=== PATIENT | female | born 1960 | race Two or more races ===

== ENCOUNTER 2024-07-16 16:37 | Emergency (ER) | payer MEDICARE, MEDICAID, SELFPAY ==
[2024-07-16 16:38] VITALS: BMI 26.8
[2024-07-16 16:49] VITALS: BP 154/89; PULSE 92; RESP 18; TEMP 37; O2SAT 95
--- NOTE | 2024-07-16 17:53 | XR_ITS ---
Examination: Duplex scan of the lower extremity, unilateral left complete Date and time of exam: July 16, 2024 at 1854 hrs. Indications: Onset left calf pain beginning 2 weeks ago Technique: Duplex scan of the extremity veins using B-mode/grayscale imaging and Doppler spectral analysis and color flow Attention is directed to internal echogenicity, compression and augmentation involving these veins, color flow assessment, spectral analysis Findings: Major deep venous structures in the extremity demonstrate normal course and caliber. There is no evidence of deep vein thrombosis. Normal color flow and spectral analysis Impression: Negative for DVT..
--- NOTE | 2024-07-16 17:55 | XR_ITS ---
Examination: Tibia-Fibula, left , 2 views Technique: Tibia-fibula AP lateral 2 views Date and time of exam: July 16, 2024 1803 hrs. Indications: Lower leg pain beginning today Findings: Moderate osteopenia No fracture No dislocation No cortical bone destruction No foreign body Impression: No fracture or cortical bone destruction
--- NOTE | 2024-07-16 17:55 | PD.EDRME ---
Rapid Medical Screening Exam RME Arrival date/time: 07/16/24 16:37 This is a 64-year-old female presents to the emergency department with complaints of left lower extremity pain. Patient reports she has been having calf pain leg pain for approximate 3 days. I have greeted and performed a focused initial assessment of this patient. Initial appropriate labs ordered at this time. A comprehensive ED assessment and evaluation of the patient and analysis of all test and completion of medical decision making process will be conducted by additional ED provider. Chief Complaint: Back Pain/Injury Time Seen by Provider: 07/16/24 17:32 Vital signs: Vital Signs Temperature 98.6 F 07/16/24 16:49 Pulse Rate 92 07/16/24 16:49 Respiratory Rate 18 07/16/24 16:49 Blood Pressure 154/89 H 07/16/24 16:49 Pulse Oximetry (%) 95 07/16/24 16:49 Oxygen Delivery Method Room Air 07/16/24 16:49
[2024-07-16] MEDS: KETOROLAC INJ 60 MG/2 ML VIAL 30 MG IM (19:45)
[2024-07-16 19:47] LABS: Basophils % (Auto) 0 % (0-2.5); Eosinophils # (Auto) 0.2 Thou/mm3 (0.0-0.5); Eosinophils % (Auto) 2 % (0-10); Hematocrit 37.5 % (36.0-46.0); Immature Granulocytes % (Auto) 1 % (0-0); Immature Granulocytes Auto 0.09 Thou/mm3 (0.00-0.00); Lymphocytes # (Auto) 3.6 Thou/mm3 (1.0-4.8); Lymphocytes % (Auto) 35 % (10-50); Mean Corpuscular HGB Conc 34.7 g/dl (31.0-37.0); Mean Corpuscular Hemoglobin 29.3 pg (25.0-35.0); Mean Corpuscular Volume 85 fL (80-100); Monocytes # (Auto) 0.8 Thou/mm3 (0.0-0.8); Monocytes % (Auto) 8 % (0-12); Neutrophils # (Auto) 5.5 Thou/mm3 (1.8-7.7); Neutrophils % (Auto) 54 % (37-80); Nucleated Red Blood Cell % 0 /100 WBC (0); Platelet Count 339 Thou/mm3 (140-440); RDW Standard Deviation 41.5 fL (36.4-46.3); Red Blood Count 4.43 Miln/mm3 (4.00-5.20); White Blood Count 10.2 Thou/mm3 (3.6-11.0)
[2024-07-16 19:48] LABS: Prothrombin Time 10.9 Seconds (9.0-12.2)
--- NOTE | 2024-07-16 19:51 | PD.EDBACK ---
ED Back Injury Pain RME/HPI General Chief Complaint: Back Pain/Injury Stated Complaint: LOWER BACK PAIN AND LLE PAIN X1 WEEK Time Seen by Provider: 07/16/24 17:32 Arrival date/time: 07/16/24 16:37 RME / HPI RME / HPI Narrative: 07/16/24 16:37 This is a 64-year-old female presents to the emergency department with complaints of left lower extremity pain. Patient reports she has been having calf pain leg pain for approximate 3 days. I have greeted and performed a focused initial assessment of this patient. Initial appropriate labs ordered at this time. A comprehensive ED assessment and evaluation of the patient and analysis of all test and completion of medical decision making process will be conducted by additional ED provider. ----- Dr. Padilla?s Main ED Evaluation: Related Data Home Medications ?Medication ?Instructions ?Recorded ?Confirmed atenolol 50 mg tablet 50 mg PO QDAY 05/09/19 05/09/19 levothyroxine 175 mcg tablet 175 mcg PO QDAY 05/09/19 05/09/19 metformin 500 mg tablet 500 mg PO DAILY 05/09/19 05/09/19 naproxen 500 mg tablet 500 mg PO DAILY 05/09/19 05/09/19 omeprazole 20 mg tablet,delayed 20 mg PO QDAY 05/09/19 05/09/19 release sertraline 50 mg tablet 50 mg PO QDAY 05/09/19 05/09/19 Previous Rx's ?Medication ?Instructions ?Recorded levothyroxine 150 mcg capsule 150 mcg PO QDAY #30 caps 03/05/21 Allergies Allergy/AdvReac Type Severity Reaction Status Date / Time codeine Allergy Severe DELUSIONS Verified 07/16/24 16:40 Review of Systems Review of Systems Systems Reviewed: All systems reviewed, normal except as documented Narrative Review of Systems: Gen: No fever, no chills, no weight loss EYES: No discharge, no visual changes, no pain HEENT: No ear pain, no congestion, no sore throat PULM: No shortness of breath, no cough, no congestion CV: No chest pain, no dyspnea on exertion, no palpitations GI: No nausea, no vomiting, no diarrhea, no pain, no constipation : No frequency, no urgency, no dysuria Musc/skel: No joint pain, no back pain Skin: No rash. Warm and dry. Psyc: No hallucinations, no depression Heme/Lymph: No easy bleeding or bruising tendencies Neuro: No weakness, no headache Past Medical History Past Medical History CARDIAC: Positive Cardiac Disorders, Hypercholesterolemia and Hypertension; Negative Congestive Heart Failure RESPIRATORY: Negative Chronic Obstructive Pulmonary Disease (COPD) GENITOURINARY: Negative Renal Disease ENDOCRINE: Positive Diabetes Mellitus Type 2 and Hypothyroidism; Negative Diabetes Mellitus Type 1 PSYCHO/SOCIAL: Positive Depression OTHER HISTORY: Positive Cancer (THYROID) Social History SMOKING STATUS: Never smoker SUBSTANCE USE: does not use ED Exam Narrative Physical exam: GENERAL APPEARANCE: alert and oriented x 4, well-developed, well-nourished, no acute distress VITALS: All vitals were reviewed and the pulse ox is 95% on room air, which is normal according to my interpretation. HEENT: Normocephalic, atraumatic; pupils equal, round, reactive to light; EOMI; mucous membranes pink, moist; oropharynx clear NECK: Supple LUNGS: CTABL; no wheezes, no rales, no rhonchi HEART: Regular rate, regular rhythm; normal S1, S2; no murmurs ABDOMEN: non distended; normal BS; soft, no tenderness, no guarding, no rebound; no masses, no organomegaly, no hernia BACK: no CVA tenderness EXTREMITIES: atraumatic; no edema NEUROLOGIC: awake; alert and oriented x4; cranial nerves II-XII grossly intact; no focal sensory or motor deficits PSYCHIATRIC: appropriate mood and affect SKIN: warm, dry, normal color; no rashes Course Quality Measures none Orders Category Date Time Status US venous duplex LE LT Stat Exams 07/16/24 17:53 Completed XR tibia fibula LT 2V Stat Exams 07/16/24 17:55 Completed CBC Stat Lab 07/16/24 19:24 Received PT [Prothrombin Time with INR] Stat Lab 07/16/24 19:24 Completed Ketorolac Inj [Toradol Inj] Med 07/16/24 17:54 Discontinued 30 mg IM X1 ONE traMADol HCL [Ultram] Med 07/16/24 17:53 Active 50 mg PO Q4HR PRN Vital Signs Vital signs: Vital Signs Temperature 98.6 F 07/16/24 16:49 Pulse Rate 92 07/16/24 16:49 Respiratory Rate 18 07/16/24 16:49 Blood Pressure 154/89 H 07/16/24 16:49 Pulse Oximetry (%) 95 07/16/24 16:49 Oxygen Delivery Method Room Air 07/16/24 16:49 Back Pain / Injury MDM Narrative MDM Narrative:: Scribe Attestation: 07/16/24 - Chioma Barba am scribing for and in the presence of Dr. Padilla. Patient data External records reviewed:: [facility] previous records (Per chart review, patient was seen here on 03/05/21 for anxiety.) Clinical information provided by:: patient Social determinants that could affect healthcare access:: none Patient has the following chronic illnesses:: HTN, HLD, depression, DM How is presenting disease/condition affected by chronic disease/condition?: uneffected by Evaluation data The following diagnostics were reviewed and interpreted by me:: lab results and radiology exam(s) Lab and/or radiology exams considered but not ordered:: none Interpretation Summary: Potassium is slightly low at 3.2, Glucose is elevated at 266, troponin is normal, TSH is low at 0.07, T4 is elevated at 2.05, according to my interpretation. -------- [facility] Report Signed Patient: JOSE RAMON WATT [employer]. Record#: [id number] Birthdate: 1960 Age/Sex: 64 / F Location: [facility] Attending Dr: Ordering Physician: Sabrina Carlson Date of Service: 07/16/24 Procedure(s): XR tibia fibula LT 2V Accession Number(s): [id number] cc: Rocky Polk PA-C; Hemant Rico MD; Sabrina Carlson~ Examination: Tibia-Fibula, left , 2 views Technique: Tibia-fibula AP lateral 2 views Date and time of exam: July 16, 2024 1803 hrs. Indications: Lower leg pain beginning today Findings: Moderate osteopenia No fracture No dislocation No cortical bone destruction No foreign body Impression: No fracture or cortical bone destruction Dictated By: Hemant Rico MD Signed By: <Electronically signed by Hemant Rico MD in OV> 07/16/241920 [facility] Report Signed Patient: JOSE RAMON WATT [employer]. Record#: [id number] Birthdate: 1960 Age/Sex: 64 / F Location: [facility] Attending Dr: Ordering Physician: Sabrina Carlson Date of Service: 07/16/24 Procedure(s): US venous duplex LE LT Accession Number(s): [id number] cc: Rocky Polk PA-C; Hemant Rico MD; Sabrina Carlson~ Examination: Duplex scan of the lower extremity, unilateral left complete Date and time of exam: July 16, 2024 at 1854 hrs. Indications: Onset left calf pain beginning 2 weeks ago Technique: Duplex scan of the extremity veins using B-mode/grayscale imaging and Doppler spectral analysis and color flow Attention is directed to internal echogenicity, compression and augmentation involving these veins, color flow assessment, spectral analysis Findings: Major deep venous structures in the extremity demonstrate normal course and caliber. There is no evidence of deep vein thrombosis. Normal color flow and spectral analysis Impression: Negative for DVT.. Dictated By: Hemant Rico MD Signed By: <Electronically signed by Hemant Rico MD in OV> 07/16/24 1920 Medications / Prescriptions Medications or Prescriptions considered but not ordered:: none Medication administrations:: Medication Administration History Tramadol HCl (Tramadol Hcl 50 Mg Tablet) 50 mg PO Q4HR PRN PRN Reason: PAIN Stop: 07/21/24 17:52 Discontinued Medications Ketorolac Tromethamine (Ketorolac Inj 60 Mg/2 Ml Vial) 30 mg IM X1 ONE Stop: 07/16/24 17:55 Last Admin: 07/16/24 19:45 Dose: 30 mg Documented By: KF see above Discharge Plan Prescriptions/Referrals Prescriptions/Med Rec: No Action metformin 500 mg Tablet 500 mg PO DAILY levothyroxine 175 mcg Tablet 175 mcg PO QDAY sertraline 50 mg Tablet 50 mg PO QDAY atenolol 50 mg Tablet 50 mg PO QDAY naproxen 500 mg Tablet 500 mg PO DAILY omeprazole 20 mg Tablet,Delayed Release (Dr/Ec) 20 mg PO QDAY levothyroxine 150 mcg capsule 150 mcg PO QDAY Qty: 30 0RF Referrals: Rocky Polk PA-C [Primary Care Provider] - In 1 week Patient/Caregiver Discharge Instructions Print Language: Serbian
[2024-07-16 20:15] VITALS: BP 158/79; PULSE 80; RESP 18; TEMP 36.9; O2SAT 95
--- NOTE | 2024-07-16 20:34 | EDNOTE_ITS ---
ED Back Injury Pain RME/HPI General Chief Complaint: Back Pain/Injury Stated Complaint: LOWER BACK PAIN AND LLE PAIN X1 WEEK Time Seen by Provider: 07/16/24 17:32 Arrival date/time: 07/16/24 16:37 RME / HPI RME / HPI Narrative: 64-year-old female patient came in for evaluation regarding left posterior lateral leg tenderness, described as burning-like sensation, severity moderate this been ongoing for at least 1 week. Patient also complaining of low back pain. Denies any urinary or bladder incontinence. Patient is ambulatory. No medication was taken prior to arrival Related Data Home Medications ?Medication ?Instructions ?Recorded ?Confirmed atenolol 50 mg tablet 50 mg PO QDAY 05/09/19 05/09/19 levothyroxine 175 mcg tablet 175 mcg PO QDAY 05/09/19 05/09/19 metformin 500 mg tablet 500 mg PO DAILY 05/09/19 05/09/19 naproxen 500 mg tablet 500 mg PO DAILY 05/09/19 05/09/19 omeprazole 20 mg tablet,delayed 20 mg PO QDAY 05/09/19 05/09/19 release sertraline 50 mg tablet 50 mg PO QDAY 05/09/19 05/09/19 Previous Rx's ?Medication ?Instructions ?Recorded levothyroxine 150 mcg capsule 150 mcg PO QDAY #30 caps 03/05/21 ketorolac 10 mg tablet 10 mg PO TID PRN pain 7 days #20 07/16/24 tabs Allergies Allergy/AdvReac Type Severity Reaction Status Date / Time codeine Allergy Severe DELUSIONS Verified 07/16/24 16:40 Review of Systems Review of Systems Narrative Review of Systems: Review of system reviewed and within normal limits except mentioned in HPI ED Exam Narrative Physical exam: VITAL SIGNS: Reviewed. GENERAL APPEARANCE: Alert and interactive, follows commands, no acute distress, HEAD AND FACE: Non-traumatic. ENT: PERRL, pink conjunctivitis, eyelid no trauma, Mucous membrane moist. NECK: Supple, nontender, no nuchal rigidity. CHEST: No tenderness, no crepitus, no paradoxical movement, no retractions. LUNGS: Clear, well ventilated, symmetric, no rales, no wheezing, no ronchi, no stridor, good breath sounds bilaterally. HEART: Regular rate, regular rhythm, no murmur, no gallops. ABDOMEN: Soft, positive bowel sounds, nondistended, no guarding, nontender, no rebound, no masses, RECTAL: Deferred. GENITAL: Deferred. NEUROLOGICAL: Gross motor function intact sensory function intact, Appropriate for age. MUSCULOSKELETAL: low back tenderness, full range of motion. EXTREMITIES: Tenderness to the left posterior lateral aspect of the lower leg, positive straight leg raising test at 45 degrees on the left, full range of motion. SKIN: Color pink, dry, no rash, no lacerations, no abrasions, no contusions. LYMPHATICS: Deferred. Course Quality Measures none Orders Category Date Time Status US venous duplex LE LT Stat Exams 07/16/24 17:53 Completed XR tibia fibula LT 2V Stat Exams 07/16/24 17:55 Completed CBC Stat Lab 07/16/24 19:24 Completed PT [Prothrombin Time with INR] Stat Lab 07/16/24 19:24 Completed Ketorolac Inj [Toradol Inj] Med 07/16/24 17:54 Discontinued 30 mg IM X1 ONE traMADol HCL [Ultram] Med 07/16/24 17:53 Active 50 mg PO Q4HR PRN Vital Signs Vital signs: Vital Signs Temperature 98.6 F 07/16/24 16:49 Pulse Rate 92 07/16/24 16:49 Respiratory Rate 18 07/16/24 16:49 Blood Pressure 154/89 H 07/16/24 16:49 Pulse Oximetry (%) 95 07/16/24 16:49 Oxygen Delivery Method Room Air 07/16/24 16:49 Back Pain / Injury MDM Narrative MDM Narrative:: 64-year-old female patient came in for evaluation regarding left posterior lateral leg tenderness, described as burning-like sensation, severity moderate this been ongoing for at least 1 week. Patient also complaining of low back pain. Denies any urinary or bladder incontinence. Patient is ambulatory. No medication was taken prior to arrival Ultrasound of the leg is negative for acute pathology. No DVT, x-ray of the leg also came back unremarkable. The rest of the labs unremarkable. Patient data External records reviewed:: None Clinical information provided by:: patient Social determinants that could affect healthcare access:: none Patient has the following chronic illnesses:: None How is presenting disease/condition affected by chronic disease/condition?: no chronic disease Evaluation data The following diagnostics were reviewed and interpreted by me:: lab results and radiology exam(s) Lab and/or radiology exams considered but not ordered:: None Interpretation Summary: Patient's workup all came back normal. Ultrasound of the leg is negative for DVT, x-ray of the leg came back unremarkable. Results discussed with the patient. Medications / Prescriptions Medications or Prescriptions considered but not ordered:: None Medication administrations:: Medication Administration History Tramadol HCl (Tramadol Hcl 50 Mg Tablet) 50 mg PO Q4HR PRN PRN Reason: PAIN Stop: 07/21/24 17:52 Discontinued Medications Ketorolac Tromethamine (Ketorolac Inj 60 Mg/2 Ml Vial) 30 mg IM X1 ONE Stop: 07/16/24 17:55 Last Admin: 07/16/24 19:45 Dose: 30 mg Documented By: LUDIVINA Toradol IM Consultations Consultation(s) initiated? (list below): No Consultation #1 (Physician, Specialty, Details): None Diagnosis Differential diagnosis back pain/injury: lumbar radiculopathy, sciatica and other (Leg pain, DVT) Most likely diagnosis given after review of the tests above:: Sciatica Admission Indicated Admission indicated?: not indicated Explain why admission is indicated or not indicated:: Stable Admission Request Was there a request for admission?: No Disposition Plan Disposition Plan: Discharge Discharge Attestation Discharge Attestation: The patient was given an opportunity to ask questions and understood the discharge instructions. Discharge instructions specifically effects, indications for sooner follow up or return to the emergency department, and the expected course of current diagnosis. Patient condition: Stable Discharge Plan Plan Patient Disposition: HOME (Self Care) Disposition Comment: Stable Prescriptions/Referrals Prescriptions/Med Rec: New ketorolac 10 mg tablet 10 mg PO TID PRN (Reason: pain) 7 Days Qty: 20 0RF No Action metformin 500 mg Tablet 500 mg PO DAILY levothyroxine 175 mcg Tablet 175 mcg PO QDAY sertraline 50 mg Tablet 50 mg PO QDAY atenolol 50 mg Tablet 50 mg PO QDAY naproxen 500 mg Tablet 500 mg PO DAILY omeprazole 20 mg Tablet,Delayed Release (Dr/Ec) 20 mg PO QDAY levothyroxine 150 mcg capsule 150 mcg PO QDAY Qty: 30 0RF Referrals: Rocky Polk PA-C [Primary Care Provider] - In 1 week Problem List Clinical Impression: Sciatica Patient/Caregiver Discharge Instructions Discharge Activity: activity as tolerated Education Materials: ED Sciatica Additional Instructions: Thank you for the opportunity for serving you today. You are stable for discharged . You are advised to: Follow-up with your PCP in 1 to 2 days as your PCP to refer you to a spine surgeon Return to ED for worsening of symptoms Increase oral fluids Take medication as prescribed Print Language: [place] Stand Alone Forms: Any Award Info., Patient Portal Info Letter PA/PIPE LINE WALKER Supervising Physician PA/PIPE LINE WALKER Supervising Physician: MD Randy
== END 2024-07-16 20:42 | disposition home or self-care (01) ==
PROVIDERS: Nurse Practitioner Primary Care; Emergency Provider Emergency Medicine; PCP Physician Assistant
DX: M54.42 Lumbago with sciatica, left side (principal)
CPT/HCPCS: 36415; 73590; 85025; 85610; 93971; 96372; 99284; J1885

== ENCOUNTER 2024-08-31 13:47 | Emergency (ER) | payer MEDICARE, MEDICAID, SELFPAY ==
[2024-08-31] VITALS (8 sets, daily range): BP systolic 98–146; BP diastolic 63–87; PULSE 63–71; RESP 13–20; TEMP 36.6–36.8; O2SAT 94–99; BMI 25.6
--- NOTE | 2024-08-31 14:22 | EKG_ITS ---
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
--- NOTE | 2024-08-31 14:22 | XR_ITS ---
Examination: AP lateral chest 2 views TECHNIQUE: AP upright lateral chest 2 views Exam date and time: August 31, 2024 1430 hours INDICATIONS: Chest pain beginning 2 days ago. FINDINGS: Minor subsegmental atelectasis left midlung Normal heart size No pneumonia or pulmonary edema The osseous structures are intact IMPRESSION: No pneumonia or pulmonary edema
--- NOTE | 2024-08-31 14:23 | PD.EDRME ---
Rapid Medical Screening Exam RME Arrival date/time: 08/31/24 13:47 64-year-old female presents to the emergency department complaints of chest pain Chief Complaint: Chest Pain Vital signs: Vital Signs Temperature 98.3 F 08/31/24 14:06 Pulse Rate 70 08/31/24 14:06 Respiratory Rate 18 08/31/24 14:06 Blood Pressure 98/63 08/31/24 14:06 Pulse Oximetry (%) 96 08/31/24 14:06 Oxygen Delivery Method Room Air 08/31/24 14:06
[2024-08-31 15:50] LABS: Basophils % (Auto) 0 % (0-2.5); Eosinophils # (Auto) 0.1 Thou/mm3 (0.0-0.5); Eosinophils % (Auto) 1 % (0-10); Hematocrit 40.8 % (36.0-46.0); Hemoglobin 14.7 g/dL (12.0-16.0); Immature Granulocytes % (Auto) 1 % (0-0); Immature Granulocytes Auto 0.12 Thou/mm3 (0.00-0.00); Lymphocytes # (Auto) 3.1 Thou/mm3 (1.0-4.8); Lymphocytes % (Auto) 31 % (10-50); Mean Corpuscular Hemoglobin 29.8 pg (25.0-35.0); Mean Corpuscular Volume 83 fL (80-100); Monocytes # (Auto) 0.9 Thou/mm3 (0.0-0.8); Monocytes % (Auto) 9 % (0-12); Neutrophils # (Auto) 5.7 Thou/mm3 (1.8-7.7); Neutrophils % (Auto) 57 % (37-80); Nucleated Red Blood Cell % 0 /100 WBC (0); Platelet Count 475 Thou/mm3 (140-440); RDW Standard Deviation 39.7 fL (36.4-46.3); Red Blood Count 4.94 Miln/mm3 (4.00-5.20)
[2024-08-31 16:08] LABS: Alanine Aminotransferase 28 U/L (10-49); Albumin, Serum 4.6 gm/dL (3.4-4.8); Albumin/Globulin Ratio 1.4 (1.2-2.2); Alkaline Phosphatase 83 U/L (46-116); Anion Gap 6 (7-16); Aspartate Amino Transferase 19 U/L (0-34); BUN/Creatinine Ratio 20 Ratio (12-20); Bilirubin,Total 0.7 mg/dL (0.3-1.2); Blood Urea Nitrogen 14 mg/dL (9-23); Calcium 10.1 mg/dL (8.3-10.6); Calcium (Corrected) 10.1 mg/dL (8.5-10.1); Carbon Dioxide 26.6 mMol/L (20.0-31.0); Chloride 89 mMol/L (98-107); Creatinine (Component) 0.7 mg/dL (0.6-1.3); Globulin 3.3 gm/dL (2.3-3.5); Glucose 128 mg/dL (74-106); Osmolality,Calculated 248 (275-295); Potassium 3.3 mMol/L (3.4-5.1); Sodium 122 mMol/L (136-145); Total Protein 7.9 gm/dL (5.7-8.2); Troponin I < 0.002 ng/mL (0.0-0.045); eGFR > 60 See Note
[2024-08-31 16:13] LABS: B-Type Natriuretic Peptide < 20 pg/mL (0-100)
--- NOTE | 2024-08-31 20:39 | PD.EDCHEST ---
ED Chest Pain RME/HPI General Chief Complaint: Chest Pain Stated Complaint: WEAKNESS X 1 WK W/ CHEST PRESSURE X 2 WKS Time Seen by Provider: 08/31/24 19:24 Arrival date/time: 08/31/24 13:47 RME / HPI RME / HPI narrative: 08/31/24 13:47 64-year-old female presents to the emergency department complaints of chest pain This section includes all my notes and documentations, including HPI, PE, and ED course. Eder Fields MD HPI: 64yo female with a history of HTN, DM accompanied by her daughter presents to the ED for a chief complaint of left-sided chest pain x several days. Patient states her pain radiates to her back, describing it as pressure in nature. She reports an associated mild cough. She denies any fever, chills, shortness of breath or any other associated symptoms. Reports increased anxiety and nerves. No other complaints reported. ROS: All negative except as documented in HPI. Physical Exam: General: Alert and oriented. Appears anxious. Eyes: Conjunctivae and lids clear. ENT: No nasal congestion. Neck: Supple. Heart: RRR. Lungs: No respiratory distress. Good air movement. No rhonchi, wheezing, rales. Chest: Palpation of the anterior chest left of the sternum reproduces her pain. Abdomen: Soft and nontender. Legs: No clubbing, cyanosis, edema. Skin: Warm and dry. Neuro: Alert and oriented X 3. I reviewed all diagnostic test results. My interpretation of the EKG is sinus rhythm with no acute ST?T changes. My interpretation of the chest x-ray is no acute findings. Blood tests and urine tests remarkable for K3.3 and equivocal UTI. At this point, diagnoses include chest wall pain versus anxiety chest pain. Treatment here included Potassium, Zofran, Morphine, Toradol, and NS. Significant improvement noted. Recommended more outpatient workup. Based on my best medical judgment, made decision no further evaluation or treatment indicated at this time. Patient understands and agrees to the discharge instructions customized and printed, see below. Discharge instructions from Dr. Fields: 1. After extensive evaluation, there is no life-threatening condition.? Such as heart attack or pulmonary embolism (blood clots in your lungs) or pneumothorax (collapsed lung). 2. Your symptoms may be due to underlying stress or anxiety or nerves.? This is fairly common. Your pain can be originating from the chest wall and not from an internal organ.? The chest wall has many joints and muscles between the ribs, so sprains and strains are common.?? Apply ice or heat if helpful.? Tylenol/ibuprofen as needed. 3. Take Xanax as needed for anxiety or nerves.? Whether this helps or not will be valuable information to your private doctors. And cefdinir for possible UTI, until urine culture returns. 4. See a private doctor on 09/01/2024 for recheck and further care. Ask to review all test results and official radiology reports, to make sure you receive all necessary follow-ups and monitoring. To make sure there is no serious underlying heart condition, ask to help you get more tests for your heart that cannot be done here in the ER.? Such as Holter Monitor (cardiac monitoring at home from a day to even a month), heart stress test (on treadmill or with medication), echocardiogram (imaging of your heart structures), heart catherization (checking for blockages in your heart arteries), and a referral to see a Retirement Actuary. 5. Seek immediate medical care with worsening or with any concerns.?? Eder Fields MD Related Data Home Medications ?Medication ?Instructions ?Recorded ?Confirmed atenolol 50 mg tablet 50 mg PO QDAY 05/09/19 05/09/19 levothyroxine 175 mcg tablet 175 mcg PO QDAY 05/09/19 05/09/19 metformin 500 mg tablet 500 mg PO DAILY 05/09/19 05/09/19 naproxen 500 mg tablet 500 mg PO DAILY 05/09/19 05/09/19 omeprazole 20 mg tablet,delayed 20 mg PO QDAY 05/09/19 05/09/19 release sertraline 50 mg tablet 50 mg PO QDAY 05/09/19 05/09/19 Previous Rx's ?Medication ?Instructions ?Recorded levothyroxine 150 mcg capsule 150 mcg PO QDAY #30 caps 03/05/21 alprazolam 0.5 mg tablet (Xanax) 0.5 mg PO BID PRN anxiety #10 tabs 08/31/24 cefdinir 300 mg capsule 300 mg PO BID #14 caps 08/31/24 Allergies Allergy/AdvReac Type Severity Reaction Status Date / Time codeine Allergy Severe DELUSIONS Verified 07/16/24 16:40 Review of Systems Review of Systems Systems Reviewed: All systems reviewed, normal except as documented Past Medical History Past Medical History CARDIAC: Positive Cardiac Disorders, Hypercholesterolemia and Hypertension; Negative Congestive Heart Failure RESPIRATORY: Negative Chronic Obstructive Pulmonary Disease (COPD) GENITOURINARY: Negative Renal Disease ENDOCRINE: Positive Diabetes Mellitus Type 2 and Hypothyroidism; Negative Diabetes Mellitus Type 1 PSYCHO/SOCIAL: Positive Depression OTHER HISTORY: Positive Cancer (THYROID) Social History SMOKING STATUS: Never smoker SUBSTANCE USE: does not use ED Exam Narrative Physical exam: As noted in HPI. Course Course Course Narrative: CXR is ordered for determining the etiology of chest pain. Quality Measures none Orders Category Date Time Status Bedside COVID-19 Antigen Test NOW Care 08/31/24 21:54 Active Bedside Influenza A&B Antigen Test NOW Care 08/31/24 21:[address] Screening NOW Care 08/31/24 20:40 Active EKG (ED ONLY) *Do not use* NOW Care 08/31/24 14:22 Completed Saline [Insert IV] NOW Care 08/31/24 20:39 Active EKG (ED Only) Stat Exams 08/31/24 14:22 Draft XR chest 2V Stat Exams 08/31/24 14:22 Completed B-Type Natriuretic Peptide Stat Lab 08/31/24 15:11 Completed CBC Stat Lab 08/31/24 15:11 Completed Comprehensive Metabolic Panel Stat Lab 08/31/24 15:11 Completed D-Dimer Stat Lab 08/31/24 21:13 Completed Troponin I Stat Lab 08/31/24 15:11 Completed Urinalysis Stat Lab 08/31/24 23:18 Completed Urine Culture Stat Lab 08/31/24 23:42 Ordered KCL 10% Liq UDC 15 ML Med 08/31/24 20:41 Discontinued 20 meq PO X1 ONE Ketorolac Inj [Toradol Inj] Med 08/31/24 20:39 Discontinued 30 mg IVP X1 ONE Morphine Inj Med 08/31/24 20:39 Discontinued 4 mg IVP X1 ONE Ondansetron Inj [Zofran Inj] Med 08/31/24 20:39 Discontinued 4 mg IV X1 ONE Sodium Chloride 0.9% 1000 ml [Ns] 1,000 ml Med 08/31/24 21:54 Discontinued IV 999 mls/hr Vital Signs Vital signs: Vital Signs Temperature 98.3 F 08/31/24 14:06 Pulse Rate 70 08/31/24 14:06 Respiratory Rate 18 08/31/24 14:06 Blood Pressure 98/63 08/31/24 14:06 Pulse Oximetry (%) 96 08/31/24 14:06 Oxygen Delivery Method Room Air 08/31/24 14:06 Chest Pain MDM Narrative MDM Narrative:: Scribe Attestation: 08/31/24 - Freda, Chioma Villagomez am scribing for and in the presence of Dr. Fields. Patient data External records reviewed:: [facility] previous records (Per chart review, patient was seen here on 07/16/24 for sciatica.) Clinical information provided by:: patient Social determinants that could affect healthcare access:: none Patient has the following chronic illnesses:: HTN, DM How is presenting disease/condition affected by chronic disease/condition?: uneffected by Evaluation data The following diagnostics were reviewed and interpreted by me:: lab results and EKG tracing(s) Lab and/or radiology exams considered but not ordered:: none Interpretation Summary: Normal diagnostics Medications / Prescriptions Medications or Prescriptions considered but not ordered:: none Medication administrations:: Medication Administration History Discontinued Medications Sodium Chloride (Ns) 1,000 mls @ 999 mls/hr IV .Q1H1M ONE Stop: 08/31/24 22:54 Last Admin: 08/31/24 22:03 Dose: 999 mls/hr Documented By: AMELIE Ketorolac Tromethamine (Ketorolac Inj 30 Mg/Ml Vial) 30 mg IVP X1 ONE Stop: 08/31/24 20:40 Last Admin: 08/31/24 21:09 Dose: 30 mg Documented By: AMELIE Morphine Sulfate (Morphine Sulf Inj 10 Mg/Ml Vial) 4 mg IVP X1 ONE Stop: 08/31/24 20:40 Last Admin: 08/31/24 21:08 Dose: 4 mg Documented By: AMELIE Ondansetron HCl (Ondansetron Inj 2 Mg/Ml Inj 2 Ml) 4 mg IV X1 ONE; Protocol Stop: 08/31/24 20:40 Last Admin: 08/31/24 21:09 Dose: 4 mg Documented By: AMELIE Potassium Chloride (Potassium Chloride 10% 20 Meq/15 Ml c) 20 meq PO X1 ONE Stop: 08/31/24 20:42 Last Admin: 08/31/24 21:09 Dose: 20 meq Documented By: KD Potassium, Zofran, Morphine, Toradol, NS Consultations Consultation(s) initiated? (list below): No Diagnosis Chest Pain Differential Diagnosis: pneumothorax, stable angina, unstable angina pectoris, st elevation myocardial infarction, costochondritis and chest pain Most likely diagnosis given after review of the tests above:: Chest wall pain versus anxiety chest pain Admission Indicated Admission indicated?: not indicated Explain why admission is indicated or not indicated:: Admission criteria not met. Admission Request Was there a request for admission?: No Disposition Plan Disposition Plan: Discharge Discharge Attestation Discharge Attestation: The patient and all family members were given an opportunity to ask questions and understood the discharge instructions. Discharge instructions specifically effects, indications for sooner follow up or return to the emergency department, and the expected course of current diagnosis. Patient condition: Stable Discharge Plan Plan Patient Disposition: HOME (Self Care) Prescriptions/Referrals Prescriptions/Med Rec: New alprazolam [Xanax] 0.5 mg tablet 0.5 mg PO BID PRN (Reason: anxiety) Qty: 10 0RF cefdinir 300 mg capsule 300 mg PO BID Qty: 14 0RF No Action metformin 500 mg Tablet 500 mg PO DAILY levothyroxine 175 mcg Tablet 175 mcg PO QDAY sertraline 50 mg Tablet 50 mg PO QDAY atenolol 50 mg Tablet 50 mg PO QDAY naproxen 500 mg Tablet 500 mg PO DAILY omeprazole 20 mg Tablet,Delayed Release (Dr/Ec) 20 mg PO QDAY levothyroxine 150 mcg capsule 150 mcg PO QDAY Qty: 30 0RF Referrals: Rocky Polk PA-C [Primary Care Provider] - In 1 week Problem List Clinical Impression: Chest pain Patient/Caregiver Discharge Instructions Discharge Activity: activity as tolerated Education Materials: ED Anxiety Reaction, ED Chest Pain, Uncertain Cause Additional Instructions: Discharge instructions from Dr. Fields: 1. After extensive evaluation, there is no life-threatening condition.? Such as heart attack or pulmonary embolism (blood clots in your lungs) or pneumothorax (collapsed lung). 2. Your symptoms may be due to underlying stress or anxiety or nerves.? This is fairly common. Your pain can be originating from the chest wall and not from an internal organ.? The chest wall has many joints and muscles between the ribs, so sprains and strains are common.?? Apply ice or heat if helpful.? Tylenol/ibuprofen as needed. 3. Take Xanax as needed for anxiety or nerves.? Whether this helps or not will be valuable information to your private doctors. 4. See a private doctor on 09/01/2024 for recheck and further care. Ask to review all test results and official radiology reports, to make sure you receive all necessary follow-ups and monitoring. To make sure there is no serious underlying heart condition, ask to help you get more tests for your heart that cannot be done here in the ER.? Such as Holter Monitor (cardiac monitoring at home from a day to even a month), heart stress test (on treadmill or with medication), echocardiogram (imaging of your heart structures), heart catherization (checking for blockages in your heart arteries), and a referral to see a Retirement Actuary. 5. Seek immediate medical care with worsening or with any concerns.?? Instrucciones de alice del Dr. Fields: 1. Despu?s de opal evaluaci?n exhaustiva, no hay ninguna afecci?n que ponga en peligro la subha, donnie un ataque card?aco o opal embolia pulmonar (co?gulos de dea en los pulmones) o un neumot?rax (colapso pulmonar). 2. Azael s?ntomas pueden deberse a estr?s, ansiedad o nervios subyacentes. [place] es bastante com?n. Marino dolor puede tener marino origen en la pared tor?cica y no en un ?rgano interno. La pared tor?cica tiene muchas articulaciones y m?sculos entre las costillas, por lo que los esguinces y las distensiones son comunes. Aplique hielo o calor si es ?til. Tylenol/ibuprofeno seg?n sea necesario. 3. [place] Xanax seg?n sea necesario para la ansiedad o los nervios. Si esto ayuda o no, ser? opal informaci?n valiosa para azael m?dicos privados. 4. Visite a un m?dico privado el 06/21/2025 para volver a realizar un control y recibir m?s atenci?n. Pida que le revisen todos los resultados de las pruebas y los informes oficiales de radiolog?a para asegurarse de que recibe todos los seguimientos y la monitorizaci?n necesarios. Para asegurarse de que no haya opal afecci?n card?mauricio subyacente grave, solicite ayuda para obtener m?s pruebas para marino coraz?n que no se pueden realizar aqu? en la ashlee de emergencias. Donnie el monitor Holter (monitoreo card?aco en el hogar desde un d?a hasta incluso un mes), prueba de esfuerzo card?aco (en cinta o con medicaci?n), ecocardiograma (im?genes de las estructuras de marino coraz?n), cateterismo card?aco (verificaci?n de bloqueos en las arterias de marino coraz?n) y opal derivaci?n para desirae a un cardi?logo. 5. Busque atenci?n m?dica inmediata si empeora o tiene alguna inquietud. Print Language: Yoruba Stand Alone Forms: Any Award Info., Patient Portal Info Letter
[2024-08-31] MEDS: MORPHINE SULF INJ 10 MG/ML VIAL 4 MG IVP (21:08)
[2024-08-31] MEDS: KETOROLAC INJ 30 MG/ML VIAL IVP (21:09)
[2024-08-31] MEDS: POTASSIUM CHLORIDE 10% 20 MEQ/15 ML UDC PO (21:09)
[2024-08-31] MEDS: ONDANSETRON INJ 2 MG/ML INJ 2 ML 4 MG IV (21:09)
[2024-08-31 21:44] LABS: D-Dimer < 250 ng/mL (<600)
[2024-08-31] MEDS: SODIUM CHLORIDE 0.9% 1000 ML 1,000 ML 999 ML IV (22:03)
[2024-08-31 23:29] LABS: Collection Type, Urine Clean Catch
[2024-08-31 23:36] LABS: Bacteria,Urine Rare; Bilirubin,Urine Negative (Negative); Blood,Urine Negative (Negative); Budding Yeast,Urine Present; Clarity,Urine Turbid (Clear/Hazy); Color,Urine Yellow (Lt Yel-Yel); Glucose, Urine Negative (Negative); Hyaline Casts,Urine < 1 /hpf (0-1); Ketones,Urine Negative (Negative); Leukocyte Esterase,Urine Positive (Negative); Nitrite,Urine Negative (Negative); PH,Urine 6.5 (5.0-7.0); Protein,Urine 1+ (Neg - Trace); RBC,Urine 18 /hpf (0-3); Specific Gravity,Urine 1.026 (1.001-1.035); Squamous Epithelial Cell,Urine 10 /hpf (0-5); WBC,Urine 183 /hpf (0-5)
== END 2024-09-01 00:10 | disposition home or self-care (01) ==
PROVIDERS: Nurse Practitioner Primary Care; Emergency Provider Emergency Medicine; PCP Physician Assistant
DX: I10 Essential (primary) hypertension (principal); E78.00 Pure hypercholesterolemia, unspecified; R07.89 Other chest pain
CPT/HCPCS: 36415; 71046; 80053; 81001; 83880; 84484; 85025; 85379; 87086; 87400; 87811; 93005; 96361; 96374; 99284; J1885; J2270; J2405; J7030; A9270

== ENCOUNTER 2024-09-22 14:07 | Outpatient (RCR) | payer MEDICARE, MEDICAID, SELFPAY ==
--- NOTE | 2024-09-22 15:46 | PT.OIERPT ---
PT OP Initial Eval Patient Information Outpatient Physical Therapy Treatment Date: 09/22/24 Visit Reasons: back pain Medical Diagnosis: M54.42 Treatment Dx #1: Back Pain Treatment Dx #2: Left LE Weakness Start of Care: 09/22/24 Date of Onset: Jun 2024 Smoking Status Smoking Status: Never smoker Initial Assessment Subjective: Pt is a 64 y/o female reports of back pain (9/10) worsening since Jun 2024. Pt further reports of losing strength and feeling weakness in her left leg. Pt has been non-ambulatory since 3 weeks ago and has not been back to PCP. Pt currently has someone help her with bed mobility, transfer, cook, clean, and ADLs. Objective: L/S AROM (in sitting): all motions are 25 % towards end range in all plane Left Hip AROM: unable Right Hip AROM: all motions are WFL Left Hip MMTs: trace Right Hip MMTs: grossly 3/5 Assessment: Pt demonstrate back pain with weakness in the LE L>R leading to difficulty with ADLs. Pt has regress with strength and mobility in the past weeks leading to non-ambulatory. At this time Pt will not benefit from physical therapy. Recommend L/S MRI and neuro consult to help determine severity of back and left leg symptoms. Pt was evaluated and d/c from care; thank you for your referrals. Short Term and Curriculum Coordinator Goals 1) Eval and D/C 2) Follow up with PCP and recommend L/S MRI 3) Recommend neuro consult Treatment Plan Frequency and Duration: 1x Certification Dates: 09/22/24 to 12/23/24 Procedure Charges OP PT Eval Mod Complex 30 minutes: Yes
== END 2024-10-18 23:59 | disposition home or self-care (01) ==
LOC: CPTX 14:07
PROVIDERS: PCP Physician Assistant; Referring Provider Physician Assistant; Visit Provider Physician Assistant
DX: M54.42 Lumbago with sciatica, left side (principal); R53.1 Weakness
CPT/HCPCS: 97162

== ENCOUNTER 2024-10-03 18:37 | Inpatient (IN) | payer MEDICARE, MEDICAID, SELFPAY ==
[2024-10-03] VITALS (7 sets, daily range): BP systolic 103–134; BP diastolic 74–83; PULSE 64–75; RESP 11–22; TEMP 36.4; O2SAT 93–98; BMI 27.4
--- NOTE | 2024-10-03 19:46 | EDNOTE_ITS ---
Altered Mental Status RME/HPI General Chief Complaint: Altered Mental Status Stated Complaint: ALTERED MENTAL STATUS Source: EMS Arrival date/time: 10/03/24 18:37 Mode of arrival: EMS RME / HPI RME / HPI narrative: Dr. Padilla?s Main ED Evaluation: 64-year-old woman with a history of high blood pressure, type 2 diabetes, and hypothyroidism who is brought to the emergency room today for sudden confusion. On exam, patient does not answer my questionnaire but she responds to my voice and painful stimuli. Her daughter reported that she was last seen acting normal around 5:30 PM, but by 6:30 PM, she was confused and not responding as much as usual. Complete HPI and ROS unobtainable due to patient's mental status. Related Data Home Medications ?Medication ?Instructions ?Recorded ?Confirmed atenolol 50 mg tablet 50 mg PO QDAY 05/09/1905/09 levothyroxine 175 mcg tablet 175 mcg PO QDAY 05/09/19 05/09/19 metformin 500 mg tablet 500 mg PO DAILY 05/09/19 naproxen 500 mg tablet 500 mg PO DAILY 05/09/19 omeprazole 20 mg tablet,delayed 20 mg PO QDAY 05/09/19 05/09/19 release sertraline 50 mg tablet 50 mg PO QDAY 05/09/1905/09 Previous Rx's ?Medication ?Instructions ?Recorded levothyroxine 150 mcg capsule 150 mcg PO QDAY #30 caps 03/05/21 alprazolam 0.5 mg tablet (Xanax) 0.5 mg PO BID PRN anx iety #10 tabs 08/31/24 cefdinir 300 mg capsule 300 mg PO BID #14 caps 08/31 Allergies Allergy/AdvReac Type Severity Reaction Status Date / Time codeine Allergy Severe DELUSIONS Verified 07/16/24 16:40 Review of Systems Review of Systems ROS Unobtainable: unobtainable due to mental status Past Medical History Past Medical History CARDIAC: Positive Hypercholesterolemia and Hypertension; Negative Cardiac Disorders or Congestive Heart Failure RESPIRATORY: Negative Chronic Obstructive Pulmonary Disease (COPD) or Asthma GENITOURINARY: Negative Renal Disease ENDOCRINE: Positive Diabetes Mellitus Type 2 and Hypothyroidism; Negative Diabetes Mellitus Type 1 HEMATOLOGIC: Negative Sickle Cell Disease PSYCHO/SOCIAL: Positive Depression OTHER HISTORY: Positive Cancer Social History SMOKING STATUS: Never smoker SUBSTANCE USE: does not use ED Exam Narrative Physical exam: The patient is awake and alert, opening her eyes when spoken to. She is responsive to pain stimuli but remains nonverbal. She does not speak or respond to questions and does not engage in conversation or follow commands. Per teleneuro consult, Examination: Blood Glucose(89) 1A: Level of Consciousness - Alert; keenly responsive + 0 1B: Ask Month and Age - Both Questions Right + 0 1C: Blink Eyes & Squeeze Hands - Performs Both Tasks + 0 2: Test Horizontal Extraocular Movements - Normal + 0 3: Test Visual Brar - No Visual Loss + 0 4: Test Facial Palsy (Use Grimace if Obtunded) - Normal symmetry + 0 5A: Test Left Arm Motor Drift - Drift, hits bed + 2 5B: Test Right Arm Motor Drift - Drift, hits bed + 2 6A: Test Left Leg Motor Drift - No Movement + 4 6B: Test Right Leg Motor Drift - No Movement + 4 7: Test Limb Ataxia (FNF/Heel-Melendez) - No Ataxia + 0 8: Test Sensation - Mild-Moderate Loss: Less Sharp/More Dull + 1 9: Test Language/Aphasia - Normal; No aphasia + 0 10: Test Dysarthria - Normal + 0 11: Test Extinction/Inattention - No abnormality + 0 NIHSS Score: 13 NIHSS Free Text: delayed responses, but aox3 and following commands; effort dependent exam with giveaway weakness on BUE; applied strong nox stim to BLE and no movement noted; legs are externally rotated at rest General General appearance: Present alert and in no apparent distress Head Head exam: Present atraumatic Eye Eye exam: Present normal appearance, PERRL and EOMI ENT ENT exam: Present normal exam, normal oropharynx and mucous membranes moist Neck Neck exam: Present normal inspection, full ROM and trachea midline Chest Chest inspection: Present normal inspection and symmetric chest wall rise Respiratory Respiratory exam: Present normal lung sounds bilaterally Cardiovascular Cardiovascular exam: Present regular rate, normal rhythm and normal heart sounds Abdominal Exam Abdominal exam: Present soft and normal bowel sounds Extremities Exam Extremities exam: Present normal inspection and full ROM Back Exam Back exam: Present normal inspection and full ROM Neurological Exam Neurological exam: Present alert, CN II-XII intact and other (see above) Psychiatric Psychiatric exam: Present normal affect and normal mood Skin Skin exam: Present warm, dry, intact and normal color Course Quality Measures Suspected type of Stroke: Unknown at this time Tenecteplase given: Reason(s) TPA not given: Outside the time window not given stroke Orders Category Date Time Status Register Of Wills STAT Care 10/03/24 20:05 Active Continuous Pulse Oximetry NOW Care 10/03/24 23:23 Active EKG (ED ONLY) *Do not use* NOW Care 10/03/24 20:05 Completed In and Out Catheter X1 Care 10/03/24 20:05 Active Insert IV STAT Care 10/03/24 20:05 Active Miscellaneous Nursing Order NOW Care 10/04/24 03:01 Active NIH Stroke Scale now Care 10/03/24 23:23 Active NPO NOW Care 10/03/24 23:23 Active Urinary Catheter NOW Care 10/03/24 20:[address] head/brain wo con Stat Exams 10/03/24 23:[address] stroke protocol Stat Exams 10/03/24 23:23 Completed EKG (ED Only) Stat Exams 10/03/24 20:05 Ordered XR chest 1V portable Stat Exams 10/03/24 20:07 Completed Alcohol, Blood Medical Stat Lab 10/04/24 03:19 Completed CBC Stat Lab 10/03/24 20:25 Completed CRP [C-Reactive Protein] Stat Lab 10/04/24 03:19 Completed Comprehensive Metabolic Panel Stat Lab 10/03/24 20:25 Completed Drug Screen,Urine Stat Lab 10/04/24 02:59 Ordered ESR [Sed Rate (ESR)] Stat Lab 10/04/24 03:19 Completed Folate Stat Lab 10/04/24 03:19 Completed Free T4 (Free Thyroxine) Stat Lab 10/03/24 23:20 Completed Lactic Acid [Lactate (Lactic Acid)] Stat Lab 10/04/24 03:19 Completed Magnesium Stat Lab 10/03/24 20:25 Completed Partial Thromboplastin Time Stat Lab 10/03/24 20:25 Completed Prothrombin Time with INR Stat Lab 10/03/24 20:25 Completed Renal Function Panel Stat Lab 10/03/24 23:20 Completed TSH [Thyroid Stimulating Hormone] Stat Lab 10/04/24 03:19 Completed Troponin I Stat Lab 10/03/24 20:25 Completed Urinalysis Stat Lab 10/03/24 21:25 Completed Urine Culture Stat Lab 10/03/24 21:25 Received Vitamin B12 Stat Lab 10/04/24 03:19 Completed Magnesium Sulfate 2 GM Ivpb [Magnesium Sulfate Ivpb] Med 10/03/24 21:15 Discontinued 2 gm in 50 ml IV X1 POTASSIUM CHL 10 mEq IVPB [Kcl Ivpb] Med 10/03/24 21:14 Discontinued 10 meq in 100 ml IV Q1H Potassium Chloride [K-Dur] Med 10/03/24 21:14 Discontinued 40 meq PO X1 ONE Thiamine Inj [Vitamin B-1 Inj] 100 mg Med 10/04/24 02:58 Discontinued Sodium Chloride 0.9% [Ns] 100 ml IV X1 cefTRIAXone [Rocephin] 1,000 mg Med 10/03/24 23:26 Discontinued SODIUM CHLORIDE 0.9% (Popper) [Ns 0.9% (P)] 50 ml IV X1 Oxygen Delivery NOW RT 10/03/24 20:05 Active Vital Signs Vital signs: Vital Signs Pulse Rate 74 10/03/24 20:01 Blood Pressure 134/83 H 10/03/24 20:01 Pulse Oximetry (%) 94 L 10/03/24 20:01 Altered Mental Status MDM Narrative MDM Narrative:: 2320 Case d/w hospitalist team for admission. Stroke protocol to be initiated pending consideration for admission. 2[address] alert was [address] CT Head reviewed and it showed no acute hemorrhage or large evolving infarct Teleneuro recommends: ? MRI lumbar spine w/o contrast ? Toxic metabolic infectious work-up and empirical therapy per primary team ? Please consider thiamine repletion; and TSH/T4 measurement Teleneurology reports that the patient exhibited delayed responses, and her daughter is present at the bedside. Upon my re-evaluation, the daughter states that the patient has no known history of stroke but has been experiencing progressive weakness in the lower extremities. Teleneuro expressed the concern for cauda equina syndrome, an MRI has been recommended for further evaluation in the morning. Patient is accepted for admission. Scribe Attestation: I, Vincent Epps, am scribing for and in the presence of Dr. Padilla. Provider Notation: Although this document has been carefully reviewed, there may still be some phonetic and other typographical errors. These errors are purely grammatical due to imperfections in the software program and should not be construed in any way to compromise the substance of the patient's medical care during this visit. Patient data External records reviewed:: [facility] previous records Clinical information provided by:: EMS Social determinants that could affect healthcare access:: none Patient has the following chronic illnesses:: see PMH How is presenting disease/condition affected by chronic disease/condition?: uneffected by Evaluation data The following diagnostics were reviewed and interpreted by me:: lab results and radiology exam(s) Lab and/or radiology exams considered but not ordered:: na Interpretation Summary: Examination: AP chest single view Exam date and time: October 03, 2024 1934 hrs. Comparison August 31, 2024 Indications: Syncope today. Findings: Minor bilateral subsegmental atelectasis. Normal heart size. No aspiration pneumonia. Prominent osteopenia Impression: Minor bilateral subsegmental atelectasis No aspiration pneumonia Dictated By: Hemant Rico MD Examination: CT brain head without contrast. Date and time of exam:October 03, 2024 1129 hrs. Indications: Onset focal neurologic deficit today Findings: No significant ventricular enlargement. Left frontal calcifications Intra-axial or extra-axial hemorrhage density is not seen. No mass effect or midline shift Basal cisterns are not remarkable. Fourth ventricle is midline. Cranial vault intact. Impression: Negative for acute hemorrhage, mass effect or midline shift Dictated By: Hemant Rico MD Medications / Prescriptions Medications or Prescriptions considered but not ordered:: na Medication administrations:: Medication Administration History Acetaminophen (Acetaminophen 325 Mg Tablet) 650 mg PO Q6H PRN PRN Reason: Fever >100 or pain 1-3 Stop: 11/03/24 03:35 Dextrose (Dextrose 50%-Water Inj 50 Ml Syringe) 25 ml IV Q15MIN PRN PRN Reason: BG 50-70 responsive npo pt Stop: 11/03/24 04:06 Dextrose (Dextrose 50%-Water Inj 50 Ml Syringe) 50 ml IV Q15MIN PRN PRN Reason: BG <50 OR BG <70 & pt unresponsive Stop: 11/03/24 04:06 Enoxaparin Sodium (Enoxaparin Sod Inj 40 Mg/0.4 Ml Syringe) 40 mg SC QDAY SAMMI Stop: 10/18/24 08:59 Glucagon (Glucagon Inj 1 Mg Vial) 1 mg IM Q15MIN PRN PRN Reason: BG <70, and no IV access Magnesium Sulfate (Magnesium Sulfate Ivpb) 2 gm in 50 mls @ 25 mls/hr IV X1 ONE Stop: 10/04/24 05:40 Last Admin: 10/04/24 04:20 Dose: 25 mls/hr Documented By: LUDMILA Sodium Chloride (Ns) 1,000 mls @ 75 mls/hr IV .[id number] [facility] Stop: 10/04/24 17:05 Last Admin: 10/04/24 04:22 Dose: 75 mls/hr Documented By: LUDMILA Insulin Human Lispro (Insulin Lispro (Admelog) 1 Unit/0.01 Ml Unit) 0 unit SC AC [facility]; Protocol Stop: 11/03/24 07:29 Levothyroxine Sodium (Levothyroxine Inj 100 Mcg Vial) 90 mcg IV X1 ONE Stop: 10/04/24 09:01 Pantoprazole Sodium (Pantoprazole Inj 40 Mg Vial) 40 mg IVP QDAY [facility] Stop: 11/03/24 08:59 Discontinued Medications Potassium Chloride (Kcl Ivpb) 10 meq in 100 mls @ 100 mls/hr IV Q1H [facility] Stop: 10/04/24 01:13 Last Admin: 10/04/24 04:21 Dose: 100 mls/hr Documented By: Infusion: 10/04/24 03:02 Dose: Infused Documented By: Admin: 10/04/24 01:01 Dose: 100 mls/hr Documented By: Infusion: 10/04/24 00:09 Dose: Infused Documented By: Admin: 10/03/24 23:09 Dose: 100 mls/hr Documented By: Infusion: 10/03/24 22:52 Dose: Infused Documented By: Admin: 10/03/24 21:44 Dose: 100 mls/hr Documented By: LUDMILA Magnesium Sulfate (Magnesium Sulfate Ivpb) 2 gm in 50 mls @ 25 mls/hr IV X1 ONE Stop: 10/03/24 23:14 Last Infusion: 10/03/24 23:45 Dose: Infused Documented By: Admin: 10/03/24 21:45 Dose: 25 mls/hr Documented By: LUDMILA Ceftriaxone Sodium 1,000 mg/ (Sodium Chloride) 50 mls @ 100 mls/hr IV X1 ONE Stop: 10/03/24 23:55 Last Infusion: 10/04/24 03:05 Dose: Infused Documented By: Admin: 10/04/24 01:10 Dose: 100 mls/hr Documented By: LUDMILA Thiamine HCl 100 mg/ Sodium (Chloride) 101 mls @ 202 mls/hr IV X1 ONE Stop: 10/04/24 03:27 Last Admin: 10/04/24 04:18 Dose: 202 mls/hr Documented By: LUDMILA Levothyroxine Sodium (Levothyroxine Sodium 125 Mcg Tablet) 137 mcg PO X1 ONE Stop: 10/04/24 09:01 Potassium Chloride (Potassium Chloride 20 Meq Tabcr) 40 meq PO X1 ONE Stop: 10/03/24 21:15 Last Admin: 10/03/24 21:45 Dose: 40 meq Documented By: LUDMILA as above Consultations Consultation(s) initiated? (list below): Yes Consultation #1 (Physician, Specialty, Details): Hospitalist was made aware of the patient?s HPI, PMHx, lab and/or radiology results. Discussed treatment plan. Accepts patient for admission. Diagnosis Differential diagnosis altered mental status: other (Syncope, CVA, myocardial infarction) Most likely diagnosis given after review of the tests above:: Hypomagnesemia, hypokalemia, UTI, AMS Admission Indicated Admission indicated?: indicated Admission Request Was there a request for admission?: Yes Admission Attestation Admission request attestation: Discussed case with [] from Hospitalist service regarding admission. Discussed patients ED course, exam findings, labs, and radiology results. The Hospitalist [agrees,declines] to accept the patient for admission. Disposition Plan Disposition Plan: Admit Critical Care Time Critical Care Time Critical Care Time: Yes Total Critical Care Time (min.): 35 Attestation: The high probability of sudden, clinically significant deterioration in the patient?s condition required the highest level of my preparedness to intervene urgently. ? The services I provided to this patient were to treat and/or prevent clinically significant deterioration. Services included the following: chart data review, reviewing nursing notes and/or old charts, documentation time, animal nutrition consultant collaboration regarding findings and treatment options, medication orders and management, direct patient care, vital sign assessments and ordering, interpreting and reviewing diagnostic studies and lab tests. ? Aggregate critical care time includes only time during which I was engaged in wo rk directly related to the patient?s care, as described above, whether at bedside or elsewhere in the Emergency Department. It did not include time spent performing other reported procedures or the services of residents, students, nurses or physician assistants. Discharge Plan Plan Patient Disposition: Admit Acute Care w/in Hospital Problem List Clinical Impression: Hypomagnesemia, AMS (altered mental status), Hypokalemia, UTI (urinary tract infection)
--- NOTE | 2024-10-03 20:07 | XR_ITS ---
Examination: AP chest single view Technique: AP portable semiupright chest single view Exam date and time: October 03, 2024 1934 hrs. Comparison August 31, 2024 Indications: Syncope today. Findings: Minor bilateral subsegmental atelectasis. Normal heart size. No aspiration pneumonia. Prominent osteopenia Impression: Minor bilateral subsegmental atelectasis No aspiration pneumonia
[2024-10-03 20:45] LABS: Basophils % (Auto) 0 % (0-2.5); Eosinophils % (Auto) 0 % (0-10); Hematocrit 41.8 % (36.0-46.0); Hemoglobin 15.4 g/dL (12.0-16.0); Immature Granulocytes % (Auto) 1 % (0-0); Immature Granulocytes Auto 0.05 Thou/mm3 (0.00-0.00); Lymphocytes # (Auto) 2.4 Thou/mm3 (1.0-4.8); Lymphocytes % (Auto) 32 % (10-50); Mean Corpuscular HGB Conc 36.8 g/dl (31.0-37.0); Mean Corpuscular Hemoglobin 29.9 pg (25.0-35.0); Mean Corpuscular Volume 81 fL (80-100); Monocytes # (Auto) 0.9 Thou/mm3 (0.0-0.8); Monocytes % (Auto) 12 % (0-12); Neutrophils # (Auto) 4.1 Thou/mm3 (1.8-7.7); Neutrophils % (Auto) 55 % (37-80); Nucleated Red Blood Cell % 0 /100 WBC (0); Platelet Count 332 Thou/mm3 (140-440); RDW Standard Deviation 40.4 fL (36.4-46.3); Red Blood Count 5.15 Miln/mm3 (4.00-5.20); White Blood Count 7.5 Thou/mm3 (3.6-11.0)
[2024-10-03 21:01] LABS: INR 1.1 (0.9-1.3); Prothrombin Time 12.4 Seconds (9.0-12.2)
[2024-10-03 21:09] LABS: Alanine Aminotransferase 27 U/L (10-49); Albumin, Serum 3.9 gm/dL (3.4-4.8); Albumin/Globulin Ratio 1.2 (1.2-2.2); Alkaline Phosphatase 78 U/L (46-116); Anion Gap 12 (7-16); Aspartate Amino Transferase 33 U/L (0-34); BUN/Creatinine Ratio 8 Ratio (12-20); Bilirubin,Total 1.1 mg/dL (0.3-1.2); Blood Urea Nitrogen 5 mg/dL (9-23); Calcium 9.5 mg/dL (8.3-10.6); Calcium (Corrected) 9.6 mg/dL (8.5-10.1); Carbon Dioxide 23.7 mMol/L (20.0-31.0); Chloride 91 mMol/L (98-107); Creatinine (Component) 0.6 mg/dL (0.6-1.3); Estimated Creatinine Clearance 97.2 mL/min (>60); Globulin 3.2 gm/dL (2.3-3.5); Glucose 89 mg/dL (74-106); Magnesium 1.5 mg/dL (1.6-2.6); Osmolality,Calculated 251 (275-295); Sodium 127 mMol/L (136-145); Total Protein 7.1 gm/dL (5.7-8.2); Troponin I < 0.020 ng/mL (0.0-0.045); eGFR > 60 See Note
[2024-10-03 21:12] LABS: Potassium 2.3 mMol/L (3.4-5.1)
[2024-10-03 21:31] LABS: Collection Type, Urine Catheter
[2024-10-03 21:39] LABS: Bilirubin,Urine Negative (Negative); Blood,Urine Negative (Negative); Budding Yeast,Urine Present; Clarity,Urine Turbid (Clear/Hazy); Color,Urine Yellow (Lt Yel-Yel); Glucose, Urine Negative (Negative); Ketones,Urine 1+ (Negative); Leukocyte Esterase,Urine Positive (Negative); Nitrite,Urine Positive (Negative); Protein,Urine Trace (Neg - Trace); RBC,Urine 5 /hpf (0-3); Specific Gravity,Urine 1.011 (1.001-1.035); Squamous Epithelial Cell,Urine < 1 /hpf (0-5); WBC,Urine 29 /hpf (0-5)
[2024-10-03] MEDS: POTASSIUM CHL 10 mEq IVPB 10 MEQ/100 ML BAG 100 MEQ IV ×2 (21:44→23:09)
[2024-10-03] MEDS: Magnesium Sulfate 2 GM Ivpb 2 GM/50 ML BAG IV (21:45)
[2024-10-03] MEDS: POTASSIUM CHLORIDE 20 mEq TABCR 40 MEQ PO (21:45)
--- NOTE | 2024-10-03 23:23 | XR_ITS ---
Examination: CT brain head without contrast. 2-D sagittal coronal reconstructions Date and time of exam:October 03, 2024 1129 hrs. Indications: Onset focal neurologic deficit today Technique: Multiple CT axial sections of the brain have been obtained, 5 mm slice thickness. Contrast has not been administered. 2-D sagittal, coronal reconstructions have been obtained Low dose protocols were performed. One or more of the following dose reduction techniques were used; automated exposure control, adjustment of the mA and/or KV according to patient size, use of iterative reconstruction technique. Findings: No significant ventricular enlargement. Left frontal calcifications Intra-axial or extra-axial hemorrhage density is not seen. No mass effect or midline shift Basal cisterns are not remarkable. Fourth ventricle is midline. Cranial vault intact. Impression: Negative for acute hemorrhage, mass effect or midline shift
--- NOTE | 2024-10-03 23:26 | PC.NURSE ---
Case # [id number] for tele neuro
[2024-10-04] VITALS (20 sets, daily range): BP systolic 112–145; BP diastolic 61–96; PULSE 66–140; RESP 13–92; TEMP 36.4–36.9; O2SAT 91–96; BMI 27.4
--- NOTE | 2024-10-04 | XR_ITS ---
Examination: MRI lumbar spine without contrast Date and time of exam: October 04, 2024 1048 hours INDICATIONS: Bilateral leg weakness, unable to stand or walk beginning one month ago Technique: Multiple MRI axial and sagittal sections lumbar spine. Sagittal T2-weighted images, TR 3500, TE 118 T1 weighted transverse sections, TR 688 T8.5, T2-weighted sagittal sections T1 weighted sagittal sections TR 621, TE 30 T2 axial sections, TR 4, 190, TE 84. Findings: Grade 1 anterolisthesis L4 on L5 Disc desiccation L4-L5, L5-S1 No lumbar fracture Adequate marrow signal lumbar vertebral bodies L5-S1 2 mm central lumbar disc bulge L4-L5 4 mm central lumbar disc bulge extending to the foraminal regions with mild left L4 ganglionic compression L3-L4 no disc protrusion L2-L3 no disc protrusion L1-L2 no disc protrusion IMPRESSION: L5-S1 2 mm central lumbar disc bulge L4-L5 4 mm central lumbar disc bulge extending to the left foraminal region with mild left L4 ganglionic compression If leg weakness persist, consider follow-up MRI lumbar spine post intravenous contrast
--- NOTE | 2024-10-04 00:27 | PD.NEUROCONS ---
History of Present Illness Data of Consult Primary Care Provider: Physician No Primary/Family Consult Narrative History of present illness: 64yo woman with past medical history significant for HTN, DM2, and hypothyroidism, who presents today with acute onset confusion marked by decreased verbal responsiveness, with last known well around 5:30PM on 10/03 and was found confused around 6:30PM. Daughter notes that the patient has had significant decline in function over the past 4 months since June, and started with worsening numbness in the left leg, along with pain in the low back and left leg. Over the past month, her leg weakness and pain have worsened and has been essentially bedridden. cc:: cc: Meds Home Medications and Allergies Home Medications ?Medication ?Instructions ?Recorded ?Confirmed ?Type atenolol 50 mg tablet 50 mg PO QDAY 05/09/19 05/09/19 History levothyroxine 175 mcg tablet 175 mcg PO QDAY 05/09/19 05/09/19 History metformin 500 mg tablet 500 mg PO DAILY 05/09/19 05/09/19 History naproxen 500 mg tablet 500 mg PO DAILY 05/09/19 05/09/19 History omeprazole 20 mg tablet,delayed 20 mg PO QDAY 05/09/19 05/09/19 History release sertraline 50 mg tablet 50 mg PO QDAY 05/09/19 05/09/19 History Allergies Allergy/AdvReac Type Severity Reaction Status Date / Time codeine Allergy Severe DELUSIONS Verified 07/16/24 16:40 Exam - Neurology Vital Signs Temp Pulse Resp BP Pulse Ox O2 Del Method 97.5 F 65 13 130/79 93 L Room Air 10/03/24 20:12 10/03/24 21:00 10/03/24 21:00 10/03/24 21:00 10/03/24 21:00 10/03/24 20:12 Narrative Exam Examination: Blood Glucose(89) 1A: Level of Consciousness - Alert; keenly responsive + 0 1B: Ask Month and Age - Both Questions Right + 0 1C: Blink Eyes & Squeeze Hands - Performs Both Tasks + 0 2: Test Horizontal Extraocular Movements - Normal + 0 3: Test Visual Brar - No Visual Loss + 0 4: Test Facial Palsy (Use Grimace if Obtunded) - Normal symmetry + 0 5A: Test Left Arm Motor Drift - Drift, hits bed + 2 5B: Test Right Arm Motor Drift - Drift, hits bed + 2 6A: Test Left Leg Motor Drift - No Movement + 4 6B: Test Right Leg Motor Drift - No Movement + 4 7: Test Limb Ataxia (FNF/Heel-Melendez) - No Ataxia + 0 8: Test Sensation - Mild-Moderate Loss: Less Sharp/More Dull + 1 9: Test Language/Aphasia - Normal; No aphasia + 0 10: Test Dysarthria - Normal + 0 11: Test Extinction/Inattention - No abnormality + 0 NIHSS Score: 13 NIHSS Free Text : delayed responses, but aox3 and following commands; effort dependent exam with giveaway weakness on BUE; applied strong nox stim to BLE and no movement noted; legs are externally rotated at rest Pre-Morbid Modified Kent Scale: 5 Points = Severe disability; bedridden, incontinent and requiring constant nursing care and attention Advanced Imaging: Advanced Imaging Deferred because: Stroke not suspected with clinical presentation and exam Metrics: Last Known Well: 10/03/2024 17:00:00 Dispatch Time: 10/03/2024 23:26:34 Arrival Time: 10/03/2024 23:30:00 Initial Response Time: 10/03/2024 23:35:06 Symptoms: confusion. Initial patient interaction: 10/03/2024 23:55:13 NIHSS Assessment Completed: 10/04/2024 00:10:31 Patient is not a candidate for Thrombolytic. Thrombolytic Medical Decision: 10/04/2024 00:10:31 Patient was not deemed candidate for Thrombolytic because of following reasons: LKW outside 4.5 hr window. . I personally Reviewed the CT Head and it Showed no acute hemorrhage or large evolving infarct. Primary Provider Notified of Diagnostic Impression and Management Plan on: 10/04/2024 00:40:34 Results Labs 10/03/24 20:25 10/03/24 20:25 Labs: Short CBC 10/03/24 Range/Units 20:25 WBC 7.5 (3.6-11.0) Thou/mm3 Hgb 15.4 (12.0-16.0) g/dL Hct 41.8 (36.0-46.0) % Plt Count 332 D (140-440) Thou/mm3 BMP 10/03/24 20:25 Sodium 127 L Potassium 2.3 L* Chloride 91 L Carbon Dioxide 23.7 BUN 5 L Creatinine 0.6 Glucose 89 Calcium 9.5 Cardiac Enzymes 10/03/24 Range/Units 20:25 Troponin I < 0.020 (0.0-0.045) ng/mL Liver Function 10/03/24 Range/Units 20:25 Total Bilirubin 1.1 (0.3-1.2) mg/dL AST 33 (0-34) U/L ALT 27 (10-49) U/L Alkaline Phosphatase 78 (46-116) U/L Albumin 3.9 (3.4-4.8) gm/dL Urine 10/03/24 Range/Units 21:25 Urine Color Yellow (Lt Yel-Yel) Urine Clarity Turbid A (Clear/Hazy) Urine pH 7.0 (5.0-7.0) Ur Specific [place] 1.011 (1.001-1.035) Urine Protein Trace (Neg - Trace) Urine Glucose (UA) Negative (Negative) Assessment & Plan Additional Assessment & Plan Additional Plan: [facility] Patient Name: Faith Zaidi Date of : 1960 Identification Number: Date of Service: 10/03/2024 23:26:34 Diagnosis: ? G93.41 - Encephalopathy Metabolic Impression: ? 64F, pmh sig for HTN, DM2, hypothyroidism, presenting with acute metabolic encephalopathy, noted to have BLE weakness that has been progressive over the past 1-2 months, concerning for lumbar pathology. No TNK given LKW>4.5hr. No suspicion for LVO at this time. Recommendations: ? MRI lumbar spine w/o contrast ? Toxic metabolic infectious work-up and empirical therapy per primary team ? Please consider thiamine repletion; and TSH/T4 measurement Spoke with : Dr. Padilla This consult was conducted in real time using interactive audio and video technology. Patient was informed of the technology being used for this visit and agreed to proceed. Patient located in hospital and provider located at home/office setting. Patient is being evaluated for possible acute neurologic impairment and high probability of imminent or life-threatening deterioration. I spent total of 45 minutes providing care to this patient, including time for face to face visit via telemedicine, review of medical records, imaging studies and discussion of findings with providers, the patient and/or family. Dr Kevin Harrison [facility] For Inpatient follow-up with [facility] physician please call [facility] at . As we are not an outpatient service for any post hospital discharge needs please contact the hospital for assistance. If you have any questions for the [facility] physicians or need to reconsult for clinical or diagnostic changes please contact us via [facility] at .
[2024-10-04 00:43] LABS: Albumin, Serum 3.7 gm/dL (3.4-4.8); Anion Gap 11 (7-16); BUN/Creatinine Ratio 7 Ratio (12-20); Blood Urea Nitrogen < 5 mg/dL (9-23); Calcium 8.6 mg/dL (8.3-10.6); Calcium (Corrected) 8.8 mg/dL (8.5-10.1); Carbon Dioxide 23.6 mMol/L (20.0-31.0); Chloride 89 mMol/L (98-107); Creatinine (Component) 0.7 mg/dL (0.6-1.3); Estimated Creatinine Clearance 83.3 mL/min (>60); Free T4 (Free Thyroxine) 0.72 ng/dL (0.89-1.76); Glucose 94 mg/dL (74-106); Osmolality,Calculated 246 (275-295); Phosphorous 2.3 mg/dL (2.4-5.1); Potassium 3.5 mMol/L (3.4-5.1); Sodium 124 mMol/L (136-145); eGFR > 60 See Note
[2024-10-04] MEDS: POTASSIUM CHL 10 mEq IVPB 10 MEQ/100 ML BAG 100 MEQ IV ×2 (01:01→04:21)
[2024-10-04] MEDS: cefTRIAXone 1,000 MG in SODIUM CHLORIDE 0.9% (Popper) 50 ML 100 MG IV (01:10)
[2024-10-04 03:27] LABS: Lactate (Lactic Acid) 0.9 mMol/L (0.4-2.0)
[2024-10-04 03:37] LABS: Sed Rate (ESR) 15 mm/hr (0-30)
--- NOTE | 2024-10-04 03:43 | ESHP_ITS ---
<Statement entered by Justice Perkins MD - 10/05/24 23:08> 64-year-old female with multiple comorbidities including hypertension, hyperlipidemia type 2 diabetes mellitus, hypothyroidism who presented with generalized weakness, confusion and fatigue. Patient also noted to have hypokalemia and hypomagnesemia and subsequently plan to admit the patient for acute encephalopathy secondary to electrolyte derangements versus urinary tract infection. Of note, patient underwent CT head in the ER which was negative and plan to obtain thyroid studies to rule out any thyroid etiology that could be contributing to this such as myxedema coma.I reviewed above note and agree with findings and plans. I have also personally examined the patient with medicine team and went over assessment and plan with medical team including industrial design intern and resident physician. Documentation for date of: 10/04/24 HPI History of Present Illness History of present illness: HPI is limited as patient is poor historian. Most of history obtained through chart review and speaking with family Faith is a 64 y/o female with PMHx of HTN, hypothyroidism, depression, non- insulin dependent type two DM, who comes in for an evaluation of generalized weakness and altered mental status. Patient' family reports thats patient has been steadily declining and her physical condition steadily over the past 5 years in which her mom started to deal with depression. They noticed over the past couple of months she has been experiencing chronic lower extremity pain and possibly sciatica in which she came to the ED for recently. She was working with a physical therapist and she had to be wheelchair-bound. She lives at home with her daughter, however she is alone all the time because her daughter goes to work. Today she called one of her friends over. At some point later today her friend called over EMS as there was concern with her gait being abnormal and her being less responsive. It is unsure if she had a syncopal episode, however she did not fall. There has been no recent travel or recent sicknesses for the patient. Denies history of stroke. Is unable to comment on patient's oral intake. She recently went to the doctor on Friday and they said that she did not have a depression screening done, however she was urged to go to the emergency room as they had felt like something was off with the patient. Per family patient has not been taking medicines for the past ~3 months and they are unsure why but she is refusing to take them. ED course: She came to the ED with a temperature of 97.5, heart rate 73, respiratory 16, blood pressure 134/83, saturating 94% room air. She was worked up and found to have a potassium of 2.3, sodium 127, BUN/creatinine 5 and 0.6 respectively, glucose 88, white count 7.5, hemoglobin 15.4, magnesium 1.5, ALT 33 and 27 respectively, troponin negative x 1. Urinalysis showed nitrite, leukocyte esterase, 29 white cells, and yeast. She was given potassium 10 mill equivalents IV, 40 oral, and 2 g of magnesium in addition to Rocephin x 1. As concern for altered mental status screw, stroke alert was initiated, CT head negative, NIHSS score of 13. Medicine was consulted patient admitted to floors Past medical history: As above Surgical history: Unknown Meds: Synthroid, Zoloft, metformin Allergies: Codeine gives some delusions Family history: Family history significant for diabetes, however no stroke, heart attack. Social history: Lives with daughter. Has a couple of kids. Has never been a heavy drinker, no smoking history, no history of oral or IV drug use. Review of Systems Review of Systems Narrative Review of Systems: ROS is limited as patient is poor historian Exam Vital Signs Temp Pulse Resp BP Pulse Ox O2 Del Method 97.7 F 68 18 136/81 H 96 Room Air 10/04/24 01:49 10/04/24 01:49 10/04/24 01:49 10/04/24 01:49 10/04/24 01:49 10/04/24 01:49 Narrative Exam General: AAOx3, appears to be in mild distress, lethargic, unable to fully participate in physical exam, weak HEENT: Dry mucous membranes, conjunctiva clear, EOMI, PERRLA, poor dentition Cardiovascular: Possible murmur heard over left upper sternal border, radial pulses +2 bilat, RRR Pulmonary: CTAB bilat no cough, no wheezing GI: No tenderness to light or deep palpitation, no guarding, rigidity, rebound tenderness or distension Extremities: No presence of trace or pitting edema in lower extremities bilaterally, dorsalis pedis pulses +2 bilaterally Neuro: AAOx3, reduced upper and lower motor strength, patient is able to participate in some parts of neuro exam, no nystagmus, no accommodation, is able to lift right arm at times, left upper extremity reduced range of motion Psych: Unable to fully cooperate Results: Labs 10/03/24 20:25 10/03/24 20:25 Labs: Short CBC 10/03/24 Range/Units 20:25 WBC 7.5 (3.6-11.0) Thou/mm3 Hgb 15.4 (12.0-16.0) g/dL Hct 41.8 (36.0-46.0) % Plt Count 332 D (140-440) Thou/mm3 BMP 10/03/24 10/03/24 00:00 20:25 Sodium 124 L 127 L Potassium 3.5 2.3 L* D Chloride 89 L 91 L Carbon Dioxide 23.6 23.7 BUN < 5 L 5 L Creatinine 0.7 0.6 Glucose 94 89 Calcium 8.6 9.5 Cardiac Enzymes 10/03/24 Range/Units 20:25 Troponin I < 0.020 (0.0-0.045) ng/mL Liver Function 10/03/24 10/03/24 Range/Units 00:00 20:25 Total Bilirubin 1.1 (0.3-1.2) mg/dL AST 33 (0-34) U/L ALT 27 (10-49) U/L Alkaline Phosphatase 78 (46-116) U/L Albumin 3.7 3.9 (3.4-4.8) gm/dL Urine 10/03/24 Range/Units 21:25 Urine Color Yellow (Lt Yel-Yel) Urine Clarity Turbid A (Clear/Hazy) Urine pH 7.0 (5.0-7.0) Ur Specific [place] 1.011 (1.001-1.035) Urine Protein Trace (Neg - Trace) Urine Glucose (UA) Negative (Negative) Quality Measures Quality Measures VTE prophylaxis (lovenox ) Medications Home Medications and Allergies Home Medications ?Medication ?Instructions ?Recorded ?Confirmed ?Type atenolol 50 mg tablet 50 mg PO QDAY 05/09/1905/09 History levothyroxine 175 mcg tablet 175 mcg PO QDAY 05/09/19 05/09/19 History metformin 500 mg tablet 500 mg PO DAILY 05/09/19 History naproxen 500 mg tablet 500 mg PO DAILY 05/09/19 History omeprazole 20 mg tablet,delayed 20 mg PO QDAY 05/09/19 05/09/19 History release sertraline 50 mg tablet 50 mg PO QDAY 05/09/1905/09 History Allergies Allergy/AdvReac Type Severity Reaction Status Date / Time codeine Allergy Severe DELUSIONS Verified 07/16/24 16:40 Visit Medications Acetaminophen (Acetaminophen 325 Mg Tablet) 650 mg PO Q6H PRN PRN Reason: Fever >100 or pain 1-3 Stop: 11/03/24 03:35 Enoxaparin Sodium (Enoxaparin Sod Inj 40 Mg/0.4 Ml Syringe) 40 mg SC QDAY SAMMI Stop: 10/18/24 08:59 Magnesium Sulfate (Magnesium Sulfate Ivpb) 2 gm in 50 mls @ 25 mls/hr IV X1 ONE Stop: 10/04/24 05:40 Discontinued Medications Potassium Chloride (Kcl Ivpb) 10 meq in 100 mls @ 100 mls/hr IV Q1H SAMMI Stop: 10/04/24 01:13 Last Infusion: 10/04/24 03:02 Dose: Infused Magnesium Sulfate (Magnesium Sulfate Ivpb) 2 gm in 50 mls @ 25 mls/hr IV X1 ONE Stop: 10/03/24 23:14 Last Infusion: 10/03/24 23:45 Dose: Infused Ceftriaxone Sodium 1,000 mg/ (Sodium Chloride) 50 mls @ 100 mls/hr IV X1 ONE Stop: 10/03/24 23:55 Last Infusion: 10/04/24 03:05 Dose: Infused Thiamine HCl 100 mg/ Sodium (Chloride) 101 mls @ 202 mls/hr IV X1 ONE Stop: 10/04/24 03:27 Potassium Chloride (Potassium Chloride 20 Meq Tabcr) 40 meq PO X1 ONE Stop: 10/03/24 21:15 Last Admin: 10/03/24 21:45 Dose: 40 meq Assessment & Plan Plan Assessment Faith is a 64 y/o female with PMHx of HTN, hypothyroidism, depression, non- insulin dependent type two DM, who is currently admitted for acute encephalopathy and hypokalemia. #Acute encephalopathy #UTI #Electrolyte dearrangements #Hypokalemia #Hypomagnesemia Likely multifactorial in combination with metabolic and infectious encephalopathy Patient has been decreasing in function for the past several months patient has significant weakness in upper and lower extremities CT head was negative, low suspicion for stroke as symptoms seem to be generalized and not localized Potassium 2.3; magnesium 1.5 NIHSS score of 13; teleneuro recommends lumbar spine and to treat metabolic encephalopathy with electrolyte replacement and to check thyroid levels Per family patient has not been taking medicines for the past ~3 months High likelihood TSH will be markedly elevated and is contributing to pt's lethargy and encephalopathy Plan: ? Consider neurology consult ? Trend electrolytes and replete as needed ? Bedrest ? Neurochecks every 4 hours ? Seizure precautions ? Rocephin 1 g IV ? Follow-up urine culture ? Continue NS 1 L 75 cc/hour ? Follow-up TSH ? Consider checking thiamine levels, repleted x1 #Depression #Failure to thrive #? Sciatica Patient's functional capabilities have been decreased progressively and has been possibly doing sciatica Will need to further workup for lumbar pathology There is a concern if patient is able to take care adult living daily activities as patient is usually left alone at the house Plan: ? MRI lumbar spine without contrast ? Consider social media senior associate referral ? Consider gabapentin ? Resume psych med upon med rec #Hx of hypothyroidism Is on synthroid at home, however has not been taking it for some time now High likelihood TSH will be elevated Plan: ?Follow-up TSH and free T4 ?Resume home Synthroid #Non-insulin dependent type II Diabetes mellitus Plan: ? Sliding scale insulin ? Hypoglycemic protocol in place ? Blood sugar checks with meals ? Follow-up A1c #Health Maintenance Disposition: MedTele DVT prophylaxis: Lovenox GI prophylaxis:Protonix Diet: Pending Swallow eval CODE STATUS:DNR Patient seen and care discussed with my attending physician, Dr. Gregorio Pop, PGY-1
[2024-10-04 04:00] LABS: Alcohol, Blood Medical < 3.0 mg/dL (0-10.0); C-Reactive Protein < 0.5 mg/dL (0.0-0.9); Thyroid Stimulating Hormone 84.55 uIU/mL (0.55-4.78)
[2024-10-04] MEDS: THIAMINE INJ 100 MG in SODIUM CHLORIDE 0.9% 100 ML 202 MG IV (04:18)
[2024-10-04] MEDS: Magnesium Sulfate 2 GM Ivpb 2 GM/50 ML BAG IV (04:20)
[2024-10-04] MEDS: SODIUM CHLORIDE 0.9% 1000 ML 1,000 ML 75 ML IV (04:22)
[2024-10-04 04:29] LABS: Folate 11.36 ng/mL (>5.38); Vitamin B12 1425 pg/mL (211-911)
[2024-10-04] MEDS: HYDROCORTISONE SOD SUCC INJ 100 MG VIAL IV ×3 (05:25→21:15)
[2024-10-04 05:50] LABS: Basophils % (Auto) 0 % (0-2.5); Eosinophils % (Auto) 0 % (0-10); Hematocrit 38.7 % (36.0-46.0); Immature Granulocytes % (Auto) 1 % (0-0); Immature Granulocytes Auto 0.05 Thou/mm3 (0.00-0.00); Lymphocytes # (Auto) 1.9 Thou/mm3 (1.0-4.8); Lymphocytes % (Auto) 27 % (10-50); Mean Corpuscular HGB Conc 36.2 g/dl (31.0-37.0); Mean Corpuscular Hemoglobin 29.7 pg (25.0-35.0); Mean Corpuscular Volume 82 fL (80-100); Monocytes # (Auto) 0.8 Thou/mm3 (0.0-0.8); Monocytes % (Auto) 11 % (0-12); Neutrophils # (Auto) 4.4 Thou/mm3 (1.8-7.7); Neutrophils % (Auto) 61 % (37-80); Nucleated Red Blood Cell % 0 /100 WBC (0); Platelet Count 307 Thou/mm3 (140-440); Red Blood Count 4.71 Miln/mm3 (4.00-5.20); White Blood Count 7.1 Thou/mm3 (3.6-11.0)
[2024-10-04 06:09] LABS: Glucose Estimated Average 114 mg/dL (80-131); Hemoglobin A1C 5.6 % Hgb (4.8-6.0)
[2024-10-04 06:21] LABS: Alanine Aminotransferase 19 U/L (10-49); Albumin, Serum 3.5 gm/dL (3.4-4.8); Anion Gap 12 (7-16); Aspartate Amino Transferase 33 U/L (0-34); BUN/Creatinine Ratio 8 Ratio (12-20); Bilirubin,Total 0.8 mg/dL (0.3-1.2); Blood Urea Nitrogen < 5 mg/dL (9-23); Calcium 8.2 mg/dL (8.3-10.6); Calcium (Corrected) 8.6 mg/dL (8.5-10.1); Carbon Dioxide 23.1 mMol/L (20.0-31.0); Chloride 91 mMol/L (98-107); Creatinine (Component) 0.6 mg/dL (0.6-1.3); Estimated Creatinine Clearance 97.2 mL/min (>60); Globulin 2.8 gm/dL (2.3-3.5); Glucose 94 mg/dL (74-106); Magnesium 2.7 mg/dL (1.6-2.6); Osmolality,Calculated 250 (275-295); Potassium 3.4 mMol/L (3.4-5.1); Sodium 126 mMol/L (136-145); Total Protein 6.3 gm/dL (5.7-8.2); eGFR > 60 See Note
[2024-10-04 06:22] LABS: Albumin/Globulin Ratio 1.3 (1.2-2.2); Alkaline Phosphatase 72 U/L (46-116); Cardiac Risk Estimate 2.7 RATIO (3.7-5.6); Cholesterol 198 mg/dL (132-200); Free T4 (Free Thyroxine) 0.64 ng/dL (0.89-1.76); HDL Cholesterol 73 mg/dL (40-60); LDL Cholesterol,Calculated 106 mg/dL (0-130); Triglycerides 94 mg/dL (30-150)
--- NOTE | 2024-10-04 07:09 | PC.NURSE ---
pt sleeping or resting quietly throughout the night. No changes. VS stable.
[2024-10-04] MEDS: PANTOPRAZOLE INJ 40 MG VIAL IVP (09:02)
[2024-10-04] MEDS: ENOXAPARIN SOD INJ 40 MG/0.4 ML SYRINGE SC (09:06)
[2024-10-04 09:09] LABS: Amphetamine/Methamp Scrn,U Negative (Negative); Barbiturate Screen,Urine Negative (Negative); Benzodiazepines Screen,Urine Negative (Negative); Benzoylecgonine Screen, Ur Negative (Negative); Fentanyl Screen,Urine Negative (Negative); Opiate Screen,Urine Negative (Negative); THC Screen,Urine Negative (Negative)
[2024-10-04] MEDS: LEVOTHYROXINE 100 MCG IV (09:50)
[2024-10-04] MEDS: SODIUM CHLORIDE 0.9% IV (09:50)
--- NOTE | 2024-10-04 13:29 | ESPR_ITS ---
<Statement entered by Sabrina Duncan MD - 10/04/24 18:22> I discussed with and supervised the gallery intern physician who took care of this patient. I personally saw and examined the patient and discussed the assessment and plan with the entire medicine team, including my attending , I agree with most of the assessment and plan as documented below Sabrina Duncan M.D. PGY-2 Documentation for date of: 10/04/24 Subjective Subjective Interval history: Patient seen today at the bedside found awake, alert, oriented x 3. Daughter is at bedside stated patient is almost back to normal in terms of mentation, however continues to be really weak. Vital signs stable at this time. Labs stable at this time. TSH found to be really elevated patient has not been taking her medications for the past [address] Vicente, Mid Level Net Developer and recommended to start the patient on 100 mcg of levothyroxine. Will monitor TSH every 72 hours and T4 today. Patient also on hydrocortisone 100 mg Q8 will wean to 50 every 8 tomorrow and continue to taper. Exam Vital Signs Temp Pulse Resp BP Pulse Ox O2 Del Method 98.2 F 70 15 141/84 H 93 L Room Air 10/04/24 10:24 10/04/24 10:24 10/04/24 10:24 10/04/24 10:24 10/04/24 10:24 10/04/24 10:24 Narrative Exam Physical Exam GENERAL: NAD, AAOx3 HEENT: Moist mucosa. Eyes open, symmetrical, & clear CARDIO: Heart RRR, no obvious murmurs PULM: No noted coughing/dyspnea CTA B/L, no R/W/R GI: Abdomen soft, nondistended, no pain on palpation. BSx4 SKIN/MSK/EXT: No wounds/rashes/edema/amputations, no pain on palpation. Pedal pulses present B/L NEURO: AAOx3, weakness on all 4 extremities. Objective Labs 10/04/24 05:07 10/04/24 05:07 Labs: Laboratory Results - last 24 hr 10/03/24 10/03/24 10/03/24 00:00 20:25 21:25 WBC 7.5 RBC 5.15 Hgb 15.4 Hct 41.8 MCV 81 MCH 29.9 MCHC 36.8 RDW Std Deviation 40.4 Plt Count 332 D Neut % (Auto) 55 Lymph % (Auto) 32 [place] % (Auto) 12 Eos % (Auto) 0 Baso % (Auto) 0 Neut # (Auto) 4.1 Lymph # (Auto) 2.4 [place] # (Auto) 0.9 H Eos # (Auto) 0.0 Baso # (Auto) 0.0 Immature Gran # (Auto) 0.05 H Absolute Nucleated RBC 0.00 Immature Gran % 1 H Nucleated RBC % 0 ESR PT 12.4 H INR 1.1 APTT 29.0 Sodium 124 L 127 L Potassium 3.5 2.3 L* D Chloride 89 L 91 L Carbon Dioxide 23.6 23.7 Anion Gap 11 12 BUN < 5 L 5 L Creatinine 0.7 0.6 Estim Creat Clear Calc 83.3 97.2 eGFR > 60 > 60 BUN/Creatinine Ratio 7 L 8 L Glucose [address] Glu mg/dL Hemoglobin A1c Calculated Osmolality 246 L 251 L Lactic Acid Calcium 8.6 9.5 Corrected Calcium 8.8 9.6 Phosphorus 2.3 L Magnesium 1.5 L Total Bilirubin 1.1 AST 33 ALT 27 Alkaline Phosphatase 78 Troponin I < 0.020 C-Reactive Prot, Quant Total Protein 7.1 Albumin 3.7 3.9 Globulin 3.2 Albumin/Globulin Ratio 1.2 Triglycerides Cholesterol LDL Cholesterol, Calc HDL Cholesterol Cholesterol/HDL Ratio Vitamin B12 Folate TSH Free T4 0.72 L Ur Collection Type Catheter Urine Color Yellow Urine Clarity Turbid A Urine pH 7.0 Ur Specific [place] 1.011 Urine Protein Trace Urine Glucose (UA) Negative Urine Ketones 1+ A Urine Blood Negative Urine Nitrite Positive Urine Bilirubin Negative Urine Urobilinogen (Auto) 3.0 Ur Leukocyte Esterase Positive Urine RBC 5 H Urine WBC 29 H Ur Squamous Epith Cells < 1 Urine Bacteria None Urine Yeast (Budding) Present A Urine Opiates Screen Urine Fentanyl Screen Ur Barbiturates Screen U Amphetamin/Meth Scrn U Benzodiazepines Scrn U Cocaine Metab Screen U Marijuana (THC) Screen Ethyl Alcohol 10/04/24 10/04/24 10/04/24 03:19 05:07 07:38 WBC 7.1 RBC 4.71 Hgb 14.0 Hct 38.7 MCV 82 MCH 29.7 MCHC 36.2 RDW Std Deviation 41.0 Plt Count 307 Neut % (Auto) 61 Lymph % (Auto) 27 [place] % (Auto) 11 Eos % (Auto) 0 Baso % (Auto) 0 Neut # (Auto) 4.4 Lymph # (Auto) 1.9 [place] # (Auto) 0.8 Eos # (Auto) 0.0 Baso # (Auto) 0.0 Immature Gran # (Auto) 0.05 H Absolute Nucleated RBC 0.00 Immature Gran % 1 H Nucleated RBC % 0 ESR 15 PT INR APTT Sodium 126 L Potassium 3.4 D Chloride 91 L Carbon Dioxide 23.1 Anion Gap 12 BUN < 5 L Creatinine 0.6 Estim Creat Clear Calc 97.2 eGFR > 60 BUN/Creatinine Ratio 8 L Glucose [address] Glu mg/dL 114 Hemoglobin A1c 5.6 Calculated Osmolality 250 L Lactic Acid 0.9 Calcium 8.2 L Corrected Calcium 8.6 Phosphorus Magnesium 2.7 H Total Bilirubin 0.8 AST 33 ALT 19 Alkaline Phosphatase 72 Troponin I C-Reactive Prot, Quant < 0.5 Total Protein 6.3 Albumin 3.5 Globulin 2.8 Albumin/Globulin Ratio 1.3 Triglycerides 94 Cholesterol 198 LDL Cholesterol, Calc 106 HDL Cholesterol 73 H Cholesterol/HDL Ratio 2.7 L Vitamin B12 1425 H Folate 11.36 TSH 84.55 H* Free T4 0.64 L Ur Collection Type Urine Color Urine Clarity Urine pH Ur Specific [place] Urine Protein Urine Glucose (UA) Urine Ketones Urine Blood Urine Nitrite Urine Bilirubin Urine Urobilinogen (Auto) Ur Leukocyte Esterase Urine RBC Urine WBC Ur Squamous Epith Cells Urine Bacteria Urine Yeast (Budding) Urine Opiates Screen Negative Urine Fentanyl Screen Negative Ur Barbiturates Screen Negative U Amphetamin/Meth Scrn Negative U Benzodiazepines Scrn Negative U Cocaine Metab Screen Negative U Marijuana (THC) Screen Negative Ethyl Alcohol < 3.0 Quality Measures Quality Measures stroke Suspected type of Stroke: Unknown at this time Tenecteplase given: Reason(s) Tenecteplase not given: Outside the time window not given Rehab services: PT evaluation ordered and Speech Language Pathology eval ordered VTE Prophylaxis: not indicated Antithrombotic by day 2:: not indicated (describe) Statin ordered: n/a Anticoagulation ordered for A-fib or flutter (current or hx): not indicated Assessment & Plan Assessment Current Active Medications: Generic Name Dose Route Start Last Admin Trade Name Freq PRN Reason Stop Dose Admin Acetaminophen 650 mg 10/04/24 03:36 Acetaminophen 325 Mg Tablet PO 11/03/24 03:35 Q6H PRN Fever >100 or pain 1-3 Dextrose 25 ml 10/04/24 04:07 Dextrose 50%-Water Inj 50 Ml Syringe IV 11/03/24 04:06 Q15MIN PRN BG 50-70 responsive npo pt Dextrose 50 ml 10/04/24 04:07 Dextrose 50%-Water Inj 50 Ml Syringe IV 11/03/24 04:06 Q15MIN PRN BG <50 OR BG <70 & pt unresponsive Enoxaparin Sodium 40 mg 10/04/24 09:00 10/04/24 09:06 Enoxaparin Sod Inj 40 Mg/0.4 Ml Syringe SC 10/18/24 08:59 40 mg QDAY SAMMI Administration Glucagon 1 mg 10/04/24 04:07 Glucagon Inj 1 Mg Vial IM Q15MIN PRN BG <70, and no IV access Hydrocortisone Sodium Succinate 100 mg 10/04/24 14:00 Hydrocortisone Sod Succ Inj 100 Mg Vial IV 11/03/24 13:59 Q8HR SAMMI Sodium Chloride 1,000 mls @ 75 mls/hr 10/04/24 03:46 10/04/24 04:22 Ns IV 10/04/24 17:05 75 mls/hr .[id number] SAMMI Administration Insulin Human Lispro 0 unit 10/04/24 07:30 10/04/24 11:50 Insulin Lispro (Admelog) 1 Unit/0.01 Ml Unit SC 11/03/24 07:29 Not Given AC [facility] Protocol Pantoprazole Sodium 40 mg 10/04/24 09:00 10/04/24 09:02 Pantoprazole Inj 40 Mg Vial IVP 11/03/24 08:59 40 mg QDAY SAMMI Administration Plan 64 y/o female with PMHx of HTN, hypothyroidism, depression, non-insulin dependent type two DM, who is currently admitted for acute encephalopathy and hypokalemia. #Acute encephalopathy-improving #UTI #Hypokalemia #Hypomagnesemia Likely multifactorial in combination with metabolic and infectious encephalopathy Patient has been decreasing in function for the past several months patient has significant weakness in upper and lower extremities CT head was negative, low suspicion for stroke as symptoms seem to be generalized and not localized Potassium 2.3; magnesium 1.5 NIHSS score of 13; teleneuro recommends lumbar spine and to treat metabolic encephalopathy with electrolyte replacement and to check thyroid levels Per family patient has not been taking medicines for the past ~3 months TSH found to be >[address] Vicente, Endocrinology ? Consider neurology consult ? Neurochecks every 4 hours ? Seizure precautions ? Ceftriaxone 1 g IV ? Follow-up urine culture ? 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 Vicente, Endocrinology recommended levothyroxine 100mcg IV and to taper hydrocortisone and monitor TSH q72 hours and Free T4 qday - levothyroxine 100mcg qday - f/u TSH q 72 hours and T4 qday - hydrocortisone 100mg [id number], will taper to 50mg q8 hours in am ?Follow-up TSH and free T4 ?levothyroxine 100mcg IV qday #Depression #Failure to thrive #? Sciatica Patient's functional capabilities have been decreased progressively and has been possibly doing sciatica Will need to further workup for lumbar pathology There is a concern if patient is able to take care adult living daily activities as patient is usually left alone at the house MRI lumbar spine without contrast showed L5-S1 2 mm central lumbar disc bulge, L4-L5 4 mm central lumbar disc bulge extending to the left foraminal region with mild left L4 ganglionic compression, If leg weakness persist, consider follow-up MRI lumbar spine post intravenous contrast ? Consider outreach and education social worker referral ? Consider gabapentin ? Resumed sertraline 50mg qday #Non-insulin dependent type II Diabetes mellitus A1c 5.6 ? Sliding scale insulin ? Hypoglycemic protocol in place ? Blood sugar checks with meals Case discussed with my senior Dr. Duncan PGY-[address] Chelsea Villagomez MD PGY-1 Disposition: MedTele DVT prophylaxis: Lovenox GI prophylaxis:Protonix Diet: Pending Swallow eval CODE STATUS:DNR Attending Provider Attestation/Addendum I attest that I was physically present for the evaluation, physical examination, lab and imaging review of the patient with the residents. I discussed the case with the residents and agree with the findings and plans of care as documented above. Karyn Tran MD
--- NOTE | 2024-10-04 16:28 | PC.NURSE ---
Patient arrived to unit at this time. Patient denies pain or discomfort. Vital signs stable, see flow sheet.
[2024-10-04] MEDS: SERTRALINE HCL 25 MG TABLET 50 MG PO (20:09)
[2024-10-05] VITALS (9 sets, daily range): BP systolic 105–132; BP diastolic 67–83; PULSE 69–96; RESP 16–929; TEMP 36.2–36.7; O2SAT 91–96; BMI 12.0
[2024-10-05] MEDS: ONDANSETRON INJ 2 MG/ML INJ 2 ML 4 MG IV ×2 (04:24→11:45)
[2024-10-05] MEDS: HYDROCORTISONE SOD SUCC INJ 100 MG VIAL IV (05:20)
[2024-10-05 06:13] LABS: Basophils % (Auto) 0 % (0-2.5); Eosinophils % (Auto) 0 % (0-10); Hemoglobin 13.8 g/dL (12.0-16.0); Immature Granulocytes % (Auto) 1 % (0-0); Immature Granulocytes Auto 0.06 Thou/mm3 (0.00-0.00); Lymphocytes # (Auto) 1.4 Thou/mm3 (1.0-4.8); Lymphocytes % (Auto) 25 % (10-50); Mean Corpuscular HGB Conc 36.3 g/dl (31.0-37.0); Mean Corpuscular Hemoglobin 30.5 pg (25.0-35.0); Mean Corpuscular Volume 84 fL (80-100); Monocytes # (Auto) 0.4 Thou/mm3 (0.0-0.8); Monocytes % (Auto) 7 % (0-12); Neutrophils # (Auto) 3.7 Thou/mm3 (1.8-7.7); Neutrophils % (Auto) 68 % (37-80); Nucleated Red Blood Cell % 0 /100 WBC (0); Platelet Count 290 Thou/mm3 (140-440); Red Blood Count 4.53 Miln/mm3 (4.00-5.20); White Blood Count 5.5 Thou/mm3 (3.6-11.0)
[2024-10-05 06:20] LABS: INR 1.2 (0.9-1.3); Partial Thromboplastin Time 28.9 Seconds (22.0-36.0); Prothrombin Time 12.7 Seconds (9.0-12.2)
[2024-10-05 06:39] LABS: Alanine Aminotransferase 23 U/L (10-49); Albumin, Serum 3.5 gm/dL (3.4-4.8); Albumin/Globulin Ratio 1.3 (1.2-2.2); Alkaline Phosphatase 71 U/L (46-116); Anion Gap 14 (7-16); Aspartate Amino Transferase 28 U/L (0-34); BUN/Creatinine Ratio 8 Ratio (12-20); Bilirubin,Total 0.9 mg/dL (0.3-1.2); Blood Urea Nitrogen 5 mg/dL (9-23); Calcium 8.5 mg/dL (8.3-10.6); Calcium (Corrected) 8.9 mg/dL (8.5-10.1); Chloride 92 mMol/L (98-107); Creatinine (Component) 0.6 mg/dL (0.6-1.3); Estimated Creatinine Clearance 97.2 mL/min (>60); Free T4 (Free Thyroxine) 0.75 ng/dL (0.89-1.76); Globulin 2.7 gm/dL (2.3-3.5); Glucose 134 mg/dL (74-106); Magnesium 1.8 mg/dL (1.6-2.6); Osmolality,Calculated 256 (275-295); Potassium 2.8 mMol/L (3.4-5.1); Sodium 128 mMol/L (136-145); Thyroid Stimulating Hormone 49.27 uIU/mL (0.55-4.78); Total Protein 6.2 gm/dL (5.7-8.2); eGFR > 60 See Note
[2024-10-05] MEDS: INSULIN LISPRO (AdmeLOG) 1 UNIT/0.01 ML UNIT SC ×2 (07:41→11:51)
[2024-10-05] MEDS: METOCLOPRAMIDE INJ 5 MG/ML VIAL 2 ML 10 MG IVP (08:24)
[2024-10-05] MEDS: PANTOPRAZOLE INJ 40 MG VIAL IVP (08:24)
[2024-10-05] MEDS: ENOXAPARIN SOD INJ 40 MG/0.4 ML SYRINGE SC (08:24)
[2024-10-05] MEDS: LEVOTHYROXINE 100 MCG IV (11:40)
[2024-10-05] MEDS: SODIUM CHLORIDE 0.9% IV (11:40)
[2024-10-05] MEDS: Magnesium Sulfate 4 GM Ivpb 4 GM/50 ML BAG IV (11:42)
[2024-10-05] MEDS: SODIUM CHLORIDE 0.9% 1000 ML 1,000 ML 75 ML IV (11:42)
[2024-10-05] MEDS: POTASSIUM CHL 10 mEq IVPB 10 MEQ/100 ML BAG 100 MEQ IV ×4 (12:55→17:33)
--- NOTE | 2024-10-05 12:58 | PC.NURSE ---
Received call from the production control technologist that patient had a run of v tach. Went in to check on patient. Patient laying in bed, smiling and talking with family. No other symptoms. Watched patient's heart rhythm and showing Sinus rhythm with occational PVCs.
[2024-10-05] MEDS: POTASSIUM CHLORIDE 10% 20 MEQ/15 ML UDC 40 MEQ PO (13:01)
--- NOTE | 2024-10-05 13:44 | PC.SS ---
Patient is alert/oriented. Patient was able to verify demographics. Patient's gun tester was at bedside. Patient states she was not walking very much at home prior to hospitalization. Patient states she was using a rollator walker. She does not have a wheelchair. She was sitting on the chair and rolling herself around the house. Patient resides with her daughter. The daughter works during the day. Patient follows with [facility]. Patient was admitted for acute encephalopathy. Patient family provides transportation. Patient worked with PT and they recommended acute rehab. PT discussed with patient and family. They agreed to d/c plan. SS updated patient that they will need someone to be with her during day if daughter will be working. SS explained that acute rehab is short term. Patient states her alt designated medical decision maker is her son, Ja Zaidi @ [phone].
[2024-10-05] MEDS: HYDROCORTISONE SOD SUCC INJ 100 MG VIAL 50 MG IV ×2 (13:54→21:05)
--- NOTE | 2024-10-05 14:18 | PC.NURSE ---
Received another call from [employer] that patient had another run of Vtach. Went in to check on patient. Patient said she is feeling fine but feeling a little flushed and warm. Checked rhythm. shows Sinus with occational PVCs. Vitals stable. Contacted Dr. Tran. said he will come take a look at patient.
--- NOTE | 2024-10-05 15:30 | ESPR_ITS ---
<Statement entered by Sabrina Duncan MD - 10/06/24 06:03> I discussed with and supervised the applications intern physician who took care of this patient. I personally saw and examined the patient and discussed the assessment and plan with the entire medicine team, including my attending Dr. Tran, I agree with most of the assessment and plan as documented below Sabrina Duncan M.D. PGY-2 Documentation for date of: 10/05/24 Subjective Subjective Interval history: Patient seen today at the bedside fine awake, alert, oriented x 3. No overnight events reported. States remarkable improvement in mentation and generalized weakness however continues to have weakness. Vital signs stable at this time. Labs at this time significant for hypokalemia which was repleted as needed. TSH and free T4 adjusting appropriately to IV levothyroxine, will also continue to taper steroid medications. Will provide patient with 1 bag of NS. Physical therapy evaluated the patient and recommended acute rehab. In the afternoon, received call from nursing patient is flushed likely secondary to hydrocortisone, was called by telemonitor apperantly patient is also having Vtach, went to examine the patient has no cardiac complaints at this time. Will continue to monitor. Exam Vital Signs Temp Pulse Resp BP Pulse Ox O2 Del Method 97.2 F 80 18 110/67 92 L Room Air 10/05/24 12:00 10/05/24 12:00 10/05/24 12:00 10/05/24 12:00 10/05/24 12:00 10/05/24 12:00 Narrative Exam Physical Exam GENERAL: NAD, AAOx3 HEENT: Moist mucosa. Eyes open, symmetrical, & clear CARDIO: Heart RRR, no obvious murmurs PULM: No noted coughing/dyspnea CTA B/L, no R/W/R GI: Abdomen soft, nondistended, no pain on palpation. BSx4 SKIN/MSK/EXT: No wounds/rashes/edema/amputations, no pain on palpation. Pedal pulses present B/L NEURO: AAOx3, weakness on all 4 extremities. Objective Labs 10/05/24 04:57 10/05/24 04:57 Labs: Laboratory Results - last 24 hr 10/05/24 04:57 WBC 5.5 RBC 4.53 Hgb 13.8 Hct 38.0 MCV 84 MCH 30.5 MCHC 36.3 RDW Std Deviation 43.0 Plt Count 290 Neut % (Auto) 68 Lymph % (Auto) 25 [place] % (Auto) 7 Eos % (Auto) 0 Baso % (Auto) 0 Neut # (Auto) 3.7 Lymph # (Auto) 1.4 [place] # (Auto) 0.4 Eos # (Auto) 0.0 Baso # (Auto) 0.0 Immature Gran # (Auto) 0.06 H Absolute Nucleated RBC 0.00 Immature Gran % 1 H Nucleated RBC % 0 PT 12.7 H INR 1.2 APTT 28.9 Sodium 128 L Potassium 2.8 L D Chloride 92 L Carbon Dioxide 22.0 Anion Gap 14 BUN 5 L Creatinine 0.6 Estim Creat Clear Calc 97.2 eGFR > 60 BUN/Creatinine Ratio 8 L Glucose 134 H Calculated Osmolality 256 L Calcium 8.5 Corrected Calcium 8.9 Phosphorus 3.0 Magnesium 1.8 Total Bilirubin 0.9 AST 28 ALT 23 Alkaline Phosphatase 71 Total Protein 6.2 Albumin 3.5 Globulin 2.7 Albumin/Globulin Ratio 1.3 TSH 49.27 H D Free T4 0.75 L Quality Measures Quality Measures stroke Suspected type of Stroke: Unknown at this time Tenecteplase given: Reason(s) Tenecteplase not given: Outside the time window not given Rehab services: PT evaluation ordered VTE Prophylaxis: pharmaceutical Antithrombotic by day 2:: not indicated (describe) Statin ordered: not ordered Anticoagulation ordered for A-fib or flutter (current or hx): not indicated Assessment & Plan Assessment Current Active Medications: Generic Name Dose Route Start Last Admin Trade Name Freq PRN Reason Stop Dose Admin Acetaminophen 650 mg 10/04/24 03:36 Acetaminophen 325 Mg Tablet PO 11/03/24 03:35 Q6H PRN Fever >100 or pain 1-3 Levothyroxine Sodium 100 mcg/ 0 mcg 10/05/24 11:00 10/05/24 11:40 Sodium Chloride 5 ml IV 11/04/24 10:59 5 syringe QDAY SAMMI Administration Dextrose 25 ml 10/04/24 04:07 Dextrose 50%-Water Inj 50 Ml Syringe IV 11/03/24 04:06 Q15MIN PRN BG 50-70 responsive npo pt Dextrose 50 ml 10/04/24 04:07 Dextrose 50%-Water Inj 50 Ml Syringe IV 11/03/24 04:06 Q15MIN PRN BG <50 OR BG <70 & pt unresponsive Enoxaparin Sodium 40 mg 10/04/24 09:00 10/05/24 08:24 Enoxaparin Sod Inj 40 Mg/0.4 Ml Syringe SC 10/18/24 08:59 40 mg QDAY SAMMI Administration Glucagon 1 mg 10/04/24 04:07 Glucagon Inj 1 Mg Vial IM Q15MIN PRN BG <70, and no IV access Hydrocortisone Sodium Succinate 50 mg 10/05/24 14:00 10/05/24 13:54 Hydrocortisone Sod Succ Inj 100 Mg Vial IV 11/04/24 13:59 50 mg Q8HR SAMMI Administration Sodium Chloride 1,000 mls @ 75 mls/hr 10/05/24 10:57 10/05/24 11:42 Ns IV 10/06/24 00:16 75 mls/hr .[id number] SAMMI Administration Potassium Chloride 10 meq in 100 mls @ 100 mls/hr 10/05/24 13:00 10/05/24 15:00 Kcl Ivpb IV 10/05/24 16:59 100 mls/hr Q1H SAMMI Administration Insulin Human Lispro 0 unit 10/04/24 07:30 10/05/24 11:51 Insulin Lispro (Admelog) 1 Unit/0.01 Ml Unit SC 11/03/24 07:29 1 unit AC SAMMI Administration Protocol Ondansetron HCl 4 mg 10/05/24 04:14 10/05/24 11:45 Ondansetron Inj 2 Mg/Ml Inj 2 Ml IV 11/04/24 04:13 4 mg Q6HR PRN Administration NAUSEA OR VOMITING Protocol Pantoprazole Sodium 40 mg 10/04/24 09:00 10/05/24 08:24 Pantoprazole Inj 40 Mg Vial IVP 11/03/24 08:59 40 mg QDAY SAMMI Administration Sertraline HCl 50 mg 10/04/24 21:00 10/04/24 20:09 Sertraline Hcl 25 Mg Tablet PO 11/03/24 20:59 50 mg HS SAMMI Administration Plan 64 y/o female with PMHx of HTN, hypothyroidism, depression, non-insulin dependent type two DM, who is currently admitted for acute encephalopathy and hypokalemia. #Acute encephalopathy-improving #UTI #Hypokalemia #Hypomagnesemia Likely multifactorial in combination with metabolic and infectious encephalopathy Patient has been decreasing in function for the past several months patient has significant weakness in upper and lower extremities CT head was negative, low suspicion for stroke as symptoms seem to be generalized and not localized Potassium 2.3; magnesium 1.5 NIHSS score of 13; teleneuro recommends lumbar spine and to treat metabolic encephalopathy with electrolyte replacement and to check thyroid levels Per family patient has not been taking medicines for the past ~3 months TSH found to be >[address] Vicente, Endocrinology ? Consider neurology consult ? Neurochecks every 4 hours ? Seizure precautions ? Ceftriaxone 1 g IV ? Follow-up urine culture ? 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 Vicente, Endocrinology recommended levothyroxine 100mcg IV and to taper hydrocortisone and monitor TSH q72 hours and Free T4 qday TSH and free T4 improving with IV levothyroxine - levothyroxine 100mcg qday - f/u TSH q 72 hours and T4 qday - hydrocortisone 50mg [id number], will taper to 50mg BID in am ?Follow-up TSH and free T4 ?levothyroxine 100mcg IV qday #Depression #Failure to thrive #? Sciatica Patient's functional capabilities have been decreased progressively and has been possibly doing sciatica Will need to further workup for lumbar pathology There is a concern if patient is able to take care adult living daily activities as patient is usually left alone at the house MRI lumbar spine without contrast showed L5-S1 2 mm central lumbar disc bulge, L4-L5 4 mm central lumbar disc bulge extending to the left foraminal region with mild left L4 ganglionic compression, If leg weakness persist, consider follow-up MRI lumbar spine post intravenous contrast ? Consider social worker delinquency prevention referral ? Consider gabapentin ? Resumed sertraline 50mg qday #Non-insulin dependent type II Diabetes mellitus A1c 5.6 ? Sliding scale insulin ? Hypoglycemic protocol in place ? Blood sugar checks with meals Case discussed with my senior Dr. Duncan PGY-[address] Chelsea Villagomez MD PGY-1 Disposition: MedTele DVT prophylaxis: Lovenox GI prophylaxis:Protonix Diet: Carb consistent CODE STATUS:DNR Attending Provider Attestation/Addendum I attest that I was physically present for the evaluation, physical examination, lab and imaging review of the patient with the residents. I discussed the case with the residents and agree with the findings and plans of care as documented above. At bedside today, patient is more alert and awake. She is oriented x 3, able to answer questions and follow commands appropriately. Continues to complain of lower limb weakness, unable to lift them. Continue to be on IV levothyroxine 100 mcg daily. T4 today slightly improved compared to yesterday but still not back to normal levels. We will also continue with hydrocortisone 50 mg every 8 hour, will taper to 50 mg twice daily tomorrow. We will continue with daily T4 level and switch her to p.o. levothyroxine once T4 levels are within normal limits. Continues to be on IV Rocephin for UTI. Resumed her home sertraline and gabapentin. Currently on insulin regimen for diabetes. If lower limb weakness does not improve with improvement in thyroid function we will obtain neurology consult. Karyn Tran MD
--- NOTE | 2024-10-05 15:49 | EKG_ITS ---
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
[2024-10-05] MEDS: SERTRALINE HCL 25 MG TABLET 50 MG PO (21:06)
[2024-10-06] VITALS (8 sets, daily range): BP systolic 123–152; BP diastolic 72–85; PULSE 62–80; RESP 16–92; TEMP 36.1–36.4; O2SAT 91–95; BMI 27.5; BMI 12.0
[2024-10-06 01:33] LABS: Anion Gap 10 (7-16); BUN/Creatinine Ratio 12 Ratio (12-20); Blood Urea Nitrogen 6 mg/dL (9-23); Calcium 8.2 mg/dL (8.3-10.6); Carbon Dioxide 22.1 mMol/L (20.0-31.0); Chloride 99 mMol/L (98-107); Creatinine (Component) 0.5 mg/dL (0.6-1.3); Estimated Creatinine Clearance 116.6 mL/min (>60); Glucose 132 mg/dL (74-106); Osmolality,Calculated 262 (275-295); Sodium 131 mMol/L (136-145); eGFR > 60 See Note
[2024-10-06] MEDS: POTASSIUM CHLORIDE 10% 20 MEQ/15 ML UDC 40 MEQ GT (02:09)
[2024-10-06] MEDS: POTASSIUM CHL 10 mEq IVPB 10 MEQ/100 ML BAG 100 MEQ IV ×4 (02:09→05:10)
[2024-10-06] MEDS: HYDROCORTISONE SOD SUCC INJ 100 MG VIAL 50 MG IV ×3 (05:10→20:14)
[2024-10-06 06:05] LABS: Basophils % (Auto) 0 % (0-2.5); Eosinophils % (Auto) 0 % (0-10); Hematocrit 38.2 % (36.0-46.0); Hemoglobin 13.6 g/dL (12.0-16.0); Immature Granulocytes % (Auto) 1 % (0-0); Immature Granulocytes Auto 0.07 Thou/mm3 (0.00-0.00); Lymphocytes # (Auto) 1.7 Thou/mm3 (1.0-4.8); Lymphocytes % (Auto) 26 % (10-50); Mean Corpuscular HGB Conc 35.6 g/dl (31.0-37.0); Mean Corpuscular Hemoglobin 30.1 pg (25.0-35.0); Mean Corpuscular Volume 85 fL (80-100); Monocytes # (Auto) 0.7 Thou/mm3 (0.0-0.8); Monocytes % (Auto) 10 % (0-12); Neutrophils # (Auto) 3.9 Thou/mm3 (1.8-7.7); Neutrophils % (Auto) 62 % (37-80); Nucleated Red Blood Cell % 0 /100 WBC (0); Platelet Count 294 Thou/mm3 (140-440); RDW Standard Deviation 43.5 fL (36.4-46.3); Red Blood Count 4.52 Miln/mm3 (4.00-5.20); White Blood Count 6.3 Thou/mm3 (3.6-11.0)
[2024-10-06 06:45] LABS: Alanine Aminotransferase 50 U/L (10-49); Albumin, Serum 3.4 gm/dL (3.4-4.8); Albumin/Globulin Ratio 1.3 (1.2-2.2); Alkaline Phosphatase 74 U/L (46-116); Anion Gap 8 (7-16); Aspartate Amino Transferase 88 U/L (0-34); BUN/Creatinine Ratio 7 Ratio (12-20); Bilirubin,Total 0.8 mg/dL (0.3-1.2); Blood Urea Nitrogen 5 mg/dL (9-23); Calcium 8.1 mg/dL (8.3-10.6); Calcium (Corrected) 8.6 mg/dL (8.5-10.1); Carbon Dioxide 22.6 mMol/L (20.0-31.0); Chloride 97 mMol/L (98-107); Creatinine (Component) 0.7 mg/dL (0.6-1.3); Estimated Creatinine Clearance 83.3 mL/min (>60); Free T4 (Free Thyroxine) 0.81 ng/dL (0.89-1.76); Globulin 2.7 gm/dL (2.3-3.5); Glucose 156 mg/dL (74-106); Magnesium 1.9 mg/dL (1.6-2.6); Osmolality,Calculated 257 (275-295); Phosphorous 1.7 mg/dL (2.4-5.1); Potassium 4.2 mMol/L (3.4-5.1); Sodium 128 mMol/L (136-145); Total Protein 6.1 gm/dL (5.7-8.2); eGFR > 60 See Note
[2024-10-06] MEDS: PANTOPRAZOLE INJ 40 MG VIAL IVP (08:12)
[2024-10-06] MEDS: LEVOTHYROXINE 100 MCG IV (08:12)
[2024-10-06] MEDS: ENOXAPARIN SOD INJ 40 MG/0.4 ML SYRINGE SC (08:12)
[2024-10-06] MEDS: SODIUM CHLORIDE 0.9% IV (08:12)
[2024-10-06] MEDS: SENNA TABLET 1 TAB PO (09:36)
[2024-10-06] MEDS: ONDANSETRON INJ 2 MG/ML INJ 2 ML 4 MG IV ×2 (09:36→16:07)
[2024-10-06] MEDS: NAPH,KPH MBDB 1 PACKET (1.5 GM) PO (09:37)
[2024-10-06] MEDS: INSULIN LISPRO (AdmeLOG) 1 UNIT/0.01 ML UNIT SC (12:03)
--- NOTE | 2024-10-06 12:31 | ESPR_ITS ---
<Statement entered by Sabrina Duncan MD - 10/07/24 06:03> Patient states that she was unable to sleep last night, and was seen very tired at bedside. Patient will receive her last dose of IV levothyroxine today, and will start her oral levothyroxine tomorrow as well as a tapered dose of hydrocortisone tomorrow. Patient continues to not be able to have static stability when sitting or walking. However, patient is able to stand. Will continue to have patient work with PT, however ultimately needs rehab to [facility] full strength. Patient would like to use a bedside commode for bowel movements however due to patient's fall risk patient will have to use her briefs/bedpan. I discussed with and supervised the internet researcher physician who took care of this patient. I personally saw and examined the patient and discussed the assessment and plan with the entire medicine team, including my attending , I agree with most of the assessment and plan as documented below Sabrina Duncan M.D. PGY-2 Disclaimer: Despite multiple revisions, due to the dictation software being used, the document bellow may not be free of grammatical errors including phonetic/typographic errors. However, this does not deter from our commitment to providing health care in the patient's best interest in mind. <Statement entered by Jamee Cooley MD - 10/06/24 18:26> I discussed with and supervised the internet researcher physician who took care of this patient. I personally saw and examined the patient and discussed the assessment and plan with the entire medicine team, including my attending Dr. Sands I agree with the assessment and plan as documented below Patient seen and examined at bedside today. Labs and imaging reviewed. No overnight acute events Patient this morning stated that she feels much better, tolerating p.o., denied any acute complaints at this moment only that she stated that she did not sleep too much last night and she feels tired. She still stated she is not able to walk and still presents bilateral lower extremity weakness. Will continue to taper down IV hydrocortisone 50 mg twice daily and tomorrow decreased to IV 50 daily, will continue IV levothyroxine 100 mcg and tomorrow we will presume patient p.o. levothyroxine home dose. Case management is informed about the case we will continue to monitor closely Jamee Cooley MD PGY-3 Disclaimer: Despite multiple revisions, due to the dictation software being used, the document bellow may not be free of grammatical errors including phonetic/typographic errors. However, this does not deter from our commitment to providing health care in the patient's best interest in mind. Documentation for date of: 10/06/24 Subjective Subjective Interval history: Patient seen today at the bedside found awake, alert, orientedx3. No overnight events reported. States continued improvement in weakness and mentation, however continues to be weak. Vital signs stable at this time. Labs stable at this time. Hydrocortisone tapered to 50mg BID today and plan is to continue to taper. Also on IV levothyroxine, will transition to PO route in am. Will continue to monitor TSH and Free T4. Exam Vital Signs Temp Pulse Resp BP Pulse Ox O2 Del Method 97.0 F 80 20 138/85 H 95 Room Air 10/06/24 08:00 10/06/24 10:27 10/06/24 10:27 10/06/24 08:00 10/06/24 10:27 10/06/24 04:00 Narrative Exam Physical Exam GENERAL: NAD, AAOx3 HEENT: Moist mucosa. Eyes open, symmetrical, & clear CARDIO: Heart RRR, no obvious murmurs PULM: No noted coughing/dyspnea CTA B/L, no R/W/R GI: Abdomen soft, nondistended, no pain on palpation. BSx4 SKIN/MSK/EXT: No wounds/rashes/edema/amputations, no pain on palpation. Pedal pulses present B/L NEURO: AAOx3, weakness on all 4 extremities-improving. Objective Labs 10/07/24 04:37 10/07/24 04:37 Labs: Laboratory Results - last 24 hr 10/06/24 10/06/24 00:19 05:01 WBC 6.3 RBC 4.52 Hgb 13.6 Hct 38.2 MCV 85 MCH 30.1 MCHC 35.6 RDW Std Deviation 43.5 Plt Count 294 Neut % (Auto) 62 Lymph % (Auto) 26 [place] % (Auto) 10 Eos % (Auto) 0 Baso % (Auto) 0 Neut # (Auto) 3.9 Lymph # (Auto) 1.7 [place] # (Auto) 0.7 Eos # (Auto) 0.0 Baso # (Auto) 0.0 Immature Gran # (Auto) 0.07 H Absolute Nucleated RBC 0.00 Immature Gran % 1 H Nucleated RBC % 0 Sodium 131 L 128 L Potassium 3.0 L 4.2 D Chloride 99 97 L Carbon Dioxide 22.1 22.6 Anion Gap 10 8 BUN 6 L 5 L Creatinine 0.5 L 0.7 Estim Creat Clear Calc 116.6 83.3 eGFR > 60 > 60 BUN/Creatinine Ratio 12 7 L Glucose 132 H 156 H Calculated Osmolality 262 L 257 L Calcium 8.2 L 8.1 L Corrected Calcium 8.6 Phosphorus 1.7 L Magnesium 2.0 1.9 Total Bilirubin 0.8 AST 88 H ALT 50 H Alkaline Phosphatase 74 Total Protein 6.1 Albumin 3.4 Globulin 2.7 Albumin/Globulin Ratio 1.3 Free T4 0.81 L Quality Measures Quality Measures stroke Suspected type of Stroke: Unknown at this time Tenecteplase given: Reason(s) Tenecteplase not given: Outside the time window not given Rehab services: PT evaluation ordered and Speech Language Pathology eval ordered VTE Prophylaxis: pharmaceutical Antithrombotic by day 2:: not indicated (describe) Statin ordered: not ordered Anticoagulation ordered for A-fib or flutter (current or hx): ordered Assessment & Plan Assessment Current Active Medications: Generic Name Dose Route Start Last Admin Trade Name Freq PRN Reason Stop Dose Admin Acetaminophen 650 mg 10/04/24 03:36 Acetaminophen 325 Mg Tablet PO 11/03/24 03:35 Q6H PRN Fever >100 or pain 1-3 Levothyroxine Sodium 100 mcg/ 0 mcg 10/05/24 11:00 10/06/24 08:12 Sodium Chloride 5 ml IV 11/04/24 10:59 5 syringe QDAY SAMMI Administration Dextrose 25 ml 10/04/24 04:07 Dextrose 50%-Water Inj 50 Ml Syringe IV 11/03/24 04:06 Q15MIN PRN BG 50-70 responsive npo pt Dextrose 50 ml 10/04/24 04:07 Dextrose 50%-Water Inj 50 Ml Syringe IV 11/03/24 04:06 Q15MIN PRN BG <50 OR BG <70 & pt unresponsive Enoxaparin Sodium 40 mg 10/04/24 09:00 10/06/24 08:12 Enoxaparin Sod Inj 40 Mg/0.4 Ml Syringe SC 10/18/24 08:59 40 mg QDAY SAMMI Administration Glucagon 1 mg 10/04/24 04:07 Glucagon Inj 1 Mg Vial IM Q15MIN PRN BG <70, and no IV access Hydrocortisone Sodium Succinate 50 mg 10/06/24 09:00 10/06/24 09:36 Hydrocortisone Sod Succ Inj 100 Mg Vial IV 11/05/24 08:59 50 mg BID SAMMI Administration Insulin Human Lispro 0 unit 10/04/24 07:30 10/06/24 12:03 Insulin Lispro (Admelog) 1 Unit/0.01 Ml Unit SC 11/03/24 07:29 1 unit AC SAMMI Administration Protocol Ondansetron HCl 4 mg 10/05/24 04:14 10/06/24 09:36 Ondansetron Inj 2 Mg/Ml Inj 2 Ml IV 11/04/24 04:13 4 mg Q6HR PRN Administration NAUSEA OR VOMITING Protocol Pantoprazole Sodium 40 mg 10/04/24 09:00 10/06/24 08:12 Pantoprazole Inj 40 Mg Vial IVP 11/03/24 08:59 40 mg QDAY SAMMI Administration Sennosides 1 tab 10/06/24 09:00 10/06/24 09:36 Senna Tablet PO 11/05/24 08:59 1 tab QDAY SAMMI Administration Protocol Sertraline HCl 50 mg 10/04/24 21:00 10/05/24 21:06 Sertraline Hcl 25 Mg Tablet PO 11/03/24 20:59 50 mg HS SAMMI Administration Plan 64 y/o female with PMHx of HTN, hypothyroidism, depression, non-insulin dependent type two DM, who is currently admitted for acute encephalopathy and hypokalemia. #Acute encephalopathy-improving #UTI #Hypokalemia #Hypomagnesemia Likely multifactorial in combination with metabolic and infectious encephalopathy Patient has been decreasing in function for the past several months patient has significant weakness in upper and lower extremities CT head was negative, low suspicion for stroke as symptoms seem to be generalized and not localized Potassium 2.3; magnesium 1.5 NIHSS score of 13; teleneuro recommends lumbar spine and to treat metabolic encephalopathy with electrolyte replacement and to check thyroid levels Per family patient has not been taking medicines for the past ~3 months TSH found to be >[address] Vicente, Endocrinology UCx negative ? Consider neurology consult ? Neurochecks every 4 hours ? Seizure precautions ? Ceftriaxone 1 g IV ? Follow-up urine culture ? 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 Vicente, Endocrinology recommended levothyroxine 100mcg IV and to taper hydrocortisone and monitor TSH q72 hours and Free T4 qday TSH and free T4 improving with IV levothyroxine - levothyroxine 100mcg qday - f/u TSH q 72 hours and T4 qday - hydrocortisone 50mg [id number], will taper to 50mg BID in am ?Follow-up TSH and free T4 ?levothyroxine 100mcg IV qday #Depression #Failure to thrive #? Sciatica Patient's functional capabilities have been decreased progressively and has been possibly doing sciatica Will need to further workup for lumbar pathology There is a concern if patient is able to take care adult living daily activities as patient is usually left alone at the house MRI lumbar spine without contrast showed L5-S1 2 mm central lumbar disc bulge, L4-L5 4 mm central lumbar disc bulge extending to the left foraminal region with mild left L4 ganglionic compression, If leg weakness persist, consider follow-up MRI lumbar spine post intravenous contrast ? Consider medical social consultant referral ? Consider gabapentin ? Resumed sertraline 50mg qday #Non-insulin dependent type II Diabetes mellitus A1c 5.6 ? Sliding scale insulin ? Hypoglycemic protocol in place ? Blood sugar checks with meals Case discussed with my seniors Dr. Cooley PGY-3, Dr. Duncan PGY-[address] Wicho Villagomez MD PGY-1 Disposition: MedTele DVT prophylaxis: Lovenox GI prophylaxis:Protonix Diet: Carb consistent CODE STATUS:DNR Attending Provider Attestation/Addendum I have examined the patient, reviewed labs and imaging findings, discussed the case with the resident(s), and reviewed entered orders. I agree with the plan of care as outlined in this note, with these additional summaries/recommendations: Patient seen at bedside. No acute overnight events. Patient is alert and oriented x 3. She reports improvement in bilateral lower extremity weakness although not resolved or back to baseline. Continue to be on IV levothyroxine 100 mcg daily. T4 today slightly improved compared to yesterday but still not back to normal levels. Decrease hydrocortisone to 50 mg daily. We will continue with daily T4 level and switch her to p.o. levothyroxine once T4 levels are within normal limits. Continues to be on IV Rocephin for UTI. Resumed her home sertraline and gabapentin. Currently on insulin regimen for diabetes. Repeat hematology and chemistry panel in AM. Dr. Wicho MD
[2024-10-06] MEDS: SERTRALINE HCL 25 MG TABLET 50 MG PO (20:14)
[2024-10-07] VITALS (7 sets, daily range): BP systolic 96–150; BP diastolic 58–88; PULSE 68–84; RESP 16–96; TEMP 36.1–36.8; O2SAT 91–98; BMI 12.0
[2024-10-07 06:03] LABS: Basophils % (Auto) 0 % (0-2.5); Eosinophils % (Auto) 0 % (0-10); Hematocrit 38.5 % (36.0-46.0); Hemoglobin 13.8 g/dL (12.0-16.0); Immature Granulocytes % (Auto) 1 % (0-0); Immature Granulocytes Auto 0.06 Thou/mm3 (0.00-0.00); Lymphocytes # (Auto) 2.1 Thou/mm3 (1.0-4.8); Lymphocytes % (Auto) 40 % (10-50); Mean Corpuscular HGB Conc 35.8 g/dl (31.0-37.0); Mean Corpuscular Hemoglobin 30.2 pg (25.0-35.0); Mean Corpuscular Volume 84 fL (80-100); Monocytes # (Auto) 0.6 Thou/mm3 (0.0-0.8); Monocytes % (Auto) 10 % (0-12); Neutrophils # (Auto) 2.6 Thou/mm3 (1.8-7.7); Neutrophils % (Auto) 48 % (37-80); Nucleated Red Blood Cell % 0 /100 WBC (0); Platelet Count 285 Thou/mm3 (140-440); RDW Standard Deviation 43.3 fL (36.4-46.3); Red Blood Count 4.57 Miln/mm3 (4.00-5.20); White Blood Count 5.3 Thou/mm3 (3.6-11.0)
[2024-10-07 06:48] LABS: Alanine Aminotransferase 50 U/L (10-49); Albumin, Serum 3.6 gm/dL (3.4-4.8); Albumin/Globulin Ratio 1.4 (1.2-2.2); Alkaline Phosphatase 72 U/L (46-116); Anion Gap 11 (7-16); Aspartate Amino Transferase 44 U/L (0-34); BUN/Creatinine Ratio 10 Ratio (12-20); Blood Urea Nitrogen 6 mg/dL (9-23); Calcium 8.5 mg/dL (8.3-10.6); Calcium (Corrected) 8.8 mg/dL (8.5-10.1); Chloride 89 mMol/L (98-107); Creatinine (Component) 0.6 mg/dL (0.6-1.3); Estimated Creatinine Clearance 95.1 mL/min (>60); Free T4 (Free Thyroxine) 0.92 ng/dL (0.89-1.76); Globulin 2.6 gm/dL (2.3-3.5); Glucose 122 mg/dL (74-106); Magnesium 1.7 mg/dL (1.6-2.6); Osmolality,Calculated 253 (275-295); Phosphorous 2.4 mg/dL (2.4-5.1); Potassium 2.8 mMol/L (3.4-5.1); Sodium 127 mMol/L (136-145); Total Protein 6.2 gm/dL (5.7-8.2); eGFR > 60 See Note
[2024-10-07] MEDS: ONDANSETRON INJ 2 MG/ML INJ 2 ML 4 MG IV ×2 (07:46→20:59)
[2024-10-07] MEDS: ENOXAPARIN SOD INJ 40 MG/0.4 ML SYRINGE SC (09:26)
[2024-10-07] MEDS: Magnesium Sulfate 4 GM Ivpb 4 GM/50 ML BAG IV (09:26)
[2024-10-07] MEDS: SENNA TABLET 1 TAB PO (09:27)
[2024-10-07] MEDS: PANTOPRAZOLE INJ 40 MG VIAL IVP (09:27)
[2024-10-07] MEDS: LEVOTHYROXINE SODIUM 125 MCG, LEVOTHYROXINE SODIUM 25 MCG 150 MCG PO (09:27)
[2024-10-07] MEDS: HYDROCORTISONE SOD SUCC INJ 100 MG VIAL 50 MG IV (09:27)
[2024-10-07] MEDS: DOCUSATE SOD 100 MG CAPSULE PO (11:06)
[2024-10-07] MEDS: POTASSIUM CHL 10 mEq IVPB 10 MEQ/100 ML BAG 100 MEQ IV (11:06)
[2024-10-07] MEDS: POTASSIUM CHLORIDE 20 mEq TABCR 40 MEQ PO ×2 (11:22→11:43)
--- NOTE | 2024-10-07 11:39 | PC.SS ---
[facility] referral submitted for SNF and Acute Rehab pending responses
[2024-10-07] MEDS: POLYETHYLENE GLYCOL 17 GM PACKET PO (11:43)
[2024-10-07] MEDS: INSULIN LISPRO (AdmeLOG) 1 UNIT/0.01 ML UNIT SC ×2 (11:50→17:03)
--- NOTE | 2024-10-07 12:00 | PC.SS ---
PASSR initiated requires LVL 2- d/t Depression DX and on Setraline 50mg PO Q Day
--- NOTE | 2024-10-07 12:24 | ESPR_ITS ---
Documentation for date of: 10/07/24 Subjective Subjective Interval history: Patient seen today at the bedside fine awake, alert, oriented x 3. No overnight events reported. Patient is content with significant improvement in her weakness. Vital signs stable at this time. Labs significant for improving TSH and free T4. IV levothyroxine switched to p.o. route. Hydrocortisone medication tapered to 50 mg daily. Overall patient seems to be improving from symptoms on admission. Possible discharge in the next 24-48 hours. Exam Vital Signs Temp Pulse Resp BP Pulse Ox O2 Del Method 97.5 F 68 19 96/58 L 98 Room Air 10/07/24 12:00 10/07/24 12:00 10/07/24 12:00 10/07/24 12:00 10/07/24 12:00 10/06/24 12:00 Narrative Exam Physical Exam GENERAL: NAD, AAOx3 HEENT: Moist mucosa. Eyes open, symmetrical, & clear CARDIO: Heart RRR, no obvious murmurs PULM: No noted coughing/dyspnea CTA B/L, no R/W/R GI: Abdomen soft, nondistended, no pain on palpation. BSx4 SKIN/MSK/EXT: No wounds/rashes/edema/amputations, no pain on palpation. Pedal pulses present B/L NEURO: AAOx3, weakness on all 4 extremities-improving. Objective Labs 10/07/24 04:37 10/07/24 04:37 Labs: Laboratory Results - last 24 hr 10/07/24 04:37 WBC 5.3 RBC 4.57 Hgb 13.8 Hct 38.5 MCV 84 MCH 30.2 MCHC 35.8 RDW Std Deviation 43.3 Plt Count 285 Neut % (Auto) 48 Lymph % (Auto) 40 [place] % (Auto) 10 Eos % (Auto) 0 Baso % (Auto) 0 Neut # (Auto) 2.6 Lymph # (Auto) 2.1 [place] # (Auto) 0.6 Eos # (Auto) 0.0 Baso # (Auto) 0.0 Immature Gran # (Auto) 0.06 H Absolute Nucleated RBC 0.00 Immature Gran % 1 H Nucleated RBC % 0 Sodium 127 L Potassium 2.8 L D Chloride 89 L Carbon Dioxide 27.0 Anion Gap 11 BUN 6 L Creatinine 0.6 Estim Creat Clear Calc 95.1 eGFR > 60 BUN/Creatinine Ratio 10 L Glucose 122 H Calculated Osmolality 253 L Calcium 8.5 Corrected Calcium 8.8 Phosphorus 2.4 Magnesium 1.7 Total Bilirubin 1.0 AST 44 H ALT 50 H Alkaline Phosphatase 72 Total Protein 6.2 Albumin 3.6 Globulin 2.6 Albumin/Globulin Ratio 1.4 Free T4 0.92 Quality Measures Quality Measures stroke Suspected type of Stroke: Unknown at this time Tenecteplase given: Reason(s) Tenecteplase not given: Outside the time window not given Rehab services: PT evaluation ordered VTE Prophylaxis: pharmaceutical Antithrombotic by day 2:: not indicated (describe) Statin ordered: not ordered Anticoagulation ordered for A-fib or flutter (current or hx): not indicated Assessment & Plan Assessment Current Active Medications: Generic Name Dose Route Start Last Admin Trade Name Freq PRN Reason Stop Dose Admin Acetaminophen 650 mg 10/04/24 03:36 Acetaminophen 325 Mg Tablet PO 11/03/24 03:35 Q6H PRN Fever >100 or pain 1-3 Dextrose 25 ml 10/04/24 04:07 Dextrose 50%-Water Inj 50 Ml Syringe IV 11/03/24 04:06 Q15MIN PRN BG 50-70 responsive npo pt Dextrose 50 ml 10/04/24 04:07 Dextrose 50%-Water Inj 50 Ml Syringe IV 11/03/24 04:06 Q15MIN PRN BG <50 OR BG <70 & pt unresponsive Docusate Sodium 100 mg 10/07/24 10:00 10/07/24 11:06 Docusate Sod 100 Mg Capsule PO 11/06/24 09:59 100 mg QDAY SAMMI Administration Protocol Enoxaparin Sodium 40 mg 10/04/24 09:00 10/07/24 09:26 Enoxaparin Sod Inj 40 Mg/0.4 Ml Syringe SC 10/18/24 08:59 40 mg QDAY SAMMI Administration Glucagon 1 mg 10/04/24 04:07 Glucagon Inj 1 Mg Vial IM Q15MIN PRN BG <70, and no IV access Hydrocortisone Sodium Succinate 50 mg 10/07/24 09:00 10/07/24 09:27 Hydrocortisone Sod Succ Inj 100 Mg Vial IV 11/06/24 08:59 50 mg QDAY SAMMI Administration Magnesium Sulfate 4 gm in 50 mls @ 12.5 mls/hr 10/07/24 08:47 10/07/24 09:26 Magnesium Sulfate Ivpb IV 10/07/24 12:46 12.5 mls/hr X1 ONE Administration Insulin Human Lispro 0 unit 10/04/24 07:30 10/07/24 11:50 Insulin Lispro (Admelog) 1 Unit/0.01 Ml Unit SC 11/03/24 07:29 1 unit AC SAMMI Administration Protocol Levothyroxine Sodium 125 mcg/ 150 mcg 10/07/24 09:30 10/07/24 09:27 Levothyroxine Sodium 25 mcg PO 11/06/24 09:29 150 mcg ACBR SAMMI Administration Ondansetron HCl 4 mg 10/05/24 04:14 10/07/24 07:46 Ondansetron Inj 2 Mg/Ml Inj 2 Ml IV 11/04/24 04:13 4 mg Q6HR PRN Administration NAUSEA OR VOMITING Protocol Pantoprazole Sodium 40 mg 10/04/24 09:00 10/07/24 09:27 Pantoprazole Inj 40 Mg Vial IVP 11/03/24 08:59 40 mg QDAY SAMMI Administration Sertraline HCl 50 mg 10/04/24 21:00 10/06/24 20:14 Sertraline Hcl 25 Mg Tablet PO 11/03/24 20:59 50 mg HS SAMMI Administration Plan 64 y/o female with PMHx of HTN, hypothyroidism, depression, non-insulin dependent type two DM, who is currently admitted for acute encephalopathy and hypokalemia. #Acute encephalopathy-improving #UTI #Hypokalemia-resolved #Hypomagnesemia-resolved Likely multifactorial in combination with metabolic and infectious encephalopathy Patient has been decreasing in function for the past several months patient has significant weakness in upper and lower extremities CT head was negative, low suspicion for stroke as symptoms seem to be generalized and not localized Potassium 2.3; magnesium 1.5 NIHSS score of 13; teleneuro recommends lumbar spine and to treat metabolic encephalopathy with electrolyte replacement and to check thyroid levels Per family patient has not been taking medicines for the past ~3 months TSH found to be >[address] Vicente, Endocrinology UCx negative ? Consider neurology consult ? Neurochecks every 4 hours ? Seizure precautions ? Ceftriaxone 1 g IV ? 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 Vicente, Endocrinology recommended levothyroxine 100mcg IV and to taper hydrocortisone and monitor TSH q72 hours and Free T4 qday TSH and free T4 improving with IV levothyroxine - levothyroxine 150mcg PO qday - f/u TSH q 72 hours and T4 qday - hydrocortisone 50mg qday, will discontinue tomorrow ?Follow-up TSH and free T4 ?levothyroxine 100mcg IV qday #Depression #Failure to thrive #? Sciatica Patient's functional capabilities have been decreased progressively and has been possibly doing sciatica Will need to further workup for lumbar pathology There is a concern if patient is able to take care adult living daily activities as patient is usually left alone at the house MRI lumbar spine without contrast showed L5-S1 2 mm central lumbar disc bulge, L4-L5 4 mm central lumbar disc bulge extending to the left foraminal region with mild left L4 ganglionic compression, If leg weakness persist, consider follow-up MRI lumbar spine post intravenous contrast ? Consider oncology social worker referral ? Consider gabapentin ? Resumed sertraline 50mg qday #Non-insulin dependent type II Diabetes mellitus A1c 5.6 ? Sliding scale insulin ? Hypoglycemic protocol in place ? Blood sugar checks with meals Case discussed with my senior Dr. Duncan PGY-[address] Wicho Villagomez MD PGY-1 Disposition: MedTele DVT prophylaxis: Lovenox GI prophylaxis:Protonix Diet: Carb consistent CODE STATUS:DNR Attending Provider Attestation/Addendum I have examined the patient, reviewed labs and imaging findings, discussed the case with the resident(s), and reviewed entered orders. I agree with the plan of care as outlined in this note, with these additional summaries/recommendations: Patient seen at bedside. No acute overnight events. Patient reports significant improvement in her generalized weakness and now able to lift upper extremities and minimally move lower extremities which is improvement from admission. 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 Patient will require SNF placement once medically cleared for discharge given her severe weakness. We will discontinue IV levothyroxine and transition to oral as T4now within normal limits. We will continue to taper hydrocortisone. Patient did completed Lumbar MRI which revealed mild left L4 ganglionic compression although likely noncontributitory given generalized acute weakness. Continues to be on IV Rocephin for UTI. Continue home sertraline and gabapentin. Currently on insulin regimen for diabetes. Repeat hematology and chemistry panel in AM. Dr. Wicho MD
[2024-10-07] MEDS: SERTRALINE HCL 25 MG TABLET 50 MG PO (21:03)
[2024-10-08] VITALS (8 sets, daily range): BP systolic 96–141; BP diastolic 62–84; PULSE 71–707; RESP 16–96; TEMP 35.9–36.7; O2SAT 91–96
[2024-10-08] MEDS: LEVOTHYROXINE SODIUM 125 MCG, LEVOTHYROXINE SODIUM 25 MCG 150 MCG PO (05:18)
[2024-10-08 05:59] LABS: Basophils % (Auto) 0 % (0-2.5); Eosinophils % (Auto) 0 % (0-10); Hematocrit 39.3 % (36.0-46.0); Hemoglobin 14.3 g/dL (12.0-16.0); Immature Granulocytes % (Auto) 1 % (0-0); Immature Granulocytes Auto 0.04 Thou/mm3 (0.00-0.00); Lymphocytes # (Auto) 1.7 Thou/mm3 (1.0-4.8); Lymphocytes % (Auto) 40 % (10-50); Mean Corpuscular HGB Conc 36.4 g/dl (31.0-37.0); Mean Corpuscular Hemoglobin 30.1 pg (25.0-35.0); Mean Corpuscular Volume 83 fL (80-100); Monocytes # (Auto) 0.6 Thou/mm3 (0.0-0.8); Monocytes % (Auto) 13 % (0-12); Neutrophils # (Auto) 1.9 Thou/mm3 (1.8-7.7); Neutrophils % (Auto) 46 % (37-80); Nucleated Red Blood Cell % 0 /100 WBC (0); Platelet Count 272 Thou/mm3 (140-440); RDW Standard Deviation 41.1 fL (36.4-46.3); Red Blood Count 4.75 Miln/mm3 (4.00-5.20); White Blood Count 4.3 Thou/mm3 (3.6-11.0)
[2024-10-08 06:46] LABS: Alanine Aminotransferase 51 U/L (10-49); Albumin, Serum 3.7 gm/dL (3.4-4.8); Albumin/Globulin Ratio 1.4 (1.2-2.2); Alkaline Phosphatase 74 U/L (46-116); Anion Gap 8 (7-16); Aspartate Amino Transferase 34 U/L (0-34); BUN/Creatinine Ratio 10 Ratio (12-20); Bilirubin,Total 1.1 mg/dL (0.3-1.2); Blood Urea Nitrogen 5 mg/dL (9-23); Calcium 8.4 mg/dL (8.3-10.6); Calcium (Corrected) 8.6 mg/dL (8.5-10.1); Carbon Dioxide 25.7 mMol/L (20.0-31.0); Chloride 89 mMol/L (98-107); Creatinine (Component) 0.5 mg/dL (0.6-1.3); Estimated Creatinine Clearance 114.1 mL/min (>60); Free T4 (Free Thyroxine) 1.01 ng/dL (0.89-1.76); Globulin 2.7 gm/dL (2.3-3.5); Glucose 127 mg/dL (74-106); Magnesium 1.5 mg/dL (1.6-2.6); Osmolality,Calculated 246 (275-295); Phosphorous 2.3 mg/dL (2.4-5.1); Potassium 3.6 mMol/L (3.4-5.1); Sodium 123 mMol/L (136-145); Thyroid Stimulating Hormone 62.97 uIU/mL (0.55-4.78); Total Protein 6.4 gm/dL (5.7-8.2); eGFR > 60 See Note
[2024-10-08] MEDS: Magnesium Sulfate 4 GM Ivpb 4 GM/50 ML BAG IV (09:07)
[2024-10-08] MEDS: NAPH,KPH MBDB 1 PACKET (1.5 GM) PO (09:07)
[2024-10-08] MEDS: ENOXAPARIN SOD INJ 40 MG/0.4 ML SYRINGE SC (09:07)
[2024-10-08] MEDS: PANTOPRAZOLE INJ 40 MG VIAL IVP (09:07)
[2024-10-08] MEDS: DOCUSATE SOD 100 MG CAPSULE PO (09:07)
--- NOTE | 2024-10-08 09:57 | PC.SS ---
SS met with pt and her spouse at bedside to discuss DC planning and placement. SS informed pt of accepting facilities for Acute Rehab and SNF. Per pt dtr, Flor has been visiting places in [place] and requested SS to give her a call. [facility] [place] [facility] [place] [facility]- Formally known as [facility]
--- NOTE | 2024-10-08 10:02 | PC.SS ---
SS spoke to pt dtr Flor over phone in regards to placement. Flor does not want pt too far as it would be difficult for family to visit her. SS explained the difference of Acute Rehab and SNF. Per Flor she does not believe the pt is suitable for Acute Rehab and intense PT. SS explained ultimately it is the pts choice where she wants to go, SS encouraged Flor to continue to research accepting facilities and call and ask questions. Per Flor she will call SS back later when she has had a chance to speak to family and pt.
--- NOTE | 2024-10-08 10:07 | CHAP ---
Patient expressed gratitude for visit and prayer.
--- NOTE | 2024-10-08 10:22 | PC.SS ---
SS received a call from Remi from [facility] in regards to pt referral. Per Remi she had a conversation with dtr Flor. Remi requested to be updated on pt choice as she feels pt would truly benefit from their facility and program.
--- NOTE | 2024-10-08 10:40 | PC.SS ---
SS received a call from dorian Ray dtr that they have chosen [facility] for their facility. SS contacted Laurita from [facility] and informed her of pt choice. Per Laurita they can accept pt today or over weekend. Pt still pending [facility] clearance.
--- NOTE | 2024-10-08 12:07 | CHAP ---
Patient was visited by the Spiritual Care Volunteer who prayed for her. (Volunteer was in the hospital from 11:00-12:07).
[2024-10-08] MEDS: SODIUM CHLORIDE 1 GM TABLET PO (12:20)
[2024-10-08] MEDS: Magnesium Sulfate 2 GM Ivpb 2 GM/50 ML BAG IV (12:20)
--- NOTE | 2024-10-08 14:54 | ESPR_ITS ---
Documentation for date of: 10/08/24 Subjective Subjective Interval history: Patient seen today at the bedside fine awake, alert, oriented x 3. No overnight events reported. Vital signs stable at this time. Labs significant for continued improvement in thyroid function. Patient's weakness has improved significantly compared to admission. Patient to continue to work with physicaltherapy and disposition is to rehab facility. Patient has pending bowel movement at this time and will likely be discharged in the next 24-48 hours. Exam Vital Signs Temp Pulse Resp BP Pulse Ox O2 Del Method 97.1 F 74 18 107/62 96 Room Air 10/08/24 12:00 10/08/24 12:00 10/08/24 12:00 10/08/24 12:00 10/08/24 12:00 10/08/24 07:56 Narrative Exam Physical Exam GENERAL: NAD, AAOx3 HEENT: Moist mucosa. Eyes open, symmetrical, & clear CARDIO: Heart RRR, no obvious murmurs PULM: No noted coughing/dyspnea CTA B/L, no R/W/R GI: Abdomen soft, nondistended, no pain on palpation. BSx4 SKIN/MSK/EXT: No wounds/rashes/edema/amputations, no pain on palpation. Pedal pulses present B/L NEURO: AAOx3, weakness on all 4 extremeties, however able to move B/L Upper extremities significantly more than previosu examinations Objective Labs 10/09/24 04:31 10/09/24 04:31 Labs: Laboratory Results - last 24 hr 10/08/24 04:59 WBC 4.3 RBC 4.75 Hgb 14.3 Hct 39.3 MCV 83 MCH 30.1 MCHC 36.4 RDW Std Deviation 41.1 Plt Count 272 Neut % (Auto) 46 Lymph % (Auto) 40 [place] % (Auto) 13 H Eos % (Auto) 0 Baso % (Auto) 0 Neut # (Auto) 1.9 Lymph # (Auto) 1.7 [place] # (Auto) 0.6 Eos # (Auto) 0.0 Baso # (Auto) 0.0 Immature Gran # (Auto) 0.04 H Absolute Nucleated RBC 0.00 Immature Gran % 1 H Nucleated RBC % 0 Sodium 123 L Potassium 3.6 D Chloride 89 L Carbon Dioxide 25.7 Anion Gap 8 BUN 5 L Creatinine 0.5 L Estim Creat Clear Calc 114.1 eGFR > 60 BUN/Creatinine Ratio 10 L Glucose 127 H Calculated Osmolality 246 L Calcium 8.4 Corrected Calcium 8.6 Phosphorus 2.3 L Magnesium 1.5 L Total Bilirubin 1.1 AST 34 ALT 51 H Alkaline Phosphatase 74 Total Protein 6.4 Albumin 3.7 Globulin 2.7 Albumin/Globulin Ratio 1.4 TSH 62.97 H* D Free T4 1.01 Quality Measures Quality Measures stroke Suspected type of Stroke: Unknown at this time Tenecteplase given: Reason(s) Tenecteplase not given: Outside the time window not given Rehab services: PT evaluation ordered VTE Prophylaxis: not indicated Antithrombotic by day 2:: not indicated (describe) Statin ordered: not ordered Anticoagulation ordered for A-fib or flutter (current or hx): ordered Assessment & Plan Assessment Current Active Medications: Generic Name Dose Route Start Last Admin Trade Name Freq PRN Reason Stop Dose Admin Acetaminophen 650 mg 10/04/24 03:36 Acetaminophen 325 Mg Tablet PO 11/03/24 03:35 Q6H PRN Fever >100 or pain 1-3 Dextrose 25 ml 10/04/24 04:07 Dextrose 50%-Water Inj 50 Ml Syringe IV 11/03/24 04:06 Q15MIN PRN BG 50-70 responsive npo pt Dextrose 50 ml 10/04/24 04:07 Dextrose 50%-Water Inj 50 Ml Syringe IV 11/03/24 04:06 Q15MIN PRN BG <50 OR BG <70 & pt unresponsive Docusate Sodium 100 mg 10/07/24 10:00 10/08/24 09:07 Docusate Sod 100 Mg Capsule PO 11/06/24 09:59 100 mg QDAY [facility] Administration Protocol Enoxaparin Sodium 40 mg 10/04/24 09:00 10/08/24 09:07 Enoxaparin Sod Inj 40 Mg/0.4 Ml Syringe SC 10/18/24 08:59 40 mg QDAY SAMMI Administration Glucagon 1 mg 10/04/24 04:07 Glucagon Inj 1 Mg Vial IM Q15MIN PRN BG <70, and no IV access Insulin Human Lispro 0 unit 10/04/24 07:30 10/08/24 12:20 Insulin Lispro (Admelog) 1 Unit/0.01 Ml Unit SC 11/03/24 07:29 Not Given AC [facility] Protocol Levothyroxine Sodium 125 mcg/ 150 mcg 10/07/24 09:30 10/08/24 05:18 Levothyroxine Sodium 25 mcg PO 11/06/24 09:29 150 mcg ACBR SAMMI Administration Ondansetron HCl 4 mg 10/05/24 04:14 10/07/24 20:59 Ondansetron Inj 2 Mg/Ml Inj 2 Ml IV 11/04/24 04:13 4 mg Q6HR PRN Administration NAUSEA OR VOMITING Protocol Pantoprazole Sodium 40 mg 10/04/24 09:00 10/08/24 09:07 Pantoprazole Inj 40 Mg Vial IVP 11/03/24 08:59 40 mg QDAY SAMMI Administration Sertraline HCl 50 mg 10/04/24 21:00 10/07/24 21:03 Sertraline Hcl 25 Mg Tablet PO 11/03/24 20:59 50 mg HS SAMMI Administration Plan 64 y/o female with PMHx of HTN, hypothyroidism, depression, non-insulin dependent type two DM, who is currently admitted for acute encephalopathy and hypokalemia. #Acute encephalopathy-resolved #UTI #Hypokalemia-resolved #Hypomagnesemia-resolved Likely multifactorial in combination with metabolic and infectious encephalopathy Patient has been decreasing in function for the past several months patient has significant weakness in upper and lower extremities CT head was negative, low suspicion for stroke as symptoms seem to be generalized and not localized Potassium 2.3; magnesium 1.5 NIHSS score of 13; teleneuro recommends lumbar spine and to treat metabolic encephalopathy with electrolyte replacement and to check thyroid levels Per family patient has not been taking medicines for the past ~3 months TSH found to be >[address] Vicente, Endocrinology UCx negative ? Consider neurology consult ? Neurochecks every 4 hours ? Seizure precautions ? Ceftriaxone 1 g IV ? 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 Vicente, Endocrinology recommended levothyroxine 100mcg IV and to taper hydrocortisone and monitor TSH q72 hours and Free T4 qday TSH and free T4 improving with IV levothyroxine - levothyroxine 150mcg PO qday - f/u TSH q 72 hours and T4 qday - hydrocortisone 50mg qday, discontinued ?Follow-up TSH and free T4 #Depression #Failure to thrive #? Sciatica Patient's functional capabilities have been decreased progressively and has been possibly doing sciatica Will need to further workup for lumbar pathology There is a concern if patient is able to take care adult living daily activities as patient is usually left alone at the house MRI lumbar spine without contrast showed L5-S1 2 mm central lumbar disc bulge, L4-L5 4 mm central lumbar disc bulge extending to the left foraminal region with mild left L4 ganglionic compression, If leg weakness persist, consider follow-up MRI lumbar spine post intravenous contrast ? Consider social service assistant referral ? Resumed sertraline 50mg qday #Non-insulin dependent type II Diabetes mellitus A1c 5.6 ? Sliding scale insulin ? Hypoglycemic protocol in place ? Blood sugar checks with meals Case discussed with my attending Dr. Wicho Villagomez MD PGY-1 Disposition: MedTele DVT prophylaxis: Lovenox GI prophylaxis:Protonix Diet: Carb consistent CODE STATUS:DNR Attending Provider Attestation/Addendum I have examined the patient, reviewed labs and imaging findings, discussed the case with the resident(s), and reviewed entered orders. I agree with the plan of care as outlined in this note, with these additional summaries/recommendations: Patient seen at bedside. No acute overnight events. Patient continues to have improvement in generalized weakness. 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 Patient will require SNF placement once medically cleared for discharge given her severe weakness. We will discontinue IV levothyroxine and transition to oral as T4now within normal limits. We will continue to taper hydrocortisone. Lumbar MRI which revealed mild left L4 ganglionic compression although likely noncontributitory given generalized acute weakness. Continues to be on IV Rocephin for UTI. Continue home gabapentin. Patient had worsening hyponatremia today and given salt tablets. Patient also will receive enema today as she has not had a bowel movement. If sodium improves and patient has BM then anticipate discharge in the next 24 to 48 hours. Currently on insulin regimen for diabetes. Repeat hematology and chemistry panel in AM. Dr. Wicho MD
--- NOTE | 2024-10-08 15:14 | PC.SS ---
Rounding: Correcting electrolytes, poss DC over weekend
[2024-10-08] MEDS: SERTRALINE HCL 25 MG TABLET 50 MG PO (20:44)
[2024-10-09] VITALS (7 sets, daily range): BP systolic 111–128; BP diastolic 64–84; PULSE 67–82; RESP 16–18; TEMP 35.9–36.5; O2SAT 92–96
[2024-10-09] MEDS: ONDANSETRON INJ 2 MG/ML INJ 2 ML 4 MG IV (03:38)
[2024-10-09] MEDS: ACETAMINOPHEN 325 MG TABLET 650 MG PO (03:47)
[2024-10-09] MEDS: LEVOTHYROXINE SODIUM 125 MCG, LEVOTHYROXINE SODIUM 25 MCG 150 MCG PO (05:23)
[2024-10-09 05:44] LABS: Basophils % (Auto) 0 % (0-2.5); Eosinophils % (Auto) 0 % (0-10); Hematocrit 39.4 % (36.0-46.0); Hemoglobin 14.3 g/dL (12.0-16.0); Immature Granulocytes % (Auto) 1 % (0-0); Immature Granulocytes Auto 0.05 Thou/mm3 (0.00-0.00); Lymphocytes # (Auto) 1.5 Thou/mm3 (1.0-4.8); Lymphocytes % (Auto) 25 % (10-50); Mean Corpuscular HGB Conc 36.3 g/dl (31.0-37.0); Mean Corpuscular Hemoglobin 30.4 pg (25.0-35.0); Mean Corpuscular Volume 84 fL (80-100); Monocytes # (Auto) 0.8 Thou/mm3 (0.0-0.8); Monocytes % (Auto) 14 % (0-12); Neutrophils # (Auto) 3.6 Thou/mm3 (1.8-7.7); Neutrophils % (Auto) 61 % (37-80); Nucleated Red Blood Cell % 0 /100 WBC (0); Platelet Count 279 Thou/mm3 (140-440); RDW Standard Deviation 42.3 fL (36.4-46.3)
[2024-10-09 06:17] LABS: Alanine Aminotransferase 47 U/L (10-49); Albumin, Serum 3.6 gm/dL (3.4-4.8); Albumin/Globulin Ratio 1.3 (1.2-2.2); Alkaline Phosphatase 72 U/L (46-116); Anion Gap 11 (7-16); Aspartate Amino Transferase 21 U/L (0-34); BUN/Creatinine Ratio 12 Ratio (12-20); Bilirubin,Total 1.1 mg/dL (0.3-1.2); Blood Urea Nitrogen 7 mg/dL (9-23); Calcium 8.2 mg/dL (8.3-10.6); Calcium (Corrected) 8.5 mg/dL (8.5-10.1); Carbon Dioxide 26.8 mMol/L (20.0-31.0); Chloride 88 mMol/L (98-107); Creatinine (Component) 0.6 mg/dL (0.6-1.3); Estimated Creatinine Clearance 95.1 mL/min (>60); Free T4 (Free Thyroxine) 1.05 ng/dL (0.89-1.76); Globulin 2.7 gm/dL (2.3-3.5); Glucose 131 mg/dL (74-106); Magnesium 2.3 mg/dL (1.6-2.6); Osmolality,Calculated 253 (275-295); Phosphorous 4.6 mg/dL (2.4-5.1); Sodium 126 mMol/L (136-145); Total Protein 6.3 gm/dL (5.7-8.2); eGFR > 60 See Note
[2024-10-09 06:20] LABS: Potassium 2.6 mMol/L (3.4-5.1)
[2024-10-09] MEDS: POTASSIUM CHLORIDE 10% 20 MEQ/15 ML UDC 40 MEQ PO (08:00)
[2024-10-09] MEDS: ENOXAPARIN SOD INJ 40 MG/0.4 ML SYRINGE SC (08:00)
[2024-10-09] MEDS: POTASSIUM CHLORIDE 10% 20 MEQ/15 ML UDC PO (08:00)
[2024-10-09] MEDS: PANTOPRAZOLE INJ 40 MG VIAL IVP (08:00)
--- NOTE | 2024-10-09 09:21 | PC.NURSE ---
stout catheter removed at 0745, patient tolerated well.
[2024-10-09] MEDS: SODIUM CHLORIDE 1 GM TABLET PO (10:07)
--- NOTE | 2024-10-09 11:54 | PC.SS ---
COIN DEALER set up transportation for pt via [facility], ETA time is 14:45, COIN DEALER updated nurse and nurse stated that pt has yet voided, COIN DEALER informed nurse to follow up with COIN DEALER if pt does not void an hour before ETA time to cancel transportation. COIN DEALER followed up with Laurita from [facility] on ETA.
[2024-10-09 12:05] LABS: Albumin, Serum 3.6 gm/dL (3.4-4.8); Anion Gap 8 (7-16); BUN/Creatinine Ratio 13 Ratio (12-20); Blood Urea Nitrogen 9 mg/dL (9-23); Calcium 8.2 mg/dL (8.3-10.6); Calcium (Corrected) 8.5 mg/dL (8.5-10.1); Chloride 92 mMol/L (98-107); Creatinine (Component) 0.7 mg/dL (0.6-1.3); Estimated Creatinine Clearance 81.5 mL/min (>60); Glucose 132 mg/dL (74-106); Osmolality,Calculated 254 (275-295); Phosphorous 3.8 mg/dL (2.4-5.1); Potassium 3.7 mMol/L (3.4-5.1); Sodium 126 mMol/L (136-145); eGFR > 60 See Note
--- NOTE | 2024-10-09 12:08 | PC.SS ---
FINISHING MACHINE TENDER sumitted pcs form via [facility] for [facility]
--- NOTE | 2024-10-09 12:49 | PD.RESDS ---
Planned Discharge Date 10/09/24 DS: Providers Provider Date of admission: 10/04/24 03:36 Primary care physician: Physician No Primary/Family Admitting Provider: Justice Perkins MD Attending Provider on Admission: Rey Sands MD Consults: 10/04/24 11:51 Referral Physical Therapy Stat Comment: Physician Instructions: 10/04/24 16:50 Referral Speech Therapy Stat Comment: Attending Provider on DC: Jamee Cooley MD Discharging Provider: Jamee Cooley MD Hospital Course Hospital Course Hospital course: Patient seen today at the bedside fine awake, alert, oriented x 3. No overnight events reported. Vital signs stable at this time. Labs significant for continued improvement in thyroid function. Patient's weakness has improved significantly compared to admission. Patient to continue to work with physicaltherapy and disposition is to rehab facility. Patient has pending bowel movement at this time and will likely be discharged in the next 24-48 hours. Time Spent with Patient Time attestation: Total time spent providing and/or coordinating discharge services: Exam Vital Signs Temp Pulse Resp BP Pulse Ox O2 Del Method 96.7 F L 77 17 121/84 96 Room Air 10/09/24 08:00 10/09/24 12:00 10/09/24 08:00 10/09/24 08:00 10/09/24 08:00 10/09/24 08:00 Discharge Plan Plan Patient Disposition: Xfer Skilled Nsg Fac (SNF) Patient condition on transfer: Stable Care Plan Goals: all question were answer an recommendations were given. patient will need to follow up with PCP 5- 7 days after discharge continue home medications hold atenolol,xanax and tramadol until follow up with pcp - continue levothyroxine 150 mcg daily in the morning before meals - continue metformin 500 mg po daily - follow up with thyroid panel in 4-6 weeks - endocronology referal by pcp for close follow up Prescriptions/Referrals Prescriptions/Med Rec: Continued metformin 500 mg Tablet 500 mg PO DAILY sertraline 50 mg Tablet 50 mg PO QDAY naproxen 500 mg Tablet 500 mg PO DAILY omeprazole 20 mg Tablet,Delayed Release (Dr/Ec) 20 mg PO QDAY levothyroxine 150 mcg capsule 150 mcg PO QDAY Qty: 30 0RF pravastatin 20 mg tablet Patient Comments: TOME 1 TABLETA POR V A ORAL TODOS LOS D FOR CHOLESTEROL cetirizine 10 mg tablet Patient Comments: TOME LISA TABLETA POR VIA ORAL ONCE A DAY PARA LA ALERGIA Held atenolol 50 mg Tablet 50 mg PO QDAY Hold Instructions: until follow up with PCP tramadol 50 mg tablet 50 mg Hold Instructions: hold until follow up with PCP Patient Comments: TOME LISA TABLETA POR V A ORAL 2-3 VECES AL D A CUANDO SEA NECESARIO PARA EL DOLOR INTENSO alprazolam [Xanax] 0.5 mg tablet 0.5 mg PO BID PRN (Reason: anxiety) Qty: 10 0RF Hold Instructions: until follow up with PCP Referrals: Marie Vicente MD [Physician] - No Primary/Family,Physician [Primary Care Provider] - Patient/Caregiver Discharge Instructions Meds to Beds: No Discharge Activity: as per physical therapy Print Language: Maori Stand Alone Forms: Any Award Info., Patient Portal Info Letter Discharge Order Discharge Orders: Discharge (Routine); Ordered 10/09/24 Ordered By: Jamee Cooley
--- NOTE | 2024-10-09 13:24 | ESPR_ITS ---
Documentation for date of: 10/09/24 Subjective Subjective Interval history: No overnight acute events This morning bedside patient stated having multiple episodes of watery stools and that her constipation resolved, she denied chest pain, headache, dizziness or any other associated symptom at the moment different as mentioned above. She stated that she feeling well and ready to go to SNF otherwise due to patient after Stout was removed was unable to void, will order in and outs as needed. We will hold discharge at this moment and if patient remains stable we will discharge to SNF in the next 24 to 48 hours. Exam Vital Signs Temp Pulse Resp BP Pulse Ox O2 Del Method 97.0 F 78 18 127/78 93 L Room Air 10/09/24 12:00 10/09/24 12:00 10/09/24 12:00 10/09/24 12:00 10/09/24 12:10/09/24 12:00 Narrative Exam General: No acute distress, well appearing, alert, interactive. HEENT: NC/AT, PERRL, EOMI, Good conjugate gaze, moist mucous membranes, oropharynx clear. Neck: Supple, No masses, No adenopathy, carotid pulse 2+ bilaterally without bruits, No JVD, normal range of motion. Chest: Symmetrical, atraumatic, and with equal expansion , Nontender on palpation no deformity and no crepitus. CVS: S1 and S2 present, Regular rate and rhythm, No murmurs, rubs or gallops perceived during auscultation. Lungs: Normal respiratory effort, CTAB, no wheezing, rhonchi or rales perceived during auscultation, No intercostal or subcostal retraction. Abdomen : Soft, no tenderness to palpation, no guarding ,no rebound, +BS, no organomegaly. Extremities: No edema, warm well perfused, normal tone and ROM, cap refill less than 2, +2 dp equal bilaterally, generalized bilateral lower extremity weakness, to move all 4 extremities spontaneously. Skin: Intact, no rashes, no lesions, no erythema or jaundice noted Neuro: AOx4, reflex symmetric and sensation normal, no focal neurologic deficits noted, GCS 15 Psych: Appropriate mood and affect. Objective Labs 10/10/24 05:34 10/10/24 05:34 Labs: Laboratory Results - last 24 hr 10/09/24 10/09/24 04:31 11:11 WBC 6.0 RBC 4.70 Hgb 14.3 Hct 39.4 MCV 84 MCH 30.4 MCHC 36.3 RDW Std Deviation 42.3 Plt Count 279 Neut % (Auto) 61 Lymph % (Auto) 25 [place] % (Auto) 14 H Eos % (Auto) 0 Baso % (Auto) 0 Neut # (Auto) 3.6 Lymph # (Auto) 1.5 [place] # (Auto) 0.8 Eos # (Auto) 0.0 Baso # (Auto) 0.0 Immature Gran # (Auto) 0.05 H Absolute Nucleated RBC 0.00 Immature Gran % 1 H Nucleated RBC % 0 Sodium 126 L 126 L Potassium 2.6 L* D 3.7 D Chloride 88 L 92 L Carbon Dioxide 26.8 26.0 Anion Gap 11 8 BUN 7 L 9 Creatinine 0.6 0.7 Estim Creat Clear Calc 95.1 81.5 eGFR > 60 > 60 BUN/Creatinine Ratio 12 13 Glucose 131 H 132 H Calculated Osmolality 253 L 254 L Calcium 8.2 L 8.2 L Corrected Calcium 8.5 8.5 Phosphorus 4.6 3.8 Magnesium 2.3 Total Bilirubin 1.1 AST 21 ALT 47 Alkaline Phosphatase 72 Total Protein 6.3 Albumin 3.6 3.6 Globulin 2.7 Albumin/Globulin Ratio 1.3 Free T4 1.05 Quality Measures Quality Measures stroke Suspected type of Stroke: Unknown at this time Tenecteplase given: Reason(s) Tenecteplase not given: Outside the time window not given Rehab services: PT evaluation ordered VTE Prophylaxis: pharmaceutical Antithrombotic by day 2:: ordered Statin ordered: not ordered Anticoagulation ordered for A-fib or flutter (current or hx): not indicated Assessment & Plan Assessment Current Active Medications: Generic Name Dose Route Start Last Admin Trade Name Freq PRN Reason Stop Dose Admin Acetaminophen 650 mg 10/04/24 03:36 10/09/24 03:47 Acetaminophen 325 Mg Tablet PO 11/03/24 03:35 650 mg Q6H PRN Administration Fever >100 or pain 1-3 Dextrose 25 ml 10/04/24 04:07 Dextrose 50%-Water Inj 50 Ml Syringe IV 11/03/24 04:06 Q15MIN PRN BG 50-70 responsive npo pt Dextrose 50 ml 10/04/24 04:07 Dextrose 50%-Water Inj 50 Ml Syringe IV 11/03/24 04:06 Q15MIN PRN BG <50 OR BG <70 & pt unresponsive Enoxaparin Sodium 40 mg 10/04/24 09:00 10/09/24 08:00 Enoxaparin Sod Inj 40 Mg/0.4 Ml Syringe SC 10/18/24 08:59 40 mg QDAY SAMMI Administration Glucagon 1 mg 10/04/24 04:07 Glucagon Inj 1 Mg Vial IM Q15MIN PRN BG <70, and no IV access Insulin Human Lispro 0 unit 10/04/24 07:30 10/09/24 11:54 Insulin Lispro (Admelog) 1 Unit/0.01 Ml Unit SC 11/03/24 07:29 Not Given AC SAMMI Protocol Levothyroxine Sodium 125 mcg/ 150 mcg 10/07/24 09:30 10/09/24 05:23 Levothyroxine Sodium 25 mcg PO 11/06/24 09:29 150 mcg ACBR SAMMI Administration Ondansetron HCl 4 mg 10/05/24 04:14 10/09/24 03:38 Ondansetron Inj 2 Mg/Ml Inj 2 Ml IV 11/04/24 04:13 4 mg Q6HR PRN Administration NAUSEA OR VOMITING Protocol Pantoprazole Sodium 40 mg 10/04/24 09:00 10/09/24 08:00 Pantoprazole Inj 40 Mg Vial IVP 11/03/24 08:59 40 mg QDAY SAMMI Administration Sertraline HCl 50 mg 10/04/24 21:00 10/08/24 20:44 Sertraline Hcl 25 Mg Tablet PO 11/03/24 20:59 50 mg HS SAMMI Administration Plan 64 y/o female with PMHx of HTN, hypothyroidism, depression, non-insulin dependent type two DM, who is currently admitted for acute encephalopathy and hypokalemia. #Acute encephalopathy resolved #UTI ruleout #Hypokalemia #Hyponatremia #Hypomagnesemia resolved Likely multifactorial in combination with metabolic and infectious encephalopathy Patient has been decreasing in function for the past several months patient has significant weakness in upper and lower extremities CT head was negative, low suspicion for stroke as symptoms seem to be generalized and not localized Potassium 2.3; magnesium 1.5 NIHSS score of 13; teleneuro recommends lumbar spine and to treat metabolic encephalopathy with electrolyte replacement and to check thyroid levels Per family patient has not been taking medicines for the past ~3 months TSH found to be >80 UCx negative ? Sodium chloride tablet x 1 ? Follow-up electrolytes and replete as necessary #Severe unconytolled Hypothyroidism #Myxedema rule out Is on synthroid at home, however has not been taking it for some time now High likelihood TSH will be elevated TSH>[address] Vicente, Endocrinology recommended levothyroxine 100mcg IV and to taper hydrocortisone and monitor TSH q72 hours and Free T4 qday TSH and free T4 improving with IV levothyroxine - levothyroxine 150mcg PO qday ? Follow-up TSH and free T4 #Depression #Failure to thrive #History of sciatica Patient's functional capabilities have been decreased progressively and has been possibly doing sciatica Will need to further workup for lumbar pathology There is a concern if patient is able to take care adult living daily activities as patient is usually left alone at the house MRI lumbar spine without contrast showed L5-S1 2 mm central lumbar disc bulge, L4-L5 4 mm central lumbar disc bulge extending to the left foraminal region with mild left L4 ganglionic compression, If leg weakness persist, consider follow-up MRI lumbar spine post intravenous contrast ? Consider social and political studies professor referral ? Continue sertraline 50mg qday #Non-insulin dependent type II Diabetes mellitus A1c 5.6 ? Sliding scale insulin ? Hypoglycemic protocol in place ? Blood sugar checks with meals Disposition: [facility] DVT prophylaxis: Lovenox GI prophylaxis:Protonix Diet: Carb consistent CODE STATUS:DNR Patient discussed with my attending Dr Wicho Cooley MD PGY-3 Disclaimer: Despite multiple revisions, due to the dictation software being used, the document bellow may not be free of grammatical errors including phonetic/typographic errors. However, this does not deter from our commitment to providing health care in the patient's best interest in mind. Attending Provider Attestation/Addendum I have examined the patient, reviewed labs and imaging findings, discussed the case with the resident(s), and reviewed entered orders. I agree with the plan of care as outlined in this note, with these additional summaries/recommendations: Patient seen at bedside. No acute overnight events. Patient continues to have improvement in generalized weakness. 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 Patient was planned for discharge today although has not been able to void after stout catheter removal. We will continue to monitor and if unable to void patient will remain hospitalized. S/P IV levothyroxine and transitioned to oral as T4 now within normal limits. S/P hydrocortisone for severe hypothyroidism. Lumbar MRI revealed mild left L4 ganglionic compression although likely noncontributitory given generalized acute weakness. Continues to be on IV Rocephin for UTI. Continue home gabapentin. Patient had worsening hyponatremia and given salt tablets. Currently on insulin regimen for diabetes. Repeat hematology and chemistry panel in AM. Dr. Wicho MD
--- NOTE | 2024-10-09 13:40 | PC.SS ---
Nurse called PUBLIC POLICY COORDINATOR and stated that pt's d.c will have to be canceled due to pt no voiding, PUBLIC POLICY COORDINATOR followed up with Laurita from [facility].
--- NOTE | 2024-10-09 15:49 | PC.NURSE ---
patient hasn't void, bladder scan 386 ml, patient has urge to go but is unable, md made aware. Md will put in orders.
[2024-10-09] MEDS: SERTRALINE HCL 25 MG TABLET 50 MG PO (20:50)
--- NOTE | 2024-10-09 23:55 | PC.NURSE ---
Addendum entered by Isaias Bro RN 10/10/24 00:17: 600ml of urine removed via in and out. Addendum entered by Isaias Bro RN 10/09/24 23:58: Dr. Rosa made aware. Dr Rosa will put an order for in and out. Original Note: AM shift removed stout cath, but patient has not urinated yet. Bladder scan done at 2350 showed 539ml of urine in bladder. RN will notify hospitalists.
[2024-10-10] VITALS (10 sets, daily range): BP systolic 109–129; BP diastolic 66–79; PULSE 64–91; RESP 15–18; TEMP 36.1–37.1; O2SAT 94–98
--- NOTE | 2024-10-10 04:14 | PC.NURSE ---
Addendum entered by Isaias Bro RN 10/10/24 04:19: Dr. Rosa made aware and he said to do another in & out. Dr. Rosa will notify the day team and the day team will decide if they want to replace the stout cath. Original Note: Bladder scan showed 350ml of urine in bladder. LOLLY Esparza will notify hospitalists.
--- NOTE | 2024-10-10 04:34 | PC.NURSE ---
Addendum entered by Isaias Bro RN 10/10/24 04:38: Dr. Rosa made aware and he will order a UA. Original Note: When doing in and out cath to remove urine from bladder, RN noticed white discharge in the area. LOLLY Esparza will notify hospitalist.
[2024-10-10 05:11] LABS: Collection Type, Urine Catheter; RBC,Urine 0 /hpf (0-3); Squamous Epithelial Cell,Urine 0 /hpf (0-5); WBC,Urine 0 /hpf (0-5)
[2024-10-10] MEDS: LEVOTHYROXINE SODIUM 125 MCG, LEVOTHYROXINE SODIUM 25 MCG 150 MCG PO (05:32)
[2024-10-10 05:38] LABS: Bilirubin,Urine Negative (Negative); Blood,Urine Negative (Negative); Clarity,Urine Turbid (Clear/Hazy); Color,Urine Lt-Yellow (Lt Yel-Yel); Glucose, Urine Negative (Negative); Ketones,Urine Negative (Negative); Leukocyte Esterase,Urine Negative (Negative); Nitrite,Urine Negative (Negative); PH,Urine 7.5 (5.0-7.0); Protein,Urine Negative (Neg - Trace); Specific Gravity,Urine 1.008 (1.001-1.035)
[2024-10-10 06:11] LABS: Basophils % (Auto) 0 % (0-2.5); Eosinophils % (Auto) 0 % (0-10); Hematocrit 39.5 % (36.0-46.0); Hemoglobin 14.1 g/dL (12.0-16.0); Immature Granulocytes % (Auto) 1 % (0-0); Immature Granulocytes Auto 0.05 Thou/mm3 (0.00-0.00); Lymphocytes # (Auto) 1.6 Thou/mm3 (1.0-4.8); Lymphocytes % (Auto) 30 % (10-50); Mean Corpuscular HGB Conc 35.7 g/dl (31.0-37.0); Mean Corpuscular Hemoglobin 29.9 pg (25.0-35.0); Mean Corpuscular Volume 84 fL (80-100); Monocytes # (Auto) 0.7 Thou/mm3 (0.0-0.8); Monocytes % (Auto) 13 % (0-12); Neutrophils % (Auto) 56 % (37-80); Nucleated Red Blood Cell % 0 /100 WBC (0); Platelet Count 265 Thou/mm3 (140-440); RDW Standard Deviation 42.8 fL (36.4-46.3); Red Blood Count 4.71 Miln/mm3 (4.00-5.20); White Blood Count 5.3 Thou/mm3 (3.6-11.0)
[2024-10-10 06:53] LABS: Alanine Aminotransferase 44 U/L (10-49); Albumin, Serum 3.7 gm/dL (3.4-4.8); Albumin/Globulin Ratio 1.4 (1.2-2.2); Alkaline Phosphatase 73 U/L (46-116); Anion Gap 7 (7-16); Aspartate Amino Transferase 24 U/L (0-34); BUN/Creatinine Ratio 10 Ratio (12-20); Blood Urea Nitrogen 6 mg/dL (9-23); Calcium 8.6 mg/dL (8.3-10.6); Calcium (Corrected) 8.8 mg/dL (8.5-10.1); Carbon Dioxide 26.2 mMol/L (20.0-31.0); Chloride 91 mMol/L (98-107); Creatinine (Component) 0.6 mg/dL (0.6-1.3); Estimated Creatinine Clearance 95.1 mL/min (>60); Globulin 2.7 gm/dL (2.3-3.5); Glucose 129 mg/dL (74-106); Magnesium 1.7 mg/dL (1.6-2.6); Osmolality,Calculated 249 (275-295); Phosphorous 3.2 mg/dL (2.4-5.1); Potassium 3.4 mMol/L (3.4-5.1); Sodium 124 mMol/L (136-145); Total Protein 6.4 gm/dL (5.7-8.2); eGFR > 60 See Note
--- NOTE | 2024-10-10 07:08 | ESPR_ITS ---
Documentation for date of: 10/10/24 Subjective Subjective Interval history: Overnight patient was presenting urinary retention of 536 cc of urine in the bladder This morning at the bedside patient is AO x 4, respond to questions properly, she stated that she still have problem voiding and that she will like not to have the in and outs because it is uncomfortable and painful. We will place back the Stout and to do patient continues to be hyponatremic we will start sodium chloride tablets 1 g twice daily and if patient remains stable we will anticipate discharge to SNF in the next 24 hours. Exam Vital Signs Temp Pulse Resp BP Pulse Ox O2 Del Method 96.9 F 78 18 109/73 96 Room Air 10/10/24 04:00 10/10/24 04:00 10/10/24 04:00 10/10/24 04:00 10/10/24 04:00 10/10/24 00:00 Narrative Exam General: No acute distress, well appearing, alert, interactive. HEENT: NC/AT, PERRL, EOMI, Good conjugate gaze, moist mucous membranes, oropharynx clear. Neck: Supple, No masses, No adenopathy, carotid pulse 2+ bilaterally without bruits, No JVD, normal range of motion. Chest: Symmetrical, atraumatic, and with equal expansion , Nontender on palpation no deformity and no crepitus. CVS: S1 and S2 present, Regular rate and rhythm, No murmurs, rubs or gallops perceived during auscultation. Lungs: Normal respiratory effort, CTAB, no wheezing, rhonchi or rales perceived during auscultation, No intercostal or subcostal retraction. Abdomen : Soft, no tenderness to palpation, no guarding ,no rebound, +BS, no organomegaly. Extremities: No edema, warm well perfused, normal tone and ROM, cap refill less than 2, +2 dp equal bilaterally, generalized bilateral lower extremity weakness, to move all 4 extremities spontaneously. Skin: Intact, no rashes, no lesions, no erythema or jaundice noted Neuro: AOx4, reflex symmetric and sensation normal, no focal neurologic deficits noted, GCS 15 Psych: Appropriate mood and affect. Objective Labs 10/10/24 05:34 10/10/24 12:45 Labs: Laboratory Results - last 24 hr 10/09/24 10/10/24 10/10/24 11:11 04:42 05:34 WBC 5.3 RBC 4.71 Hgb 14.1 Hct 39.5 MCV 84 MCH 29.9 MCHC 35.7 RDW Std Deviation 42.8 Plt Count 265 Neut % (Auto) 56 Lymph % (Auto) 30 [place] % (Auto) 13 H Eos % (Auto) 0 Baso % (Auto) 0 Neut # (Auto) 3.0 Lymph # (Auto) 1.6 [place] # (Auto) 0.7 Eos # (Auto) 0.0 Baso # (Auto) 0.0 Immature Gran # (Auto) 0.05 H Absolute Nucleated RBC 0.00 Immature Gran % 1 H Nucleated RBC % 0 Sodium 126 L 124 L Potassium 3.7 D 3.4 Chloride 92 L 91 L Carbon Dioxide 26.0 26.2 Anion Gap 8 7 BUN 9 6 L Creatinine 0.7 0.6 Estim Creat Clear Calc 81.5 95.1 eGFR > 60 > 60 BUN/Creatinine Ratio 13 10 L Glucose 132 H 129 H Calculated Osmolality 254 L 249 L Calcium 8.2 L 8.6 Corrected Calcium 8.5 8.8 Phosphorus 3.8 3.2 Magnesium 1.7 Total Bilirubin 1.0 AST 24 ALT 44 Alkaline Phosphatase 73 Total Protein 6.4 Albumin 3.6 3.7 Globulin 2.7 Albumin/Globulin Ratio 1.4 Ur Collection Type Catheter Urine Color Lt-Yellow Urine Clarity Turbid A Urine pH 7.5 H Ur Specific [place] 1.008 Urine Protein Negative Urine Glucose (UA) Negative Urine Ketones Negative Urine Blood Negative Urine Nitrite Negative Urine Bilirubin Negative Urine Urobilinogen (Auto) 3.0 Ur Leukocyte Esterase Negative Urine RBC 0 Urine WBC 0 Ur Squamous Epith Cells 0 Urine Bacteria None Quality Measures Quality Measures stroke Suspected type of Stroke: Unknown at this time Tenecteplase given: Reason(s) Tenecteplase not given: Outside the time window not given Rehab services: PT evaluation ordered VTE Prophylaxis: pharmaceutical Antithrombotic by day 2:: ordered Statin ordered: not ordered Anticoagulation ordered for A-fib or flutter (current or hx): not indicated Assessment & Plan Assessment Current Active Medications: Generic Name Dose Route Start Last Admin Trade Name Freq PRN Reason Stop Dose Admin Acetaminophen 650 mg 10/04/24 03:36 10/09/24 03:47 Acetaminophen 325 Mg Tablet PO 11/03/24 03:35 650 mg Q6H PRN Administration Fever >100 or pain 1-3 Dextrose 25 ml 10/04/24 04:07 Dextrose 50%-Water Inj 50 Ml Syringe IV 11/03/24 04:06 Q15MIN PRN BG 50-70 responsive npo pt Dextrose 50 ml 10/04/24 04:07 Dextrose 50%-Water Inj 50 Ml Syringe IV 11/03/24 04:06 Q15MIN PRN BG <50 OR BG <70 & pt unresponsive Enoxaparin Sodium 40 mg 10/04/24 09:00 10/09/24 08:00 Enoxaparin Sod Inj 40 Mg/0.4 Ml Syringe SC 10/18/24 08:59 40 mg QDAY SAMMI Administration Glucagon 1 mg 10/04/24 04:07 Glucagon Inj 1 Mg Vial IM Q15MIN PRN BG <70, and no IV access Insulin Human Lispro 0 unit 10/04/24 07:30 10/09/24 17:24 Insulin Lispro (Admelog) 1 Unit/0.01 Ml Unit SC 11/03/24 07:29 Not Given AC SAMMI Protocol Levothyroxine Sodium 125 mcg/ 150 mcg 10/07/24 09:30 10/10/24 05:32 Levothyroxine Sodium 25 mcg PO 11/06/24 09:29 150 mcg ACBR SAMMI Administration Ondansetron HCl 4 mg 10/05/24 04:14 10/09/24 03:38 Ondansetron Inj 2 Mg/Ml Inj 2 Ml IV 11/04/24 04:13 4 mg Q6HR PRN Administration NAUSEA OR VOMITING Protocol Pantoprazole Sodium 40 mg 10/10/24 09:00 Pantoprazole 40 Mg Tablet PO 11/03/24 08:59 QDAY SAMMI Sertraline HCl 50 mg 10/04/24 21:00 10/09/24 20:50 Sertraline Hcl 25 Mg Tablet PO 11/03/24 20:59 50 mg HS SAMMI Administration Plan 64 y/o female with PMHx of HTN, hypothyroidism, depression, non-insulin dependent type two DM, who is currently admitted for acute encephalopathy and hypokalemia. #Acute encephalopathy resolved #UTI ruleout #Hyponatremia Likely multifactorial in combination with metabolic and infectious encephalopathy Patient has been decreasing in function for the past several months patient has significant weakness in upper and lower extremities CT head was negative, low suspicion for stroke as symptoms seem to be generalized and not localized Potassium 2.3; magnesium 1.5 NIHSS score of 13; teleneuro recommends lumbar spine and to treat metabolic encephalopathy with electrolyte replacement and to check thyroid levels Per family patient has not been taking medicines for the past ~3 months TSH found to be >80 UCx negative ? Sodium chloride tablet 1 g p.o. twice daily ? Follow-up electrolytes and replete as necessary #Severe uncontrolled hypothyroidism #Myxedema rule out Is on synthroid at home, however has not been taking it for some time now High likelihood TSH will be elevated TSH>[address] Vicente, Endocrinology recommended levothyroxine 100mcg IV and to taper hydrocortisone and monitor TSH q72 hours and Free T4 qday TSH and free T4 improving with IV levothyroxine - levothyroxine 150mcg PO qday ? Follow-up TSH and free T4 #Depression #Failure to thrive #History of sciatica Patient's functional capabilities have been decreased progressively and has been possibly doing sciatica Will need to further workup for lumbar pathology There is a concern if patient is able to take care adult living daily activities as patient is usually left alone at the house MRI lumbar spine without contrast showed L5-S1 2 mm central lumbar disc bulge, L4-L5 4 mm central lumbar disc bulge extending to the left foraminal region with mild left L4 ganglionic compression, If leg weakness persist, consider follow-up MRI lumbar spine post intravenous contrast ? Consider vp digital marketing social media and crm referral ? Continue sertraline 50mg qday #Non-insulin dependent type II Diabetes mellitus A1c 5.6 ? Sliding scale insulin ? Hypoglycemic protocol in place ? Blood sugar checks with meals #Urinary retention Possibly secondary to neurogenic bladder vs urinary sphincter dysfunction vs psychogenic ? ? Stout catheter and bladder training at [facility] #Hypokalemia resolved #Hypomagnesemia resolved Disposition: [facility] DVT prophylaxis: Lovenox GI prophylaxis:Protonix Diet: Carb consistent CODE STATUS:DNR Patient discussed with my attending Dr Wicho Cooley MD PGY-3 Disclaimer: Despite multiple revisions, due to the dictation software being used, the document bellow may not be free of grammatical errors including phonetic/typographic errors. However, this does not deter from our commitment to providing health care in the patient's best interest in mind. Attending Provider Attestation/Addendum I have examined the patient, reviewed labs and imaging findings, discussed the case with the resident(s), and reviewed entered orders. I agree with the plan of care as outlined in this note, with these additional summaries/recommendations: Patient seen at bedside. No acute overnight events. Patient continues to have improvement in generalized weakness. 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 Left LE weakness still significant and patient reports she had to ambulate with a cane 1-2 weeks prior to hospital presentation. Patient was planned for discharge today although has not been able to void after stout catheter removal. Ordered reinsertion of stout catheter. Patient does not want straight caths. Counseled at length that she will need to follow-up with urology outpatient and showed understanding. S/P IV levothyroxine and transitioned to oral as T4 now within normal limits. S/P hydrocortisone for severe hypothyroidism. Lumbar MRI revealed mild left L4 ganglionic compression although likely noncontributitory given generalized acute weakness. Continue home gabapentin. Patient had worsening hyponatremia and given salt tablets. Pending improvement in sodium before patient can be safely discharged. Currently on insulin regimen for diabetes. Repeat hematology and chemistry panel in AM. Dr. Wicho MD
[2024-10-10] MEDS: POTASSIUM CHLORIDE 10% 20 MEQ/15 ML UDC 40 MEQ PO (08:31)
[2024-10-10] MEDS: PANTOPRAZOLE 40 MG TABLET PO (08:32)
[2024-10-10] MEDS: ENOXAPARIN SOD INJ 40 MG/0.4 ML SYRINGE SC (08:32)
[2024-10-10] MEDS: Magnesium Sulfate 4 GM Ivpb 4 GM/50 ML BAG IV (08:32)
[2024-10-10] MEDS: SODIUM CHLORIDE 1 GM TABLET PO ×2 (08:32→21:39)
--- NOTE | 2024-10-10 10:00 | CHAP ---
Patient was visited by the Spiritual Care Volunteer who prayed for them. (Volunteer was in the hospital from 9:29-c10:00)
--- NOTE | 2024-10-10 12:09 | PC.SS ---
FUNERAL HOME GENERAL MANAGER set up transportation via [facility] for pt new eta time is 7pm, FUNERAL HOME GENERAL MANAGER to follow up with nurse
--- NOTE | 2024-10-10 12:10 | PC.SS ---
New auth # is [id number]
--- NOTE | 2024-10-10 13:11 | PC.SS ---
Addendum entered by Stephanie East 10/10/24 13:45: SS informed [facility] of discharge cancellation and left patient's daughter Flor a message. Addendum entered by Stephanie East 10/10/24 13:39: SS contacted by LOLLY Ann and informed patient will not be discharging today due to low sodium levels. [facility]. Original Note: SS contacted by LOLLY Ann, [facility] requesting updated [facility] form due to incorrect . Corrected [facility] form sent to [facility] via [employer].
[2024-10-10 13:23] LABS: Albumin, Serum 3.7 gm/dL (3.4-4.8); Anion Gap 9 (7-16); BUN/Creatinine Ratio 12 Ratio (12-20); Blood Urea Nitrogen 7 mg/dL (9-23); Calcium 8.1 mg/dL (8.3-10.6); Calcium (Corrected) 8.3 mg/dL (8.5-10.1); Carbon Dioxide 24.3 mMol/L (20.0-31.0); Chloride 92 mMol/L (98-107); Creatinine (Component) 0.6 mg/dL (0.6-1.3); Estimated Creatinine Clearance 95.1 mL/min (>60); Glucose 108 mg/dL (74-106); Osmolality,Calculated 250 (275-295); Phosphorous 2.8 mg/dL (2.4-5.1); Sodium 125 mMol/L (136-145); eGFR > 60 See Note
[2024-10-10] MEDS: SERTRALINE HCL 25 MG TABLET 50 MG PO (21:39)
[2024-10-11] VITALS: BP 123/68; PULSE 76; PULSE 80; RESP 18; TEMP 36.6; O2SAT 94
[2024-10-11 04:00] VITALS: BP 110/64; PULSE 76; PULSE 84; RESP 26; TEMP 36.1; O2SAT 95
[2024-10-11] MEDS: LEVOTHYROXINE SODIUM 125 MCG, LEVOTHYROXINE SODIUM 25 MCG 150 MCG PO (05:12)
[2024-10-11 06:14] LABS: Basophils % (Auto) 0 % (0-2.5); Eosinophils % (Auto) 1 % (0-10); Hematocrit 38.6 % (36.0-46.0); Hemoglobin 14.2 g/dL (12.0-16.0); Immature Granulocytes % (Auto) 1 % (0-0); Immature Granulocytes Auto 0.05 Thou/mm3 (0.00-0.00); Lymphocytes # (Auto) 1.6 Thou/mm3 (1.0-4.8); Lymphocytes % (Auto) 25 % (10-50); Mean Corpuscular HGB Conc 36.8 g/dl (31.0-37.0); Mean Corpuscular Hemoglobin 30.8 pg (25.0-35.0); Mean Corpuscular Volume 84 fL (80-100); Monocytes # (Auto) 0.8 Thou/mm3 (0.0-0.8); Monocytes % (Auto) 13 % (0-12); Neutrophils # (Auto) 3.7 Thou/mm3 (1.8-7.7); Neutrophils % (Auto) 61 % (37-80); Nucleated Red Blood Cell % 0 /100 WBC (0); Platelet Count 258 Thou/mm3 (140-440); RDW Standard Deviation 42.7 fL (36.4-46.3); Red Blood Count 4.61 Miln/mm3 (4.00-5.20); White Blood Count 6.2 Thou/mm3 (3.6-11.0)
[2024-10-11 06:35] LABS: Alanine Aminotransferase 40 U/L (10-49); Albumin, Serum 3.7 gm/dL (3.4-4.8); Albumin/Globulin Ratio 1.3 (1.2-2.2); Alkaline Phosphatase 71 U/L (46-116); Anion Gap 8 (7-16); Aspartate Amino Transferase 21 U/L (0-34); BUN/Creatinine Ratio 10 Ratio (12-20); Blood Urea Nitrogen 6 mg/dL (9-23); Calcium 8.6 mg/dL (8.3-10.6); Calcium (Corrected) 8.8 mg/dL (8.5-10.1); Carbon Dioxide 24.1 mMol/L (20.0-31.0); Chloride 92 mMol/L (98-107); Creatinine (Component) 0.6 mg/dL (0.6-1.3); Estimated Creatinine Clearance 95.1 mL/min (>60); Globulin 2.8 gm/dL (2.3-3.5); Glucose 129 mg/dL (74-106); Magnesium 1.9 mg/dL (1.6-2.6); Osmolality,Calculated 249 (275-295); Potassium 3.6 mMol/L (3.4-5.1); Sodium 124 mMol/L (136-145); Thyroid Stimulating Hormone 58.17 uIU/mL (0.55-4.78); Total Protein 6.5 gm/dL (5.7-8.2); eGFR > 60 See Note
[2024-10-11 08:00] VITALS: BP 103/71; PULSE 74; PULSE 81; RESP 16; TEMP 36.3; O2SAT 94
[2024-10-11] MEDS: PANTOPRAZOLE 40 MG TABLET PO (09:00)
[2024-10-11] MEDS: ENOXAPARIN SOD INJ 40 MG/0.4 ML SYRINGE SC (09:00)
[2024-10-11] MEDS: SODIUM CHLORIDE 1 GM TABLET PO ×2 (09:01→20:03)
[2024-10-11] MEDS: Magnesium Sulfate 4 GM Ivpb 4 GM/50 ML BAG IV (09:01)
--- NOTE | 2024-10-11 10:09 | ESDS_ITS ---
<Statement entered by Sabrina Duncan MD - 10/11/24 15:42> In addition to the above recommendations, patient will also need urology referral by pcp for stout catheter placement I discussed with and supervised the training intern physician who took care of this patient. I personally saw and examined the patient and discussed the assessment and plan with the entire medicine team, including my attending Dr. Sands, I agree with most of the assessment and plan as documented below Sabrina Duncan M.D. PGY-2 <Statement entered by Jamee Cooley MD - 10/11/24 15:09> I discussed with and supervised the training intern physician who took care of this patient. I personally saw and examined the patient and discussed the assessment and plan with the entire medicine team, including my attending Dr. Sands, I agree with the assessment and plan as documented below Patient seen and examined at bedside today. Labs and imaging reviewed. All question were answer an recommendations were given. Patient will need to follow up with PCP 5- 7 days after discharge continue home medications, hold atenolol,xanax and tramadol until follow up with pcp. Recommend tapering and discontinuing sertraline as this medication can cause hyponatremia, please follow up with your primary care physician with regards to this medication - continue levothyroxine 150 mcg daily in the morning before meals - continue metformin 500 mg po daily - follow up with thyroid panel in 4-6 weeks - endocronology referal by pcp for close follow up Jamee Cooley MD PGY-3 Disclaimer: Despite multiple revisions, due to the dictation software being used, the document bellow may not be free of grammatical errors including phonetic/typographic errors. However, this does not deter from our commitment to providing health care in the patient's best interest in mind. Planned Discharge Date 10/11/24 DS: Providers Provider Date of admission: 10/04/24 03:36 Primary care physician: Physician No Primary/Family Admitting Provider: Justice Perkins MD Attending Provider on Admission: Rey Sands MD Consults: 10/04/24 11:51 Referral Physical Therapy Stat Comment: Physician Instructions: 10/04/24 16:50 Referral Speech Therapy Stat Comment: Attending Provider on DC: Rey Sands MD Discharging Provider: Jhonny Villagomez MD Anticipated date of discharge: 10/11/24 DS: Diagnosis Problem List Completed Was Problem List Reviewed/Reconciled?: Yes Hospital Course Hospital Course Hospital course: 64 y/o female with PMHx of HTN, hypothyroidism, depression, non-insulin dependent type two DM, who is currently admitted for acute encephalopathy and hypokalemia. During hospital stay hormone levels were ordered found to have severe hypothyroidism. Talk to rocket motor tester recommended starting the patient on IV levothyroxine and steroid medications. Steroid medications were tapered off and IV levothyroxine was switched to p.o. route into her home dose. All her symptoms improved incredibly after IV levothyroxine and thyroid levels normalizing. Patient was also found to have a UTI on admission which was treated with antibiotic therapy. Patient also developed urinary retention possibly secondary to neurogenic bladder versus finger dysfunction or psychogenic patient will likely be discharged on Stout's catheter and was commended to follow-up with urology services for bladder training and discontinuing of Stout's catheter. At this time patient is medically stable for discharge. All question were answer an recommendations were given. Patient will need to follow up with PCP 5- 7 days after discharge continue home medications, hold atenolol,xanax and tramadol until follow up with pcp. Recommend tapering and discontinuing sertraline as this medication can cause hyponatremia, please follow up with your primary care physician with regards to this medication - continue levothyroxine 150 mcg daily in the morning before meals - continue metformin 500 mg po daily - follow up with thyroid panel in 4-6 weeks - endocronology referal by pcp for close follow up Problem List: #Acute encephalopathy resolved #UTI ruleout #Hyponatremia #Severe uncontrolled hypothyroidism #Myxedema rule out #Depression #Failure to thrive #History of sciatica #Non-insulin dependent type II Diabetes mellitus #Urinary retention #Hypokalemia resolved #Hypomagnesemia resolved Case discussed with my seniors Dr. Cooley PGY-3, Dr. Cardenas PGY-[address] Wicho Villagomez MD PGY-1 Status at Discharge Functional status at discharge: wheelchair bound Overall status at discharge: patient is back to baseline Time Spent with Patient Time attestation: Total time spent providing and/or coordinating discharge services: Time spent: Greater than 30 minutes Exam Vital Signs Temp Pulse Resp BP Pulse Ox O2 Del Method 97.3 F 74 16 103/71 94 L Room Air 10/11/24 08:00 10/11/24 08:00 10/11/24 08:00 10/11/24 08:00 10/11/24 08:00 10/11/24 08:00 Narrative Exam Physical Exam GENERAL: NAD, AAOx3 HEENT: Moist mucosa. Eyes open, symmetrical, & clear CARDIO: Heart RRR, no obvious murmurs PULM: No noted coughing/dyspnea CTA B/L, no R/W/R GI: Abdomen soft, nondistended, no pain on palpation. BSx4 SKIN/MSK/EXT: No wounds/rashes/edema/amputations, no pain on palpation. Pedal pulses present B/L NEURO: AAOx3, weakness on all 4 extremeties, however able to move B/L Upper extremities significantly more than previosu examinations Discharge Plan Plan Patient Disposition: [facility] ([facility]) Patient condition on transfer: Stable Care Plan Goals: all question were answer an recommendations were given. patient will need to follow up with PCP 5- 7 days after discharge continue home medications hold atenolol,xanax and tramadol until follow up with pcp Recommend tapering and discontinuing sertraline as this medication can cause hyponatremia, please follow up with your primary care physician with regards to this medication - continue levothyroxine 150 mcg daily in the morning before meals - continue metformin 500 mg po daily - follow up with thyroid panel in 4-6 weeks - endocronology referal by pcp for close follow up - urology referral by pcp for stout catheter placement Prescriptions/Referrals Prescriptions/Med Rec: New sodium chloride 1,000 mg tablet,soluble 1,000 mg PO BID 7 Days Qty: 14 0RF Continued metformin 500 mg Tablet 500 mg PO DAILY sertraline 50 mg Tablet 50 mg PO QDAY naproxen 500 mg Tablet 500 mg PO DAILY omeprazole 20 mg Tablet,Delayed Release (Dr/Ec) 20 mg PO QDAY levothyroxine 150 mcg capsule 150 mcg PO QDAY Qty: 30 0RF pravastatin 20 mg tablet Patient Comments: TOME 1 TABLETA POR V A ORAL TODOS LOS D FOR CHOLESTEROL cetirizine 10 mg tablet Patient Comments: TOME LISA TABLETA POR VIA ORAL ONCE A DAY PARA LA [place] Held atenolol 50 mg Tablet 50 mg PO QDAY Hold Instructions: until follow up with PCP tramadol 50 mg tablet 50 mg Hold Instructions: hold until follow up with PCP Patient Comments: TOME LISA TABLETA POR V A ORAL 2-3 VECES AL D A CUANDO SEA NECESARIO PARA EL DOLOR INTENSO alprazolam [Xanax] 0.5 mg tablet 0.5 mg PO BID PRN (Reason: anxiety) Qty: 10 0RF Hold Instructions: until follow up with PCP Referrals: Marie Vicente MD [Physician] - No Primary/Family,Physician [Primary Care Provider] - Patient/Caregiver Discharge Instructions Meds to Beds: No Discharge Activity: as per physical therapy Print Language: Mongolian Stand Alone Forms: Any Award Info., Patient Portal Info Letter Discharge Order Discharge Orders: Discharge (Routine); Ordered 10/11/24 Ordered By: Jhonny Villagomez Quality Discharge Quality Measures VTE prophylaxis Attestestation MD Attestation I have examined the patient, reviewed labs and imaging findings, discussed the case with the resident(s), and reviewed entered orders. I agree with the plan of care as outlined in this note. Time Spent: [address] Wicho MD
[2024-10-11 12:00] VITALS: BP 120/71; PULSE 83; PULSE 87; RESP 18; TEMP 36.3; O2SAT 94
[2024-10-11 16:00] VITALS: BP 123/72; PULSE 80; PULSE 89; RESP 17; TEMP 36.2; O2SAT 95
--- NOTE | 2024-10-11 16:21 | PC.SS ---
Follow up note: Patient has d/c orders today. Patient will d/c to [facility]. Patient's daughter aware. Patient to be picked up by [facility] at 21:00. SS spoke to Lita @ [facility] and upated of time.
[2024-10-11 20:00] VITALS: BP 132/74; PULSE 82; PULSE 83; RESP 16; TEMP 36.2; O2SAT 96
[2024-10-11] MEDS: SERTRALINE HCL 25 MG TABLET 50 MG PO (20:03)
== END 2024-10-11 22:00 | disposition skilled nursing facility (03) | DRG 70 ==
LOC: SERX 10-04 02:07 → SERHOLD 10-04 04:09 → S3SX 10-04 16:29
PROVIDERS: Student in an Organized Health Care Education/Training Program; Admitting Provider Internal Medicine; Emergency Provider Emergency Medicine; Visit Provider Student in an Organized Health Care Education/Training Program
DX: G93.41 Metabolic encephalopathy (principal); E03.5 Myxedema coma; E87.1 Hypo-osmolality and hyponatremia; N39.0 Urinary tract infection, site not specified; I47.20 Ventricular tachycardia, unspecified; E03.9 Hypothyroidism, unspecified; E11.9 Type 2 diabetes mellitus without complications; F32.A Depression, unspecified; R62.7 Adult failure to thrive; I10 Essential (primary) hypertension; M54.40 Lumbago with sciatica, unspecified side; E87.6 Hypokalemia; E83.42 Hypomagnesemia; Z66 Do not resuscitate; T38.1X6A Underdosing of thyroid hormones and substitutes, initial encounter; Z79.84 Long term (current) use of oral hypoglycemic drugs; Z79.4 Long term (current) use of insulin; Z79.899 Other long term (current) drug therapy; Z99.3 Dependence on wheelchair
CPT/HCPCS: 36415; 70450; 71045; 72148; 80048; 80053; 80061; 80069; 80307; 80320; 81001; 82533; 82607; 82746; 83036; 83605; 83735; 84100; 84439; 84443; 84484; 85025; 85610; 85652; 85730; 86140; 87086; 92610; 93005; 93225; 96365; 96366; 96367; 96368; 96372; 96375; 97162; 99291; A4216; J0696; J1650; J1720; J1815; J2405; J2470; J2765; J3411; J3475; J3480; J7030; J7050; A9270; G0480

== ENCOUNTER 2024-12-27 00:37 | Inpatient (IN) | payer MEDICARE, MEDICAID, SELFPAY ==
[2024-12-27] VITALS (106 sets, daily range): BP systolic 46–159; BP diastolic 33–78; PULSE 94–135; RESP 12–33; TEMP 35.8–38; O2SAT 49–100; BMI 23.4
--- NOTE | 2024-12-27 00:49 | PD.EDWEAK ---
ED Weakness RME/HPI General Chief complaint: Nausea/Vomiting/Diarrhea Stated complaint: HYPOTENSION Time Seen by Provider: 12/27/24 00:50 Arrival date/time: 12/27/24 00:37 RME / HPI RME / HPI Narrative: This section includes all my notes and documentations, including HPI, PE, and ED course. 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 EMS was called due to patient's O2 sats in the 80's and low BP of 52 dyastolic. Denies any fever, cough, shortness of breath, and abdominal pain. Patient has had her gall bladder removed and reports an allergy to codeine. Patient is alert and oriented and is DNR. No other complaints. ROS: All negative except as documented in HPI. Physical Exam: General: Alert and oriented. No acute distress when remaining still. Eyes: Conjunctivae and lids clear. ENT: No nasal congestion. Neck: Supple. Heart: RRR. Lungs: No respiratory distress. Good air movement. No rhonchi, wheezing, rales. Abdomen: Soft and nontender. Normal bowel sounds. No distension. No rebound or guarding. Back: No CVA tenderness. Skin: Warm and dry. Neuro: Alert and oriented X 3. I reviewed EMS and care home notes. I reviewed all diagnostic test results: My interpretation of the EKG is: Sinus rhythm (115 bpm) with nonspecific ST-T changes. No STEMI. Reviewed with Dr. Robles. Eder Fields MD My interpretation of the chest x-ray is: My review of the CT report is: Blood tests and urine tests Covid/Influenza: Negative. At this point, diagnoses include: UTI, Septic Shock. Treatment here included: Levophed, IV fluid, Albuterol/Ipratroprium Duoneb, SlouMedrol, Zofran, Vancomycin, Magnesium Sulfate. Critical care: Septic Protocol 0101: I discussed the case with our pipe recovery specialist, Dr. Robles. About the presentation and exam and diagnostics and treatments here. No acute CA. I discussed the case with our hospitalist. About the presentation and exam and diagnostics and treatments here. And need of further care in the hospital. Will accept the patient. Eder Fields MD Related Data Home Medications ?Medication ?Instructions ?Recorded ?Confirmed metformin 500 mg tablet 500 mg PO DAILY 05/09/19 12/27/24 naproxen 500 mg tablet 500 mg PO DAILY 05/09/19 12/27/24 omeprazole 20 mg tablet,delayed 20 mg PO QDAY 05/09/19 12/27/24 release cetirizine 10 mg tablet 10 mg PO QDAY 10/04/24 12/27/24 pravastatin 20 mg tablet 20 mg PO HS 10/04/24 12/27/24 tramadol 50 mg tablet 50 mg PO Q8H PRN pain 10/04/24 12/27/24 cranberry fruit 450 mg tablet 450 mg PO QDAY 12/27/24 12/27/24 (cranberry) magnesium oxide 400 mg PO BID 12/27/24 12/27/24 Previous Rx's ?Medication ?Instructions ?Recorded levothyroxine 150 mcg capsule 150 mcg PO QDAY #30 caps 03/05/21 mirtazapine 15 mg tablet 15 mg PO HS 30 days #30 tabs 12/30/24 Allergies Allergy/AdvReac Type Severity Reaction Status Date / Time codeine Allergy Severe DELUSIONS Verified 07/16/24 16:40 Review of Systems Review of Systems Systems Reviewed: All systems reviewed, normal except as documented Past Medical History Past Medical History CARDIAC: Positive Hypercholesterolemia and Hypertension REPRODUCTIVE: Positive Previous Pregnancies ENDOCRINE: Positive Diabetes Mellitus Type 2 and Hypothyroidism PSYCHO/SOCIAL: Positive Depression OTHER HISTORY: Positive Cancer (THYROID CA) ED Exam Narrative Physical exam: Refer to HPI Course Course Course Narrative: CXR is ordered for determining the etiology of shortness of breath. Quality Measures none Orders Category Date Time Status Bedside COVID-19 Antigen Test NOW Care 12/27/24 00:51 Active Bedside Influenza A&B Antigen Test NOW Care 12/27/24 00:[address] Screening NOW Care 12/27/24 00:52 Active EKG (ED ONLY) *Do not use* NOW Care 12/27/24 00:52 Completed Bennett [Urinary Catheter] QS Care 12/27/24 03:55 Active Saline [Insert IV] NOW Care 12/27/24 00:51 Active Straight [In and Out Catheter] X1 Care 12/27/24 00:[address] abdomen pelvis w con Stat Exams 12/27/24 00:[address] angio chest Stat Exams 12/27/24 00:[address] head/brain wo con Stat Exams 12/27/24 00:52 Completed EKG (ED Only) Stat Exams 12/27/24 00:52 Draft XR chest 1V portable Stat Exams 12/27/24 00:53 Completed ABG [Arterial Blood Gas] Stat Lab 12/27/24 02:14 Completed Amylase Stat Lab 12/27/24 01:05 Completed BNP [B-Type Natriuretic Peptide] Stat Lab 12/27/24 01:05 Completed Beta Hydroxybutyrate Stat Lab 12/27/24 01:05 Completed Bilirubin,Direct Stat Lab 12/27/24 01:05 Completed Blood Culture (Lab) Stat Lab 12/27/24 01:00 Completed CBC Stat Lab 12/27/24 01:05 Completed CMP [Comprehensive Metabolic Panel] Stat Lab 12/27/24 01:05 Completed CRP [C-Reactive Protein] Stat Lab 12/27/24 01:05 Completed D-Dimer Stat Lab 12/27/24 01:05 Completed ESR [Sed Rate (ESR)] Stat Lab 12/27/24 01:05 Completed Free T4 (Free Thyroxine) Stat Lab 12/27/24 01:05 Completed Lactate (Lactic Acid) Stat Lab 12/27/24 01:05 Completed Lactic Acid, 3 HR Stat Lab 12/27/24 04:37 Completed Lipase Stat Lab 12/27/24 01:05 Completed Magnesium Stat Lab 12/27/24 01:05 Completed PT [Prothrombin Time with INR] Stat Lab 12/27/24 01:05 Completed PTT [Partial Thromboplastin Time] Stat Lab 12/27/24 01:05 Completed Procalcitonin Stat Lab 12/27/24 01:05 Completed TSH [Thyroid Stimulating Hormone] Stat Lab 12/27/24 01:05 Completed Troponin I Stat Lab 12/27/24 01:05 Completed UA, C/S IF [Urinalysis, C/S if Indicated] Stat Lab 12/27/24 01:24 Completed Urine Culture Stat Lab 12/27/24 01:24 Completed Acetaminophen Ivpb [Ofirmev Inj] Med 12/27/24 01:33 Discontinued 1,000 mg in 100 ml IV X1 Albuterol/Ipratr Rt Randee [Duoneb Rt Randee] Med 12/27/24 00:54 Discontinued 3 ml INH X1 ONE Cefepime Inj [Maxipime Inj] 1 gm Med 12/27/24 01:23 Discontinued SODIUM CHLORIDE 0.9% (Popper) [Ns 0.9% (P)] 50 ml IV X1 Ketorolac Inj [Toradol Inj] Med 12/27/24 01:33 Discontinued 9 mg IVP X1 ONE Magnesium Sulfate 4 GM Ivpb [Magnesium Sulfate Ivpb] Med 12/27/24 02:46 Discontinued 4 gm in 50 ml IV X1 MethylPREDNISolone.* [SoluMEDROL Inj] Med 12/27/24 00:54 Discontinued 125 mg IVP X1 ONE Norepinephrine/NS 16mg/250ml [Levophed in NS 16mg/250ml Med 12/27/24 00:57 Discontinued ] 16 mg in 250 ml IV 0.05 mcg/kg/min Ondansetron Inj [Zofran Inj] Med 12/27/24 00:51 Discontinued 4 mg IVP X1 ONE Sodium Chloride 0.9% 1000 ml [Ns] 1,000 ml Med 12/27/24 00:51 Discontinued IV 999 mls/hr Sodium Chloride 0.9% 1000 ml [Ns] 1,000 ml Med 12/27/24 01:23 Discontinued IV 999 mls/hr Vancomycin Inj 1,000 mg Med 12/27/24 01:23 Discontinued Sodium Chloride 0.9% 500 ml [Ns] 500 ml IV X1 Vital Signs Vital signs: Vital Signs Blood Pressure 57/40 L 12/27/24 00:43 Pulse Oximetry (%) 90 L 12/27/24 00:43 Weakness MDM Narrative MDM Narrative:: Scribe Attestation: Bisi Barba am scribing for and in the presence of Dr. Fields. Provider Notation: Although this document has been carefully reviewed, there may still be some phonetic and other typographical errors.? These errors are purely grammatical due to imperfections in the software program and should not be construed in any way to? compromise the substance of the patient's medical care during this visit. 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 Denies any fever, cough, shortness of breath, and abdominal pain. Patient has had her gall bladder removed and reports an allergy to codeine. Patient is alert and oriented and is DNR. No other complaints. Patient data External records reviewed:: [facility] previous records (Reviewed prior ED records from 10/03/24. Patient was seen for AMS (altered mental status).), EMS form and Long-Term records Clinical information provided by:: patient and EMS Social determinants that could affect healthcare access:: housing (SNF) Patient has the following chronic illnesses:: Thyroid CA, Hypercholesterolemia, Hypertension, Diabetes Mellitus Type 2, Hypothyroidism, Depression How is presenting disease/condition affected by chronic disease/condition?: exacerbated by Evaluation data The following diagnostics were reviewed and interpreted by me:: lab results, radiology exam(s) and EKG tracing(s) (My interpretation of the EKG is: Sinus rhythm (115 bpm) with nonspecific ST-T changes. No STEMI. Reviewed with Dr. Robles. Eder Fields MD) Lab and/or radiology exams considered but not ordered:: None Interpretation Summary: I reviewed all diagnostic test results: My interpretation of the EKG is: Sinus rhythm (115 bpm) with nonspecific ST-T changes. No STEMI. Reviewed with Dr. Robles. Eder Fields MD My interpretation of the chest x-ray is: My review of the CT report is: Blood tests and urine tests Covid/Influenza: Negative. Medications / Prescriptions Medications or Prescriptions considered but not ordered:: None Medication administrations:: Medication Administration History Acetaminophen (Acetaminophen 325 Mg Tablet) 650 mg PO Q6H PRN PRN Reason: fever >99.9 Stop: 01/26/25 04:36 Acetaminophen (Acetaminophen 500 Mg Tablet) 500 mg PO QDAY@1100 [facility] Stop: 01/04/25 11:01 Last Admin: 01/01/25 11:32 Dose: 500 mg Documented By: Admin: 12/31/24 15:48 Dose: 500 mg Documented By: JRR Comments: given late,went to [employer] Dextrose (Dextrose 50%-Water Inj 50 Ml Syringe) 25 ml IV Q15MIN PRN PRN Reason: BG 50-70 responsive npo pt Stop: 01/26/25 04:43 Dextrose (Dextrose 50%-Water Inj 50 Ml Syringe) 50 ml IV Q15MIN PRN PRN Reason: BG <50 OR BG <70 & pt unresponsive Stop: 01/26/25 04:43 Diphenhydramine HCl (Diphenhydramine Inj 50 Mg/Ml Vial) 25 mg IVP QDAY@1100 [facility] Stop: 01/04/25 11:01 Last Admin: 01/01/25 11:32 Dose: 25 mg Documented By: Admin: 12/31/24 15:49 Dose: 25 mg Documented By: ANA Gabapentin (Gabapentin 100 Mg Capsule) 100 mg PO TID PRN; Protocol PRN Reason: leg pain Stop: 01/26/25 16:29 Last Admin: 12/27/24 16:29 Dose: 100 mg Documented By: AT Glucagon (Glucagon Inj 1 Mg Vial) 1 mg IM Q15MIN PRN PRN Reason: BG <70, and no IV access Heparin Sodium (Porcine) (Heparin Sod Inj 5000 Unit/Ml Vial) 5,000 unit SC Q8HR [facility] Stop: 01/10/25 05:59 Last Admin: 01/01/25 14:26 Dose: 5,000 unit Documented By: MELANY Co-signed By: DOYLE Admin: 01/01/25 05:18 Dose: 5,000 unit Documented By: Co-signed By: Admin: 12/31/24 21:27 Dose: 5,000 unit Documented By: Co-signed By: YONG Admin: 12/31/24 17:59 Dose: Not Given Documented By: ANA Non-Admin Reason: at picket [employer] Admin: 12/31/24 05:29 Dose: 5,000 unit Documented By: CHAPARRITA Co-signed By: TENISHA Admin: 12/30/24 21:13 Dose: 5,000 unit Documented By: CHAPARRITA Co-signed By: TENISHA Admin: 12/30/24 13:51 Dose: 5,000 unit Documented By: ANA Co-signed By: LEON Admin: 12/30/24 05:37 Dose: 5,000 unit Documented By: FRANCISCO Co-signed By: VASQUEZ Admin: 12/29/24 21:37 Dose: 5,000 unit Documented By: FRANCISCO Co-signed By: AD Admin: 12/29/24 14:29 Dose: 5,000 unit Documented By: ADRIANNA Co-signed By: MR Admin: 12/29/24 06:00 Dose: 5,000 unit Documented By: RH Co-signed By: TATIANNA Admin: 12/28/24 22:02 Dose: 5,000 unit Documented By: RH Co-signed By: TATIANNA Admin: 12/28/24 14:57 Dose: 5,000 unit Documented By: ER Co-signed By: Admin: 12/28/24 05:45 Dose: 5,000 unit Documented By: RH Co-signed By: VASQUEZ Admin: 12/27/24 21:08 Dose: 5,000 unit Documented By: RH Co-signed By: TATIANNA Admin: 12/27/24 14:12 Dose: 5,000 unit Documented By: AT Co-signed By: Admin: 12/27/24 06:22 Dose: 5,000 unit Documented By: RH Co-signed By: VASQUEZ Ampicillin Sodium 2,000 mg/ (Sodium Chloride) 100 mls @ 200 mls/hr IV Q6HR [facility] Stop: 01/05/25 11:59 Last Admin: 01/01/25 17:21 Dose: 200 mls/hr Documented By: Infusion: 01/01/25 12:03 Dose: Infused Documented By: Admin: 01/01/25 11:33 Dose: 200 mls/hr Documented By: Infusion: 01/01/25 05:44 Dose: Infused Documented By: Admin: 01/01/25 05:14 Dose: 200 mls/hr Documented By: Infusion: 12/31/24 23:52 Dose: Infused Documented By: Admin: 12/31/24 23:22 Dose: 200 mls/hr Documented By: Infusion: 12/31/24 18:43 Dose: Infused Documented By: Admin: 12/31/24 18:13 Dose: 200 mls/hr Documented By: Infusion: 12/31/24 11:50 Dose: Infused Documented By: Admin: 12/31/24 11:20 Dose: 200 mls/hr Documented By: Infusion: 12/31/24 05:58 Dose: Infused Documented By: Admin: 12/31/24 05:28 Dose: 200 mls/hr Documented By: Infusion: 12/30/24 23:38 Dose: Infused Documented By: Admin: 12/30/24 23:08 Dose: 200 mls/hr Documented By: Infusion: 12/30/24 18:16 Dose: Infused Documented By: Admin: 12/30/24 17:46 Dose: 200 mls/hr Documented By: Infusion: 12/30/24 12:29 Dose: Infused Documented By: Admin: 12/30/24 11:59 Dose: 200 mls/hr Documented By: Infusion: 12/30/24 06:08 Dose: Infused Documented By: Admin: 12/30/24 05:38 Dose: 200 mls/hr Documented By: Infusion: 12/30/24 00:26 Dose: Infused Documented By: Admin: 12/29/24 23:56 Dose: 200 mls/hr Documented By: Infusion: 12/29/24 18:27 Dose: Infused Documented By: Admin: 12/29/24 17:57 Dose: 200 mls/hr Documented By: Infusion: 12/29/24 12:18 Dose: Infused Documented By: Admin: 12/29/24 11:48 Dose: 200 mls/hr Documented By: ADRIANNA Immune Globulin G/Gly/IgA (Gamunex C Inj) 200 mls @ 65 mls/hr IV QDAY@1130 [facility] Stop: 01/04/25 14:35 Last Admin: 01/01/25 12:15 Dose: 65 mls/hr Documented By: Infusion: 12/31/24 19:36 Dose: Infused Documented By: Admin: 12/31/24 16:31 Dose: 65 mls/hr Documented By: ANA Comments: given late,went to picket [employer] Insulin Human Lispro (Insulin Lispro (Admelog) 1 Unit/0.01 Ml Unit) 0 unit SC [facility]; Protocol Stop: 01/26/25 07:29 Last Admin: 01/01/25 17:16 Dose: Not Given Documented By: MELANY Non-Admin Reason: Per Protocol Admin: 01/01/25 11:50 Dose: Not Given Documented By: MELANY Non-Admin Reason: Per Protocol Admin: 01/01/25 07:50 Dose: Not Given Documented By: MELANY Non-Admin Reason: Per Protocol Admin: 12/31/24 18:00 Dose: Not Given Documented By: ANA Non-Admin Reason: Per Protocol Admin: 12/31/24 17:58 Dose: Not Given Documented By: ANA Non-Admin Reason: Per Protocol Admin: 12/31/24 07:39 Dose: Not Given Documented By: JRR Non-Admin Reason: Per Protocol Admin: 12/30/24 16:58 Dose: Not Given Documented By: JRR Non-Admin Reason: Per Protocol Admin: 12/30/24 11:57 Dose: Not Given Documented By: JRR Non-Admin Reason: Per Protocol Admin: 12/30/24 08:31 Dose: Not Given Documented By: JRR Non-Admin Reason: Per Protocol Admin: 12/29/24 17:56 Dose: Not Given Documented By: ADRIANNA Non-Admin Reason: Per Protocol Admin: 12/29/24 13:02 Dose: Not Given Documented By: ADRIANNA Non-Admin Reason: Per Protocol Admin: 12/29/24 08:12 Dose: Not Given Documented By: ADRIANNA Non-Admin Reason: Per Protocol Admin: 12/28/24 17:39 Dose: Not Given Documented By: ER Non-Admin Reason: BS 118 Admin: 12/28/24 11:42 Dose: 1 unit Documented By: ER Co-signed By: Admin: 12/28/24 08:45 Dose: Not Given Documented By: ER Non-Admin Reason: bs 124 Admin: 12/27/24 16:31 Dose: 2 unit Documented By: AT Co-signed By: PAUL Admin: 12/27/24 11:17 Dose: 2 unit Documented By: AT Co-signed By: PAUL Admin: 12/27/24 07:19 Dose: 2 unit Documented By: AT Co-signed By: PAUL Levothyroxine Sodium 125 mcg/ (Levothyroxine Sodium 25 mcg) 150 mcg PO ACBR [facility] Stop: 01/26/25 07:14 Last Admin: 01/01/25 05:13 Dose: 150 mcg Documented By: Admin: 12/31/24 05:31 Dose: 150 mcg Documented By: Admin: 12/30/24 05:40 Dose: 150 mcg Documented By: Admin: 12/29/24 06:01 Dose: 150 mcg Documented By: Admin: 12/28/24 05:46 Dose: 150 mcg Documented By: Admin: 12/27/24 07:18 Dose: 150 mcg Documented By: AT Midodrine (Midodrine 5 Mg Tablet) 5 mg PO BID PRN PRN Reason: Hypotension Stop: 01/31/25 20:59 Mirtazapine (Mirtazapine 15 Mg Tablet) 15 mg PO HS [facility] Stop: 01/29/25 20:59 Last Admin: 12/31/24 20:40 Dose: 15 mg Documented By: Admin: 12/30/24 21:13 Dose: 15 mg Documented By: CHAPARRITA Ondansetron HCl (Ondansetron Inj 2 Mg/Ml Inj 2 Ml) 4 mg IVP Q6H PRN; Protocol PRN Reason: NAUSEA OR VOMITING Stop: 01/26/25 04:36 Last Admin: 12/29/24 21:08 Dose: 4 mg Documented By: Admin: 12/28/24 22:26 Dose: 4 mg Documented By: Admin: 12/28/24 10:00 Dose: 4 mg Documented By: ER Pantoprazole Sodium (Pantoprazole 40 Mg Tablet) 40 mg PO QDAY [facility]; Protocol Stop: 01/29/25 08:59 Last Admin: 01/01/25 09:14 Dose: 40 mg Documented By: Admin: 12/31/24 08:23 Dose: 40 mg Documented By: Admin: 12/30/24 08:36 Dose: 40 mg Documented By: ANA Potassium Phos/Sodium Phos (Naph,[facility] 1 Packet (1.5 Gm)) 1 packet PO BID [facility] Stop: 01/02/25 09:00 Last Admin: 01/01/25 09:14 Dose: 1 packet Documented By: Admin: 12/31/24 20:40 Dose: 1 packet Documented By: Admin: 12/31/24 09:32 Dose: Not Given Documented By: ANA Non-Admin Reason: NPO Discontinued Medications Acetaminophen (Acetaminophen 325 Mg Tablet) 650 mg PO Q6H PRN PRN Reason: Fever >101.5 Stop: 01/26/25 04:36 Acetaminophen (Acetaminophen 325 Mg Tablet) 650 mg PO Q6H PRN PRN Reason: PAIN SCALE 1-3 (mild Stop: 01/26/25 04:36 Last Admin: 12/27/24 13:43 Dose: 650 mg Documented By: PAUL Albuterol/Ipratropium (Albuterol/Ipratropium (Duoneb) Rt Randee 3 Ml Nebu) 3 ml INH X1 ONE Stop: 12/27/24 00:55 Last Admin: 12/27/24 02:15 Dose: 3 ml Documented By: JOSE LUIS Aspirin (Aspirin 81 Mg Chew) Confirm Administered Dose 324 mg .ROUTE .STK-MED ONE Stop: 12/31/24 12:40 Last Admin: 12/31/24 21:32 Dose: Not Given Documented By: Non-Admin Reason: Manual Charge by Anesthesia Atropine Sulfate (Atropine Sulf Inj 1 Mg/Ml Vial) Confirm Administered Dose 1 mg .ROUTE .STK-MED ONE Stop: 12/31/24 12:26 Last Admin: 12/31/24 21:29 Dose: Not Given Documented By: MD Non-Admin Reason: Duplicate Medication on eMAR Bivalirudin (Bivalirudin Inj 250 Mg Vial) Confirm Administered Dose 250 mg IV .STK-MED ONE Stop: 12/31/24 12:39 Last Admin: 12/31/24 21:31 Dose: Not Given Documented By: Non-Admin Reason: Manual Charge by Anesthesia Clopidogrel Bisulfate (Clopidogrel Bisulfate 75 Mg Tablet) Confirm Administered Dose 600 mg .ROUTE .STK-MED ONE Stop: 12/31/24 12:40 Last Admin: 12/31/24 21:32 Dose: Not Given Documented By: Non-Admin Reason: Manual Charge by Anesthesia Diazepam (Diazepam 5 Mg Tablet) 5 mg PO X1 ONE Stop: 12/31/24 12:33 Last Admin: 12/31/24 12:34 Dose: 5 mg Documented By: SHAUNA Diazepam (Diazepam 5 Mg Tablet) Confirm Administered Dose 5 mg .ROUTE .STK-MED ONE Stop: 12/31/24 12:25 Last Admin: 12/31/24 21:29 Dose: Not Given Documented By: Non-Admin Reason: Duplicate Medication on eMAR Epinephrine HCl (Epinephrine Inj 0.1 Mg/Ml Syringe 10ml) Confirm Administered Dose 1 mg .ROUTE .STK-MED ONE Stop: 12/28/24 07:10 Last Admin: 12/28/24 08:50 Dose: Not Given Documented By: ER Non-Admin Reason: Discontinued Epinephrine HCl (Epinephrine Inj 0.1 Mg/Ml Syringe 10ml) 2 mg IVP X1 ONE Stop: 12/28/24 07:11 Last Admin: 12/28/24 08:51 Dose: Not Given Documented By: ER Non-Admin Reason: Discontinued Epinephrine HCl (Epinephrine Inj 0.1 Mg/Ml Syringe 10ml) Confirm Administered Dose 1 mg .ROUTE .STK-MED ONE Stop: 12/31/24 12:27 Last Admin: 12/31/24 21:30 Dose: Not Given Documented By: Non-Admin Reason: Manual Charge by Anesthesia Fentanyl Citrate (Fentanyl Cit Inj 50 Mcg/Ml Amp 2ml) Confirm Administered Dose 100 mcg .ROUTE .STK-MED ONE Stop: 12/31/24 12:26 Last Admin: 12/31/24 21:29 Dose: Not Given Documented By: Non-Admin Reason: Duplicate Medication on eMAR Flumazenil (Flumazenil Inj 0.1 Mg/Ml Vial 10 Ml) Confirm Administered Dose 1 mg .ROUTE .STK-MED ONE Stop: 12/31/24 12:26 Last Admin: 12/31/24 21:30 Dose: Not Given Documented By: Non-Admin Reason: Duplicate Medication on eMAR Heparin Sodium (Porcine) (Heparin Sod Inj 1000 Unit/Ml Vial 10 Ml) Confirm Administered Dose 20,000 unit .ROUTE .STK-MED ONE Stop: 12/31/24 12:27 Last Admin: 12/31/24 21:31 Dose: Not Given Documented By: Non-Admin Reason: Manual Charge by Anesthesia Sodium Chloride (Ns) 1,000 mls @ 999 mls/hr IV .Q1H1M ONE Stop: 12/27/24 01:51 Last Infusion: 12/27/24 02:02 Dose: Infused Documented By: CHAPARRITA(2) Admin: 12/27/24 01:01 Dose: 999 mls/hr Documented By: CHAPARRITA(2) Norepinephrine Bitartrate (Levophed In Ns 16mg/250ml) 16 mg in 250 mls @ 2.636 mls/hr IV .Q24H PRN; Protocol PRN Reason: PER PROTOCOL Stop: 01/26/25 00:56 Last Titration: 12/29/24 13:16 Dose: 0 mcg/kg/min, 0 mls/hr Documented By: Titration: 12/29/24 13:14 Dose: 0.01 mcg/kg/min, 0.527 mls/hr Documented By: Titration: 12/29/24 13:00 Dose: 0.03 mcg/kg/min, 1.582 mls/hr Documented By: Titration: 12/29/24 12:10 Dose: 0.03 mcg/kg/min, 1.582 mls/hr Documented By: Titration: 12/29/24 12:00 Dose: 0.03 mcg/kg/min, 1.582 mls/hr Documented By: Titration: 12/29/24 11:36 Dose: 0.03 mcg/kg/min, 1.582 mls/hr Documented By: Titration: 12/29/24 11:00 Dose: 0.05 mcg/kg/min, 2.636 mls/hr Documented By: Titration: 12/29/24 10:31 Dose: 0.05 mcg/kg/min, 2.636 mls/hr Documented By: Titration: 12/29/24 10:02 Dose: 0.07 mcg/kg/min, 3.691 mls/hr Documented By: Titration: 12/29/24 10:00 Dose: 0.05 mcg/kg/min, 2.636 mls/hr Documented By: Titration: 12/29/24 09:42 Dose: 0.05 mcg/kg/min, 2.636 mls/hr Documented By: Titration: 12/29/24 08:15 Dose: 0 mcg/kg/min, 0 mls/hr Documented By: Titration: 12/29/24 08:00 Dose: 0.01 mcg/kg/min, 0.527 mls/hr Documented By: Titration: 12/29/24 07:30 Dose: 0.01 mcg/kg/min, 0.527 mls/hr Documented By: Titration: 12/29/24 07:00 Dose: 0.03 mcg/kg/min, 1.582 mls/hr Documented By: Titration: 12/29/24 06:00 Dose: 0.03 mcg/kg/min, 1.582 mls/hr Documented By: Titration: 12/29/24 05:00 Dose: 0.03 mcg/kg/min, 1.582 mls/hr Documented By: Titration: 12/29/24 04:15 Dose: 0.05 mcg/kg/min, 2.636 mls/hr Documented By: Titration: 12/29/24 04:00 Dose: 0.07 mcg/kg/min, 3.691 mls/hr Documented By: Titration: 12/29/24 03:00 Dose: 0.07 mcg/kg/min, 3.691 mls/hr Documented By: Titration: 12/29/24 02:15 Dose: 0.07 mcg/kg/min, 3.691 mls/hr Documented By: Titration: 12/29/24 02:00 Dose: 0.09 mcg/kg/min, 4.746 mls/hr Documented By: Titration: 12/29/24 01:45 Dose: 0.11 mcg/kg/min, 5.8 mls/hr Documented By: Titration: 12/29/24 01:30 Dose: 0.11 mcg/kg/min, 5.8 mls/hr Documented By: Titration: 12/29/24 01:15 Dose: 0.09 mcg/kg/min, 4.746 mls/hr Documented By: Titration: 12/29/24 01:00 Dose: 0.07 mcg/kg/min, 3.691 mls/hr Documented By: Titration: 12/29/24 00:45 Dose: 0.05 mcg/kg/min, 2.636 mls/hr Documented By: Titration: 12/29/24 00:30 Dose: 0.03 mcg/kg/min, 1.582 mls/hr Documented By: Titration: 12/29/24 00:00 Dose: 0.01 mcg/kg/min, 0.527 mls/hr Documented By: Titration: 12/28/24 23:00 Dose: 0.01 mcg/kg/min, 0.527 mls/hr Documented By: Titration: 12/28/24 22:30 Dose: 0.01 mcg/kg/min, 0.527 mls/hr Documented By: Titration: 12/28/24 22:00 Dose: 0.03 mcg/kg/min, 1.582 mls/hr Documented By: Titration: 12/28/24 21:15 Dose: 0.03 mcg/kg/min, 1.582 mls/hr Documented By: Titration: 12/28/24 21:00 Dose: 0.05 mcg/kg/min, 2.636 mls/hr Documented By: Titration: 12/28/24 20:00 Dose: 0.05 mcg/kg/min, 2.636 mls/hr Documented By: Titration: 12/28/24 19:00 Dose: 0.05 mcg/kg/min, 2.636 mls/hr Documented By: Titration: 12/28/24 18:00 Dose: 0.05 mcg/kg/min, 2.636 mls/hr Documented By: Titration: 12/28/24 17:00 Dose: 0.05 mcg/kg/min, 2.636 mls/hr Documented By: Titration: 12/28/24 16:42 Dose: 0.05 mcg/kg/min, 2.636 mls/hr Documented By: Titration: 12/28/24 15:41 Dose: 0.03 mcg/kg/min, 1.582 mls/hr Documented By: Titration: 12/28/24 15:00 Dose: 0.01 mcg/kg/min, 0.527 mls/hr Documented By: Titration: 12/28/24 14:15 Dose: 0.03 mcg/kg/min, 1.582 mls/hr Documented By: Titration: 12/28/24 14:00 Dose: 0.05 mcg/kg/min, 2.636 mls/hr Documented By: Titration: 12/28/24 13:30 Dose: 0.05 mcg/kg/min, 2.636 mls/hr Documented By: Titration: 12/28/24 13:00 Dose: 0.07 mcg/kg/min, 3.691 mls/hr Documented By: Titration: 12/28/24 12:00 Dose: 0.07 mcg/kg/min, 3.691 mls/hr Documented By: Titration: 12/28/24 11:00 Dose: 0.07 mcg/kg/min, 3.691 mls/hr Documented By: Titration: 12/28/24 10:16 Dose: 0.07 mcg/kg/min, 3.691 mls/hr Documented By: Titration: 12/28/24 10:00 Dose: 0.05 mcg/kg/min, 2.636 mls/hr Documented By: Titration: 12/28/24 09:00 Dose: 0.05 mcg/kg/min, 2.636 mls/hr Documented By: Titration: 12/28/24 08:00 Dose: 0.05 mcg/kg/min, 2.636 mls/hr Documented By: Titration: 12/28/24 07:00 Dose: 0.05 mcg/kg/min, 2.636 mls/hr Documented By: Titration: 12/28/24 06:00 Dose: 0.05 mcg/kg/min, 2.636 mls/hr Documented By: Titration: 12/28/24 05:00 Dose: 0.05 mcg/kg/min, 2.636 mls/hr Documented By: Titration: 12/28/24 04:00 Dose: 0.05 mcg/kg/min, 2.636 mls/hr Documented By: Titration: 12/28/24 03:00 Dose: 0.05 mcg/kg/min, 2.636 mls/hr Documented By: Titration: 12/28/24 02:00 Dose: 0.05 mcg/kg/min, 2.636 mls/hr Documented By: Titration: 12/28/24 01:00 Dose: 0.05 mcg/kg/min, 2.636 mls/hr Documented By: Titration: 12/28/24 00:00 Dose: 0.05 mcg/kg/min, 2.636 mls/hr Documented By: Titration: 12/27/24 23:00 Dose: 0.05 mcg/kg/min, 2.636 mls/hr Documented By: Titration: 12/27/24 22:00 Dose: 0.05 mcg/kg/min, 2.636 mls/hr Documented By: Titration: 12/27/24 21:00 Dose: 0.05 mcg/kg/min, 2.636 mls/hr Documented By: Titration: 12/27/24 20:00 Dose: 0.05 mcg/kg/min, 2.636 mls/hr Documented By: Titration: 12/27/24 19:00 Dose: 0.05 mcg/kg/min, 2.636 mls/hr Documented By: Titration: 12/27/24 18:00 Dose: 0.05 mcg/kg/min, 2.636 mls/hr Documented By: Titration: 12/27/24 17:19 Dose: 0.05 mcg/kg/min, 2.636 mls/hr Documented By: Titration: 12/27/24 17:00 Dose: 0.03 mcg/kg/min, 1.582 mls/hr Documented By: Titration: 12/27/24 16:35 Dose: 0.03 mcg/kg/min, 1.582 mls/hr Documented By: Titration: 12/27/24 16:00 Dose: 0.05 mcg/kg/min, 2.636 mls/hr Documented By: Titration: 12/27/24 15:42 Dose: 0.05 mcg/kg/min, 2.636 mls/hr Documented By: Titration: 12/27/24 15:00 Dose: 0.03 mcg/kg/min, 1.582 mls/hr Documented By: Titration: 12/27/24 14:00 Dose: 0.03 mcg/kg/min, 1.582 mls/hr Documented By: Titration: 12/27/24 13:00 Dose: 0.05 mcg/kg/min, 2.636 mls/hr Documented By: Titration: 12/27/24 12:00 Dose: 0.05 mcg/kg/min, 2.636 mls/hr Documented By: Titration: 12/27/24 11:00 Dose: 0.03 mcg/kg/min, 1.582 mls/hr Documented By: Titration: 12/27/24 10:03 Dose: 0.05 mcg/kg/min, 2.636 mls/hr Documented By: Titration: 12/27/24 09:27 Dose: 0.05 mcg/kg/min, 2.636 mls/hr Documented By: Titration: 12/27/24 09:00 Dose: 0.07 mcg/kg/min, 3.691 mls/hr Documented By: Titration: 12/27/24 08:20 Dose: 0.07 mcg/kg/min, 3.691 mls/hr Documented By: Titration: 12/27/24 08:00 Dose: 0.09 mcg/kg/min, 4.746 mls/hr Documented By: Titration: 12/27/24 07:30 Dose: 0.11 mcg/kg/min, 5.8 mls/hr Documented By: Titration: 12/27/24 07:00 Dose: 0.13 mcg/kg/min, 6.855 mls/hr Documented By: Titration: 12/27/24 06:00 Dose: 0.13 mcg/kg/min, 6.855 mls/hr Documented By: Titration: 12/27/24 05:00 Dose: 0.13 mcg/kg/min, 6.855 mls/hr Documented By: RC(2) Titration: 12/27/24 04:00 Dose: 0.13 mcg/kg/min, 6.855 mls/hr Documented By: RC(2) Titration: 12/27/24 03:00 Dose: 0.13 mcg/kg/min, 6.855 mls/hr Documented By: RC(2) Titration: 12/27/24 02:01 Dose: 0.13 mcg/kg/min, 6.855 mls/hr Documented By: RC(2) Titration: 12/27/24 01:56 Dose: 0.13 mcg/kg/min, 6.855 mls/hr Documented By: RC(2) Titration: 12/27/24 01:51 Dose: 0.11 mcg/kg/min, 5.8 mls/hr Documented By: RC(2) Titration: 12/27/24 01:46 Dose: 0.09 mcg/kg/min, 4.746 mls/hr Documented By: RC(2) Titration: 12/27/24 01:41 Dose: 0.07 mcg/kg/min, 3.691 mls/hr Documented By: RC(2) Admin: 12/27/24 01:32 Dose: 0.05 mcg/kg/min, 2.636 mls/hr Documented By: CHAPARRITA(2) Cefepime HCl 1 gm/ Sodium (Chloride) 50 mls @ 100 mls/hr IV X1 ONE Stop: 12/27/24 01:52 Last Infusion: 12/27/24 02:37 Dose: Infused Documented By: RC(2) Admin: 12/27/24 01:58 Dose: 100 mls/hr Documented By: RC(2) Vancomycin HCl 1,000 mg/ (Sodium Chloride) 500 mls @ 150 mls/hr IV X1 ONE Stop: 12/27/24 04:42 Last Infusion: 12/27/24 07:00 Dose: Infused Documented By: Admin: 12/27/24 02:33 Dose: 150 mls/hr Documented By: CHAPARRITA(2) Sodium Chloride (Ns) 1,000 mls @ 999 mls/hr IV .Q1H1M ONE Stop: 12/27/24 02:23 Last Infusion: 12/27/24 02:54 Dose: Infused Documented By: RC(2) Admin: 12/27/24 01:49 Dose: 999 mls/hr Documented By: CHAPARRITA(2) Acetaminophen (Ofirmev Inj) 1,000 mg in 100 mls @ 250 mls/hr IV X1 ONE Stop: 12/27/24 01:56 Last Infusion: 12/27/24 02:54 Dose: Infused Documented By: CHAPARRITA(2) Admin: 12/27/24 02:25 Dose: 250 mls/hr Documented By: CHAPARRITA(2) Magnesium Sulfate (Magnesium Sulfate Ivpb) 4 gm in 50 mls @ 12.5 mls/hr IV X1 ONE Stop: 12/27/24 06:45 Last Infusion: 12/27/24 07:08 Dose: Infused Documented By: Admin: 12/27/24 03:22 Dose: 12.5 mls/hr Documented By: CHAPARRITA(2) Cefepime HCl 2 gm/ Sodium (Chloride) 50 mls @ 100 mls/hr IV Q8HR SAMMI Stop: 01/03/25 09:59 Last Admin: 12/29/24 05:59 Dose: 100 mls/hr Documented By: Infusion: 12/28/24 22:30 Dose: Infused Documented By: Admin: 12/28/24 22:00 Dose: 100 mls/hr Documented By: Infusion: 12/28/24 15:26 Dose: Infused Documented By: Admin: 12/28/24 14:56 Dose: 100 mls/hr Documented By: Infusion: 12/28/24 06:16 Dose: Infused Documented By: Admin: 12/28/24 05:46 Dose: 100 mls/hr Documented By: Infusion: 12/27/24 22:40 Dose: Infused Documented By: Admin: 12/27/24 21:07 Dose: 100 mls/hr Documented By: Infusion: 12/27/24 10:33 Dose: Infused Documented By: Admin: 12/27/24 10:03 Dose: 100 mls/hr Documented By: AT Vancomycin/Sodium Chloride (Vancomycin/Ns 1 Gm Ivpb) 200 mls @ 120 mls/hr IV QDAY@2200 SAMMI Stop: 01/03/25 21:59 Last Infusion: 12/27/24 23:00 Dose: Infused Documented By: Admin: 12/27/24 21:10 Dose: 120 mls/hr Documented By: RH Lactated Ringer's (Lactated Ringers) 500 mls @ 999 mls/hr IV .Q31M ONE Stop: 12/27/24 08:58 Last Infusion: 12/28/24 00:42 Dose: Infused Documented By: Admin: 12/27/24 08:35 Dose: 999 mls/hr Documented By: AT Potassium Chloride (Kcl Ivpb) 10 meq in 100 mls @ 100 mls/hr IV Q1H ONE Stop: 12/27/24 15:05 Last Admin: 12/27/24 14:48 Dose: Not Given Documented By: AT Non-Admin Reason: Discontinued Magnesium Sulfate (Magnesium Sulfate Ivpb) 4 gm in 50 mls @ 12.5 mls/hr IV X1 ONE Stop: 12/27/24 18:06 Last Infusion: 12/28/24 00:41 Dose: Infused Documented By: Admin: 12/27/24 14:11 Dose: 12.5 mls/hr Documented By: AT Vancomycin HCl/Dextrose (Vancomycin/D5w 1,250 Mg Ivpb) 250 mls @ 120 mls/hr IV Q12H SAMMI; Protocol Stop: 01/04/25 09:59 Last Admin: 12/28/24 22:05 Dose: 120 mls/hr Documented By: Infusion: 12/28/24 11:55 Dose: Infused Documented By: Admin: 12/28/24 09:50 Dose: 120 mls/hr Documented By: ER Potassium Chloride (Kcl Ivpb) 10 meq in 100 mls @ 100 mls/hr IV Q1H [facility]MI Stop: 12/28/24 15:12 Last Admin: 12/28/24 18:37 Dose: 50 mls/hr Documented By: Infusion: 12/28/24 18:37 Dose: Infused Documented By: Admin: 12/28/24 16:39 Dose: 50 mls/hr Documented By: Infusion: 12/28/24 15:31 Dose: Infused Documented By: Admin: 12/28/24 13:31 Dose: 50 mls/hr Documented By: Infusion: 12/28/24 13:19 Dose: Infused Documented By: Admin: 12/28/24 11:19 Dose: 50 mls/hr Documented By: ER Lactated Ringer's (Lactated Ringers) 500 mls @ 999 mls/hr IV .Q31M ONE Stop: 12/28/24 11:48 Last Admin: 12/28/24 11:29 Dose: 999 mls/hr Documented By: ER Magnesium Sulfate/Dextrose (Magnesium Sulfate Ivpb) 1 gm in 100 mls @ 100 mls/hr IV X1 ONE Stop: 12/28/24 12:28 Last Admin: 12/28/24 11:38 Dose: 100 mls/hr Documented By: ER Sodium Chloride (Ns) 500 mls @ 999 mls/hr IV .Q31M ONE Stop: 12/28/24 14:29 Last Admin: 12/28/24 14:03 Dose: 999 mls/hr Documented By: RYLEY Magnesium Sulfate (Magnesium Sulfate Ivpb) 4 gm in 50 mls @ 12.5 mls/hr IV X1 ONE Stop: 12/29/24 11:24 Last Admin: 12/29/24 08:11 Dose: 12.5 mls/hr Documented By: ADRIANNA Potassium Chloride (Kcl Ivpb) 10 meq in 100 mls @ 100 mls/hr IV Q1H [facility]MI Stop: 12/29/24 09:26 Last Admin: 12/29/24 10:32 Dose: 50 mls/hr Documented By: Infusion: 12/29/24 10:02 Dose: Infused Documented By: Infusion: 12/29/24 09:13 Dose: Infused Documented By: Admin: 12/29/24 08:12 Dose: 100 mls/hr Documented By: ADRIANNA Magnesium Sulfate (Magnesium Sulfate Ivpb) 2 gm in 50 mls @ 25 mls/hr IV X1 ONE Stop: 12/30/24 09:09 Last Admin: 12/30/24 08:36 Dose: 25 mls/hr Documented By: ANA Sodium Chloride (Ns) 1,000 mls @ 75 mls/hr IV .Q19Q25S ONE Stop: 12/30/24 23:19 Last Admin: 12/30/24 11:59 Dose: 75 mls/hr Documented By: ANA Magnesium Sulfate (Magnesium Sulfate Ivpb) 2 gm in 50 mls @ 25 mls/hr IV X1 ONE Stop: 12/31/24 09:11 Last Admin: 12/31/24 07:46 Dose: 25 mls/hr Documented By: ANA Magnesium Sulfate/Dextrose (Magnesium Sulfate Ivpb) 1 gm in 100 mls @ 100 mls/hr IV X1 ONE Stop: 12/31/24 10:11 Last Admin: 12/31/24 09:31 Dose: 100 mls/hr Documented By: ANA Nitroglycerin/Dextrose (Nitroglycerin In D5w Ivpb) Confirm Administered Dose 50 mg in 250 mls @ ud .ROUTE .STK-MED ONE Stop: 12/31/24 12:27 Last Admin: 12/31/24 21:31 Dose: Not Given Documented By: Non-Admin Reason: Manual Charge by Anesthesia Sterile Water (Sterile Water) Confirm Administered Dose 10 mls @ ud .ROUTE .STK-MED ONE Stop: 12/31/24 12:39 Last Admin: 12/31/24 21:31 Dose: Not Given Documented By: Non-Admin Reason: Manual Charge by Anesthesia Sodium Chloride (Ns 0.45%) 500 mls @ 250 mls/hr IV .Q2H ONE Stop: 12/31/24 15:31 Last Admin: 12/31/24 16:20 Dose: 250 mls/hr Documented By: ANA Magnesium Sulfate (Magnesium Sulfate Ivpb) 4 gm in 50 mls @ 12.5 mls/hr IV X1 ONE Stop: 01/01/25 11:46 Last Admin: 01/01/25 09:14 Dose: 12.5 mls/hr Documented By: MELANY Ketorolac Tromethamine (Ketorolac Inj 30 Mg/Ml Vial) 9 mg IVP X1 ONE Stop: 12/27/24 01:34 Last Admin: 12/27/24 02:08 Dose: 9 mg Documented By: CHAPARRITA(2) Levothyroxine Sodium (Levothyroxine Sodium 125 Mcg Tablet) 150 mcg PO QDAY [facility] Stop: 01/26/25 07:59 Lidocaine HCl (Lidocaine Inj Pf 1% 30 Ml Vial) Confirm Administered Dose 30 ml .ROUTE .STK-MED ONE Stop: 12/31/24 12:26 Last Admin: 12/31/24 21:30 Dose: Not Given Documented By: Non-Admin Reason: Manual Charge by Anesthesia Methylprednisolone Sodium Succinate (Methylprednisolone Sod Succ 62.5 Mg/Ml 2ml Vial) 125 mg IVP X1 ONE Stop: 12/27/24 00:55 Last Admin: 12/27/24 01:36 Dose: 125 mg Documented By: CHAPARRITA(2) Midazolam HCl (Midazolam Inj 1 Mg/Ml Vial 2 Ml) Confirm Administered Dose 2 mg .ROUTE .STK-MED ONE Stop: 12/31/24 12:26 Last Admin: 12/31/24 21:30 Dose: Not Given Documented By: Non-Admin Reason: Manual Charge by Anesthesia Midodrine (Midodrine 5 Mg Tablet) 10 mg PO TID [facility] Stop: 01/27/25 14:59 Last Admin: 12/29/24 06:00 Dose: 10 mg Documented By: Admin: 12/28/24 22:02 Dose: 10 mg Documented By: Admin: 12/28/24 14:56 Dose: 10 mg Documented By: ER Midodrine (Midodrine 5 Mg Tablet) Confirm Administered Dose 10 mg .ROUTE .STK-MED ONE Stop: 12/28/24 14:54 Last Admin: 12/28/24 15:15 Dose: Not Given Documented By: ER Non-Admin Reason: Duplicate Medication on eMAR Midodrine (Midodrine 5 Mg Tablet) 10 mg PO Q6HR [facility] Stop: 01/28/25 11:59 Last Admin: 12/30/24 05:38 Dose: 10 mg Documented By: Admin: 12/30/24 00:03 Dose: 10 mg Documented By: Admin: 12/29/24 17:56 Dose: 10 mg Documented By: Admin: 12/29/24 11:47 Dose: 10 mg Documented By: ADRIANNA Midodrine (Midodrine 5 Mg Tablet) 10 mg PO TID [facility] Stop: 01/29/25 13:59 Last Admin: 12/31/24 05:30 Dose: 10 mg Documented By: Admin: 12/30/24 21:12 Dose: 10 mg Documented By: Admin: 12/30/24 13:51 Dose: 10 mg Documented By: ANA Midodrine (Midodrine 5 Mg Tablet) 10 mg PO BID [facility] Stop: 01/30/25 08:59 Last Admin: 01/01/25 09:14 Dose: 10 mg Documented By: Admin: 12/31/24 20:40 Dose: 10 mg Documented By: Admin: 12/31/24 08:23 Dose: 10 mg Documented By: ANA Mirtazapine (Mirtazapine 15 Mg Tablet) 15 mg PO QDAY [facility] Stop: 01/28/25 10:59 Last Admin: 12/29/24 11:47 Dose: 15 mg Documented By: ADRIANNA Naloxone HCl (Naloxone Inj 0.4 Mg/Ml Vial) Confirm Administered Dose 0.4 mg .ROUTE .STK-MED ONE Stop: 12/31/24 12:26 Last Admin: 12/31/24 21:30 Dose: Not Given Documented By: Non-Admin Reason: Manual Charge by Anesthesia Ondansetron HCl (Ondansetron Inj 2 Mg/Ml Inj 2 Ml) 4 mg IVP X1 ONE; Protocol Stop: 12/27/24 00:52 Last Admin: 12/27/24 01:40 Dose: 4 mg Documented By: CHAPARRITA(2) Pharmacy Consult (Vancomycin Pharmacy To Dose 1 Each Each) 1 each IV QDAY PRN PRN Reason: CONSULT Stop: 01/26/25 08:59 Phenylephrine HCl (Phenylephrine Inj In Ns 100 Mcg/Ml 10 Ml Syringe) Confirm Administered Dose 1,000 mcg .ROUTE .STK-MED ONE Stop: 12/31/24 12:27 Last Admin: 12/31/24 21:31 Dose: Not Given Documented By: Non-Admin Reason: Manual Charge by Anesthesia Potassium Chloride (Potassium Chloride 20 Meq Tabcr) 40 meq PO X1 ONE Stop: 12/27/24 14:05 Last Admin: 12/27/24 14:12 Dose: 40 meq Documented By: RUFUS Potassium Chloride (Potassium Chloride 10% 20 Meq/15 Ml Udc) 40 meq GT X1 ONE Stop: 12/29/24 07:25 Last Admin: 12/29/24 08:11 Dose: 40 meq Documented By: ADRIANNA Comments: okay to give oral per Emiliano pharm. confirmed dosage with Dr. Vasquez Potassium Chloride (Potassium Chloride 20 Meq Tabcr) 40 meq PO X1 ONE Stop: 12/29/24 07:25 Last Admin: 12/29/24 08:11 Dose: 40 meq Documented By: ADRIANNA Comments: confirmed dosage with Dr. Vasquez Potassium Chloride (Potassium Chloride 20 Meq Tabcr) 40 meq PO X1 ONE Stop: 12/31/24 07:12 Last Admin: 12/31/24 08:24 Dose: 40 meq Documented By: ANA Potassium Chloride (Potassium Chloride 10% 20 Meq/15 Ml Udc) 40 meq PO X1 ONE Stop: 01/01/25 07:47 Last Admin: 01/01/25 09:13 Dose: 40 meq Documented By: MELANY Potassium Chloride (Potassium Chloride 10% 20 Meq/15 Ml Udc) 40 meq PO X1 ONE Stop: 01/01/25 12:01 Last Admin: 01/01/25 11:33 Dose: 40 meq Documented By: MELANY Potassium Phos/Sodium Phos (Naph,Kph Mbdb 1 Packet (1.5 Gm)) 2 packet PO X1 ONE Stop: 12/29/24 14:26 Last Admin: 12/29/24 14:30 Dose: 2 packet Documented By: ADRIANNA Potassium Phos/Sodium Phos (Naph,Kph Mbdb 1 Packet (1.5 Gm)) 1 packet PO X1 ONE Stop: 12/30/24 09:27 Last Admin: 12/30/24 09:53 Dose: 1 packet Documented By: ANA Sennosides (Senna Tablet) 1 tab PO QDAY PRN; Protocol PRN Reason: constipation Stop: 01/26/25 04:36 Sertraline HCl (Sertraline Hcl 25 Mg Tablet) 100 mg PO QDAY [facility] Stop: 01/29/25 08:59 Tramadol HCl (Tramadol Hcl 50 Mg Tablet) 50 mg PO Q8HR PRN PRN Reason: PAIN SCALE 4-10(Mod-Sev Stop: 01/01/25 17:24 Last Admin: 01/01/25 05:13 Dose: 50 mg Documented By: Admin: 12/29/24 20:15 Dose: 50 mg Documented By: Admin: 12/28/24 20:52 Dose: 50 mg Documented By: Admin: 12/27/24 21:07 Dose: 50 mg Documented By: LAINA Verapamil HCl (Verapamil Inj 2.5 Mg/Ml Vial 2 Ml) Confirm Administered Dose 5 mg .ROUTE .STK-MED ONE Stop: 12/31/24 12:26 Last Admin: 12/31/24 21:30 Dose: Not Given Documented By: Non-Admin Reason: Manual Charge by Anesthesia Levophed, IV fluid, Albuterol/Ipratroprium Duoneb, SlouMedrol, Zofran, Vancomycin, Magnesium Sulfate. Consultations Consultation(s) initiated? (list below): Yes Consultation #1 (Physician, Specialty, Details): I discussed the case with our pipe recovery specialist, Dr. Robles. About the presentation and exam and diagnostics and treatments here. No acute CA. Time: 01:01 Diagnosis Weakness Differential Diagnosis: acute myocardial infarction, anemia, hypoglycemia, hypothyroidism, rhabdomyolysis, sepsis and dehydration Most likely diagnosis given after review of the tests above:: UTI, Septic Shock Admission Indicated Admission indicated?: indicated Explain why admission is indicated or not indicated:: UTI, Septic Shock Admission Request Was there a request for admission?: Yes Admission Attestation Admission request attestation: Discussed case with [] from Hospitalist service regarding admission. Discussed patients ED course, exam findings, labs, and radiology results. The Hospitalist [agrees,declines] to accept the patient for admission. Disposition Plan Disposition Plan: Admit Discharge Plan Plan Patient Disposition: Admit Acute Care w/in Hospital Problem List Clinical Impression: Septic shock, UTI (urinary tract infection)
--- NOTE | 2024-12-27 00:52 | XR_ITS ---
Examination: CT abdomen with intravenous contrast CT pelvis with intravenous contrast 2-D coronal reconstructions 2-D sagittal reconstructions Date and time of exam:December 27, 2024 0335 hours INDICATIONS: Hypoxia hypotension abdominal pelvic pain today. CTDI: vol (mGy) 9.81 DLP: (mGycm) 522 Technique: Multiple axial sections of the abdomen and pelvis have been obtained. 64 slice high-resolution scanner used. 3 mm axial sections have been obtained, post intravenous injection 100 cc Isovue-370 2-D sagittal, coronal reconstructions obtained. Low dose protocols were performed. One or more of the following dose reduction techniques were used; automated exposure control, adjustment of the mA and/or KV according to patient size, use of iterative reconstruction technique. Findings: No focal liver or splenic lesion Retrocardiac gastric hernia 21 mm indeterminate right adrenal lesion Absent gallbladder No extrahepatic biliary tract dilatation Mild wall thickening involving the left renal pelvic calyceal system and left ureter Abundant stool in the rectum Urinary bladder contracted around a Bennett catheter Moderate osteopenia IMPRESSION: Recommend MRI abdomen follow up pre and post contrast to assess the indeterminate right adrenal lesion Suspicious for left urinary tract infection
--- NOTE | 2024-12-27 00:52 | EKG_ITS ---
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: : 1960 Requested By: ED Temporary Provider Order Number: [id number] Reading MD: ED Temporary Provider Measurements Intervals [place] Rate: 115 P: 81 OH: 124 QRS: 101 QRSD: 86 T: 65 QT: 315 QTc: 436 Interpretive Statements SINUS TACHYCARDIA RIGHT AXIS DEVIATION [QRS AXIS > 100] ST ELEVATION, CONSIDER INFERIOR INJURY [MARKED ST ELEVATION W/O NORMALLY INFLECTED T-WAVE IN II/aVF] ACUTE GA Compared to ECG 10/05/2024 15:58:38 Right-axis deviation now present ST (T wave) deviation now present Myocardial infarct finding now present Sinus rhythm no longer present /store/S0/[id number].pdf
--- NOTE | 2024-12-27 00:52 | XR_ITS ---
Examination: CTA chest with intravenous contrast 2-D reconstructions 3-D reconstructions, vascular Date and time of exam: December 27, 2024 0335 hours INDICATIONS: Shortness of breath hypoxia chest pain today CTDI: vol (mGy) 10.2 DLP: (mGycm) 352 Technique: Multiple axial sections of the thorax have been obtained. 3 mm slice thickness, from below the hemidiaphragms to above the apices of the lungs. Mediastinal and lung density settings have been obtained. 2-D sagittal and coronal reconstructions. 3-D angiographic renderings, 3-D volume renderings, 3D post processing, vascular maximum intensity projections obtained. Contrast administered is 100 cc Isovue-370 intravenous. Low dose protocols were performed. One or more of the following dose reduction techniques were used; automated exposure control, adjustment of the mA and/or KV according to patient size, use of iterative reconstruction technique. Findings: No thoracic aortic aneurysm dilatation No pulmonary artery filling defects No paratracheal tracheobronchial or bronchopulmonary adenopathy No pneumonia Probable atelectasis in the lingular segment No focal liver or splenic lesions Fat-containing right adrenal mass 20 mm IMPRESSION: Negative for pulmonary artery emboli No mediastinal lymphadenopathy No pneumonia or pulmonary edema
--- NOTE | 2024-12-27 00:52 | XR_ITS ---
Examination: CT brain head without contrast. 2-D sagittal coronal reconstructions Date and time of exam:December 27, 2024, 0333 hours Comparison October 03, 2024 INDICATIONS: Altered mental status hypoxia today CTDI: vol (mGy):45.8 DLP: (mGycm):Into Technique: Multiple CT axial sections of the brain have been obtained, 5 mm slice thickness. Contrast has not been administered. 2-D sagittal, coronal reconstructions have been obtained Low dose protocols were performed. One or more of the following dose reduction techniques were used; automated exposure control, adjustment of the mA and/or KV according to patient size, use of iterative reconstruction technique. Findings: No significant ventricular enlargement. Intra-axial or extra-axial hemorrhage density is not seen. No mass effect or midline shift Basal cisterns are not remarkable. Fourth ventricle is midline. Cranial vault intact. Impression: Negative for acute hemorrhage, mass effect or midline shift Advise clinical correlation and follow up accordingly
--- NOTE | 2024-12-27 00:53 | XR_ITS ---
Examination: AP chest single view Technique one AP portable upright chest single view Date and time: December 27, 2024 0115 hours INDICATIONS: Shortness of breath today. FINDINGS: Normal heart size. No pneumonia or pulmonary edema. Moderate osteopenia IMPRESSION: No pneumonia or pulmonary edema
[2024-12-27] MEDS: SODIUM CHLORIDE 0.9% 1000 ML 1,000 ML 999 ML IV ×2 (01:01→01:49)
[2024-12-27 01:14] LABS: Lactate (Lactic Acid) 5.4 mMol/L (0.4-2.0)
[2024-12-27 01:18] LABS: Basophils # (Auto) 0.1 Thou/mm3 (0.0-0.2); Basophils % (Auto) 0 % (0-2.5); Eosinophils # (Auto) 0.2 Thou/mm3 (0.0-0.5); Eosinophils % (Auto) 1 % (0-10); Hemoglobin 13.1 g/dL (12.0-16.0); Immature Granulocytes % (Auto) 1 % (0-0); Immature Granulocytes Auto 0.26 Thou/mm3 (0.00-0.00); Lymphocytes # (Auto) 0.5 Thou/mm3 (1.0-4.8); Lymphocytes % (Auto) 2 % (10-50); Mean Corpuscular HGB Conc 36.4 g/dl (31.0-37.0); Mean Corpuscular Hemoglobin 30.8 pg (25.0-35.0); Mean Corpuscular Volume 85 fL (80-100); Monocytes # (Auto) 0.2 Thou/mm3 (0.0-0.8); Monocytes % (Auto) 1 % (0-12); Neutrophils % (Auto) 95 % (37-80); Nucleated Red Blood Cell % 0 /100 WBC (0); Platelet Count 321 Thou/mm3 (140-440); RDW Standard Deviation 39.4 fL (36.4-46.3); Red Blood Count 4.25 Miln/mm3 (4.00-5.20); White Blood Count 25.2 Thou/mm3 (3.6-11.0)
[2024-12-27 01:27] LABS: Beta Hydroxybutyrate 0.8 mmol/L (<0.6)
[2024-12-27 01:28] LABS: Sed Rate (ESR) 20 mm/hr (0-30)
[2024-12-27 01:32] LABS: D-Dimer 1200 ng/mL (<600); INR 1.2 (0.9-1.3)
[2024-12-27] MEDS: Norepinephrine/NS 16mg/250ml 16 MG/250 ML BAG 2.636 MG IV (01:32)
[2024-12-27 01:34] LABS: B-Type Natriuretic Peptide 108 pg/mL (0-100)
[2024-12-27] MEDS: MethylPREDNISolone SOD SUCC 62.5 MG/ML 2ML VIAL 125 MG IVP (01:36)
[2024-12-27] MEDS: ONDANSETRON INJ 2 MG/ML INJ 2 ML 4 MG IVP (01:40)
[2024-12-27 01:48] LABS: Collection Type, Urine Clean Catch
[2024-12-27 01:49] LABS: Alanine Aminotransferase 23 U/L (10-49); Albumin, Serum 3.3 gm/dL (3.4-4.8); Albumin/Globulin Ratio 1.5 (1.2-2.2); Alkaline Phosphatase 95 U/L (46-116); Amylase 35 U/L (30-118); Anion Gap 14 (7-16); BUN/Creatinine Ratio 15 Ratio (12-20); Bilirubin,Direct 0.3 mg/dL (0.0-0.3); Bilirubin,Total 0.6 mg/dL (0.3-1.2); Blood Urea Nitrogen 20 mg/dL (9-23); C-Reactive Protein 9.9 mg/dL (0.0-0.9); Calcium 8.8 mg/dL (8.3-10.6); Calcium (Corrected) 9.4 mg/dL (8.5-10.1); Carbon Dioxide 20.7 mMol/L (20.0-31.0); Chloride 94 mMol/L (98-107); Creatinine (Component) 1.3 mg/dL (0.6-1.3); Free T4 (Free Thyroxine) 1.81 ng/dL (0.89-1.76); Globulin 2.2 gm/dL (2.3-3.5); Glucose 166 mg/dL (74-106); Lipase 23 U/L (12-53); Magnesium 1.3 mg/dL (1.6-2.6); Osmolality,Calculated 265 (275-295); Potassium 3.5 mMol/L (3.4-5.1); Procalcitonin 42.53 ng/ml (0.0-0.49); Sodium 129 mMol/L (136-145); Thyroid Stimulating Hormone 22.72 uIU/mL (0.55-4.78); Total Protein 5.5 gm/dL (5.7-8.2); eGFR 46 See Note
[2024-12-27] MEDS: CEFEPIME INJ 1 GM in SODIUM CHLORIDE 0.9% (Popper) 50 ML IV (01:58)
[2024-12-27 02:05] LABS: Bacteria,Urine 1+; Bilirubin,Urine Negative (Negative); Blood,Urine 2+ (Negative); Clarity,Urine Turbid (Clear/Hazy); Color,Urine Yellow (Lt Yel-Yel); Culture Indicated,Urine Yes; Glucose, Urine Negative (Negative); Ketones,Urine Negative (Negative); Leukocyte Esterase,Urine Positive (Negative); Nitrite,Urine Negative (Negative); PH,Urine 6.5 (5.0-7.0); Protein,Urine 1+ (Neg - Trace); RBC,Urine 52 /hpf (0-3); Specific Gravity,Urine 1.016 (1.001-1.035); Squamous Epithelial Cell,Urine 1 /hpf (0-5); Urobilinogen,Urine Negative mg/dL (0.0-1.0); WBC,Urine 476 /hpf (0-5)
[2024-12-27] MEDS: KETOROLAC INJ 30 MG/ML VIAL 9 MG IVP (02:08)
[2024-12-27 02:10] LABS: Troponin I 0.142 ng/mL (0.0-0.045)
[2024-12-27] MEDS: ALBUTEROL/IPRATROPIUM (Duoneb) RT SOL 3 ML NEBU INH (02:15)
[2024-12-27 02:17] LABS: Base Excess -7 (-3-3); HCO3 17 mEq/L (20-26); Inspired Oxygen, FIO2 21 %; O2 Saturation 91 % (91-98); PCO2 31 mmHg (32.0-48.0); PO2 65 mmHg (83-108); pH, Arterial 7.35 (7.35-7.45)
[2024-12-27 02:25] LABS: Allen Test Performed/OK; Puncture Site Right Radial
[2024-12-27] MEDS: ACETAMINOPHEN IVPB 1,000 MG/100 ML VIAL 250 MG IV (02:25)
[2024-12-27] MEDS: Vancomycin Inj 1,000 MG in SODIUM CHLORIDE 0.9% 500 ML 500 ML 150 MG IV (02:33)
[2024-12-27] MEDS: Magnesium Sulfate 4 GM Ivpb 4 GM/50 ML BAG IV ×2 (03:22→14:11)
[2024-12-27 04:11] LABS: Reflex Lactate? Y
[2024-12-27 04:43] LABS: Lactic Acid, 3 HR 5.8 mMol/L (0.4-2.0)
--- NOTE | 2024-12-27 04:56 | PD.RESHP ---
Documentation for date of: 12/27/24 [facility] History of Present Illness History of present illness: Patient is a Luxem[place]ish-speaking 64-year-old female with history of thyroid cancer, hypertension, hypothyroidism, depression, diabetes mellitus, and sciatica who presented to the ED on 12/27/2024 with her daughter Flor from retirement with concerns of altered mentation, shortness of breath, and low blood pressure. Certified assistant curator was used (ID: [id number]), patient's daughter also assisted in providing history. Patient was noted to have had episodes of increased sweating and non-bloody vomiting in the last day, however patient reported feeling well and was not interested in coming to the hospital. In the facility, patient was noted to have oxygen desaturation to the 80s as well as systolic blood pressure 82, was brought into the emergency department for further evaluation. Patient endorses reduced ambulation in recent months, has been mostly bedbound in a nursing facility. There were no inciting factors for patient's sweating and vomiting symptoms. Of note, patient does have a stout catheter in place at her nursing facility, patients daughter reports it has recently been removed. At time of examination, patient denies any abdominal pain, endorses only fatigue and weakness otherwise denies any other symptoms. Vitals: BP 57/40, pulse 121, O2 90 on 2L nasal cannula Significant labs: WBC 25.2, PT 13.0, D-dimer 1200, sodium 129, chloride 94, EGFR 46, glucose 166, calculated osmolality 265, lactic acid 5.4, magnesium 1.3, troponin 0.142, CRP 9.9, beta hydroxybutyrate/acetoacetate 0.8, procalcitonin 42.53, TSH 22.72, free T41.81 ABG: pH 7.35, PCO2 31, PO2 65, HCO3 17 UA: 1+ protein, 2+ blood, RBC 52, WBC 476, urine bacteria 1+ EKG: Sinus tachycardia Chest x-ray: Final read pending CT abdomen pelvis: Pending CT angio chest: Pending CT head/brain: Pending ED course: Patient was treated with 2L NS fluids, Zofran 4 Mg, methylprednisone 125 Mg, Levophed started. Sepsis alert initiated, cefepime and vancomycin initiated. ICU team consulted for admission, patient will be admitted to ICU for further management of shock secondary to sepsis and/or hypovolemia. Review of Systems Review of Systems Narrative Review of Systems: GENERAL: Endorses sweats and fever HEENT: Denies headache or visual/hearing changes. NEURO: Denies unusual weakness or difficulty speaking. CARDIO: Denies chest pain or palpitations. PULM: Denies SOB, coughing, or wheezing. GI: Endorses vomiting, denies diarrhea, constipation, abdominal pain URO: Denies burning/itching/pain/urinary changes. MSK/EXT/SKIN: Denies joint/skeletal/muscle pain Past Medical History Past Medical History Comments PMH COMMENT: PMH: Thyroid cancer, hypertension, hypothyroidism, depression, diabetes mellitus, sciatica Family history: Type 2 diabetes mellitus, hyperlipidemia Surgical history: 3 hernia repairs, cholecystectomy, thyroid surgery Social history: Denies tobacco, alcohol, illicit drug use Travel history: shelter resident Exam Vital Signs Temp Pulse Resp BP Pulse Ox O2 Del Method O2 Flow Rate 98.0 F 112 H 18 159/78 H 94 L Nasal Cannula 2 12/27/24 03:58 12/27/24 03:58 12/27/24 03:58 12/27/24 03:58 12/27/24 03:58 12/27/24 03:58 12/27/24 03:58 Narrative Exam General: AOx3, cooperative HEENT: Dry oral mucosa, head atraumatic/normocephalic, CHIKIS, neck supple Heart: RRR, S1 and S2 without clicks or murmurs Lungs: Clear on auscultation bilaterally, on 2L NC Abdomen: Tenderness on palpation on umbilical region. Bowel sounds present on all quadrants Skin: No cyanosis or edema noted. Peripheral pulses palpable Neuro: Patient unable to move lower extremities, lower extremity strength 1/5. Upper extremity strength 5/5. No focal neurological deficits noted otherwise Results: Labs 12/27/24 01:05 12/27/24 01:05 Labs: Short CBC 12/27/24 Range/Units 01:05 WBC 25.2 H (3.6-11.0) Thou/mm3 Hgb 13.1 (12.0-16.0) g/dL Hct 36.0 (36.0-46.0) % Plt Count 321 (140-440) Thou/mm3 BMP 12/27/24 01:05 Sodium 129 L Potassium 3.5 Chloride 94 L Carbon Dioxide 20.7 BUN 20 Creatinine 1.3 Glucose 166 H Calcium 8.8 Cardiac Enzymes 12/27/24 Range/Units 01:05 Troponin I 0.142 H* (0.0-0.045) ng/mL Liver Function 12/27/24 Range/Units 01:05 Total Bilirubin 0.6 (0.3-1.2) mg/dL Direct Bilirubin 0.3 (0.0-0.3) mg/dL ALT 23 (10-49) U/L Alkaline Phosphatase 95 (46-116) U/L Albumin 3.3 L (3.4-4.8) gm/dL Urine 12/27/24 Range/Units 01:24 Urine Color Yellow (Lt Yel-Yel) Urine Clarity Turbid A (Clear/Hazy) Urine pH 6.5 (5.0-7.0) Ur Specific [place] 1.016 (1.001-1.035) Urine Protein 1+ A (Neg - Trace) Urine Glucose (UA) Negative (Negative) ABG Interpretation ABG results: 12/27/24 02:14 ABG pH 7.35 ABG pCO2 31 L ABG pO2 65 L ABG HCO3 17 L ABG O2 Saturation 91 ABG Base Excess -7 L Quality Measures Quality Measures VTE prophylaxis (Heparin subcutaneously) Medications Home Medications and Allergies Home Medications ?Medication ?Instructions ?Recorded ?Confirmed ?Type atenolol 50 mg tablet 50 mg PO QDAY 05/09/19 10/04/24 History Held on 10/09/24. Instructions: until follow up with PCP metformin 500 mg tablet 500 mg PO DAILY 05/09/19 10/04/24 History naproxen 500 mg tablet 500 mg PO DAILY 05/09/19 10/04/24 History omeprazole 20 mg tablet,delayed 20 mg PO QDAY 05/09/19 10/04/24 History release sertraline 50 mg tablet 50 mg PO QDAY 05/09/19 05/09/19 History cetirizine 10 mg tablet mg 10/04/24 History pravastatin 20 mg tablet mg 10/04/24 History tramadol 50 mg tablet 50 mg 10/04/24 History Held on 10/09/24. Instructions: hold until follow up with PCP Allergies Allergy/AdvReac Type Severity Reaction Status Date / Time codeine Allergy Severe DELUSIONS Verified 07/16/24 16:40 Visit Medications Acetaminophen (Acetaminophen 325 Mg Tablet) 650 mg PO Q6H PRN PRN Reason: Fever >101.5 Stop: 01/26/25 04:36 Acetaminophen (Acetaminophen 325 Mg Tablet) 650 mg PO Q6H PRN PRN Reason: PAIN SCALE 1-3 (mild Stop: 01/26/25 04:36 Dextrose (Dextrose 50%-Water Inj 50 Ml Syringe) 25 ml IV Q15MIN PRN PRN Reason: BG 50-70 responsive npo pt Stop: 01/26/25 04:43 Dextrose (Dextrose 50%-Water Inj 50 Ml Syringe) 50 ml IV Q15MIN PRN PRN Reason: BG <50 OR BG <70 & pt unresponsive Stop: 01/26/25 04:43 Glucagon (Glucagon Inj 1 Mg Vial) 1 mg IM Q15MIN PRN PRN Reason: BG <70, and no IV access Heparin Sodium (Porcine) (Heparin Sod Inj 5000 Unit/Ml Vial) 5,000 unit SC Q8HR [facility] Stop: 01/10/25 05:59 Norepinephrine Bitartrate (Levophed In Ns 16mg/250ml) 16 mg in 250 mls @ 2.636 mls/hr IV .Q24H PRN; Protocol PRN Reason: PER PROTOCOL Stop: 01/26/25 00:56 Last Titration: 12/27/24 04:00 Dose: 0.13 mcg/kg/min, 6.855 mls/hr Magnesium Sulfate (Magnesium Sulfate Ivpb) 4 gm in 50 mls @ 12.5 mls/hr IV X1 ONE Stop: 12/27/24 06:45 Last Admin: 12/27/24 03:22 Dose: 12.5 mls/hr Cefepime HCl 2 gm/ Sodium (Chloride) 50 mls @ 100 mls/hr IV Q8HR [facility] Stop: 01/03/25 09:59 Insulin Human Lispro (Insulin Lispro (Admelog) 1 Unit/0.01 Ml Unit) 0 unit SC AC SAMMI; Protocol Stop: 01/26/25 07:29 Levothyroxine Sodium (Levothyroxine Sodium 125 Mcg Tablet) 150 mcg PO QDAY SAMMI Stop: 01/26/25 07:59 Ondansetron HCl (Ondansetron Inj 2 Mg/Ml Inj 2 Ml) 4 mg IVP Q6H PRN; Protocol PRN Reason: NAUSEA OR VOMITING Stop: 01/26/25 04:36 Pharmacy Consult (Vancomycin Pharmacy To Dose 1 Each Each) 1 each IV QDAY SAMMI Stop: 01/26/25 08:59 Sennosides (Senna Tablet) 1 tab PO QDAY PRN; Protocol PRN Reason: constipation Stop: 01/26/25 04:36 Discontinued Medications Albuterol/Ipratropium (Albuterol/Ipratropium (Duoneb) Rt Randee 3 Ml Nebu) 3 ml INH X1 ONE Stop: 12/27/24 00:55 Last Admin: 12/27/24 02:15 Dose: 3 ml Sodium Chloride (Ns) 1,000 mls @ 999 mls/hr IV .Q1H1M ONE Stop: 12/27/24 01:51 Last Infusion: 12/27/24 02:02 Dose: Infused Cefepime HCl 1 gm/ Sodium (Chloride) 50 mls @ 100 mls/hr IV X1 ONE Stop: 12/27/24 01:52 Last Infusion: 12/27/24 02:37 Dose: Infused Vancomycin HCl 1,000 mg/ (Sodium Chloride) 500 mls @ 150 mls/hr IV X1 ONE Stop: 12/27/24 04:42 Last Admin: 12/27/24 02:33 Dose: 150 mls/hr Sodium Chloride (Ns) 1,000 mls @ 999 mls/hr IV .Q1H1M ONE Stop: 12/27/24 02:23 Last Infusion: 12/27/24 02:54 Dose: Infused Acetaminophen (Ofirmev Inj) 1,000 mg in 100 mls @ 250 mls/hr IV X1 ONE Stop: 12/27/24 01:56 Last Infusion: 12/27/24 02:54 Dose: Infused Ketorolac Tromethamine (Ketorolac Inj 30 Mg/Ml Vial) 9 mg IVP X1 ONE Stop: 12/27/24 01:34 Last Admin: 12/27/24 02:08 Dose: 9 mg Methylprednisolone Sodium Succinate (Methylprednisolone Sod Succ 62.5 Mg/Ml 2ml Vial) 125 mg IVP X1 ONE Stop: 12/27/24 00:55 Last Admin: 12/27/24 01:36 Dose: 125 mg Ondansetron HCl (Ondansetron Inj 2 Mg/Ml Inj 2 Ml) 4 mg IVP X1 ONE; Protocol Stop: 12/27/24 00:52 Last Admin: 12/27/24 01:40 Dose: 4 mg Assessment & Plan Plan Patient is a [place]ish-speaking 64-year-old female with history of Thyroid cancer, hypertension, hypothyroidism, depression, diabetes mellitus, and sciatica who presented to the ED with concerns of vomiting and fever, found to be hypotensive likely secondary to hypovolemia and/or infection, started on levophed and admitted to ICU for further management. Neurological ? No active issue Cardiovascular #Shock, likely hypovolemic and/or septic from UTI BP 57/40 with pulse 121 upon arrival, initial labs reveal WBC 25.2, Lactic acid 5.4, CRP 9.9, procal 42.53 POCUS cardiac exam revealed pericardial effusion with IVC 0.8cm, hyperdynamic movements without evidence of right heart strain EKG evaluated by cardiology, acute CO unlikely Plan: ? Given 2L NS fluids in ED. Will add additional NS fluids given IVC findings ? IV levophed started with MAP goal >65, wean as tolerated ? Blood, urine cultures pending ? IV vancomycin and IV Zosyn for septic shock coverage ? Consider NICOM or repeat IVC ultrasound to further assess fluid responsiveness #Elevated troponin, likely in setting of shock and demand ischemia Patient denies chest pain, no evidence of acute CO on initial EKG Troponin 0.142 on admission Troponin findings likely related to demand ischemia in setting of hypotension Plan: ? Repeat troponin ? Continue treating septic and hypovolemic shock #Possible pericardial effusion Pericardial effusion noted on bedside ultrasound, no evidence of right heart strain noted, cardiac chambers appear hyperdynamic Patients condition improving with fluids, antibiotics, and vasopressors Plan: ? Chest CTA and abdomen/pelvis CT reads pending ? Monitor for development of cardiac tamponade, consider urgent pericardial fluid removal if indicated Respiratory #Acute hypoxic respiratory failure Patient required 2L NC upon ED arrival, noted to have saturations in 80s prior to arrival Differentials include SNF associated pneumonia, sepsis, pulmonary embolism D-dimer 1200 on admission, absence of RV strain on bedside ultrasound Plan: ? Chest Xray and chest CTA pending ? IV vancomycin and IV cefepime ? Blood cultures pending ? Oxygen supplementation as needed Gastrointestinal #History of hernia surgery Patient attributes abdominal tenderness on palpation to surgical history, tenderness established as chronic Denies nausea at time of examination Plan: ? CT abdomen/pelvis pending ? Zofran as needed Renal #HECTOR, likely pre-renal Creatinine 1.3 on admission, baseline ~0.6 Likely secondary to recent vomiting episode and poor PO intake Plan ? Fluid resuscitation ? Trend renal function labs ? Avoid nephrotoxic agents Endocrine #Hx of T2DM Plan: ? Insulin sliding scale, hold home meds #Hx of Hypothyroidism TSH 22.73 and free T4 1.81 on admission, improved from previous labs in September 2024 Plan: ? Resume home levothyroxine 150 mcg daily ? Complete med rec pending Infectious Disease #Shock, likely septic from UTI and hypovolemic component Initial UA revealed leukocyte esterase +, 476 WBC, bacteria 1+ although patient denied urinary symptoms Following stout catheter insertion, nursing reported cloudy urine IV cefepime and vancomycin given in ED Plan: ? Urine culture pending ? Started IV vancomycin and IV zosyn ? IV levophed, wean as tolerated ? Stout catheter in place Hematology/Oncology ? No active issue Diet: Carb consistent low pending swallow screen DVT prophylaxis: Heparin subcutaneously GI prophylaxis: None Code status: DNR/DNI per patient and POLST form Disposition: Admitted to ICU for shock (hypovolemic and/or septic from UTI) requiring vasopressor support. Patient case discussed with attending physician Dr. Wicho Crum, DO PGY-3 Attending Provider Attestation/Addendum I have examined the patient, reviewed labs and imaging findings, discussed the case with the resident(s), and reviewed entered orders. I agree with the plan of care as outlined in this note, with these additional summaries/recommendations: After examination of the patient and review of the clinical data, I feel that this patient needs admission to the hospital for further treatment and evaluation. Patient is a 64-year-old female with a medical history of primary hypertension, hypothyroidism, depression, chronic hyponatremia, diabetes mellitus type 2, GERD, hyperlipidemia, and chronic lower back pain presents to [facility] emergency department on 12/27/2024 with chief complaint of dizziness and nausea plus vomiting. Patient and daughter seen at bedside. Patient is a relatively poor historian but is alert and oriented. She was reportedly having some nausea and vomiting earlier in the day which has now improved. On arrival to the ED blood pressure 46/33, pulse 106, Tmax 100.4 Fahrenheit, and O2 sat 90% on 2 L nasal cannula. Patient diagnosed with shock most likely distributive/septic shock. Sepsis alert called in the ED. Most likely source is urinary tract infection versus bacterial pneumonia. Cultures taken in the ED, follow-up results when available. WBC 25.2, LA 5.4, and Pro-Jam 42.53. Patient received 30 cc/kg fluid resuscitation. Start broad-spectrum antibiotics and de-escalate when able. Tylenol as needed for fever. Patient started on Levophed gtt and target mean arterial pressure of greater than or equal to 65. Modified sequential organ failure assessment score 6 points indicating 4% percent 30-day mortality risk. Lactic acid 5.4 and most likely type A from shock. Continue IV fluids and trend lactic acid. ABG reviewed and pH 7.35. Mild hypomagnesia present and replacement given. Troponin 0.142 and most likely secondary to demand ischemia in the setting of shock. Continue to trend troponins every 6 hours or until downtrend. EKG did not reveal any acute ST elevations or depressions. Continue home levothyroxine for history of severe hypothyroidism which is now more improved. TSH 22.72 and free T4 1.81. Patient's chronic hyponatremia is currently stable with sodium 129. Start insulin sliding scale for diabetes mellitus type 2 with Accu-Checks. Target blood sugar of 140-180 while hospitalized. Hold home antihypertensives. Continue home sertraline. As needed tramadol for lower back pain. Patient is pending CTA of the chest to rule out PE as D-dimer elevated and we will follow-up results when available. Patient has POLST form confirming she is DNR/DNI with selective treatments. Patient and daughter both appear in agreement with central line placement if needed. Continue home statin therapy. Patient and daughter updated on the plan at bedside. All questions answered to satisfaction. Please see residents note for additional details of management. Dr. Wicho MD
[2024-12-27] MEDS: HEPARIN SOD INJ 5000 UNIT/ML VIAL SC ×3 (06:22→21:08)
[2024-12-27 06:57] LABS: Glucose Estimated Average 100 mg/dL (80-131); Hemoglobin A1C 5.1 % Hgb (4.8-6.0)
[2024-12-27] MEDS: LEVOTHYROXINE SODIUM 125 MCG, LEVOTHYROXINE SODIUM 25 MCG 150 MCG PO (07:18)
[2024-12-27] MEDS: INSULIN LISPRO (AdmeLOG) 1 UNIT/0.01 ML UNIT SC ×3 (07:19→16:31)
[2024-12-27] MEDS: RINGERS LACTATED 1000 ML 500 ML 999 ML IV (08:35)
[2024-12-27 08:50] LABS: Basophils # (Auto) 0.2 Thou/mm3 (0.0-0.2); Basophils % (Auto) 0 % (0-2.5); Eosinophils % (Auto) 0 % (0-10); Hematocrit 40.6 % (36.0-46.0); Hemoglobin 14.7 g/dL (12.0-16.0); Immature Granulocytes % (Auto) 2 % (0-0); Immature Granulocytes Auto 0.85 Thou/mm3 (0.00-0.00); Lymphocytes # (Auto) 0.5 Thou/mm3 (1.0-4.8); Lymphocytes % (Auto) 1 % (10-50); Mean Corpuscular HGB Conc 36.2 g/dl (31.0-37.0); Mean Corpuscular Hemoglobin 31.7 pg (25.0-35.0); Mean Corpuscular Volume 88 fL (80-100); Monocytes # (Auto) 0.4 Thou/mm3 (0.0-0.8); Monocytes % (Auto) 1 % (0-12); Neutrophils # (Auto) 38.7 Thou/mm3 (1.8-7.7); Neutrophils % (Auto) 95 % (37-80); Nucleated Red Blood Cell % 0 /100 WBC (0); Platelet Count 295 Thou/mm3 (140-440); RDW Standard Deviation 41.6 fL (36.4-46.3); Red Blood Count 4.63 Miln/mm3 (4.00-5.20)
[2024-12-27 09:26] LABS: White Blood Count 40.7 Thou/mm3 (3.6-11.0)
[2024-12-27 09:29] LABS: Albumin, Serum 3.6 gm/dL (3.4-4.8); Anion Gap 15 (7-16); BUN/Creatinine Ratio 24 Ratio (12-20); Blood Urea Nitrogen 19 mg/dL (9-23); Calcium 8.5 mg/dL (8.3-10.6); Calcium (Corrected) 8.8 mg/dL (8.5-10.1); Carbon Dioxide 16.9 mMol/L (20.0-31.0); Chloride 96 mMol/L (98-107); Creatinine (Component) 0.8 mg/dL (0.6-1.3); Estimated Creatinine Clearance 54.3 mL/min (>60); Glucose 220 mg/dL (74-106); Osmolality,Calculated 266 (275-295); Phosphorous 3.9 mg/dL (2.4-5.1); Potassium 3.3 mMol/L (3.4-5.1); Sodium 128 mMol/L (136-145); eGFR > 60 See Note
[2024-12-27 09:30] LABS: Troponin I 0.094 ng/mL (0.0-0.045)
[2024-12-27] MEDS: CEFEPIME INJ 2 GM in SODIUM CHLORIDE 0.9% (Popper) 50 ML IV ×2 (10:03→21:07)
--- NOTE | 2024-12-27 11:07 | ESPR_ITS ---
Documentation for date of: 12/27/24 Subjective Subjective Interval history: Ms Zaidi is a Citizen Of [place]-speaking 64-year-old female with history of thyroid cancer, hypertension, hypothyroidism, depression, diabetes mellitus, and sciatica who presented to the ED on 12/27/2024 with her daughter Flor from snf with concerns of altered mentation, shortness of breath, and low blood pressure. In the facility, patient was noted to have oxygen desaturation to the 80s as well as systolic blood pressure 82, was brought into the emergency department for further evaluation. Patient has been mostly bed-bound at SNF over the last 3 months, she endorses b/l lower extremity weakness and loss of appetite. Patient does have a stout catheter in place at her nursing facility, patients daughter reports it has recently been removed. Vitals in the ED: BP 57/40, pulse 121, O2 90 on 2L nasal cannula. Labs: WBC 25.2, PT 13.0, D-dimer 1200, sodium 129, calculated osmolality 265, TSH 22.72, free T41.81, lactic acid 5.4, magnesium 1.3, troponin 0.142, CRP 9.9 and procalcitonin 42.53. Other labs were ABG: pH7.35, PCO2 31, PO2 65, HCO3 17 ; UA: 1+ protein, 2+ blood, RBC 52, WBC 476, urine bacteria 1+. EKG: Sinus tachycardia. Patient was treated with 2L NS fluids, Zofran 4 Mg, methylprednisone 125 Mg, Levophed started. Sepsis alert initiated, cefepime and vancomycin initiated. ICU team consulted for admission, patient will be admitted to ICU for further management of shock secondary to sepsis and/or hypovolemia. 12/27/2024: Certified equal opportunity representative was used (ID: [id number]). Patient was seen and examined at bedside this AM. No acute events overnight. Patient tolerating diet, adequate urine output and mentation is at baseline. Stout has orangish tinged urine. Patient denies any discomfort at this time. Currently on Levophed gtt @ 0.05 mcg/h for low MAP 40-50s intermittently. NiCom testing showed fluid responsiveness, with >10% increase in SV and SVI. She ednorses having a low appetite and LE weakness x 2-3 months. Oxygen saturations 94-96% on 2L via NC, no shortness of breath. Exam Vital Signs Temp Pulse Resp BP Pulse Ox O2 Del Method O2 Flow Rate 96.5 F L 113 H 24 H 114/61 96 Nasal Cannula 2 12/27/24 08:00 12/27/24 09:30 12/27/24 09:30 12/27/24 09:30 12/27/24 09:30 12/27/24 09:00 12/27/24 09:00 Narrative Exam Constitutional Alert, oriented x3 and comfortable. GCS 15 HEENT Vision grossly intact. Patent nares. Trachea midline. On 2L via NC Respiratory On inspection: seborrhaeic keratosis single lesion on anterior upper chest, clear to auscultation bilaterally. Cardiovascular S1 and S2 audible, RRR. No murmurs or carotid bruit. No gross JVD. Abdominal Soft and BS + ; non tender to palpation in all quadrants. Genitourinary No bladder tenderness, no flank pain. Normal to palpation. Stout: orange-tinged hematuria Musculoskeletal Extremities tone within normal limits. No LE edema. Neurological CN II - XII grossly intact. Extremity motor and sensation grossly intact. Lower extremity strength 1/5. Upper extremity strength 5/5. Skin Warm, dry and intact. No apparent lesions. B/L pIVs Psychiatric Patient has a good affect, is cooperative. Objective Labs 12/27/24 08:36 12/27/24 08:36 Labs: Laboratory Results - last 24 hr 12/27/24 12/27/24 12/27/24 01:05 01:24 02:14 WBC 25.2 H RBC 4.25 Hgb 13.1 Hct 36.0 MCV 85 MCH 30.8 MCHC 36.4 RDW Std Deviation 39.4 Plt Count 321 Neut % (Auto) 95 H Lymph % (Auto) 2 L [place] % (Auto) 1 Eos % (Auto) 1 Baso % (Auto) 0 Neut # (Auto) 24.0 H Lymph # (Auto) 0.5 L [place] # (Auto) 0.2 Eos # (Auto) 0.2 Baso # (Auto) 0.1 Immature Gran # (Auto) 0.26 H Absolute Nucleated RBC 0.00 Immature Gran % 1 H Nucleated RBC % 0 ESR 20 PT 13.0 H INR 1.2 APTT 31.0 D-Dimer 1200 H Puncture Site Right Radial ABG pH 7.35 ABG pCO2 31 L ABG pO2 65 L ABG HCO3 17 L ABG O2 Saturation 91 ABG Base Excess -7 L FiO2 21 Sodium 129 L Potassium 3.5 Chloride 94 L Carbon Dioxide 20.7 Anion Gap 14 BUN 20 Creatinine 1.3 Estim Creat Clear Calc Not Performed. eGFR 46 L BUN/Creatinine Ratio [address]ucose [address] Glu mg/dL Hemoglobin A1c Calculated Osmolality 265 L Lactic Acid 5.4 H* Calcium 8.8 Corrected Calcium 9.4 Phosphorus Magnesium 1.3 L Total Bilirubin 0.6 Direct Bilirubin 0.3 ALT 23 Alkaline Phosphatase 95 Troponin I 0.142 H* C-Reactive Prot, Quant 9.9 H B-Natriuretic Peptide 108 H Total Protein 5.5 L Albumin 3.3 L Globulin 2.2 L Albumin/Globulin Ratio 1.5 Amylase 35 Lipase 23 Beta-Hydroxybutyrate/Acetoacetate 0.8 H Procalcitonin 42.53 H TSH 22.72 H Free T4 1.81 H Ur Collection Type Clean Catch Urine Color Yellow Urine Clarity Turbid A Urine pH 6.5 Ur Specific [place] 1.016 Urine Protein 1+ A Urine Glucose (UA) Negative Urine Ketones Negative Urine Blood 2+ A Urine Nitrite Negative Urine Bilirubin Negative Urine Urobilinogen (Auto) Negative Ur Leukocyte Esterase Positive Urine RBC 52 H Urine WBC 476 H Ur Squamous Epith Cells 1 Urine Bacteria 1+ A Ur Culture Indicated? Yes 12/27/24 12/27/24 12/27/24 04:37 06:03 08:36 WBC 40.7 H* D RBC 4.63 Hgb 14.7 Hct 40.6 MCV 88 MCH 31.7 MCHC 36.2 RDW Std Deviation 41.6 Plt Count 295 Neut % (Auto) 95 H Lymph % (Auto) 1 L [place] % (Auto) 1 Eos % (Auto) 0 Baso % (Auto) 0 Neut # (Auto) 38.7 H Lymph # (Auto) 0.5 L [place] # (Auto) 0.4 Eos # (Auto) 0.0 Baso # (Auto) 0.2 Immature Gran # (Auto) 0.85 H Absolute Nucleated RBC 0.00 Immature Gran % 2 H Nucleated RBC % 0 ESR PT INR APTT D-Dimer Puncture Site ABG pH ABG pCO2 ABG pO2 ABG HCO3 ABG O2 Saturation ABG Base Excess FiO2 Sodium 128 L Potassium 3.3 L Chloride 96 L Carbon Dioxide 16.9 L Anion Gap 15 BUN 19 Creatinine 0.8 D Estim Creat Clear Calc 54.3 L eGFR > 60 BUN/Creatinine Ratio 24 H Glucose [address] Glu mg/dL 100 Hemoglobin A1c 5.1 Calculated Osmolality 266 L Lactic Acid 5.8 H* 4.0 H Calcium 8.5 Corrected Calcium 8.8 Phosphorus 3.9 Magnesium Total Bilirubin Direct Bilirubin ALT Alkaline Phosphatase Troponin I 0.094 H* C-Reactive Prot, Quant B-Natriuretic Peptide Total Protein Albumin 3.6 Globulin Albumin/Globulin Ratio Amylase Lipase Beta-Hydroxybutyrate/Acetoacetate Procalcitonin TSH Free T4 Ur Collection Type Urine Color Urine Clarity Urine pH Ur Specific [place] Urine Protein Urine Glucose (UA) Urine Ketones Urine Blood Urine Nitrite Urine Bilirubin Urine Urobilinogen (Auto) Ur Leukocyte Esterase Urine RBC Urine WBC Ur Squamous Epith Cells Urine Bacteria Ur Culture Indicated? ABG Interpretation ABG results: 12/27/24 02:14 ABG pH 7.35 ABG pCO2 31 L ABG pO2 65 L ABG HCO3 17 L ABG O2 Saturation 91 ABG Base Excess -7 L Quality Measures Quality Measures VTE prophylaxis (Heparin subcutaneously) Assessment & Plan Assessment Current Active Medications: Generic Name Dose Route Start Last Admin Trade Name Freq PRN Reason Stop Dose Admin Acetaminophen 650 mg 12/27/24 04:37 Acetaminophen 325 Mg Tablet PO 01/26/25 04:36 Q6H PRN Fever >101.5 Acetaminophen 650 mg 12/27/24 04:37 Acetaminophen 325 Mg Tablet PO 01/26/25 04:36 Q6H PRN PAIN SCALE 1-3 (mild Dextrose 25 ml 12/27/24 04:44 Dextrose 50%-Water Inj 50 Ml Syringe IV 01/26/25 04:43 Q15MIN PRN BG 50-70 responsive npo pt Dextrose 50 ml 12/27/24 04:44 Dextrose 50%-Water Inj 50 Ml Syringe IV 01/26/25 04:43 Q15MIN PRN BG <50 OR BG <70 & pt unresponsive Glucagon 1 mg 12/27/24 04:44 Glucagon Inj 1 Mg Vial IM Q15MIN PRN BG <70, and no IV access Heparin Sodium (Porcine) 5,000 unit 12/27/24 06:00 12/27/24 06:22 Heparin Sod Inj 5000 Unit/Ml Vial SC 01/10/25 05:59 5,000 unit Q8HR SAMMI Administration Norepinephrine Bitartrate 16 mg in 250 mls @ 2.636 mls/hr 12/27/24 00:57 12/27/24 09:27 Levophed In Ns 16mg/250ml IV 01/26/25 00:56 0.05 mcg/kg/min .Q24H PRN 2.636 mls/hr PER PROTOCOL Titration Protocol 0.05 MCG/KG/MIN Cefepime HCl 2 gm/ Sodium 50 mls @ 100 mls/hr 12/27/24 10:00 12/27/24 10:03 Chloride IV 01/03/25 09:59 100 mls/hr Q8HR SAMMI Administration Vancomycin/Sodium Chloride 200 mls @ 120 mls/hr 12/27/24 22:00 Vancomycin/Ns 1 Gm Ivpb IV 01/03/25 21:59 QDAY@2200 SAMMI Insulin Human Lispro 0 unit 12/27/24 07:30 12/27/24 07:19 Insulin Lispro (Admelog) 1 Unit/0.01 Ml Unit SC 01/26/25 07:29 2 unit AC SAMMI Administration Protocol Levothyroxine Sodium 125 mcg/ 150 mcg 12/27/24 07:15 12/27/24 07:18 Levothyroxine Sodium 25 mcg PO 01/26/25 07:14 150 mcg ACBR SAMMI Administration Ondansetron HCl 4 mg 12/27/24 04:37 Ondansetron Inj 2 Mg/Ml Inj 2 Ml IVP 01/26/25 04:36 Q6H PRN NAUSEA OR VOMITING Protocol Pharmacy Consult 1 each 12/27/24 09:00 Vancomycin Pharmacy To Dose 1 Each Each IV 01/26/25 08:59 QDAY PRN CONSULT Sennosides 1 tab 12/27/24 04:37 Senna Tablet PO 01/26/25 04:36 QDAY PRN constipation Protocol Plan Ms Zaidi is a Citizen [place]-speaking 64-year-old female with history of Thyroid cancer, hypertension, hypothyroidism, depression, diabetes mellitus, and sciatica who presented to the ED with concerns of vomiting and fever, found to be hypotensive likely secondary to hypovolemia and/or infection, started on levophed and admitted to ICU for further management. Neurological Sciatica Depression LE weakness, chronic Dx: Chronic lumbo-sacral issues. Worsening B/L LE weakness over the last 2-3 months. Unable to bear weight and walk with a walker since 2 motnhs Rx: - Continue home sertraline. - As needed tramadol for lower back pain - Will get Lidocaine patch if worsening pain - MRI lumbar ordered for further evaluation of worsening Cardiovascular Shock, hypovolemic and/or septic from UTI BP 57/40 with pulse 121bpm. Labs : WBC 25.2, Lactic acid 5.4, CRP 9.9, procal 42.53 POCUS cardiac exam revealed pericardial effusion with IVC 0.8cm, hyperdynamic movements without evidence of right heart strain. EKG evaluated by cardiology, acute VT unlikely. Rx: ? Given 2L NS fluids in ED. Will add additional NS fluids given IVC findings ? IV levophed started with MAP goal >65, wean as tolerated ? Blood, urine cultures pending ? IV vancomycin and IV Zosyn for septic shock coverage ? NICOM shows fluid responsiveness, >10% change in SV and SVI. Type II demand ischemia - resolved Dx: Elevated Troponin: 0.142 --> 0.094 ; Patient denies chest pain, no evidence of acute VT on initial EKG Rx: - Troponin findings likely related to demand ischemia in setting of hypotension - Stop trending troponin Respiratory Acute respiratory failure, improved --> Mild-moderate dyspnea Dx: Patient noted to have saturations in 80s prior to arrival. Labs showed D-dimer 1200 on admission, PE ruled out on CTA Rx: ? Oxygen supplementation as needed ? IV vancomycin and IV cefepime ? Blood cultures pending Gastrointestinal No active problems Renal HECTOR, likely pre-renal Gross hematuria Dx: Creatinine 1.3 on admission and GFR 46 (baseline Cr 0.6-0.7 and GFR >60). Likely secondary to recent vomiting episode and poor PO intake causing dehydration One exam: Stout with gross orange tinged urine Rx: - Fluid resuscitation - Trend renal function labs - Renally dose medications like anticoagulants and antibiotics - Avoid nephrotoxic agents Mild hypomagnesemia Acute Hypokalemia Hypoosmolar hyponatremia, chronic Dx: Mg 1.3, Na 129 and Osm 266, K 3.3 Rx: - 4g IV mag ordered x1. Daily Mag, will replete as needed - Urine lytes ordered for further evaluation of persistent Hyponatremia - Repeat RFT for 5pm Lactic acidosis - resolved Dx: LA 5.4 --> 5.8 --> 4 Rx: - Received 2750 cc of IVF since admission Hematology/Oncology Leukocytosis Dx: WBC 25 --> 40.7 , due to acute UTI Rx: - On IV Vanco + Cefepime - Will follow up cultures - Daily CBC Endocrine T2DM Dx: Glucose 220 , A1c 5.1% Rx: - Start insulin sliding scale for diabetes mellitus type 2 with Accu-Checks - Target blood sugar of 140-180 while hospitalized. - hold home meds Hypothyroidism Hx of Thyroid CA s/p LT thyroid lobectomy 20 years ago Dx: TSH 22.73 and free T4 1.81 on admission, improved from previous labs in September 2024 Rx: ? Resume home levothyroxine 150 mcg daily ? Patient will benefit from dose increase to optimize treatment RT adrenal lesion, incidental Dx: CT A/P: RT adrenal lesion noted Rx: - Will order further screening and biopsy given history of Thyroid CA Infectious Disease Shock, likely septic from UTI and hypovolemic component - WBC 25.2, LA 5.4, and Pro-Jam 42.53. Following stout catheter insertion, nursing reported cloudy urine - UA : leukocyte esterase +, 476 WBC, bacteria 1+ although patient denied urinary symptoms - On admission, blood pressure 46/33, pulse 106, Tmax 100.4 Fahrenheit. Sepsis alert called in the ED. Rx: - Urine culture pending - IV cefepime and vancomycin x1 given in ED - Continue IV vancomycin (12/27 - - Continue cefepime (12/27 - - IV levophed for pressure support, will wean as tolerated ICU Health maintenance: Disposition: Admitted to ICU for shock (hypovolemic and/or septic from UTI) requiring vasopressor support. Diet: Carb consistent low DVT ppx: Heparin 5000 q8H SC GI ppx: Nil Mechanical ventilation: No Sedation: No IV lines: 2 pIV Central line: No Arterial line: No Stout: Yes Code status: DNR/DNI per patient and POLST form Plan of care discussed with attending Dr Wick and PGY3 Dr Brambila, - Dexter Vasquez M.D. PGY2 Disclaimer: Minor errors in lead miner may be present as this note was dictated using voice recognition software.
[2024-12-27 11:43] LABS: Reflex Lactate? Y
[2024-12-27 12:12] LABS: Path Review Blood Smear Sent to Pathologist
[2024-12-27 13:01] LABS: Lactic Acid, 3 HR 3.6 mMol/L (0.4-2.0)
[2024-12-27] MEDS: ACETAMINOPHEN 325 MG TABLET 650 MG PO (13:43)
[2024-12-27] MEDS: POTASSIUM CHLORIDE 20 mEq TABCR 40 MEQ PO (14:12)
--- NOTE | 2024-12-27 14:27 | PD.INTPROG ---
Documentation for date of: 12/27/24 Subjective Subjective Interval history: This is a 64-year-old female who presented to the ER overnight for altered mentation and shortness of breath. The patient was found to be hypotensive with a positive UA. She received 2 L of IV fluids and was still hypotensive therefore she was started on vasopressors. She was admitted to the ICU. The patient is currently awake alert and mentating. She has a good urinary output. Hemodynamics have been evaluated with a Cheetah device and she is found to be fluid responsive and given additional volume. Currently she has no complaints and denies any shortness of breath or any pain. She is mildly tachycardic but afebrile. Critical Care Note Critical care time (min.): 46 Exam Vital Signs Temp Pulse Resp BP Pulse Ox O2 Del Method O2 Flow Rate 97.5 F 99 25 H 103/58 L 96 Nasal Cannula 2 12/27/24 12:00 12/27/24 14:00 12/27/24 14:12/27/24 14:12/27/24 14:12/27/24 14:12/27/24 14:00 Narrative Exam General-no acute distress, awake alert and oriented, GCS 15, normal body habitus HEENT-normocephalic, atraumatic, sclera icteric, oropharynx is clear, mucosa hydrated, EOMI, no adenopathy Chest-lungs clear to auscultation bilaterally, heart regular rhythmic, no bruits or murmurs auscultated times exam, no pain on palpation of the chest wall Abdomen-soft, nontender, bowel sounds present, no rebound or guarding Extremities-pulses palpable, no clubbing, no mottling, there appears to be significant muscle atrophy in her lower extremities, she is unable to mobilize at either knee joint or ankle joint she is only able to mobilize her lower extremities at the hip joint. Sensation does appear to be intact of her lower extremities. 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 12/28/24 04:41 12/28/24 04:41 Labs: Laboratory Results - last 24 hr 12/27/24 12/27/24 12/27/24 01:05 01:24 02:14 WBC 25.2 H RBC 4.25 Hgb 13.1 Hct 36.0 MCV 85 MCH 30.8 MCHC 36.4 RDW Std Deviation 39.4 Plt Count 321 Neut % (Auto) 95 H Lymph % (Auto) 2 L [place] % (Auto) 1 Eos % (Auto) 1 Baso % (Auto) 0 Neut # (Auto) 24.0 H Lymph # (Auto) 0.5 L [place] # (Auto) 0.2 Eos # (Auto) 0.2 Baso # (Auto) 0.1 Immature Gran # (Auto) 0.26 H Absolute Nucleated RBC 0.00 Immature Gran % 1 H Nucleated RBC % 0 Smear Path Review ESR 20 PT 13.0 H INR 1.2 APTT 31.0 D-Dimer 1200 H Puncture Site Right Radial ABG pH 7.35 ABG pCO2 31 L ABG pO2 65 L ABG HCO3 17 L ABG O2 Saturation 91 ABG Base Excess -7 L FiO2 21 Sodium 129 L Potassium 3.5 Chloride 94 L Carbon Dioxide 20.7 Anion Gap 14 BUN 20 Creatinine 1.3 Estim Creat Clear Calc Not Performed. eGFR 46 L BUN/Creatinine Ratio [address]ucose [address] Glu mg/dL Hemoglobin A1c Calculated Osmolality 265 L Lactic Acid 5.4 H* Calcium 8.8 Corrected Calcium 9.4 Phosphorus Magnesium 1.3 L Total Bilirubin 0.6 Direct Bilirubin 0.3 ALT 23 Alkaline Phosphatase 95 Troponin I 0.142 H* C-Reactive Prot, Quant 9.9 H B-Natriuretic Peptide 108 H Total Protein 5.5 L Albumin 3.3 L Globulin 2.2 L Albumin/Globulin Ratio 1.5 Amylase 35 Lipase 23 Beta-Hydroxybutyrate/Acetoacetate 0.8 H Procalcitonin 42.53 H TSH 22.72 H Free T4 1.81 H Ur Collection Type Clean Catch Urine Color Yellow Urine Clarity Turbid A Urine pH 6.5 Ur Specific [place] 1.016 Urine Protein 1+ A Urine Glucose (UA) Negative Urine Ketones Negative Urine Blood 2+ A Urine Nitrite Negative Urine Bilirubin Negative Urine Urobilinogen (Auto) Negative Ur Leukocyte Esterase Positive Urine RBC 52 H Urine WBC 476 H Ur Squamous Epith Cells 1 Urine Bacteria 1+ A Ur Culture Indicated? Yes 12/27/24 12/27/24 12/27/24 04:37 06:03 08:36 WBC 40.7 H* D RBC 4.63 Hgb 14.7 Hct 40.6 MCV 88 MCH 31.7 MCHC 36.2 RDW Std Deviation 41.6 Plt Count 295 Neut % (Auto) 95 H Lymph % (Auto) 1 L [place] % (Auto) 1 Eos % (Auto) 0 Baso % (Auto) 0 Neut # (Auto) 38.7 H Lymph # (Auto) 0.5 L [place] # (Auto) 0.4 Eos # (Auto) 0.0 Baso # (Auto) 0.2 Immature Gran # (Auto) 0.85 H Absolute Nucleated RBC 0.00 Immature Gran % 2 H Nucleated RBC % 0 Smear Path Review Sent to Pathologist ESR PT INR APTT D-Dimer Puncture Site ABG pH ABG pCO2 ABG pO2 ABG HCO3 ABG O2 Saturation ABG Base Excess FiO2 Sodium 128 L Potassium 3.3 L Chloride 96 L Carbon Dioxide 16.9 L Anion Gap 15 BUN 19 Creatinine 0.8 D Estim Creat Clear Calc 54.3 L eGFR > 60 BUN/Creatinine Ratio 24 H Glucose [address] Glu mg/dL 100 Hemoglobin A1c 5.1 Calculated Osmolality 266 L Lactic Acid 5.8 H* 4.0 H Calcium 8.5 Corrected Calcium 8.8 Phosphorus 3.9 Magnesium Total Bilirubin Direct Bilirubin ALT Alkaline Phosphatase Troponin I 0.094 H* C-Reactive Prot, Quant B-Natriuretic Peptide Total Protein Albumin 3.6 Globulin Albumin/Globulin Ratio Amylase Lipase Beta-Hydroxybutyrate/Acetoacetate Procalcitonin TSH Free T4 Ur Collection Type Urine Color Urine Clarity Urine pH Ur Specific [place] Urine Protein Urine Glucose (UA) Urine Ketones Urine Blood Urine Nitrite Urine Bilirubin Urine Urobilinogen (Auto) Ur Leukocyte Esterase Urine RBC Urine WBC Ur Squamous Epith Cells Urine Bacteria Ur Culture Indicated? 12/27/24 12:34 WBC RBC Hgb Hct MCV MCH MCHC RDW Std Deviation Plt Count Neut % (Auto) Lymph % (Auto) [place] % (Auto) Eos % (Auto) Baso % (Auto) Neut # (Auto) Lymph # (Auto) [place] # (Auto) Eos # (Auto) Baso # (Auto) Immature Gran # (Auto) Absolute Nucleated RBC Immature Gran % Nucleated RBC % Smear Path Review ESR PT INR APTT D-Dimer Puncture Site ABG pH ABG pCO2 ABG pO2 ABG HCO3 ABG O2 Saturation ABG Base Excess FiO2 Sodium Potassium Chloride Carbon Dioxide Anion Gap BUN Creatinine Estim Creat Clear Calc eGFR BUN/Creatinine Ratio Glucose Estimated Ave Glu mg/dL Hemoglobin A1c Calculated Osmolality Lactic Acid 3.6 H Calcium Corrected Calcium Phosphorus Magnesium Total Bilirubin Direct Bilirubin ALT Alkaline Phosphatase Troponin I C-Reactive Prot, Quant B-Natriuretic Peptide Total Protein Albumin Globulin Albumin/Globulin Ratio Amylase Lipase Beta-Hydroxybutyrate/Acetoacetate Procalcitonin TSH Free T4 Ur Collection Type Urine Color Urine Clarity Urine pH Ur Specific [place] Urine Protein Urine Glucose (UA) Urine Ketones Urine Blood Urine Nitrite Urine Bilirubin Urine Urobilinogen (Auto) Ur Leukocyte Esterase Urine RBC Urine WBC Ur Squamous Epith Cells Urine Bacteria Ur Culture Indicated? 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 levo needs going down - on abx - fu on echo Tropinemia- in the setting of shock - no chest pain - trending down Resp stable Renal HypoNa- present since 2018 - urine lytes sent - ? related to pts hypothyroidism HypoK- replete PO [place] acidosis- last HCO3 was 17 - fu with urine lytes - LA was also noted to be elevated on arrival GI stable Endo DM- SSI - hold metformin while inhouse Hypothyroid- cont current dose - TSH elevated wtih free T4 - fu with endocrine Heme Leukocytosis- ? reactive DVT proph- on lovenox ID UTI- UA compatible with UTI - on abx - fu on cx Sepsis- meets criteria for SIRS with source being urine case d/w ICU team labs,imaging, records reviewed ~46cmin required for eval, exam, review, intervention, discussion, formulation of POC for this critically ill pt with septic shock at high risk for further and ongoing decompensation Provider Notation Provider Notation: Although this document has been carefully reviewed, there may still be some phonetic and other typographical errors. These errors are purely grammatical due to imperfections in the software program and should not be construed in any way to compromise the substance of the patient's medical care during this visit. Thank you for the opportunity and privilege in assisting you with this patient's care and management.
--- NOTE | 2024-12-27 14:54 | ECHO_ITS ---
Transthoracic Echo Report Ht (in): 61 Wt (lb): 124 Exam Location: Echo Lab Status: Inpatient Financial Services Technician: Silva Casarez Indications: Procedure Performed: BP: 89 / 58 HR: 104 Technical Quality: Technically difficult study MEASUREMENTS (Male / Female) Normal Values 2D ECHO LV Diastolic Diameter PLAX 3.5 cm 4.2 - 5.9 / 3.9 - 5.3 cm LV Systolic Diameter PLAX 2.4 cm IVS Diastolic Thickness 0.9 cm 0.6 - 1.0 / 0.6 - 0.9 cm LVPW Diastolic Thickness 0.9 cm 0.6 - 1.0 / 0.6 - 0.9 cm LV Relative Wall Thickness 0.5 LVOT Diameter 1.5 cm Aortic Root Diameter 2.5 cm LA Systolic Diameter LX 2.6 cm 3.0 - 4.0 / 2.7 - 3.8 cm LA Volume Index 20.4 cm?/m? 16 - 28 cm?/m? M-MODE Aortic Root Diameter MM 2.3 cm LA Systolic Diameter MM 3.8 cm LA Ao Ratio MM 1.7 AV Cusp Separation MM 1.5 cm DOPPLER AV Peak Velocity 138.0 cm/s AV Peak Gradient 7.6 mmHg AV Mean Gradient 4.0 mmHg AV Velocity Time Integral 24.5 cm LVOT Peak Velocity 140.0 cm/s LVOT Peak Gradient 7.8 mmHg LVOT Velocity Time Integral 24.5 cm LVOT Cardiac Index 2878.2 cm?/min?m? AV Area Cont Eq vti 1.8 cm? AV Area Cont Eq pk 1.8 cm? MV Area PHT 5.0 cm? Mitral E Point Velocity 65.5 cm/s Mitral A Point Velocity 86.8 cm/s Mitral E to A Ratio 0.8 LV E' Lateral Velocity 9.5 cm/s Mitral E to LV E' Lateral Ratio 6.9 LV E' Septal Velocity 6.9 cm/s Mitral E to LV E' Septal Ratio 9.6 TR Peak Velocity 247.3 cm/s TR Peak Gradient 24.5 mmHg PV Peak Velocity 117.0 cm/s PV Peak Gradient 5.5 mmHg FINDINGS Left Ventricle Normal left ventricular size, wall thickness, systolic function with no obvious regional wall motion abnormalities.there is grade I diastolic dysfunction of the left ventricle (impaired relaxation pattern). The ejection fraction is visually estimated at 65-70 %. Right Ventricle The right ventricle is normal in size and systolic function. Left Atrium The left atrium is normal by two-dimensional, color flow and Doppler imaging with no structural abnormalities, no thrombus formation present. Right Atrium The right atrium is normal by two-dimensional imaging, color flow and Doppler imaging with no structural abnormalities, no thrombus formation present. Atrial Septum The interatrial septum appears normal with no evidence of a shunt. Aorta The aorta is normal by two-dimensional, color flow and Doppler interrogation. Mitral Valve The mitral valve is normal by two-dimensional, color flow and Doppler interrogation. There is no significant mitral valve regurgitation, stenosis or prolapse. Aortic Valve The aortic valve is trileaflet and normal by two-dimensional, color flow and Doppler interrogation. There is no significant aortic valve regurgitation. Tricuspid Valve The tricuspid valve is normal by two-dimensional, color flow and Doppler interrogation. There is mild tricuspid valve regurgitation. Pulmonic Valve The pulmonic valve is not well visualized. There is no significant pulmonic valve regurgitation. Vessels The pulmonary artery appears normal. The inferior vena cava pulmonary and hepatic veins appear normal. Pericardium The pericardium is normal by two-dimensional imaging. There is no significant pericardial effusion. CONCLUSIONS Indication: Eval EF Normal LV size and function. Grade I diastolic dysfunction. Estimated EF at 65-70. The RV is normal in size and systolic function. Mild Tricuspid regurgitation. Shelia Fulton (Electronically Signed) Final Date: 27 December 2024 23:24
--- NOTE | 2024-12-27 14:56 | PC.SS ---
INVESTMENT ANALYST conducted bedside contact with the patient conduct initial assessment and to discuss discharge planning.? At bedside with patient was son, Ja Zaidi.? Information obtained from the patient?s son.? Patient is Thai speaking.? Patient is a resident from [facility].? Patient has been at [facility] for approximately 2 months.? Patient utilizes a wheelchair to assist with mobility.? Patient utilizes oxygen.? Patient requires assistance with completion of ADL?s.? Patient?s surrogate medical decision maker is daughter, Flor Diehl; .? Patient?s PCP is [facility].? Patient does not participate with dialysis.? Patient is diabetic, non-insulin dependent.? Patient utilizes [facility] for medication services.? Plan is for the patient to return to [facility] at the time of discharge.? Patient in possession of transport coverage.? technology services manager will assist on arranging transportation on behalf of the patient. ?No further discharge needs identified by the patient.? No further intervention required at this time, social service technician will be available to address any further concerns.? Next of Kin: Flor Diehl D/C Plan: Home
--- NOTE | 2024-12-27 14:57 | PD.RESDS ---
Planned Discharge Date 12/27/24 DS: Providers Provider Date of admission: 12/27/24 04:37 Primary care physician: Physician No Primary/Family Admitting Provider: Rey Sands MD Attending Provider on Admission: Ifrah Wick MD Consults: 12/27/24 14:15 Referral Registered Dietitian Routine Comment: Loss of appetite Attending Provider on DC: Dexter Vasquez MD Discharging Provider: Dexter Vasquez MD Hospital Course Hospital Course Hospital course: Ms Zaidi is a Czech-speaking 64-year-old female with history of thyroid cancer, hypertension, hypothyroidism, depression, diabetes mellitus, and sciatica who presented to the ED on 12/27/2024 with her daughter Flor from care home with concerns of altered mentation, shortness of breath, and low blood pressure. In the facility, patient was noted to have oxygen desaturation to the 80s as well as systolic blood pressure 82, was brought into the emergency department for further evaluation. Patient has been mostly bed-bound at SNF over the last 3 months, she endorses b/l lower extremity weakness and loss of appetite. Patient does have a stout catheter in place at her nursing facility, patients daughter reports it has recently been removed. Vitals in the ED: BP 57/40, pulse 121, O2 90 on 2L nasal cannula. Labs: WBC 25.2, PT 13.0, D-dimer 1200, sodium 129, calculated osmolality 265, TSH 22.72, free T41.81, lactic acid 5.4, magnesium 1.3, troponin 0.142, CRP 9.9 and procalcitonin 42.53. Other labs were ABG: pH7.35, PCO2 31, PO2 65, HCO3 17 ; UA: 1+ protein, 2+ blood, RBC 52, WBC 476, urine bacteria 1+. EKG: Sinus tachycardia. Patient was treated with 2L NS fluids, Zofran 4 Mg, methylprednisone 125 Mg, Levophed started. Sepsis alert initiated, cefepime and vancomycin initiated. ICU team consulted for admission, patient will be admitted to ICU for further management of shock secondary to sepsis and/or hypovolemia. 12/27/2024: Certified facility maintenance mechanic was used (ID: [id number]). Patient was seen and examined at bedside this AM. No acute events overnight. Patient tolerating diet, adequate urine output and mentation is at baseline. Stout has orangish tinged urine. Patient denies any discomfort at this time. Currently on Levophed gtt @ 0.05 mcg/h for low MAP 40-50s intermittently. NiCom testing showed fluid responsiveness, with >10% increase in SV and SVI. She ednorses having a low appetite and LE weakness x 2-3 months. Oxygen saturations 94-96% on 2L via NC, no shortness of breath. Time Spent with Patient Time attestation: Total time spent providing and/or coordinating discharge services: Exam Vital Signs Temp Pulse Resp BP Pulse Ox O2 Del Method O2 Flow Rate 97.5 F 99 25 H 103/58 L 96 Nasal Cannula 2 12/27/24 12:00 12/27/24 14:00 12/27/24 14:00 12/27/24 14:00 12/27/24 14:00 12/27/24 14:00 12/27/24 14:00 Discharge Plan Prescriptions/Referrals Prescriptions/Med Rec: No Action metformin 500 mg Tablet 500 mg PO DAILY sertraline 50 mg Tablet 100 mg PO QDAY atenolol 50 mg Tablet 50 mg PO QDAY naproxen 500 mg Tablet 500 mg PO DAILY omeprazole 20 mg Tablet,Delayed Release (Dr/Ec) 20 mg PO QDAY levothyroxine 150 mcg capsule 150 mcg PO QDAY Qty: 30 0RF tramadol 50 mg tablet 50 mg PO Q8H PRN (Reason: pain) Patient Comments: TOME LISA TABLETA POR V A ORAL 2-3 VECES AL D A CUANDO SEA NECESARIO PARA EL DOLOR INTENSO pravastatin 20 mg tablet 20 mg PO HS Patient Comments: TOME 1 TABLETA POR V A ORAL TODOS LOS D FOR CHOLESTEROL cetirizine 10 mg tablet 10 mg PO QDAY Patient Comments: TOME LISA TABLETA POR VIA ORAL ONCE A DAY PARA LA ALER[place]IA magnesium oxide 400 mg magnesium tablet 400 mg PO BID cranberry 450 mg tablet 450 mg PO QDAY Rx Instructions: administer with a meal Referrals: No Primary/Family,Physician [Primary Care Provider] - Patient/Caregiver Discharge Instructions Print Language: Czech
[2024-12-27 15:48] LABS: Chloride,Urine Random 27.4 mMol/L (55.0-125.0); Creatinine,Random Urine 43 mg/dL (30-125); Potassium,Urine Random 44 mMol/L (12-62); Sodium,Urine Random < 15.0 mMol/L (20.0-110.0)
[2024-12-27] MEDS: GABAPENTIN 100 MG CAPSULE PO (16:29)
[2024-12-27 17:53] LABS: Albumin, Serum 3.2 gm/dL (3.4-4.8); Anion Gap 12 (7-16); BUN/Creatinine Ratio 32 Ratio (12-20); Blood Urea Nitrogen 16 mg/dL (9-23); Calcium 8.4 mg/dL (8.3-10.6); Carbon Dioxide 17.4 mMol/L (20.0-31.0); Chloride 93 mMol/L (98-107); Creatinine (Component) 0.5 mg/dL (0.6-1.3); Estimated Creatinine Clearance 86.9 mL/min (>60); Glucose 188 mg/dL (74-106); Osmolality,Calculated 252 (275-295); Phosphorous 2.8 mg/dL (2.4-5.1); Potassium 3.8 mMol/L (3.4-5.1); Sodium 122 mMol/L (136-145); eGFR > 60 See Note
[2024-12-27] MEDS: traMADol HCL 50 MG TABLET PO (21:07)
[2024-12-27] MEDS: VANCOMYCIN/NS 1 GM IVPB 200 ML IV (21:10)
[2024-12-28] VITALS (111 sets, daily range): BP systolic 61–142; BP diastolic 38–111; PULSE 90–122; RESP 10–97; TEMP 36.6–37; O2SAT 88–97; BMI 23.3
--- NOTE | 2024-12-28 | XR_ITS ---
Examination: MRI lumbar spine with intravenous contrast TECHNIQUE: Axial sagittal MR lumbar spine images obtained post intravenous administration of 11 cc gadolinium Date and time: December 28, 2024 1603 hours, comparison MRI lumbar spine without contrast October 04, 2024 Indications indications: Low back pain with leg weakness this week FINDINGS: Adequate alignment lumbar vertebral bodies Grade 1 anterolisthesis of L4 on L5 No lumbar fracture Mild disc narrowing posteriorly at L5-S1 No spondylolisthesis These postcontrast images do not demonstrate abnormal osseous epidural conus medullaris or cauda equina enhancement L4-L5 4 mm central lumbar disc bulge which extends to the left foramen with mild left L4 ganglionic impression IMPRESSION: No abnormal osseous, conus medullaris or cauda equina enhancement No enhancing epidural abscess noted
[2024-12-28 05:09] LABS: Basophils # (Auto) 0.1 Thou/mm3 (0.0-0.2); Basophils % (Auto) 0 % (0-2.5); Eosinophils # (Auto) 1.3 Thou/mm3 (0.0-0.5); Eosinophils % (Auto) 4 % (0-10); Hematocrit 36.8 % (36.0-46.0); Hemoglobin 13.1 g/dL (12.0-16.0); Immature Granulocytes % (Auto) 3 % (0-0); Immature Granulocytes Auto 0.87 Thou/mm3 (0.00-0.00); Lymphocytes % (Auto) 3 % (10-50); Mean Corpuscular HGB Conc 35.6 g/dl (31.0-37.0); Mean Corpuscular Hemoglobin 31.1 pg (25.0-35.0); Mean Corpuscular Volume 87 fL (80-100); Monocytes # (Auto) 0.8 Thou/mm3 (0.0-0.8); Monocytes % (Auto) 3 % (0-12); Neutrophils # (Auto) 27.6 Thou/mm3 (1.8-7.7); Neutrophils % (Auto) 87 % (37-80); Nucleated Red Blood Cell % 0 /100 WBC (0); Platelet Count 251 Thou/mm3 (140-440); Red Blood Count 4.21 Miln/mm3 (4.00-5.20); White Blood Count 31.6 Thou/mm3 (3.6-11.0)
[2024-12-28] MEDS: HEPARIN SOD INJ 5000 UNIT/ML VIAL SC ×3 (05:45→22:02)
[2024-12-28] MEDS: CEFEPIME INJ 2 GM in SODIUM CHLORIDE 0.9% (Popper) 50 ML IV ×3 (05:46→22:00)
[2024-12-28] MEDS: LEVOTHYROXINE SODIUM 125 MCG, LEVOTHYROXINE SODIUM 25 MCG 150 MCG PO (05:46)
[2024-12-28 06:24] LABS: Alanine Aminotransferase 37 U/L (10-49); Albumin/Globulin Ratio 1.4 (1.2-2.2); Alkaline Phosphatase 117 U/L (46-116); Anion Gap 11 (7-16); BUN/Creatinine Ratio 40 Ratio (12-20); Bilirubin,Total 0.5 mg/dL (0.3-1.2); Blood Urea Nitrogen 16 mg/dL (9-23); Calcium 8.1 mg/dL (8.3-10.6); Calcium (Corrected) 8.9 mg/dL (8.5-10.1); Carbon Dioxide 17.8 mMol/L (20.0-31.0); Chloride 99 mMol/L (98-107); Creatinine (Component) 0.4 mg/dL (0.6-1.3); Estimated Creatinine Clearance 108.6 mL/min (>60); Globulin 2.2 gm/dL (2.3-3.5); Glucose 115 mg/dL (74-106); Magnesium 2.4 mg/dL (1.6-2.6); Osmolality,Calculated 259 (275-295); Potassium 3.7 mMol/L (3.4-5.1); Sodium 128 mMol/L (136-145); Total Protein 5.2 gm/dL (5.7-8.2); eGFR > 60 See Note
[2024-12-28] MEDS: VANCOMYCIN/D5W 1,250 MG IVPB 250 ML 120 MG IV ×2 (09:50→22:05)
[2024-12-28] MEDS: ONDANSETRON INJ 2 MG/ML INJ 2 ML 4 MG IVP ×2 (10:00→22:26)
[2024-12-28 10:22] LABS: Lactate (Lactic Acid) 1.5 mMol/L (0.4-2.0)
[2024-12-28 11:10] LABS: Troponin I 0.097 ng/mL (0.0-0.045)
[2024-12-28] MEDS: POTASSIUM CHL 10 mEq IVPB 10 MEQ/100 ML BAG 50 MEQ IV ×4 (11:19→18:37)
[2024-12-28] MEDS: RINGERS LACTATED 500 ML 500 ML 999 ML IV (11:29)
[2024-12-28] MEDS: Magnesium Sulfate 1 gm Ivpb 1 GM/100 ML BAG IV (11:38)
[2024-12-28] MEDS: INSULIN LISPRO (AdmeLOG) 1 UNIT/0.01 ML UNIT SC (11:42)
--- NOTE | 2024-12-28 12:17 | ESPR_ITS ---
Documentation for date of: 12/28/24 Subjective Subjective Interval history: This is a 64-year-old female who presented to the ER overnight for altered mentation and shortness of breath. The patient was found to be hypotensive with a positive UA. She received 2 L of IV fluids and was still hypotensive therefore she was started on vasopressors. She was admitted to the ICU. The patient is currently awake alert and mentating. She has a good urinary output. Hemodynamics have been evaluated with a Cheetah device and she is found to be fluid responsive and given additional volume. Currently she has no complaints and denies any shortness of breath or any pain. She is mildly tachycardic but afebrile. 12/28-no acute overnight events, patient has intermittent pain in her back and her lower extremities which she is receiving gabapentin and tramadol for. She is afebrile. Good urinary output. Decreasing nor epi requirements. This morning she was nauseated and diaphoretic at which point in time she also had arrhythmia on the monitor Critical Care Note Critical care time (min.): 40 Exam Vital Signs Temp Pulse Resp BP Pulse Ox O2 Del Method O2 Flow Rate 97.9 F 93 11 L 61/38 L 96 Room Air 1 12/28/24 07:30 12/28/24 10:16 12/28/24 10:16 12/28/24 10:16 12/28/24 10:16 12/28/24 07:30 12/27/24 18:12 Narrative Exam General-no acute distress, awake alert and oriented, normal body habitus HEENT-normocephalic, atraumatic, sclera icteric, oral mucosa is hydrated, EOMI Chest-lungs clear to auscultation bilaterally, heart regular rhythmic, no bruits or murmurs auscultated on exam, no pain on palpation of the chest wall, no increased work of breathing Abdomen-soft, nontender, bowel sounds present, no rebound or guarding Extremities-some edema of lower extremities, unable to move lower extremities, pulses palpable, no clubbing, no mottling Physical Exam Completion Physical Exam Complete?: Yes 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 - 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 12/28/24 04:41 12/28/24 04:41 Labs: Laboratory Results - last 24 hr 12/27/24 12/27/24 12/27/24 12:34 15:19 16:49 WBC RBC Hgb Hct MCV MCH MCHC RDW Std Deviation Plt Count Neut % (Auto) Lymph % (Auto) Hughes % (Auto) Eos % (Auto) Baso % (Auto) Neut # (Auto) Lymph # (Auto) Hughes # (Auto) Eos # (Auto) Baso # (Auto) Immature Gran # (Auto) Absolute Nucleated RBC Immature Gran % Nucleated RBC % Sodium 122 L Potassium 3.8 D Chloride 93 L Carbon Dioxide 17.4 L Anion Gap 12 BUN 16 Creatinine 0.5 L Estim Creat Clear Calc 86.9 eGFR > 60 BUN/Creatinine Ratio 32 H Glucose 188 H Calculated Osmolality 252 L Lactic Acid 3.6 H Calcium 8.4 Corrected Calcium 9.0 Phosphorus 2.8 Magnesium 3.0 H Total Bilirubin ALT Alkaline Phosphatase Troponin I Total Protein Albumin 3.2 L Globulin Albumin/Globulin Ratio Ur Random Creatinine 43 Ur Random Sodium < 15.0 L Ur Random Potassium 44 Ur Random Chloride 27.4 L 12/28/24 12/28/24 04:41 10:10 WBC 31.6 H D RBC 4.21 Hgb 13.1 Hct 36.8 MCV 87 MCH 31.1 MCHC 35.6 RDW Std Deviation 41.0 Plt Count 251 D Neut % (Auto) 87 H Lymph % (Auto) 3 L Hughes % (Auto) 3 Eos % (Auto) 4 Baso % (Auto) 0 Neut # (Auto) 27.6 H Lymph # (Auto) 1.0 Hughes # (Auto) 0.8 Eos # (Auto) 1.3 H Baso # (Auto) 0.1 Immature Gran # (Auto) 0.87 H Absolute Nucleated RBC 0.00 Immature Gran % 3 H Nucleated RBC % 0 Sodium 128 L Potassium 3.7 Chloride 99 Carbon Dioxide 17.8 L Anion Gap 11 BUN 16 Creatinine 0.4 L Estim Creat Clear Calc 108.6 eGFR > 60 BUN/Creatinine Ratio 40 H Glucose 115 H D Calculated Osmolality 259 L Lactic Acid 1.5 Calcium 8.1 L Corrected Calcium 8.9 Phosphorus Magnesium 2.4 Total Bilirubin 0.5 ALT 37 Alkaline Phosphatase 117 H D Troponin I 0.097 H* Total Protein 5.2 L Albumin 3.0 L Globulin 2.2 L Albumin/Globulin Ratio 1.4 Ur Random Creatinine Ur Random Sodium Ur Random Potassium Ur Random Chloride Assessment & Plan Additional Plan Additional Plan: In summary this is 64-year-old female admitted to the ICU for septic shock 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 levo needs going down - on abx - PLR done and still fluid responsive therefore given additional volume Tropinemia- in the setting of shock - no chest pain - trending down HFpEF- noted on echo Resp stable Renal HypoNa- present since 2019 - urine lytes sent - ? related to pts hypothyroidism v sertraline - slight increase in 128 today - once stable should trial different antidepressant HypoK- replete PO [place] acidosis- last HCO3 was 17 - urine lytes show Na <20 - ? need for u osm and u pH - if repeat remains low check additional studies GI stable Endo DM- SSI - hold metformin while inhouse Hypothyroid- cont current dose - TSH elevated wtih free T4 - fu with endocrine Heme Leukocytosis- ? reactive - trending back down today DVT proph- on lovenox ID UTI- UA compatible with UTI - on abx - cx growing GPC - given vanc - MRSA swab still pending Sepsis- meets criteria for SIRS with source being urine case d/w ICU team labs,imaging, records reviewed ~40cmin required for eval, exam, review, intervention, discussion, formulation of POC for this critically ill pt with septic shock at high risk for further and ongoing decompensation Provider Notation Provider Notation: Although this document has been carefully reviewed, there may still be some phonetic and other typographical errors. These errors are purely grammatical due to imperfections in the software program and should not be construed in any way to compromise the substance of the patient's medical care during this visit. Thank you for the opportunity and privilege in assisting you with this patient's care and management.
--- NOTE | 2024-12-28 13:37 | ESPR_ITS ---
Documentation for date of: 12/28/24 Subjective Subjective Interval history: Ms Zaidi is a Occitan-speaking 64-year-old female with history of thyroid cancer, hypertension, hypothyroidism, depression, diabetes mellitus, and sciatica who presented to the ED on 12/27/2024 with her daughter Flor from [facility] with concerns of altered mentation, shortness of breath, and low blood pressure. In the facility, patient was noted to have oxygen desaturation to the 80s as well as systolic blood pressure 82, was brought into the emergency department for further evaluation. Patient has been mostly bed-bound at SNF over the last 3 months, she endorses b/l lower extremity weakness and loss of appetite. Patient does have a stout catheter in place at her nursing facility, patients daughter reports it has recently been removed. Vitals in the ED: BP 57/40, pulse 121, O2 90 on 2L nasal cannula. Labs: WBC 25.2, PT 13.0, D-dimer 1200, sodium 129, calculated osmolality 265, TSH 22.72, free T41.81, lactic acid 5.4, magnesium 1.3, troponin 0.142, CRP 9.9 and procalcitonin 42.53. Other labs were ABG: pH7.35, PCO2 31, PO2 65, HCO3 17 ; UA: 1+ protein, 2+ blood, RBC 52, WBC 476, urine bacteria 1+. EKG: Sinus tachycardia. Patient was treated with 2L NS fluids, Zofran 4 Mg, methylprednisone 125 Mg, Levophed started. Sepsis alert initiated, cefepime and vancomycin initiated. ICU team consulted for admission, patient will be admitted to ICU for further management of shock secondary to sepsis and/or hypovolemia. 12/27/2024: Certified customer service administrator was used (ID: [id number]). Patient was seen and examined at bedside this AM. No acute events overnight. Patient tolerating diet, adequate urine output and mentation is at baseline. Stout has orangish tinged urine. Patient denies any discomfort at this time. Currently on Levophed gtt @ 0.05 mcg/h for low MAP 40-50s intermittently. NiCom testing showed fluid responsiveness, with >10% increase in SV and SVI. She ednorses having a low appetite and LE weakness x 2-3 months. Oxygen saturations 94-96% on 2L via NC, no shortness of breath. 12/28/2024: Nurse present for translation. Patient was seen and examined at bedside this AM. Overnight, patient had 1.18 L of urine output, hematuria has resolved. Patient tolerating diet, endorses low appetite. Mentation is at baseline and she was more responsive to questions today. BP trending 90s systolic, will continue to try to wean off of vasopressor, MAP fluctuating, Levophed remains at 0.05 - 0.07 mcg/h. Will hold off on fluids for now even though atient is fluid responsive. Per waste handling technician, patient unlikely to benefit from IVF in sepsis and levophed remains necessary. Exam Vital Signs Temp Pulse Resp BP Pulse Ox O2 Del Method O2 Flow Rate 97.9 F 110 H 28 H 117/76 94 L Room Air 1 12/28/24 07:30 12/28/24 13:30 12/28/24 13:30 12/28/24 13:30 12/28/24 13:30 12/28/24 07:30 12/27/24 18:12 Narrative Exam Constitutional Alert, oriented x3 and comfortable. GCS 15 HEENT Vision grossly intact. Patent nares. Trachea midline. On 2L via NC Respiratory On inspection: seborrhaeic keratosis single lesion on anterior upper chest, clear to auscultation bilaterally. Cardiovascular S1 and S2 audible, RRR. No murmurs or carotid bruit. No gross JVD. Abdominal Soft and BS + ; non tender to palpation in all quadrants. Genitourinary No bladder tenderness, no flank pain. Normal to palpation. Stout: clean urine ouput Musculoskeletal Extremities tone within normal limits. No LE edema. Neurological CN II - XII grossly intact. Extremity motor and sensation grossly intact. Lower extremity strength 1/5. Upper extremity strength 5/5. Skin Warm, dry and intact. No apparent lesions. B/L pIVs Psychiatric Patient has a good affect, is cooperative. Objective Labs 12/29/24 04:38 12/29/24 04:38 Labs: Laboratory Results - last 24 hr 12/27/24 12/27/24 12/28/24 15:19 16:49 04:41 WBC 31.6 H D RBC 4.21 Hgb 13.1 Hct 36.8 MCV 87 MCH 31.1 MCHC 35.6 RDW Std Deviation 41.0 Plt Count 251 D Neut % (Auto) 87 H Lymph % (Auto) 3 L Henry % (Auto) 3 Eos % (Auto) 4 Baso % (Auto) 0 Neut # (Auto) 27.6 H Lymph # (Auto) 1.0 Henry # (Auto) 0.8 Eos # (Auto) 1.3 H Baso # (Auto) 0.1 Immature Gran # (Auto) 0.87 H Absolute Nucleated RBC 0.00 Immature Gran % 3 H Nucleated RBC % 0 Sodium 122 L 128 L Potassium 3.8 D 3.7 Chloride 93 L 99 Carbon Dioxide 17.4 L 17.8 L Anion Gap 12 11 BUN 16 16 Creatinine 0.5 L 0.4 L Estim Creat Clear Calc 86.9 108.6 eGFR > 60 > 60 BUN/Creatinine Ratio 32 H 40 H Glucose 188 H 115 H D Calculated Osmolality 252 L 259 L Lactic Acid Calcium 8.4 8.1 L Corrected Calcium 9.0 8.9 Phosphorus 2.8 Magnesium 3.0 H 2.4 Total Bilirubin 0.5 ALT 37 Alkaline Phosphatase 117 H D Troponin I Total Protein 5.2 L Albumin 3.2 L 3.0 L Globulin 2.2 L Albumin/Globulin Ratio 1.4 Ur Random Creatinine 43 Ur Random Sodium < 15.0 L Ur Random Potassium 44 Ur Random Chloride 27.4 L 12/28/24 10:10 WBC RBC Hgb Hct MCV MCH MCHC RDW Std Deviation Plt Count Neut % (Auto) Lymph % (Auto) Henry % (Auto) Eos % (Auto) Baso % (Auto) Neut # (Auto) Lymph # (Auto) Henry # (Auto) Eos # (Auto) Baso # (Auto) Immature Gran # (Auto) Absolute Nucleated RBC Immature Gran % Nucleated RBC % Sodium Potassium Chloride Carbon Dioxide Anion Gap BUN Creatinine Estim Creat Clear Calc eGFR BUN/Creatinine Ratio Glucose Calculated Osmolality Lactic Acid 1.5 Calcium Corrected Calcium Phosphorus Magnesium Total Bilirubin ALT Alkaline Phosphatase Troponin I 0.097 H* Total Protein Albumin Globulin Albumin/Globulin Ratio Ur Random Creatinine Ur Random Sodium Ur Random Potassium Ur Random Chloride ABG Interpretation ABG results: 12/27/24 02:14 ABG pH 7.35 ABG pCO2 31 L ABG pO2 65 L ABG HCO3 17 L ABG O2 Saturation 91 ABG Base Excess -7 L Quality Measures Quality Measures VTE prophylaxis (Heparin subcutaneously) Assessment & Plan Assessment Current Active Medications: Generic Name Dose Route Start Last Admin Trade Name Ayoq PRN Reason Stop Dose Admin Acetaminophen 650 mg 12/27/24 04:37 Acetaminophen 325 Mg Tablet PO 01/26/25 04:36 Q6H PRN Fever >101.5 Acetaminophen 650 mg 12/27/24 04:37 12/27/24 13:43 Acetaminophen 325 Mg Tablet PO 01/26/25 04:36 650 mg Q6H PRN Administration PAIN SCALE 1-3 (mild Dextrose 25 ml 12/27/24 04:44 Dextrose 50%-Water Inj 50 Ml Syringe IV 01/26/25 04:43 Q15MIN PRN BG 50-70 responsive npo pt Dextrose 50 ml 12/27/24 04:44 Dextrose 50%-Water Inj 50 Ml Syringe IV 01/26/25 04:43 Q15MIN PRN BG <50 OR BG <70 & pt unresponsive Gabapentin 100 mg 12/27/24 16:21 12/27/24 16:29 Gabapentin 100 Mg Capsule PO 01/26/25 16:29 100 mg TID PRN Administration leg pain Glucagon 1 mg 12/27/24 04:44 Glucagon Inj 1 Mg Vial IM Q15MIN PRN BG <70, and no IV access Heparin Sodium (Porcine) 5,000 unit 12/27/24 06:00 12/28/24 05:45 Heparin Sod Inj 5000 Unit/Ml Vial SC 01/10/25 05:59 5,000 unit Q8HR SAMMI Administration Norepinephrine Bitartrate 16 mg in 250 mls @ 2.636 mls/hr 12/27/24 00:57 12/28/24 13:30 Levophed In Ns 16mg/250ml IV 01/26/25 00:56 0.05 mcg/kg/min .Q24H PRN 2.636 mls/hr PER PROTOCOL Titration Protocol 0.05 MCG/KG/MIN Cefepime HCl 2 gm/ Sodium 50 mls @ 100 mls/hr 12/27/24 10:00 12/28/24 05:46 Chloride IV 01/03/25 09:59 100 mls/hr Q8HR SAMMI Administration Vancomycin HCl/Dextrose 250 mls @ 120 mls/hr 12/28/24 10:00 12/28/24 09:50 Vancomycin/D5w 1,250 Mg Ivpb IV 01/04/25 09:59 120 mls/hr Q12H SAMMI Administration Protocol Potassium Chloride 10 meq in 100 mls @ 100 mls/hr 12/28/24 11:13 12/28/24 13:31 Kcl Ivpb IV 12/28/24 15:12 50 mls/hr Q1H SAMMI Administration Insulin Human Lispro 0 unit 12/27/24 07:30 12/28/24 11:42 Insulin Lispro (Admelog) 1 Unit/0.01 Ml Unit SC 01/26/25 07:29 1 unit AC SAMMI Administration Protocol Levothyroxine Sodium 125 mcg/ 150 mcg 12/27/24 07:15 12/28/24 05:46 Levothyroxine Sodium 25 mcg PO 01/26/25 07:14 150 mcg ACBR SAMMI Administration Ondansetron HCl 4 mg 12/27/24 04:37 12/28/24 10:00 Ondansetron Inj 2 Mg/Ml Inj 2 Ml IVP 01/26/25 04:36 4 mg Q6H PRN Administration NAUSEA OR VOMITING Protocol Pharmacy Consult 1 each 12/27/24 09:00 Vancomycin Pharmacy To Dose 1 Each Each IV 01/26/25 08:59 QDAY PRN CONSULT Sennosides 1 tab 12/27/24 04:37 Senna Tablet PO 01/26/25 04:36 QDAY PRN constipation Protocol Tramadol HCl 50 mg 12/27/24 17:25 12/27/24 21:07 Tramadol Hcl 50 Mg Tablet PO 01/01/25 17:24 50 mg Q8HR PRN Administration PAIN SCALE 4-10(Mod-Sev Plan Ms Zaidi is a Occitan-speaking 64-year-old female with history of Thyroid cancer, hypertension, hypothyroidism, depression, diabetes mellitus, and sciatica who presented to the ED with concerns of vomiting and fever, found to be hypotensive likely secondary to hypovolemia and/or infection, started on levophed and admitted to ICU for further management. Neurological Chronic back pain Depression LE weakness Dx: Chronic lumbo-sacral issues. Worsening B/L LE weakness over the last 2-3 months. Unable to bear weight and walk with a walker since 2 months Rx: - Continue home sertraline. Follow up nephrology recs, possible etiology behind low Na - As needed tramadol 50mg for lower back pain - Will get Lidocaine patch if worsening pain - MRI lumbar ordered for further evaluation of worsening weakness Cardiovascular Shock, hypovolemic and/or septic from UTI Dx: BP 57/40 with pulse 121bpm. Labs : WBC 25.2, Lactic acid 5.4, CRP 9.9, procal 42.53 POCUS cardiac exam revealed pericardial effusion with IVC 0.8cm, hyperdynamic movements without evidence of right heart strain. EKG evaluated by cardiology, acute LA unlikely. 12/27: NICOM shows fluid responsiveness, >10% change in SV and SVI. 12/28: urine cultures: GPC + Rx: ? Received 4.7 L IVF since admission ? IV levophed started with MAP goal >65, wean as tolerated ? Blood cultures pending ? IV Vancomycin and Cefepime for coverage SVT x 3 seconds Dx: Resolved Type II demand ischemia, Troponin: 0.142 --> 0.094 Rx: - Patient has 3 seconds of SVT episode with feeling of palpitations and chest pressure, no pain. - Repleted potassium and magnesium - Will monitor closely for recurrence. Respiratory No active problems. Gastrointestinal Protein-calorie malnutrition Loss of appetite Protein-calorie malnutrition - Protein 5.1 and Albumin 2.9 - Body weight 57kg - significant muscle wasting - loss of subcutaneous fat - nutritional intake of <50% of recommended intake for > 2 weeks - bedridden or otherwise significantly reduced functional capacity - weight loss of >2% in 1 week Rx: Consult to registered occupational therapist Patient will benefit from appetite stimulant Renal Hypoosmolar hyponatremia, chronic Dx: 12/27: Mg 1.3, Na 129 and Osm 266, K 3.3 12/28: Na 122 --> 128 ; Urine Na <15 Rx: - Nephrology consulted for further recommendations - Additional 2L IVF boluses : 500mL NS + 1.5L LR - ICU recommendations to hold off on fluids given possible hyperchloremic acidosis. HECTOR, resolved Hematuria, resolved - Stout with gross orange tinged urine --> clear urine - Resolved HECTOR Cr 1.3 --> 0.4 (baseline Cr 0.6-0.7 and GFR >60). Rx: - Will renally dose medications and avoid nephrotoxic agents Hematology/Oncology Leukocytosis Dx: WBC 25 --> 40.7 --> 31.6 Rx: - Urine cultures: GPC + - Continue IV Vanco + Cefepime (12/27 - Endocrine T2DM Dx: Glucose 220 , A1c 5.1% Rx: - Start insulin sliding scale for diabetes mellitus type 2 with Accu-Checks - Target blood sugar of 140-180 while hospitalized. - hold home meds Hypothyroidism Hx of Thyroid CA s/p LT thyroid lobectomy 20 years ago Dx: TSH 22.73 and free T4 1.81 on admission, improved from previous labs in September 2024 Rx: ? Resume home levothyroxine 150 mcg daily ? Patient will benefit from dose increase to optimize treatment RT adrenal lesion, incidental Dx: CT A/P: RT adrenal lesion noted Rx: - Will order further screening and biopsy given history of Thyroid CA Infectious Disease Shock, likely septic from UTI and hypovolemic component - WBC 25.2, LA 5.4, and Pro-Jam 42.53. Following stout catheter insertion, nursing reported cloudy urine - UA : leukocyte esterase +, 476 WBC, bacteria 1+ although patient denied urinary symptoms - On admission, blood pressure 46/33, pulse 106, Tmax 100.4 Fahrenheit. Sepsis alert called in the ED. - 12/28 : Urine culture : GPC + Rx: - IV cefepime and vancomycin x1 given in ED - Continue IV vancomycin (12/27 - - Continue cefepime (12/27 - - IV levophed for pressure support, will wean as tolerated - Additional 2L IVF given in boluses of 1L, 500mL, 500mL ICU Health maintenance: Disposition: Admitted to ICU for shock (hypovolemic and/or septic from UTI) requiring vasopressor support. Diet: Carb consistent low DVT ppx: Heparin 5000 q8H SC GI ppx: Nil Mechanical ventilation: No Sedation: No IV lines: 2 pIV Central line: No Arterial line: No Stout: Yes Code status: DNR/DNI per patient and POLST form Plan of care discussed with attending Dr Wick and PGY3 Dr Brambila, - Dexter Vasquez M.D. PGY2 Disclaimer: Minor errors in inside upholsterer may be present as this note was dictated using voice recognition software.
[2024-12-28 13:40] LABS: Anion Gap 13 (7-16); BUN/Creatinine Ratio 38 Ratio (12-20); Blood Urea Nitrogen 15 mg/dL (9-23); Carbon Dioxide 16.3 mMol/L (20.0-31.0); Chloride 100 mMol/L (98-107); Creatinine (Component) 0.4 mg/dL (0.6-1.3); Estimated Creatinine Clearance 108.6 mL/min (>60); Glucose 159 mg/dL (74-106); Osmolality,Calculated 262 (275-295); Potassium 3.6 mMol/L (3.4-5.1); Sodium 129 mMol/L (136-145); eGFR > 60 See Note
[2024-12-28] MEDS: SODIUM CHLORIDE 0.9% 500 ML 500 ML 999 ML IV (14:03)
[2024-12-28] MEDS: MIDODRINE 5 MG TABLET 10 MG PO ×2 (14:56→22:02)
--- NOTE | 2024-12-28 16:52 | PC.SS ---
Update: Patient received MRI of lumbar spine today. Patient on room air. Receiving pressor support. Receiving potassium via IV. Bennett catheter in place. P.O. feeds. Afebrile. Bennett catheter in place.
[2024-12-28] MEDS: traMADol HCL 50 MG TABLET PO (20:52)
[2024-12-28 21:30] LABS: Vancomycin,Trough 12.4 mcg/mL (5.0-10.0)
[2024-12-29] VITALS (98 sets, daily range): BP systolic 69–167; BP diastolic 45–100; PULSE 75–113; RESP 14–95; TEMP 36.1–36.7; O2SAT 91–97; BMI 23.9
[2024-12-29] MEDS: CEFEPIME INJ 2 GM in SODIUM CHLORIDE 0.9% (Popper) 50 ML IV (05:59)
[2024-12-29 06:00] LABS: Basophils # (Auto) 0.1 Thou/mm3 (0.0-0.2); Basophils % (Auto) 0 % (0-2.5); Eosinophils % (Auto) 0 % (0-10); Hematocrit 36.1 % (36.0-46.0); Hemoglobin 13.1 g/dL (12.0-16.0); Immature Granulocytes % (Auto) 2 % (0-0); Immature Granulocytes Auto 0.42 Thou/mm3 (0.00-0.00); Lymphocytes # (Auto) 1.5 Thou/mm3 (1.0-4.8); Lymphocytes % (Auto) 7 % (10-50); Mean Corpuscular HGB Conc 36.3 g/dl (31.0-37.0); Mean Corpuscular Hemoglobin 31.1 pg (25.0-35.0); Mean Corpuscular Volume 86 fL (80-100); Monocytes % (Auto) 5 % (0-12); Neutrophils % (Auto) 87 % (37-80); Nucleated Red Blood Cell % 0 /100 WBC (0); Platelet Count 248 Thou/mm3 (140-440); RDW Standard Deviation 40.6 fL (36.4-46.3); Red Blood Count 4.21 Miln/mm3 (4.00-5.20); White Blood Count 23.1 Thou/mm3 (3.6-11.0)
[2024-12-29] MEDS: MIDODRINE 5 MG TABLET 10 MG PO ×3 (06:00→17:56)
[2024-12-29] MEDS: HEPARIN SOD INJ 5000 UNIT/ML VIAL SC ×3 (06:00→21:37)
[2024-12-29] MEDS: LEVOTHYROXINE SODIUM 125 MCG, LEVOTHYROXINE SODIUM 25 MCG 150 MCG PO (06:01)
[2024-12-29 06:22] LABS: Alanine Aminotransferase 29 U/L (10-49); Albumin, Serum 2.9 gm/dL (3.4-4.8); Albumin/Globulin Ratio 1.3 (1.2-2.2); Alkaline Phosphatase 111 U/L (46-116); Anion Gap 13 (7-16); BUN/Creatinine Ratio 40 Ratio (12-20); Bilirubin,Total 0.4 mg/dL (0.3-1.2); Blood Urea Nitrogen 8 mg/dL (9-23); Calcium 7.8 mg/dL (8.3-10.6); Calcium (Corrected) 8.7 mg/dL (8.5-10.1); Carbon Dioxide 21.4 mMol/L (20.0-31.0); Chloride 95 mMol/L (98-107); Creatinine (Component) 0.2 mg/dL (0.6-1.3); Estimated Creatinine Clearance 217.3 mL/min (>60); Globulin 2.2 gm/dL (2.3-3.5); Glucose 113 mg/dL (74-106); Magnesium 1.3 mg/dL (1.6-2.6); Osmolality,Calculated 258 (275-295); Potassium 2.9 mMol/L (3.4-5.1); Sodium 129 mMol/L (136-145); Total Protein 5.1 gm/dL (5.7-8.2); eGFR > 60 See Note
[2024-12-29] MEDS: Magnesium Sulfate 4 GM Ivpb 4 GM/50 ML BAG IV (08:11)
[2024-12-29] MEDS: POTASSIUM CHLORIDE 10% 20 MEQ/15 ML UDC 40 MEQ GT (08:11)
[2024-12-29] MEDS: POTASSIUM CHLORIDE 20 mEq TABCR 40 MEQ PO (08:11)
[2024-12-29] MEDS: POTASSIUM CHL 10 mEq IVPB 10 MEQ/100 ML BAG 100 MEQ IV (08:12)
--- NOTE | 2024-12-29 08:53 | PD.RESCONSUL ---
HPI Data of Consult Consult date: 12/29/24 Requesting Physician: Ifrah Wick MD Admitting Provider: Rey Sands MD Attending Provider: Ifrah Wick MD Primary Care Provider: Physician No Primary/Family Consult Narrative Reason for consult: Hyponatremia History of present illness: Chart review done Ms. Cuevas is a 64 y/o female with PMHx of thyroid cancer, HTN, hypothyroidism, depression, non-insulin dependent type two DM, and sciatica who comes in from intermediate for evaluation of altered mental status, dyspnea. Patient has started experiencing diaphoresis and vomiting while in the intermediate, and was hesitant on coming into the hospital. Patient began to desaturate at the facility and also began hypotensive and was brought to the emergency room for further evaluation. At this time she is doing much better, off Levophed. She says she has had thyroid disease for a long time. She was unaware of having low sodium levels chronically. She has been dealing with what it seems to be sciatica for many years now. She also feels weak at this time as well. She denies taking any water pills. She states she has been taking Zoloft for years now. Does not see a heart doctor. No other complaints this time. ED course: Patient came to the ED with a blood pressure 57/40, pulse of 121, oxygen saturation on 90% 2 L nasal cannula. Patient was worked up was found to have a white count of 25, sodium 129, chloride 94, GFR 46, glucose 166, osmolarity 265, lactate 5.4, magnesium 1.3, troponin 0.142, CRP 9.9, Pro-Jam 42, TSH 22.72, free T41.81. Urinalysis showed +1 bacteria, 476 white cells, +1 protein and blood. ABG showed pH of 7.35, [id number], PO2 of 65. EKG showed sinus tachycardia. Patient was given 2 L normal saline, Zofran x 1, Solu-Medrol 125. Levophed was started as patient was not fluid responsive for pressures. Sepsis alert was initiated and was started on broad-spectrum cefepime and vancomycin. ICU was consulted and patient was made to the floors. Past medical history: As above Surgical history: Unknown Meds: Synthroid, Zoloft, metformin Allergies: Codeine gives some delusions Family history: Family history significant for diabetes, however no stroke, heart attack. Social history: Lives with daughter. Has a couple of kids. Has never been a heavy drinker, no smoking history, no history of oral or IV drug use. cc:: cc: Ifrah Wick MD Review of Systems Review of Systems Narrative Review of Systems: 12 point ROS was reviewed and is otherwise negative unless stated directly in HPI. Exam Vital Signs Temp Pulse Resp BP Pulse Ox O2 Del Method O2 Flow Rate 98.0 F 84 20 103/68 95 Room Air 1 12/29/24 04:00 12/29/24 07:06 12/29/24 07:06 12/29/24 06:30 12/29/24 06:30 12/28/24 07:30 12/27/24 18:12 Narrative Exam General: AAOx3, NAD, weak looking female, [id number] seen in ICU HEENT: Moist mucous membranes, conjunctiva clear, EOMI, PERRLA, Cardiovascular: S1, S2, radial pulses +2 bilat, RRR Pulmonary: CTAB bilat no cough, no wheezing GI: No tenderness to light or deep palpitation, no guarding, rigidity, rebound tenderness or distension Extremities: Trace edema in lower extremities bilaterally, dorsalis pedis pulses +2 bilaterally, weak musculature Skin: SK present on chest and back Neuro: AAOx3, patient has significant weakness in the lower extremities Psych: Cooperative Results Labs 12/29/24 04:38 12/29/24 04:38 Labs: Short CBC 12/29/24 Range/Units 04:38 WBC 23.1 H D (3.6-11.0) Thou/mm3 Hgb 13.1 (12.0-16.0) g/dL Hct 36.1 (36.0-46.0) % Plt Count 248 (140-440) Thou/mm3 BMP 12/28/24 12/29/24 10:10 04:38 Sodium 129 L 129 L Potassium 3.6 2.9 L D Chloride 100 95 L Carbon Dioxide 16.3 L 21.4 BUN 15 8 L Creatinine 0.4 L 0.2 L Glucose 159 H 113 H Calcium 8.0 L 7.8 L Cardiac Enzymes 12/28/24 Range/Units 10:10 Troponin I 0.097 H* (0.0-0.045) ng/mL Liver Function 12/29/24 Range/Units 04:38 Total Bilirubin 0.4 (0.3-1.2) mg/dL ALT 29 (10-49) U/L Alkaline Phosphatase 111 (46-116) U/L Albumin 2.9 L (3.4-4.8) gm/dL ABG Interpretation ABG results: 12/27/24 02:14 ABG pH 7.35 ABG pCO2 31 L ABG pO2 65 L ABG HCO3 17 L ABG O2 Saturation 91 ABG Base Excess -7 L Quality Measures Quality Measures VTE prophylaxis (Heparin subcutaneously) Medications Home Medications and Allergies Home Medications ?Medication ?Instructions ?Recorded ?Confirmed ?Type atenolol 50 mg tablet 50 mg PO QDAY 05/09/19 12/27/24 History metformin 500 mg tablet 500 mg PO DAILY 05/09/19 12/27/24 History naproxen 500 mg tablet 500 mg PO DAILY 05/09/19 12/27/24 History omeprazole 20 mg tablet,delayed 20 mg PO QDAY 05/09/19 12/27/24 History release sertraline 50 mg tablet 100 mg PO QDAY 05/09/19 12/27/24 History cetirizine 10 mg tablet 10 mg PO QDAY 10/04/24 12/27/24 History pravastatin 20 mg tablet 20 mg PO HS 10/04/24 12/27/24 History tramadol 50 mg tablet 50 mg PO Q8H PRN pain 10/04/24 12/27/24 History Held on 10/09/24. Instructions: hold until follow up with PCP cranberry fruit 450 mg tablet 450 mg PO QDAY 12/27/24 12/27/24 History (cranberry) magnesium oxide 400 mg PO BID 12/27/24 12/27/24 History Allergies Allergy/AdvReac Type Severity Reaction Status Date / Time codeine Allergy Severe DELUSIONS Verified 07/16/24 16:40 Visit Medications Acetaminophen (Acetaminophen 325 Mg Tablet) 650 mg PO Q6H PRN PRN Reason: Fever >101.5 Stop: 01/26/25 04:36 Acetaminophen (Acetaminophen 325 Mg Tablet) 650 mg PO Q6H PRN PRN Reason: PAIN SCALE 1-3 (mild Stop: 01/26/25 04:36 Last Admin: 12/27/24 13:43 Dose: 650 mg Dextrose (Dextrose 50%-Water Inj 50 Ml Syringe) 25 ml IV Q15MIN PRN PRN Reason: BG 50-70 responsive npo pt Stop: 01/26/25 04:43 Dextrose (Dextrose 50%-Water Inj 50 Ml Syringe) 50 ml IV Q15MIN PRN PRN Reason: BG <50 OR BG <70 & pt unresponsive Stop: 01/26/25 04:43 Gabapentin (Gabapentin 100 Mg Capsule) 100 mg PO TID PRN PRN Reason: leg pain Stop: 01/26/25 16:29 Last Admin: 12/27/24 16:29 Dose: 100 mg Glucagon (Glucagon Inj 1 Mg Vial) 1 mg IM Q15MIN PRN PRN Reason: BG <70, and no IV access Heparin Sodium (Porcine) (Heparin Sod Inj 5000 Unit/Ml Vial) 5,000 unit SC Q8HR [facility] Stop: 01/10/25 05:59 Last Admin: 12/29/24 06:00 Dose: 5,000 unit Norepinephrine Bitartrate (Levophed In Ns 16mg/250ml) 16 mg in 250 mls @ 2.636 mls/hr IV .Q24H PRN; Protocol PRN Reason: PER PROTOCOL Stop: 01/26/25 00:56 Last Titration: 12/29/24 06:00 Dose: 0.03 mcg/kg/min, 1.582 mls/hr Cefepime HCl 2 gm/ Sodium (Chloride) 50 mls @ 100 mls/hr IV Q8HR [facility] Stop: 01/03/25 09:59 Last Admin: 12/29/24 05:59 Dose: 100 mls/hr Vancomycin HCl/Dextrose (Vancomycin/D5w 1,250 Mg Ivpb) 250 mls @ 120 mls/hr IV Q12H [facility]; Protocol Stop: 01/04/25 09:59 Last Admin: 12/28/24 22:05 Dose: 120 mls/hr Magnesium Sulfate (Magnesium Sulfate Ivpb) 4 gm in 50 mls @ 12.5 mls/hr IV X1 ONE Stop: 12/29/24 11:24 Last Admin: 12/29/24 08:11 Dose: 12.5 mls/hr Potassium Chloride (Kcl Ivpb) 10 meq in 100 mls @ 100 mls/hr IV Q1H [facility] Stop: 12/29/24 09:26 Last Admin: 12/29/24 08:12 Dose: 100 mls/hr Insulin Human Lispro (Insulin Lispro (Admelog) 1 Unit/0.01 Ml Unit) 0 unit SC AC [facility]; Protocol Stop: 01/26/25 07:29 Last Admin: 12/29/24 08:12 Dose: Not Given Levothyroxine Sodium 125 mcg/ (Levothyroxine Sodium 25 mcg) 150 mcg PO ACBR [facility] Stop: 01/26/25 07:14 Last Admin: 12/29/24 06:01 Dose: 150 mcg Midodrine (Midodrine 5 Mg Tablet) 10 mg PO TID [facility] Stop: 01/27/25 14:59 Last Admin: 12/29/24 06:00 Dose: 10 mg Ondansetron HCl (Ondansetron Inj 2 Mg/Ml Inj 2 Ml) 4 mg IVP Q6H PRN; Protocol PRN Reason: NAUSEA OR VOMITING Stop: 01/26/25 04:36 Last Admin: 12/28/24 22:26 Dose: 4 mg Pharmacy Consult (Vancomycin Pharmacy To Dose 1 Each Each) 1 each IV QDAY PRN PRN Reason: CONSULT Stop: 01/26/25 08:59 Sennosides (Senna Tablet) 1 tab PO QDAY PRN; Protocol PRN Reason: constipation Stop: 01/26/25 04:36 Tramadol HCl (Tramadol Hcl 50 Mg Tablet) 50 mg PO Q8HR PRN PRN Reason: PAIN SCALE 4-10(Mod-Sev Stop: 01/01/25 17:24 Last Admin: 12/28/24 20:52 Dose: 50 mg Discontinued Medications Albuterol/Ipratropium (Albuterol/Ipratropium (Duoneb) Rt Randee 3 Ml Nebu) 3 ml INH X1 ONE Stop: 12/27/24 00:55 Last Admin: 12/27/24 02:15 Dose: 3 ml Epinephrine HCl (Epinephrine Inj 0.1 Mg/Ml Syringe 10ml) 2 mg IVP X1 ONE Stop: 12/28/24 07:11 Last Admin: 12/28/24 08:51 Dose: Not Given Sodium Chloride (Ns) 1,000 mls @ 999 mls/hr IV .Q1H1M ONE Stop: 12/27/24 01:51 Last Infusion: 12/27/24 02:02 Dose: Infused Cefepime HCl 1 gm/ Sodium (Chloride) 50 mls @ 100 mls/hr IV X1 ONE Stop: 12/27/24 01:52 Last Infusion: 12/27/24 02:37 Dose: Infused Vancomycin HCl 1,000 mg/ (Sodium Chloride) 500 mls @ 150 mls/hr IV X1 ONE Stop: 12/27/24 04:42 Last Infusion: 12/27/24 07:00 Dose: Infused Sodium Chloride (Ns) 1,000 mls @ 999 mls/hr IV .Q1H1M ONE Stop: 12/27/24 02:23 Last Infusion: 12/27/24 02:54 Dose: Infused Acetaminophen (Ofirmev Inj) 1,000 mg in 100 mls @ 250 mls/hr IV X1 ONE Stop: 12/27/24 01:56 Last Infusion: 12/27/24 02:54 Dose: Infused Magnesium Sulfate (Magnesium Sulfate Ivpb) 4 gm in 50 mls @ 12.5 mls/hr IV X1 ONE Stop: 12/27/24 06:45 Last Infusion: 12/27/24 07:08 Dose: Infused Vancomycin/Sodium Chloride (Vancomycin/Ns 1 Gm Ivpb) 200 mls @ 120 mls/hr IV QDAY@2200 [facility] Stop: 01/03/25 21:59 Last Infusion: 12/27/24 23:00 Dose: Infused Lactated Ringer's (Lactated Ringers) 500 mls @ 999 mls/hr IV .Q31M ONE Stop: 12/27/24 08:58 Last Infusion: 12/28/24 00:42 Dose: Infused Potassium Chloride (Kcl Ivpb) 10 meq in 100 mls @ 100 mls/hr IV Q1H ONE Stop: 12/27/24 15:05 Last Admin: 12/27/24 14:48 Dose: Not Given Magnesium Sulfate (Magnesium Sulfate Ivpb) 4 gm in 50 mls @ 12.5 mls/hr IV X1 ONE Stop: 12/27/24 18:06 Last Infusion: 12/28/24 00:41 Dose: Infused Potassium Chloride (Kcl Ivpb) 10 meq in 100 mls @ 100 mls/hr IV Q1H [facility] Stop: 12/28/24 15:12 Last Admin: 12/28/24 18:37 Dose: 50 mls/hr Lactated Ringer's (Lactated Ringers) 500 mls @ 999 mls/hr IV .Q31M ONE Stop: 12/28/24 11:48 Last Admin: 12/28/24 11:29 Dose: 999 mls/hr Magnesium Sulfate/Dextrose (Magnesium Sulfate Ivpb) 1 gm in 100 mls @ 100 mls/hr IV X1 ONE Stop: 12/28/24 12:28 Last Admin: 12/28/24 11:38 Dose: 100 mls/hr Sodium Chloride (Ns) 500 mls @ 999 mls/hr IV .Q31M ONE Stop: 12/28/24 14:29 Last Admin: 12/28/24 14:03 Dose: 999 mls/hr Ketorolac Tromethamine (Ketorolac Inj 30 Mg/Ml Vial) 9 mg IVP X1 ONE Stop: 12/27/24 01:34 Last Admin: 12/27/24 02:08 Dose: 9 mg Levothyroxine Sodium (Levothyroxine Sodium 125 Mcg Tablet) 150 mcg PO QDAY [facility] Stop: 01/26/25 07:59 Methylprednisolone Sodium Succinate (Methylprednisolone Sod Succ 62.5 Mg/Ml 2ml Vial) 125 mg IVP X1 ONE Stop: 12/27/24 00:55 Last Admin: 12/27/24 01:36 Dose: 125 mg Ondansetron HCl (Ondansetron Inj 2 Mg/Ml Inj 2 Ml) 4 mg IVP X1 ONE; Protocol Stop: 12/27/24 00:52 Last Admin: 12/27/24 01:40 Dose: 4 mg Potassium Chloride (Potassium Chloride 20 Meq Tabcr) 40 meq PO X1 ONE Stop: 12/27/24 14:05 Last Admin: 12/27/24 14:12 Dose: 40 meq Potassium Chloride (Potassium Chloride 10% 20 Meq/15 Ml Udc) 40 meq GT X1 ONE Stop: 12/29/24 07:25 Last Admin: 12/29/24 08:11 Dose: 40 meq Potassium Chloride (Potassium Chloride 20 Meq Tabcr) 40 meq PO X1 ONE Stop: 12/29/24 07:25 Last Admin: 12/29/24 08:11 Dose: 40 meq Assessment & Plan Plan Assessment Ms Zaidi is a Greek-speaking 64-year-old female with history of Thyroid cancer, hypertension, hypothyroidism, depression, diabetes mellitus, and sciatica who presented to the ED with concerns of vomiting and fever, found to be hypotensive likely secondary to hypovolemia and/or infection, started on levophed and admitted to ICU for further management. #Chronic hypoosmolar hyponatremia, improving #Hypokalemia #Hypomagnesiemia DDx: Dehydration, underlying SIADH, hypothyroidisim Dating back to 2019 Sodium today 129--corrected with IV fluids and p.o. intake Was initially hypovolemic, which is now improving --did receive fluid boluses. Urine Sodium is below 15, which wouldn't in theory support SIADH as Urine sodium would be elevated Pt seems to have underlying thyroid disease that is not controlled which can affect renal perfusion and thus affect reabsorption of lytes Uncontrolled hypothyroidism can lead to increased ADH levels which could be responsible for her hyponatremia as she has chronic uncontrolled hypothyroidism K+ 2.9; Mg 1.3 Plan: ? Encourage oral intake ? Treat thyroid disease, consider checking free T4 in a couple of days ? Trend with CMP ? Correct electrolyte abnormalities as needed #Chronic back pain #Depression #LE weakness #SVT x 3 seconds #Protein-calorie malnutrition #Loss of appetite #Protein-calorie malnutrition #Hypoosmolar hyponatremia, chronic #HECTOR, resolved #Hematuria, resolved #Leukocytosis #T2DM #Hypothyroidism #Hx of Thyroid CA s/p LT thyroid lobectomy 20 years ago #RT adrenal lesion, incidental #Shock, likely septic from UTI and hypovolemic component Above handled by primary team Patient seen and care discussed with my attending physician, Dr. Khadijah Pop, PGY-1 Attending Provider Attestation/Addendum Patient seen and examined with resident physician Dr. Douglas. Note reviewed, agree with findings and recommendations. Patient admitted with altered mental status, significant lower extremity weakness. MRI did not show any strokes. Neurology was consulted for lower extremity weakness. Patient presented with hyponatremia. Did respond to fluid boluses. Sodium today is 129. Encouraged her to drink p.o. fluids. Plan of care discussed with ICU team. 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 Clinically looks rather euvolemic now. Noted that midodrine was ordered and the Levophed was turned off. Thank you Ifrah for allowing me to participate in the care of Ms. Zaidi
--- NOTE | 2024-12-29 09:11 | PD.INTPROG ---
Documentation for date of: 12/29/24 Subjective Subjective Interval history: This is a 64-year-old female who presented to the ER overnight for altered mentation and shortness of breath. The patient was found to be hypotensive with a positive UA. She received 2 L of IV fluids and was still hypotensive therefore she was started on vasopressors. She was admitted to the ICU. The patient is currently awake alert and mentating. She has a good urinary output. Hemodynamics have been evaluated with a Cheetah device and she is found to be fluid responsive and given additional volume. Currently she has no complaints and denies any shortness of breath or any pain. She is mildly tachycardic but afebrile. 12/28-no acute overnight events, patient has intermittent pain in her back and her lower extremities which she is receiving gabapentin and tramadol for. She is afebrile. Good urinary output. Decreasing nor epi requirements. This morning she was nauseated and diaphoretic at which point in time she also had arrhythmia on the monitor 12/29- no acute overnight events, good UOP, afebrile, decreasing levo needs, awake and without complaints Critical Care Note Critical care time (min.): 42 Exam Vital Signs Temp Pulse Resp BP Pulse Ox O2 Del Method O2 Flow Rate 98.0 F 84 20 103/68 95 Room Air 1 12/29/24 04:00 12/29/24 07:06 12/29/24 07:06 12/29/24 06:30 12/29/24 06:30 12/28/24 07:30 12/27/24 18:12 Narrative Exam Gen- NAD, AAOx4, nl body habitus HEENT- NC/AT, mucosa hydrated, sclera anicteric, EOMI Chest- LCTAB, HRRR, no increase in WOB Abd- s/nt/bs+ Ext- min edema, pulses palp, no clubbing, no mottling, inability to move LE Drips levo 0.01mcg/kg/min Physical Exam Completion Physical Exam Complete?: Yes Objective - Director Of Perioperative Services Labs 12/29/24 04:38 12/29/24 04:38 Labs: Laboratory Results - last 24 hr 12/28/24 12/28/24 12/29/24 10:10 20:44 04:38 WBC 23.1 H D RBC 4.21 Hgb 13.1 Hct 36.1 MCV 86 MCH 31.1 MCHC 36.3 RDW Std Deviation 40.6 Plt Count 248 Neut % (Auto) 87 H Lymph % (Auto) 7 L [place] % (Auto) 5 Eos % (Auto) 0 Baso % (Auto) 0 Neut # (Auto) 20.0 H Lymph # (Auto) 1.5 [place] # (Auto) 1.0 H Eos # (Auto) 0.0 Baso # (Auto) 0.1 Immature Gran # (Auto) 0.42 H Absolute Nucleated RBC 0.00 Immature Gran % 2 H Nucleated RBC % 0 Sodium 129 L 129 L Potassium 3.6 2.9 L D Chloride 100 95 L Carbon Dioxide 16.3 L 21.4 Anion Gap 13 13 BUN 15 8 L Creatinine 0.4 L 0.2 L Estim Creat Clear Calc 108.6 217.3 eGFR > 60 > 60 BUN/Creatinine Ratio 38 H 40 H Glucose 159 H 113 H Calculated Osmolality 262 L 258 L Lactic Acid 1.5 Calcium 8.0 L 7.8 L Corrected Calcium 8.7 Magnesium 1.3 L Total Bilirubin 0.4 ALT 29 Alkaline Phosphatase 111 Troponin I 0.097 H* Total Protein 5.1 L Albumin 2.9 L Globulin 2.2 L Albumin/Globulin Ratio 1.3 Vancomycin Trough 12.4 H Assessment & Plan Additional Plan Additional Plan: In summary this is 64-year-old female admitted to the ICU for septic shock Assessment and plan 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 related to pts hypothyroidism v sertraline - slight increase in 128 today - once stable should trial different antidepressant - nephrology consulted and recs appreciated HypoMg- replete IV HypoK- replete PO [place] acidosis- HCO3 improved today GI Hypoalbuminemia- eval with nutrition check urine protein/cr ratio to eval for losses Endo DM- SSI - hold metformin while inhouse Hypothyroid- cont current dose - TSH elevated wtih free T4 - fu with endocrine in 6 weeks Adrenal lesion - noted on CT - needs additional workup once out of ICU Heme Leukocytosis- ? reactive - trending back down today - stable DVT proph- on lovenox ID UTI- UA compatible with UTI - on abx - cx growing GPC-> resulted out as enterococcus which is sensitive - given vanc - MRSA swab still pending Sepsis- meets criteria for SIRS with source being urine case d/w ICU team and nephrology labs,imaging, records reviewed ~42cmin required for eval, exam, review, intervention, discussion, formulation of POC for this critically ill pt with septic shock at high risk for further and ongoing decompensation Provider Notation Provider Notation: Although this document has been carefully reviewed, there may still be some phonetic and other typographical errors. These errors are purely grammatical due to imperfections in the software program and should not be construed in any way to compromise the substance of the patient's medical care during this visit. Thank you for the opportunity and privilege in assisting you with this patient's care and management.
[2024-12-29] MEDS: POTASSIUM CHL 10 mEq IVPB 10 MEQ/100 ML BAG 50 MEQ IV (10:32)
--- NOTE | 2024-12-29 11:29 | PD.RESPRO ---
Documentation for date of: 12/29/24 Subjective Subjective Interval history: Ms Zaidi is a Swedish-speaking 64-year-old female with history of thyroid cancer, hypertension, hypothyroidism, depression, diabetes mellitus, and sciatica who presented to the ED on 12/27/2024 with her daughter Flor from halfway with concerns of altered mentation, shortness of breath, and low blood pressure. In the facility, patient was noted to have oxygen desaturation to the 80s as well as systolic blood pressure 82, was brought into the emergency department for further evaluation. Patient has been mostly bed-bound at SNF over the last 3 months, she endorses b/l lower extremity weakness and loss of appetite. Patient does have a stout catheter in place at her nursing facility, patients daughter reports it has recently been removed. Vitals in the ED: BP 57/40, pulse 121, O2 90 on 2L nasal cannula. Labs: WBC 25.2, PT 13.0, D-dimer 1200, sodium 129, calculated osmolality 265, TSH 22.72, free T41.81, lactic acid 5.4, magnesium 1.3, troponin 0.142, CRP 9.9 and procalcitonin 42.53. Other labs were ABG: pH7.35, PCO2 31, PO2 65, HCO3 17 ; UA: 1+ protein, 2+ blood, RBC 52, WBC 476, urine bacteria 1+. EKG: Sinus tachycardia. Patient was treated with 2L NS fluids, Zofran 4 Mg, methylprednisone 125 Mg, Levophed started. Sepsis alert initiated, cefepime and vancomycin initiated. ICU team consulted for admission, patient will be admitted to ICU for further management of shock secondary to sepsis and/or hypovolemia. 12/27/2024: Certified longwall shearer operator was used (ID: [id number]). Patient was seen and examined at bedside this AM. No acute events overnight. Patient tolerating diet, adequate urine output and mentation is at baseline. Stout has orangish tinged urine. Patient denies any discomfort at this time. Currently on Levophed gtt @ 0.05 mcg/h for low MAP 40-50s intermittently. NiCom testing showed fluid responsiveness, with >10% increase in SV and SVI. She ednorses having a low appetite and LE weakness x 2-3 months. Oxygen saturations 94-96% on 2L via NC, no shortness of breath. 12/28/2024: Nurse present for translation. Patient was seen and examined at bedside this AM. Overnight, patient had 1.18 L of urine output, hematuria has resolved. Patient tolerating diet, endorses low appetite. Mentation is at baseline and she was more responsive to questions today. BP trending 90s systolic, will continue to try to wean off of vasopressor, MAP fluctuating, Levophed remains at 0.05 - 0.07 mcg/h. Will hold off on fluids for now even though atient is fluid responsive. Per mission assessment specialist, patient unlikely to benefit from IVF in sepsis and levophed remains necessary. 12/29/2024: Levophed was weaned off from 0.05mcg -> 0.03 -> 0.01mcg/h, when turned off of levophed, MAP dropped to <60. Leg and back pain is well controlled with Tramadol PRN. MRI of lumbar spine did not show any acte changes, L5-L5 disc buldge but minimal compression. Unlikely to explain the LE weakness. Nurology consulted for further recommendations. Na improved with IVf and diet. Nephrology following, appreciate recommendations. She is tolerating oral intake, however eating <50% of her meals. Restaurant Area Manager recs appreciated as well. Started Midodrine q6H. Aim to titrate off of Levophed and downgrade today if MAP holding >60 with Midodrine q6H. Exam Vital Signs Temp Pulse Resp BP Pulse Ox O2 Del Method O2 Flow Rate 96.9 F 80 25 H 120/68 94 L Room Air 1 12/29/24 08:00 12/29/24 10:15 12/29/24 10:15 12/29/24 10:15 12/29/24 10:15 12/29/24 08:00 12/27/24 18:12 Narrative Exam Constitutional Alert, oriented x3 and comfortable. GCS 15 HEENT Vision grossly intact. Patent nares. Trachea midline. On 2L via NC Respiratory On inspection: seborrhaeic keratosis single lesion on anterior upper chest, clear to auscultation bilaterally. Cardiovascular S1 and S2 audible, RRR. No murmurs or carotid bruit. No gross JVD. Abdominal Soft and BS + ; non tender to palpation in all quadrants. Genitourinary No bladder tenderness, no flank pain. Normal to palpation. Stout: clean urine ouput Musculoskeletal Extremities tone within normal limits. No LE edema. Neurological CN II - XII grossly intact. Extremity motor and sensation grossly intact. Lower extremity strength 1/5. Upper extremity strength 5/5. Skin Warm, dry and intact. No apparent lesions. B/L pIVs Psychiatric Patient has a good affect, is cooperative. Objective Labs 12/29/24 04:38 12/29/24 04:38 Labs: Laboratory Results - last 24 hr 12/28/24 12/28/24 12/29/24 10:10 20:44 04:38 WBC 23.1 H D RBC 4.21 Hgb 13.1 Hct 36.1 MCV 86 MCH 31.1 MCHC 36.3 RDW Std Deviation 40.6 Plt Count 248 Neut % (Auto) 87 H Lymph % (Auto) 7 L [place] % (Auto) 5 Eos % (Auto) 0 Baso % (Auto) 0 Neut # (Auto) 20.0 H Lymph # (Auto) 1.5 [place] # (Auto) 1.0 H Eos # (Auto) 0.0 Baso # (Auto) 0.1 Immature Gran # (Auto) 0.42 H Absolute Nucleated RBC 0.00 Immature Gran % 2 H Nucleated RBC % 0 Sodium 129 L 129 L Potassium 3.6 2.9 L D Chloride 100 95 L Carbon Dioxide 16.3 L 21.4 Anion Gap 13 13 BUN 15 8 L Creatinine 0.4 L 0.2 L Estim Creat Clear Calc 108.6 217.3 eGFR > 60 > 60 BUN/Creatinine Ratio 38 H 40 H Glucose 159 H 113 H Calculated Osmolality 262 L 258 L Calcium 8.0 L 7.8 L Corrected Calcium 8.7 Magnesium 1.3 L Total Bilirubin 0.4 ALT 29 Alkaline Phosphatase 111 Total Protein 5.1 L Albumin 2.9 L Globulin 2.2 L Albumin/Globulin Ratio 1.3 Vancomycin Trough 12.4 H ABG Interpretation ABG results: 12/27/24 02:14 ABG pH 7.35 ABG pCO2 31 L ABG pO2 65 L ABG HCO3 17 L ABG O2 Saturation 91 ABG Base Excess -7 L Quality Measures Quality Measures VTE prophylaxis (Heparin subcutaneously) Assessment & Plan Assessment Current Active Medications: Generic Name Dose Route Start Last Admin Trade Name Freq PRN Reason Stop Dose Admin Acetaminophen 650 mg 12/27/24 04:37 Acetaminophen 325 Mg Tablet PO 01/26/25 04:36 Q6H PRN Fever >101.5 Acetaminophen 650 mg 12/27/24 04:37 12/27/24 13:43 Acetaminophen 325 Mg Tablet PO 01/26/25 04:36 650 mg Q6H PRN Administration PAIN SCALE 1-3 (mild Dextrose 25 ml 12/27/24 04:44 Dextrose 50%-Water Inj 50 Ml Syringe IV 01/26/25 04:43 Q15MIN PRN BG 50-70 responsive npo pt Dextrose 50 ml 12/27/24 04:44 Dextrose 50%-Water Inj 50 Ml Syringe IV 01/26/25 04:43 Q15MIN PRN BG <50 OR BG <70 & pt unresponsive Gabapentin 100 mg 12/27/24 16:21 12/27/24 16:29 Gabapentin 100 Mg Capsule PO 01/26/25 16:29 100 mg TID PRN Administration leg pain Glucagon 1 mg 12/27/24 04:44 Glucagon Inj 1 Mg Vial IM Q15MIN PRN BG <70, and no IV access Heparin Sodium (Porcine) 5,000 unit 12/27/24 06:00 12/29/24 06:00 Heparin Sod Inj 5000 Unit/Ml Vial SC 01/10/25 05:59 5,000 unit Q8HR [facility] Administration Norepinephrine Bitartrate 16 mg in 250 mls @ 2.636 mls/hr 12/27/24 00:57 12/29/24 10:31 Levophed In Ns 16mg/250ml IV 01/26/25 00:56 0.05 mcg/kg/min .Q24H PRN 2.636 mls/hr PER PROTOCOL Titration Protocol 0.05 MCG/KG/MIN Ampicillin Sodium 2,000 mg/ 100 mls @ 200 mls/hr 12/29/24 12:00 Sodium Chloride IV 01/05/25 11:59 Q6HR [facility] Insulin Human Lispro 0 unit 12/27/24 07:30 12/29/24 08:12 Insulin Lispro (Admelog) 1 Unit/0.01 Ml Unit SC 01/26/25 07:29 Not Given AC [facility] Protocol Levothyroxine Sodium 125 mcg/ 150 mcg 12/27/24 07:15 12/29/24 06:01 Levothyroxine Sodium 25 mcg PO 01/26/25 07:14 150 mcg ACBR [facility] Administration Midodrine 10 mg 12/29/24 12:00 Midodrine 5 Mg Tablet PO 01/28/25 11:59 Q6HR [facility] Mirtazapine 15 mg 12/29/24 11:00 Mirtazapine 15 Mg Tablet PO 01/28/25 10:59 QDAY [facility] Ondansetron HCl 4 mg 12/27/24 04:37 12/28/24 22:26 Ondansetron Inj 2 Mg/Ml Inj 2 Ml IVP 01/26/25 04:36 4 mg Q6H PRN Administration NAUSEA OR VOMITING Protocol Sennosides 1 tab 12/27/24 04:37 Senna Tablet PO 01/26/25 04:36 QDAY PRN constipation Protocol Tramadol HCl 50 mg 12/27/24 17:25 12/28/24 20:52 Tramadol Hcl 50 Mg Tablet PO 01/01/25 17:24 50 mg Q8HR PRN Administration PAIN SCALE 4-10(Mod-Sev Plan Ms Zaidi is a Swedish-speaking 64-year-old female with history of Thyroid cancer, hypertension, hypothyroidism, depression, diabetes mellitus, and sciatica who presented to the ED with concerns of vomiting and fever, found to be hypotensive likely secondary to hypovolemia and/or infection, started on levophed and admitted to ICU for further management. Neurological Chronic back pain Depression LE weakness Dx: Chronic lumbo-sacral issues. Worsening B/L LE weakness over the last 2-3 months. Unable to bear weight and walk with a walker since 2 months 12/28: MRI lumbar spine ordered to evaluate for cord compression 12/29: MRI of lumbar spine did not show any acte changes, L5-L5 disc buldge but minimal compression Rx: - As needed tramadol 50mg for lower back pain - PRN Gabapentin for back up - Consider Lidocaine patch if worsening pain - MRI figueroa snot explain acute LE weakness. Neurology consulted for further reocmmendations. Cardiovascular Shock, hypovolemic and/or septic from UTI Dx: BP 57/40 with pulse 121bpm. Labs : WBC 25.2, Lactic acid 5.4, CRP 9.9, procal 42.53 POCUS cardiac exam revealed pericardial effusion with IVC 0.8cm, hyperdynamic movements without evidence of right heart strain. EKG evaluated by cardiology, acute IL unlikely. 12/27: NICOM shows fluid responsiveness, >10% change in SV and SVI. 12/28: urine cultures: GPC + 12/29: Blood cultures -ve at 48 hours. Rx: - Received 4.7 L IVF since admission - IV levophed started with MAP goal >65, wean as tolerated - Keep K >4 and Mg >2 - IV Vancomycin and Cefepime discontinued --> IV Ampicillin 2g q6H (12/29 - SVT x 3 seconds Type II demand ischemia, Troponin: 0.142 --> 0.094 Respiratory No active problems. Gastrointestinal Protein-calorie malnutrition Loss of appetite Protein-calorie malnutrition Dx: - Protein 5.1 and Albumin 2.9 - Body weight 57kg - significant muscle wasting - loss of subcutaneous fat - nutritional intake of <50% of recommended intake for > 2 weeks - bedridden or otherwise significantly reduced functional capacity - weight loss of >2% in 1 week Rx: Consult to emergency room registered nurse Given protein calorie malnutrition and hx of depression, patient started on Mirtazapine for added appetite stimulant effect. Renal Hypoosmolar hyponatremia, chronic Dx: 12/27: Mg 1.3, Na 129 and Osm 266, K 3.3 12/28: Na 122 --> 128 ; Urine Na <15 ; 2L IVF boluses : 500mL NS + 1.5L LR. 12/29: Na 122 -> 129 Rx: - Nephrology consulted for further recommendations - Braiding Operator recommendations to hold off on fluids to prevent possible hyperchloremic acidosis. - Sertraline at home, could be the possible etiology behind hyponatremia. Will hold inpatient. HECTOR, resolved Hematuria, resolved - Stout with gross orange tinged urine --> clear urine - Resolved HECTOR Cr 1.3 --> 0.4 (baseline Cr 0.6-0.7 and GFR >60). Rx: - Will renally dose medications and avoid nephrotoxic agents Hematology/Oncology Leukocytosis Dx: WBC 25 --> 40.7 --> 31.6 --> 23 Rx: - Urine cultures: GPC + - Continue IV antibiotics Endocrine T2DM Dx: Glucose 220 , A1c 5.1% Rx: - Start insulin sliding scale for diabetes mellitus type 2 with Accu-Checks - Target blood sugar of 140-180 while hospitalized. - hold home meds Hypothyroidism Hx of Thyroid CA s/p LT thyroid lobectomy 20 years ago Dx: TSH 22.73 and free T4 1.81 on admission, improved from previous labs in September 2024 Rx: ? Resume home levothyroxine 150 mcg daily ? Patient will benefit from dose increase to optimize treatment RT adrenal lesion, incidental Dx: CT A/P: RT adrenal lesion noted Rx: - Will order further screening and biopsy given history of Thyroid CA Infectious Disease UTI - WBC 25.2, LA 5.4, and Pro-Jam 42.53. Following stout catheter insertion, nursing reported cloudy urine - UA : leukocyte esterase +, 476 WBC, bacteria 1+ although patient denied urinary symptoms - On admission, blood pressure 46/33, pulse 106, Tmax 100.4 Fahrenheit. Sepsis alert called in the ED. - 12/28 : Urine culture : GPC + ; 2L IVF given in boluses of 1L, 500mL, 500mL - 12/29: IV Vancomycin and Cefepime were discontinued. Rx: - IV ampicillin 2g q6H (12/29 - - IV levophed for pressure support, will wean as tolerated - Urine culture sensitivity not back yet. Consider Doxycycline for urine GPC if concern for MRSA. ICU Health maintenance: Disposition: Admitted to ICU for shock (hypovolemic and/or septic from UTI) requiring vasopressor support. Diet: Carb consistent low DVT ppx: Heparin 5000 q8H SC GI ppx: Nil Mechanical ventilation: No Sedation: No IV lines: 2 pIV Central line: No Arterial line: No Stout: Yes Code status: DNR/DNI per patient and POLST form Plan of care discussed with attending Dr Wick and PGY3 Dr Brambila, Manisha Vasquez M.D. PGY2 Disclaimer: Minor errors in platform man may be present as this note was dictated using voice recognition software.
[2024-12-29] MEDS: MIRTAZAPINE 15 MG TABLET PO (11:47)
[2024-12-29] MEDS: Ampicillin Inj 2,000 MG in SODIUM CHLORIDE 0.9% (POP) 100 ML 200 MG IV ×3 (11:48→23:56)
--- NOTE | 2024-12-29 12:12 | EKG_ITS ---
[facility] Test Date: 2024-12-29 Pat Name: JOSE RAMON WATT [facility] Gender: Female Social Media Coordinator: DEBRA : 1960 Requested By: Dexter Vasquez Order Number: [id number] Reading MD: Dexter Vasquez Measurements Intervals [place] Rate: 90 P: 70 TN: 137 QRS: 64 QRSD: 94 T: 57 QT: 390 QTc: 477 Interpretive Statements SINUS RHYTHM Compared to ECG 12/27/2024 00:53:25 Sinus tachycardia no longer present Right-axis deviation no longer present ST (T wave) deviation no longer present Myocardial infarct finding no longer present /store/S0/[id number].pdf
[2024-12-29 12:55] LABS: Albumin, Serum 2.7 gm/dL (3.4-4.8); Anion Gap 10 (7-16); BUN/Creatinine Ratio 23 Ratio (12-20); Blood Urea Nitrogen 7 mg/dL (9-23); Carbon Dioxide 22.3 mMol/L (20.0-31.0); Chloride 95 mMol/L (98-107); Creatinine (Component) 0.3 mg/dL (0.6-1.3); Estimated Creatinine Clearance 156.5 mL/min (>60); Glucose 132 mg/dL (74-106); Osmolality,Calculated 255 (275-295); Phosphorous 1.7 mg/dL (2.4-5.1); Potassium 3.7 mMol/L (3.4-5.1); Sodium 127 mMol/L (136-145); eGFR > 60 See Note
[2024-12-29] MEDS: NAPH,KPH MBDB 1 PACKET (1.5 GM) 2 PACKET PO (14:30)
--- NOTE | 2024-12-29 15:48 | ESPR_ITS ---
Documentation for date of: 12/29/24 Subjective Subjective Interval history: ICU downgrade on 12/29. Initially admitted on 12/27 for shock, likely septic from UTI and required low dose of Levophed that was weaned off today and will continue with midodrine 10 mg every 6 hours. UA positive for WBC, bacteria, RBC, LE. Urine cultures grew Enterococcus faecalis, patient was initially on vancomycin and cefepime that was then switched to ampicillin on 12/29. Also noted to have elevated troponins, likely secondary to demand ischemia, cardiology following. Also noted to have chronic hypotonic hyponatremia for which nephrology is also following. Exam Vital Signs Temp Pulse Resp BP Pulse Ox O2 Del Method O2 Flow Rate 96.9 F 97 25 H 105/68 97 Room Air 1 12/29/24 08:00 12/29/24 14:15 12/29/24 14:15 12/29/24 14:15 12/29/24 14:15 12/29/24 12:00 12/27/24 18:12 Narrative Exam General: AOx3, no acute distress, able to speak full sentences HEENT: NC/AT, mucous membranes moist, bilateral sclera anicteric Cardiovascular: regular rate and rhythm, S1/S2 present, no murmurs appreciated Pulmonary: clear to auscultation bilaterally, no rales/rhonchi/wheezes Abdominal: soft, non-tender, non-distended, no rebound/guarding, normal bowel sounds present Musculoskeletal: normal ROM, no peripheral edema Skin: warm and dry, intact, no rashes Objective Labs 12/30/24 04:35 12/30/24 04:35 Labs: Laboratory Results - last 24 hr 12/28/24 12/29/24 12/29/24 20:44 04:38 12:06 WBC 23.1 H D RBC 4.21 Hgb 13.1 Hct 36.1 MCV 86 MCH 31.1 MCHC 36.3 RDW Std Deviation 40.6 Plt Count 248 Neut % (Auto) 87 H Lymph % (Auto) 7 L [place] % (Auto) 5 Eos % (Auto) 0 Baso % (Auto) 0 Neut # (Auto) 20.0 H Lymph # (Auto) 1.5 [place] # (Auto) 1.0 H Eos # (Auto) 0.0 Baso # (Auto) 0.1 Immature Gran # (Auto) 0.42 H Absolute Nucleated RBC 0.00 Immature Gran % 2 H Nucleated RBC % 0 Sodium 129 L 127 L Potassium 2.9 L D 3.7 D Chloride 95 L 95 L Carbon Dioxide 21.4 22.3 Anion Gap 13 10 BUN 8 L 7 L Creatinine 0.2 L 0.3 L Estim Creat Clear Calc 217.3 156.5 eGFR > 60 > 60 BUN/Creatinine Ratio 40 H 23 H Glucose 113 H 132 H Calculated Osmolality 258 L 255 L Calcium 7.8 L 8.0 L Corrected Calcium 8.7 9.0 Phosphorus 1.7 L Magnesium 1.3 L Total Bilirubin 0.4 ALT 29 Alkaline Phosphatase 111 Troponin I 3.800 H* D Total Protein 5.1 L Albumin 2.9 L 2.7 L Globulin 2.2 L Albumin/Globulin Ratio 1.3 Vancomycin Trough 12.4 H ABG Interpretation ABG results: 12/27/24 02:14 ABG pH 7.35 ABG pCO2 31 L ABG pO2 65 L ABG HCO3 17 L ABG O2 Saturation 91 ABG Base Excess -7 L Quality Measures Quality Measures VTE prophylaxis (Heparin subcutaneously) Assessment & Plan Assessment Current Active Medications: Generic Name Dose Route Start Last Admin Trade Name Freq PRN Reason Stop Dose Admin Acetaminophen 650 mg 12/29/24 14:26 Acetaminophen 325 Mg Tablet PO 01/26/25 04:36 Q6H PRN fever >99.9 Dextrose 25 ml 12/27/24 04:44 Dextrose 50%-Water Inj 50 Ml Syringe IV 01/26/25 04:43 Q15MIN PRN BG 50-70 responsive npo pt Dextrose 50 ml 12/27/24 04:44 Dextrose 50%-Water Inj 50 Ml Syringe IV 01/26/25 04:43 Q15MIN PRN BG <50 OR BG <70 & pt unresponsive Gabapentin 100 mg 12/27/24 16:21 12/27/24 16:29 Gabapentin 100 Mg Capsule PO 01/26/25 16:29 100 mg TID PRN Administration leg pain Glucagon 1 mg 12/27/24 04:44 Glucagon Inj 1 Mg Vial IM Q15MIN PRN BG <70, and no IV access Heparin Sodium (Porcine) 5,000 unit 12/27/24 06:00 12/29/24 14:29 Heparin Sod Inj 5000 Unit/Ml Vial SC 01/10/25 05:59 5,000 unit Q8HR [facility] Administration Norepinephrine Bitartrate 16 mg in 250 mls @ 2.636 mls/hr 12/27/24 00:57 12/29/24 11:36 Levophed In Ns 16mg/250ml IV 01/26/25 00:56 0.03 mcg/kg/min .Q24H PRN 1.582 mls/hr PER PROTOCOL Titration Protocol 0.05 MCG/KG/MIN Ampicillin Sodium 2,000 mg/ 100 mls @ 200 mls/hr 12/29/24 12:00 12/29/24 11:48 Sodium Chloride IV 01/05/25 11:59 200 mls/hr Q6HR [facility] Administration Insulin Human Lispro 0 unit 12/27/24 07:30 12/29/24 13:02 Insulin Lispro (Admelog) 1 Unit/0.01 Ml Unit SC 01/26/25 07:29 Not Given AC [facility] Protocol Levothyroxine Sodium 125 mcg/ 150 mcg 12/27/24 07:15 12/29/24 06:01 Levothyroxine Sodium 25 mcg PO 01/26/25 07:14 150 mcg ACBR [facility] Administration Midodrine 10 mg 12/29/24 12:00 12/29/24 11:47 Midodrine 5 Mg Tablet PO 01/28/25 11:59 10 mg Q6HR [facility] Administration Mirtazapine 15 mg 12/30/24 21:00 Mirtazapine 15 Mg Tablet PO 01/29/25 20:59 HS [facility] Ondansetron HCl 4 mg 12/27/24 04:37 12/28/24 22:26 Ondansetron Inj 2 Mg/Ml Inj 2 Ml IVP 01/26/25 04:36 4 mg Q6H PRN Administration NAUSEA OR VOMITING Protocol Sennosides 1 tab 12/27/24 04:37 Senna Tablet PO 01/26/25 04:36 QDAY PRN constipation Protocol Tramadol HCl 50 mg 12/27/24 17:25 12/28/24 20:52 Tramadol Hcl 50 Mg Tablet PO 01/01/25 17:24 50 mg Q8HR PRN Administration PAIN SCALE 4-10(Mod-Sev Plan Faith Zaidi is a 64-year-old female with past medical history of thyroid cancer, hypothyroidism, hypertension, type 2 diabetes mellitus, depression, and sciatica who was admitted for septic shock to the ICU on 12/27 and downgraded to floors on 12/29. #Septic shock likely secondary to UTI, resolved #Enterococcus faecalis urinary tract infection Noted to have Bennett catheter from nursing facility but was recently changed per daughter. Urinalysis showed turbid urine, 476 WBC, 152 RBC, 1+ bacteria, positive LE. Urine cultures grew Enterococcus faecalis, pansensitive. Initially on vancomycin and cefepime but now on ampicillin. ? Ampicillin 2 g IV every 6 hours (12/29-01/05) ? Midodrine 10 mg every 6 hours #NSTEMI type II/demand ischemia in setting of shock Troponin 0.14 and downtrended to 0.09 on admission but due to concerns for ST elevations on monitor, BP troponins obtained and up trended from 0.09 to 3.8. Suspect demand ischemia in setting of shock. EKG showed sinus rhythm, no ST changes or T wave abnormalities. Echo on 12/27 showed EF 65 to 70%, normal LV size and function, G1DD, mild TR. ? Cardiology following, appreciate recommendations ? Follow-up repeat troponin #Bilateral lower extremity weakness Endorses lower extremity weakness for last few months. Has been mostly bedbound at SNF. MRI lumbar spine showed mild disc narrowing at L5-S1, central lumbar disc bulging at L4-L5 with left L4 ganglionic compression. CT head showed no acute pathologies. ? Neurology following, appreciate recommendations ? Physical therapy ordered #Acute kidney injury, resolved #Hypotonic hyponatremia Initial creatinine of 1.3 with baseline of 0.6, resolved with IVF. ? Nephrology following, appreciate recommendations ? Avoid nephrotoxic agents when possible, renally dose medications #History of hypothyroidism ? Levothyroxine 150 mcg #Type 2 diabetes mellitus A1c 5.1% ? SSI ? Hypoglycemic protocol in place #Depression ? Sertraline switched to mirtazapine due to possible contribution to hyponatremia #GERD ? Omeprazole 20 mg daily Hospital management: Disposition: ICU downgrade, pending neuro/nephrology/cardiology recs Diet: Carb consistent low on Glucerna shakes Lines: PIV, Bennett DVT prophylaxis: Heparin SC TID GI prophylaxis: Omeprazole 20 mg daily Bennett: Placed CODE STATUS: DNR ----- Plan discussed with attending physician Dr. Wicho Weaver MD PGY-1 Internal Medicine Attending Provider Attestation/Addendum I have examined the patient, reviewed labs and imaging findings, discussed the case with the resident(s), and reviewed entered orders. I agree with the plan of care as outlined in this note, with these additional summaries/recommendations: Patient is a 64-year-old female with a medical history of primary hypertension, hypothyroidism, depression, chronic hyponatremia, diabetes mellitus type 2, GERD, hyperlipidemia, and chronic lower back pain presents to [facility] emergency department on 12/27/2024 with chief complaint of dizziness and nausea plus vomiting. Patient seen at bedside in the ICU. Patient was admitted to ICU for septic shock secondary to urinary tract infection. Continue IV antibiotics. Patient was weaned off Levophed this afternoon and transition to frequent midodrine. We will monitor hemodynamics closely. Patient noted to have significantly elevated troponin and we will consult cardiology. Most likely secondary to demand ischemia and continue to trend troponin. Continue home levothyroxine for history of severe hypothyroidism which is now more improved. TSH 22.72 and free T4 1.81. Patient's chronic hyponatremia is currently stable with sodium 127. Continue insulin sliding scale for diabetes mellitus type 2 with Accu-Checks. Target blood sugar of 140-180 while hospitalized. Hold home antihypertensives. As needed tramadol for lower back pain. Please see residents note for additional details and management. Dr. Wicho MD
--- NOTE | 2024-12-29 17:40 | PD.IMCONS ---
HPI Data of Consult Requesting Physician: Ifrah Wick MD Primary Care Provider: Physician No Primary/Family Consult Narrative History of present illness: This is a is a 64-year-old female with history of thyroid cancer, hypertension, hypothyroidism, depression, diabetes mellitus, and sciatica pt was admitted with sepsis and treated for urosepsis suqsequently noted to have troponin elevation noted today pt denies chest pain, sob or palpitation troponin peaked at 3 no prior cardiac history care d/w daughter wants to think about further w/u cc:: cc: Ifrah Wick MD Meds Home Medications and Allergies Home Medications ?Medication ?Instructions ?Recorded ?Confirmed ?Type atenolol 50 mg tablet 50 mg PO QDAY 05/09/19 12/27/24 History metformin 500 mg tablet 500 mg PO DAILY 05/09/19 12/27/24 History naproxen 500 mg tablet 500 mg PO DAILY 05/09/19 12/27/24 History omeprazole 20 mg tablet,delayed 20 mg PO QDAY 05/09/19 12/27/24 History release sertraline 50 mg tablet 100 mg PO QDAY 05/09/19 12/27/24 History cetirizine 10 mg tablet 10 mg PO QDAY 10/04/24 12/27/24 History pravastatin 20 mg tablet 20 mg PO HS 10/04/24 12/27/24 History tramadol 50 mg tablet 50 mg PO Q8H PRN pain 10/04/24 12/27/24 History Held on 10/09/24. Instructions: hold until follow up with PCP cranberry fruit 450 mg tablet 450 mg PO QDAY 12/27/24 12/27/24 History (cranberry) magnesium oxide 400 mg PO BID 12/27/24 12/27/24 History Allergies Allergy/AdvReac Type Severity Reaction Status Date / Time codeine Allergy Severe DELUSIONS Verified 07/16/24 16:40 Exam Vital Signs Temp Pulse Resp BP Pulse Ox O2 Del Method O2 Flow Rate 96.9 F 97 25 H 105/68 97 Room Air 1 12/29/24 08:00 12/29/24 14:15 12/29/24 14:15 12/29/24 14:15 12/29/24 14:15 12/29/24 12:00 12/27/24 18:12 Routine HEENT Exam Head: Present normocephalic and atraumatic Eye: Present EOMI and PERRL ENT: Present mucous membranes moist Routine Neck Exam Neck: Present supple and trachea midline Routine Respiratory Exam Respiratory: Present chest non-tender, lungs clear, normal breath sounds and no resp distress Routine Cardiovascular Exam Cardiovascular: Present RRR Routine Abdominal Exam Abdominal: Present soft and normoactive bowel sounds Routine Extremities Exam Extremities: Present full ROM Routine Skin Exam Skin: Present intact, dry and warm Routine Neurological Exam Neurological: Present alert, oriented X3 and CN II-XII intact Routine Psychiatric Exam Psychiatric: Present normal affect and normal thought process Results Labs 12/29/24 04:38 12/29/24 12:06 Labs: Short CBC 12/29/24 Range/Units 04:38 WBC 23.1 H D (3.6-11.0) Thou/mm3 Hgb 13.1 (12.0-16.0) g/dL Hct 36.1 (36.0-46.0) % Plt Count 248 (140-440) Thou/mm3 BMP 12/29/24 12/29/24 04:38 12:06 Sodium 129 L 127 L Potassium 2.9 L D 3.7 D Chloride 95 L 95 L Carbon Dioxide 21.4 22.3 BUN 8 L 7 L Creatinine 0.2 L 0.3 L Glucose 113 H 132 H Calcium 7.8 L 8.0 L Cardiac Enzymes 12/29/24 Range/Units 12:06 Troponin I 3.800 H* D (0.0-0.045) ng/mL Liver Function 12/29/24 12/29/24 Range/Units 04:38 12:06 Total Bilirubin 0.4 (0.3-1.2) mg/dL ALT 29 (10-49) U/L Alkaline Phosphatase 111 (46-116) U/L Albumin 2.9 L 2.7 L (3.4-4.8) gm/dL ABG Interpretation ABG results: 12/27/24 02:14 ABG pH 7.35 ABG pCO2 31 L ABG pO2 65 L ABG HCO3 17 L ABG O2 Saturation 91 ABG Base Excess -7 L Assessment and Plan Assessment and plan (1) UTI (urinary tract infection): Status: Acute (2) Septic shock: Status: Acute (3) Hyponatremia: Status: Acute (4) AMS (altered mental status): Status: Acute (5) Diabetes 1.5, managed as type 2: Status: Acute (6) Elevated troponin: Status: Acute Additional Assessment & Plan Additional Plan: care d/w daughter regarding further w/u for elevated troponin echo recommended further w/u either in pt or out pt family wants time to decide
[2024-12-29 18:12] LABS: Troponin I 3.571 ng/mL (0.0-0.045)
[2024-12-29] MEDS: traMADol HCL 50 MG TABLET PO (20:15)
[2024-12-29] MEDS: ONDANSETRON INJ 2 MG/ML INJ 2 ML 4 MG IVP (21:08)
--- NOTE | 2024-12-29 23:55 | PD.NEUROCONS ---
History of Present Illness Data of Consult Requesting Physician: Ifrah Wick MD Primary Care Provider: Physician No Primary/Family Consult Narrative cc:: cc: Ifrah Wick MD Meds Home Medications and Allergies Home Medications ?Medication ?Instructions ?Recorded ?Confirmed ?Type atenolol 50 mg tablet 50 mg PO QDAY 05/09/19 12/27/24 History metformin 500 mg tablet 500 mg PO DAILY 05/09/19 12/27/24 History naproxen 500 mg tablet 500 mg PO DAILY 05/09/19 12/27/24 History omeprazole 20 mg tablet,delayed 20 mg PO QDAY 05/09/19 12/27/24 History release sertraline 50 mg tablet 100 mg PO QDAY 05/09/19 12/27/24 History cetirizine 10 mg tablet 10 mg PO QDAY 10/04/24 12/27/24 History pravastatin 20 mg tablet 20 mg PO HS 10/04/24 12/27/24 History tramadol 50 mg tablet 50 mg PO Q8H PRN pain 10/04/24 12/27/24 History Held on 10/09/24. Instructions: hold until follow up with PCP cranberry fruit 450 mg tablet 450 mg PO QDAY 12/27/24 12/27/24 History (cranberry) magnesium oxide 400 mg PO BID 12/27/24 12/27/24 History Allergies Allergy/AdvReac Type Severity Reaction Status Date / Time codeine Allergy Severe DELUSIONS Verified 07/16/24 16:40 Exam - Neurology Vital Signs Temp Pulse Resp BP Pulse Ox O2 Del Method O2 Flow Rate 98.0 F 83 20 110/70 95 Room Air 1 12/29/24 20:00 12/29/24 20:12 12/29/24 20:12 12/29/24 20:00 12/29/24 20:00 12/29/24 20:00 12/27/24 18:12 Results Labs 12/29/24 04:38 12/29/24 12:06 Labs: Short CBC 12/29/24 Range/Units 04:38 WBC 23.1 H D (3.6-11.0) Thou/mm3 Hgb 13.1 (12.0-16.0) g/dL Hct 36.1 (36.0-46.0) % Plt Count 248 (140-440) Thou/mm3 BMP 12/29/24 12/29/24 04:38 12:06 Sodium 129 L 127 L Potassium 2.9 L D 3.7 D Chloride 95 L 95 L Carbon Dioxide 21.4 22.3 BUN 8 L 7 L Creatinine 0.2 L 0.3 L Glucose 113 H 132 H Calcium 7.8 L 8.0 L Cardiac Enzymes 12/29/24 12/29/24 Range/Units 12:06 17:13 Troponin I 3.800 H* D 3.571 H* D (0.0-0.045) ng/mL Liver Function 12/29/24 12/29/24 Range/Units 04:38 12:06 Total Bilirubin 0.4 (0.3-1.2) mg/dL ALT 29 (10-49) U/L Alkaline Phosphatase 111 (46-116) U/L Albumin 2.9 L 2.7 L (3.4-4.8) gm/dL ABG Interpretation ABG results: 12/27/24 02:14 ABG pH 7.35 ABG pCO2 31 L ABG pO2 65 L ABG HCO3 17 L ABG O2 Saturation 91 ABG Base Excess -7 L Assessment & Plan Assessment and plan (1) Weakness: Status: Chronic Assessment and plan: Mainly affecting both LE DD: Diabetic peripheral neuropathy(despite good control), Atypical form of CIDP, Nutritional deficiency, hypothyroid myopathy Will consider doing LP tomorrow, if csf protein is high, will try IVIG for 5 days. EMG AND NCS of both LE as an outpatient to confirm CIDP. (2) UTI (urinary tract infection): Status: Acute (3) Septic shock: Status: Acute (4) AMS (altered mental status): Status: Resolved (5) Diabetes 1.5, managed as type 2: Status: Acute
[2024-12-30] VITALS (14 sets, daily range): BP systolic 90–109; BP diastolic 55–69; PULSE 67–92; RESP 16–96; TEMP 36.2–36.4; O2SAT 94–97; BMI 23.8; BMI 12.0
[2024-12-30] MEDS: MIDODRINE 5 MG TABLET 10 MG PO ×4 (00:03→21:12)
[2024-12-30 01:34] LABS: Creatine Kinase 95 U/L (34-171)
[2024-12-30 05:17] LABS: Basophils % (Auto) 0 % (0-2.5); Eosinophils # (Auto) 0.1 Thou/mm3 (0.0-0.5); Eosinophils % (Auto) 1 % (0-10); Hematocrit 30.2 % (36.0-46.0); Hemoglobin 11.3 g/dL (12.0-16.0); Immature Granulocytes % (Auto) 3 % (0-0); Immature Granulocytes Auto 0.33 Thou/mm3 (0.00-0.00); Lymphocytes # (Auto) 1.7 Thou/mm3 (1.0-4.8); Lymphocytes % (Auto) 14 % (10-50); Mean Corpuscular HGB Conc 37.4 g/dl (31.0-37.0); Mean Corpuscular Volume 83 fL (80-100); Monocytes # (Auto) 1.1 Thou/mm3 (0.0-0.8); Monocytes % (Auto) 9 % (0-12); Neutrophils # (Auto) 9.1 Thou/mm3 (1.8-7.7); Neutrophils % (Auto) 74 % (37-80); Nucleated Red Blood Cell % 0 /100 WBC (0); Platelet Count 214 Thou/mm3 (140-440); RDW Standard Deviation 39.4 fL (36.4-46.3); Red Blood Count 3.65 Miln/mm3 (4.00-5.20); White Blood Count 12.4 Thou/mm3 (3.6-11.0)
[2024-12-30] MEDS: HEPARIN SOD INJ 5000 UNIT/ML VIAL SC ×3 (05:37→21:13)
[2024-12-30] MEDS: Ampicillin Inj 2,000 MG in SODIUM CHLORIDE 0.9% (POP) 100 ML 200 MG IV ×4 (05:38→23:08)
[2024-12-30 05:39] LABS: Alanine Aminotransferase 20 U/L (10-49); Albumin, Serum 2.6 gm/dL (3.4-4.8); Albumin/Globulin Ratio 1.3 (1.2-2.2); Alkaline Phosphatase 79 U/L (46-116); Anion Gap 6 (7-16); BUN/Creatinine Ratio 35 Ratio (12-20); Bilirubin,Total 0.4 mg/dL (0.3-1.2); Blood Urea Nitrogen 7 mg/dL (9-23); Calcium 7.6 mg/dL (8.3-10.6); Calcium (Corrected) 8.7 mg/dL (8.5-10.1); Carbon Dioxide 24.8 mMol/L (20.0-31.0); Chloride 97 mMol/L (98-107); Creatinine (Component) 0.2 mg/dL (0.6-1.3); Estimated Creatinine Clearance 234.7 mL/min (>60); Glucose 93 mg/dL (74-106); Magnesium 1.5 mg/dL (1.6-2.6); Osmolality,Calculated 255 (275-295); Potassium 3.8 mMol/L (3.4-5.1); Sodium 128 mMol/L (136-145); Total Protein 4.6 gm/dL (5.7-8.2); eGFR > 60 See Note
[2024-12-30] MEDS: LEVOTHYROXINE SODIUM 125 MCG, LEVOTHYROXINE SODIUM 25 MCG 150 MCG PO (05:40)
[2024-12-30 07:34] LABS: Phosphorous 2.2 mg/dL (2.4-5.1)
[2024-12-30] MEDS: Magnesium Sulfate 2 GM Ivpb 2 GM/50 ML BAG IV (08:36)
[2024-12-30] MEDS: PANTOPRAZOLE 40 MG TABLET PO (08:36)
--- NOTE | 2024-12-30 08:58 | PD.RESPRO ---
Documentation for date of: 12/30/24 Subjective Subjective Interval history: Ms. Cuevas is a 64 y/o female with PMHx of thyroid cancer, HTN, hypothyroidism, depression, non-insulin dependent type two DM, and sciatica who comes in from [facility] for evaluation of altered mental status, dyspnea. Patient has started experiencing diaphoresis and vomiting while in the [facility], and was hesitant on coming into the hospital. Patient began to desaturate at the facility and also began hypotensive and was brought to the emergency room for further evaluation. At this time she is doing much better, off Levophed. She says she has had thyroid disease for a long time. She was unaware of having low sodium levels chronically. She has been dealing with what it seems to be sciatica for many years now. She also feels weak at this time as well. She denies taking any water pills. She states she has been taking Zoloft for years now. Does not see a heart doctor. No other complaints this time. ED course: Patient came to the ED with a blood pressure 57/40, pulse of 121, oxygen saturation on 90% 2 L nasal cannula. Patient was worked up was found to have a white count of 25, sodium 129, chloride 94, GFR 46, glucose 166, osmolarity 265, lactate 5.4, magnesium 1.3, troponin 0.142, CRP 9.9, Pro-Jam 42, TSH 22.72, free T41.81. Urinalysis showed +1 bacteria, 476 white cells, +1 protein and blood. ABG showed pH of 7.35, [id number], PO2 of 65. EKG showed sinus tachycardia. Patient was given 2 L normal saline, Zofran x 1, Solu-Medrol 125. Levophed was started as patient was not fluid responsive for pressures. Sepsis alert was initiated and was started on broad-spectrum cefepime and vancomycin. ICU was consulted and patient was made to the floors. 12/30/2024 Patient examined at bedside today. No acute overnight events. Patient reports she is not eating too much and does not have much of an appetite. She also says that she has been having trouble walking for the past couple months. She says that she has pain in her legs. She says she has been taking her thyroid medicine as prescribed. She also says that her depression is well-controlled this time. Her sodium today was 128, magnesium 1.5, potassium 3.8. Fasting blood glucose was 255. Urine culture resulted Enterococcus. Exam Vital Signs Temp Pulse Resp BP Pulse Ox O2 Del Method O2 Flow Rate 97.2 F 73 16 108/67 97 Room Air 1 12/30/24 06:27 12/30/24 07:36 12/30/24 06:27 12/30/24 06:27 12/30/24 06:27 12/30/24 06:27 12/27/24 18:12 Narrative Exam General: AAOx3, NAD, weak looking female, Nepalese-speaking HEENT: Moist mucous membranes, conjunctiva clear, EOMI, PERRLA, Cardiovascular: S1, S2, radial pulses +2 bilat, RRR Pulmonary: CTAB bilat no cough, no wheezing GI: No tenderness to light or deep palpitation, no guarding, rigidity, rebound tenderness or distension Extremities: Trace edema in lower extremities bilaterally, dorsalis pedis pulses +2 bilaterally, weak musculature Skin: SK present on chest and back Neuro: AAOx3, patient has significant weakness in the lower extremities Psych: Cooperative Objective Labs 12/30/24 04:35 12/30/24 04:35 Labs: Laboratory Results - last 24 hr 12/29/24 12/29/24 12/30/24 12:06 17:13 00:36 WBC RBC Hgb Hct MCV MCH MCHC RDW Std Deviation Plt Count Neut % (Auto) Lymph % (Auto) [place] % (Auto) Eos % (Auto) Baso % (Auto) Neut # (Auto) Lymph # (Auto) [place] # (Auto) Eos # (Auto) Baso # (Auto) Immature Gran # (Auto) Absolute Nucleated RBC Immature Gran % Nucleated RBC % Sodium 127 L Potassium 3.7 D Chloride 95 L Carbon Dioxide 22.3 Anion Gap 10 BUN 7 L Creatinine 0.3 L Estim Creat Clear Calc 156.5 eGFR > 60 BUN/Creatinine Ratio 23 H Glucose 132 H Calculated Osmolality 255 L Calcium 8.0 L Corrected Calcium 9.0 Phosphorus 1.7 L Magnesium Total Bilirubin ALT Alkaline Phosphatase Total Creatine Kinase 95 Troponin I 3.800 H* D 3.571 H* D Total Protein Albumin 2.7 L Globulin Albumin/Globulin Ratio 12/30/24 04:35 WBC 12.4 H D RBC 3.65 L Hgb 11.3 L Hct 30.2 L MCV 83 MCH 31.0 MCHC 37.4 H RDW Std Deviation 39.4 Plt Count 214 D Neut % (Auto) 74 Lymph % (Auto) 14 [place] % (Auto) 9 Eos % (Auto) 1 Baso % (Auto) 0 Neut # (Auto) 9.1 H Lymph # (Auto) 1.7 [place] # (Auto) 1.1 H Eos # (Auto) 0.1 Baso # (Auto) 0.0 Immature Gran # (Auto) 0.33 H Absolute Nucleated RBC 0.00 Immature Gran % 3 H Nucleated RBC % 0 Sodium 128 L Potassium 3.8 Chloride 97 L Carbon Dioxide 24.8 Anion Gap 6 L BUN 7 L Creatinine 0.2 L Estim Creat Clear Calc 234.7 eGFR > 60 BUN/Creatinine Ratio 35 H Glucose 93 Calculated Osmolality 255 L Calcium 7.6 L Corrected Calcium 8.7 Phosphorus 2.2 L Magnesium 1.5 L Total Bilirubin 0.4 ALT 20 Alkaline Phosphatase 79 D Total Creatine Kinase Troponin I Total Protein 4.6 L Albumin 2.6 L Globulin 2.0 L Albumin/Globulin Ratio 1.3 ABG Interpretation ABG results: 12/27/24 02:14 ABG pH 7.35 ABG pCO2 31 L ABG pO2 65 L ABG HCO3 17 L ABG O2 Saturation 91 ABG Base Excess -7 L Quality Measures Quality Measures VTE prophylaxis (Heparin subcutaneously) Assessment & Plan Assessment Current Active Medications: Generic Name Dose Route Start Last Admin Trade Name Freq PRN Reason Stop Dose Admin Acetaminophen 650 mg 12/29/24 14:26 Acetaminophen 325 Mg Tablet PO 01/26/25 04:36 Q6H PRN fever >99.9 Dextrose 25 ml 12/27/24 04:44 Dextrose 50%-Water Inj 50 Ml Syringe IV 01/26/25 04:43 Q15MIN PRN BG 50-70 responsive npo pt Dextrose 50 ml 12/27/24 04:44 Dextrose 50%-Water Inj 50 Ml Syringe IV 01/26/25 04:43 Q15MIN PRN BG <50 OR BG <70 & pt unresponsive Gabapentin 100 mg 12/27/24 16:21 12/27/24 16:29 Gabapentin 100 Mg Capsule PO 01/26/25 16:29 100 mg TID PRN Administration leg pain Glucagon 1 mg 12/27/24 04:44 Glucagon Inj 1 Mg Vial IM Q15MIN PRN BG <70, and no IV access Heparin Sodium (Porcine) 5,000 unit 12/27/24 06:00 12/30/24 05:37 Heparin Sod Inj 5000 Unit/Ml Vial SC 01/10/25 05:59 5,000 unit Q8HR SAMMI Administration Norepinephrine Bitartrate 16 mg in 250 mls @ 2.636 mls/hr 12/27/24 00:57 12/29/24 13:16 Levophed In Ns 16mg/250ml IV 01/26/25 00:56 0 mcg/kg/min .Q24H PRN 0 mls/hr PER PROTOCOL Titration Protocol 0.05 MCG/KG/MIN Ampicillin Sodium 2,000 mg/ 100 mls @ 200 mls/hr 12/29/24 12:00 12/30/24 05:38 Sodium Chloride IV 01/05/25 11:59 200 mls/hr Q6HR SAMMI Administration Magnesium Sulfate 2 gm in 50 mls @ 25 mls/hr 12/30/24 07:10 12/30/24 08:36 Magnesium Sulfate Ivpb IV 12/30/24 09:09 25 mls/hr X1 ONE Administration Insulin Human Lispro 0 unit 12/27/24 07:30 12/30/24 08:31 Insulin Lispro (Admelog) 1 Unit/0.01 Ml Unit SC 01/26/25 07:29 Not Given AC SAMMI Protocol Levothyroxine Sodium 125 mcg/ 150 mcg 12/27/24 07:15 12/30/24 05:40 Levothyroxine Sodium 25 mcg PO 01/26/25 07:14 150 mcg ACBR SAMMI Administration Midodrine 10 mg 12/29/24 12:00 12/30/24 05:38 Midodrine 5 Mg Tablet PO 01/28/25 11:59 10 mg Q6HR SAMMI Administration Mirtazapine 15 mg 12/30/24 21:00 Mirtazapine 15 Mg Tablet PO 01/29/25 20:59 HS SAMMI Ondansetron HCl 4 mg 12/27/24 04:37 12/29/24 21:08 Ondansetron Inj 2 Mg/Ml Inj 2 Ml IVP 01/26/25 04:36 4 mg Q6H PRN Administration NAUSEA OR VOMITING Protocol Pantoprazole Sodium 40 mg 12/30/24 09:00 12/30/24 08:36 Pantoprazole 40 Mg Tablet PO 01/29/25 08:59 40 mg QDAY SAMMI Administration Protocol Tramadol HCl 50 mg 12/27/24 17:25 12/29/24 20:15 Tramadol Hcl 50 Mg Tablet PO 01/01/25 17:24 50 mg Q8HR PRN Administration PAIN SCALE 4-10(Mod-Sev Plan Assessment Ms Zaidi is a Nepalese-speaking 64-year-old female with history of Thyroid cancer, hypertension, hypothyroidism, depression, diabetes mellitus, and sciatica who presented to the ED with concerns of vomiting and fever, found to be hypotensive likely secondary to hypovolemia and/or infection, started on levophed and admitted to ICU for further management. #Chronic hypoosmolar hyponatremia, #Hypokalemia, resolved #Hypomagnesiemia #Hypophosphatemia DDx: Dehydration, underlying SIADH, hypothyroidisim Dating back to 2018 Sodium today 128; Mg 1.5; Phosphororus 2.2 Was initially hypovolemic, which is now improving --did receive fluid boluses. Urine Sodium is below 15, which wouldn't in theory support SIADH as Urine sodium would be elevated Pt seems to have underlying thyroid disease that is not controlled which can affect renal perfusion and thus affect reabsorption of lytes Uncontrolled hypothyroidism can lead to increased ADH levels which could be responsible for her hyponatremia as she has chronic uncontrolled hypothyroidism Pt will need outpatient follow up and management Pt is okay for d/c from nephrology standpoint and can be d/justus on 1g salt tablets Plan: ? Encourage oral intake ? Treat thyroid disease, consider checking free T4 in a couple of days ? Trend with CMP ? Correct electrolyte abnormalities as needed ? Recommend 1g salt tablets upon d/c #Enterococcus UTI #Chronic back pain #Depression #LE weakness #SVT x 3 seconds #Protein-calorie malnutrition #Loss of appetite #Protein-calorie malnutrition #Hypoosmolar hyponatremia, chronic #HECTOR, resolved #Hematuria, resolved #Leukocytosis #T2DM #Hypothyroidism #Hx of Thyroid CA s/p LT thyroid lobectomy 20 years ago #RT adrenal lesion, incidental #Shock, likely septic from UTI and hypovolemic component Above handled by primary team Patient seen and care discussed with my attending physician, Dr. Khadijah Pop, PGY-1 Attending Provider Attestation/Addendum Patient seen and examined with resident physician Dr. vargas. Note reviewed, agree with findings and recommendations. Patient admitted with weakness and the symptomatic hyponatremia. Responded well to fluids and subsequently fluid restriction. Sodium much better. Renal handy stable for discharge on salt tablets. Plan of care discussed with primary team
[2024-12-30] MEDS: NAPH,KPH MBDB 1 PACKET (1.5 GM) PO (09:53)
--- NOTE | 2024-12-30 10:31 | ESPR_ITS ---
<Statement entered by Teagan Corea MD - 12/30/24 16:11> The patient was evaluated and examined at the bedside. There were no acute events overnight, and no downtrending of troponin levels. Cardiology is closely monitoring the case, with plans to perform an angiogram. However, due to the patient's severe bilateral weakness, a lumbar puncture will be performed to assess the cerebrospinal CSF, as recommended by neurology. The patient will continue ampicillin 2 g every 8 hours. Urine culture results showed Enterococcus faecalis. Midodrine will be reduced from every 6 hours to three times daily. The patient has been started on maintenance normal saline, with close monitoring of sodium levels. For now, continue the current management plan and follow up with CSF analysis. Additionally, follow up with cardiology recommendations. I discussed with and supervised the business services intern physician who took care of this patient. I personally saw and examined the patient and discussed the assessment and plan with the entire medicine team, including my attending , I agree with the assessment and plan as documented below Teagan Corea M.D. PGY-2 Disclaimer: Despite multiple revisions, due to the dictation software being used, the document bellow may not be free of grammatical errors including phonetic/typographic errors. However, this does not deter from our commitment to providing health care in the patient's best interest in mind. Documentation for date of: 12/30/24 Subjective Subjective Interval history: No acute overnight events noted. Seen and examined at bedside in telemetry and patient denied any pain, shortness of breath, chest discomfort, fever, chills at this time. Updated patient on current plans regarding lumbar puncture and inpatient cardiac workup. Current plans for lumbar puncture today and cardiac cath tomorrow. Otherwise, blood pressure stable and midodrine decreased from QID to TID and started on maintenance IVF. Electrolytes repleated. Exam Vital Signs Temp Pulse Resp BP Pulse Ox O2 Del Method O2 Flow Rate 97.2 F 73 16 108/67 97 Room Air 1 12/30/24 06:27 12/30/24 07:36 12/30/24 06:27 12/30/24 06:27 12/30/24 06:27 12/30/24 06:27 12/27/24 18:12 Narrative Exam General: AOx3, no acute distress, able to speak full sentences HEENT: NC/AT, mucous membranes moist, bilateral sclera anicteric Cardiovascular: regular rate and rhythm, S1/S2 present, no murmurs appreciated Pulmonary: clear to auscultation bilaterally, no rales/rhonchi/wheezes Abdominal: soft, non-tender, non-distended, no rebound/guarding, normal bowel sounds present Musculoskeletal: normal ROM, no peripheral edema Skin: warm and dry, intact, no rashes Neuro: significant bilateral lower extremity weakness Objective Labs 12/31/24 04:54 12/31/24 04:54 Labs: Laboratory Results - last 24 hr 12/29/24 12/29/24 12/30/24 12:06 17:13 00:36 WBC RBC Hgb Hct MCV MCH MCHC RDW Std Deviation Plt Count Neut % (Auto) Lymph % (Auto) [place] % (Auto) Eos % (Auto) Baso % (Auto) Neut # (Auto) Lymph # (Auto) [place] # (Auto) Eos # (Auto) Baso # (Auto) Immature Gran # (Auto) Absolute Nucleated RBC Immature Gran % Nucleated RBC % Sodium 127 L Potassium 3.7 D Chloride 95 L Carbon Dioxide 22.3 Anion Gap 10 BUN 7 L Creatinine 0.3 L Estim Creat Clear Calc 156.5 eGFR > 60 BUN/Creatinine Ratio 23 H Glucose 132 H Calculated Osmolality 255 L Calcium 8.0 L Corrected Calcium 9.0 Phosphorus 1.7 L Magnesium Total Bilirubin ALT Alkaline Phosphatase Total Creatine Kinase 95 Troponin I 3.800 H* D 3.571 H* D Total Protein Albumin 2.7 L Globulin Albumin/Globulin Ratio 12/30/24 04:35 WBC 12.4 H D RBC 3.65 L Hgb 11.3 L Hct 30.2 L MCV 83 MCH 31.0 MCHC 37.4 H RDW Std Deviation 39.4 Plt Count 214 D Neut % (Auto) 74 Lymph % (Auto) 14 [place] % (Auto) 9 Eos % (Auto) 1 Baso % (Auto) 0 Neut # (Auto) 9.1 H Lymph # (Auto) 1.7 [place] # (Auto) 1.1 H Eos # (Auto) 0.1 Baso # (Auto) 0.0 Immature Gran # (Auto) 0.33 H Absolute Nucleated RBC 0.00 Immature Gran % 3 H Nucleated RBC % 0 Sodium 128 L Potassium 3.8 Chloride 97 L Carbon Dioxide 24.8 Anion Gap 6 L BUN 7 L Creatinine 0.2 L Estim Creat Clear Calc 234.7 eGFR > 60 BUN/Creatinine Ratio 35 H Glucose 93 Calculated Osmolality 255 L Calcium 7.6 L Corrected Calcium 8.7 Phosphorus 2.2 L Magnesium 1.5 L Total Bilirubin 0.4 ALT 20 Alkaline Phosphatase 79 D Total Creatine Kinase Troponin I Total Protein 4.6 L Albumin 2.6 L Globulin 2.0 L Albumin/Globulin Ratio 1.3 ABG Interpretation ABG results: 12/27/24 02:14 ABG pH 7.35 ABG pCO2 31 L ABG pO2 65 L ABG HCO3 17 L ABG O2 Saturation 91 ABG Base Excess -7 L Quality Measures Quality Measures VTE prophylaxis (Heparin subcutaneously) Assessment & Plan Assessment Current Active Medications: Generic Name Dose Route Start Last Admin Trade Name Freq PRN Reason Stop Dose Admin Acetaminophen 650 mg 12/29/24 14:26 Acetaminophen 325 Mg Tablet PO 01/26/25 04:36 Q6H PRN fever >99.9 Dextrose 25 ml 12/27/24 04:44 Dextrose 50%-Water Inj 50 Ml Syringe IV 01/26/25 04:43 Q15MIN PRN BG 50-70 responsive npo pt Dextrose 50 ml 12/27/24 04:44 Dextrose 50%-Water Inj 50 Ml Syringe IV 01/26/25 04:43 Q15MIN PRN BG <50 OR BG <70 & pt unresponsive Gabapentin 100 mg 12/27/24 16:21 12/27/24 16:29 Gabapentin 100 Mg Capsule PO 01/26/25 16:29 100 mg TID PRN Administration leg pain Protocol Glucagon 1 mg 12/27/24 04:44 Glucagon Inj 1 Mg Vial IM Q15MIN PRN BG <70, and no IV access Heparin Sodium (Porcine) 5,000 unit 12/27/24 06:00 12/30/24 05:37 Heparin Sod Inj 5000 Unit/Ml Vial SC 01/10/25 05:59 5,000 unit Q8HR SAMMI Administration Ampicillin Sodium 2,000 mg/ 100 mls @ 200 mls/hr 12/29/24 12:00 12/30/24 05:38 Sodium Chloride IV 01/05/25 11:59 200 mls/hr Q6HR SAMMI Administration Sodium Chloride 1,000 mls @ 75 mls/hr 12/30/24 10:00 Ns IV 12/30/24 23:19 .[id number] ONE Insulin Human Lispro 0 unit 12/27/24 07:30 12/30/24 08:31 Insulin Lispro (Admelog) 1 Unit/0.01 Ml Unit SC 01/26/25 07:29 Not Given AC SAMMI Protocol Levothyroxine Sodium 125 mcg/ 150 mcg 12/27/24 07:15 12/30/24 05:40 Levothyroxine Sodium 25 mcg PO 01/26/25 07:14 150 mcg ACBR SAMMI Administration Midodrine 10 mg 12/30/24 14:00 Midodrine 5 Mg Tablet PO 01/29/25 13:59 TID SAMMI Mirtazapine 15 mg 12/30/24 21:00 Mirtazapine 15 Mg Tablet PO 01/29/25 20:59 HS SAMMI Ondansetron HCl 4 mg 12/27/24 04:37 12/29/24 21:08 Ondansetron Inj 2 Mg/Ml Inj 2 Ml IVP 01/26/25 04:36 4 mg Q6H PRN Administration NAUSEA OR VOMITING Protocol Pantoprazole Sodium 40 mg 12/30/24 09:00 12/30/24 08:36 Pantoprazole 40 Mg Tablet PO 01/29/25 08:59 40 mg QDAY SAMMI Administration Protocol Tramadol HCl 50 mg 12/27/24 17:25 12/29/24 20:15 Tramadol Hcl 50 Mg Tablet PO 01/01/25 17:24 50 mg Q8HR PRN Administration PAIN SCALE 4-10(Mod-Sev Plan Faith Zaidi is a 64-year-old female with past medical history of thyroid cancer, hypothyroidism, hypertension, type 2 diabetes mellitus, depression, and sciatica who was admitted for septic shock to the ICU on 12/27 and downgraded to floors on 12/29. #Septic shock likely secondary to UTI, resolved #Enterococcus faecalis urinary tract infection Noted to have Bennett catheter from nursing facility but was recently changed per daughter. Urinalysis showed turbid urine, 476 WBC, 152 RBC, 1+ bacteria, positive LE. Urine cultures grew Enterococcus faecalis, pansensitive. Initially on vancomycin and cefepime but now on ampicillin. ? Ampicillin 2 g IV every 6 hours (12/29-01/05) ? Midodrine 10 mg TID #NSTEMI type II/demand ischemia in setting of shock Troponin 0.14 and downtrended to 0.09 on admission but due to concerns for ST elevations on monitor, BP troponins obtained and up trended from 0.09 to 3.8. Suspect demand ischemia in setting of shock. EKG showed sinus rhythm, no ST changes or T wave abnormalities. Echo on 12/27 showed EF 65 to 70%, normal LV size and function, G1DD, mild TR. ? Cardiology following, appreciate recommendations ? Cardiac cath 12/31, n.p.o. after midnight ? Troponins downtrended #Bilateral lower extremity weakness Endorses lower extremity weakness for last few months. Has been mostly bedbound at SNF. MRI lumbar spine showed mild disc narrowing at L5-S1, central lumbar disc bulging at L4-L5 with left L4 ganglionic compression. CT head showed no acute pathologies. ? Neurology following, appreciate recommendations ? Pending lumbar puncture ? Physical therapy ordered #Acute kidney injury, resolved #Hypotonic hyponatremia Initial creatinine of 1.3 with baseline of 0.6, resolved with IVF. ? Nephrology following, appreciate recommendations ? Avoid nephrotoxic agents when possible, renally dose medications ? Recommend salt tablets on discharge #History of hypothyroidism ? Levothyroxine 150 mcg #Type 2 diabetes mellitus A1c 5.1% ? SSI ? Hypoglycemic protocol in place #Depression ? Sertraline switched to mirtazapine due to possible contribution to hyponatremia #GERD ? Omeprazole 20 mg daily Hospital management: Disposition: ICU downgrade, pending neuro/nephrology/cardiology recs Diet: Carb consistent low on Glucerna shakes, NPO after midnight Lines: PIV, Bennett DVT prophylaxis: Heparin SC TID GI prophylaxis: Omeprazole 20 mg daily Bennett: Placed CODE STATUS: DNR ----- Plan discussed with attending physician Dr. Wicho Weaver MD PGY-1 Internal Medicine Attending Provider Attestation/Addendum I have examined the patient, reviewed labs and imaging findings, discussed the case with the resident(s), and reviewed entered orders. I agree with the plan of care as outlined in this note, with these additional summaries/recommendations: Patient is a 64-year-old female with a medical history of primary hypertension, hypothyroidism, depression, chronic hyponatremia, diabetes mellitus type 2, GERD, hyperlipidemia, and chronic lower back pain presents to [facility] emergency department on 12/27/2024 with chief complaint of dizziness and nausea plus vomiting. Patient seen at bedside. No acute overnight events. Patient was admitted to ICU for septic shock secondary to urinary tract infection. Continue IV antibiotics. Patient was weaned off Levophed and transition to frequent midodrine. We will monitor hemodynamics closely. Patient noted to have significantly elevated troponin and we will consult cardiology. Most likely secondary to demand ischemia. Continue home levothyroxine for history of severe hypothyroidism which is now more improved. TSH 22.72 and free T4 1.81. Patient's chronic hyponatremia is currently stable with sodium 127. Continue insulin sliding scale for diabetes mellitus type 2 with Accu-Checks. Target blood sugar of 140-180 while hospitalized. Hold home antihypertensives. As needed tramadol for lower back pain. Please see residents note for additional details and management. Dr. Wicho MD
[2024-12-30] MEDS: SODIUM CHLORIDE 0.9% 1000 ML 1,000 ML 75 ML IV (11:59)
--- NOTE | 2024-12-30 12:52 | PC.SS ---
SS follow up note; Patient is an ICU downgrade. Patient will return back to [facility] when medically cleared.
--- NOTE | 2024-12-30 18:19 | PC.NURSE ---
1745 lumbar puncture done @ bedside by ,pt. tolerated procedure well,band aid appplied a2 site.will continue to monitor.daughter at bedside after procedure.instructed pt. to lay flat for 3 hours.
[2024-12-30 18:54] LABS: Coccid Serology, CF CSF (UCD)* See Sep Rpt; Misc Send Out* See Sep Rpt
[2024-12-30 19:12] LABS: CSF Cell Count Tube # Tube # 4
[2024-12-30 19:13] LABS: CSF Color Colorless (Colorless); CSF Mononuclear 0 %; CSF Polynuclear WBC 100 %; CSF Red Blood Cell 0 /cmm; CSF White Blood Cell 1 /cmm; CSF, Appearance Clear (Clear)
[2024-12-30 19:17] LABS: Glucose,CSF 50 mg/dL (40-70); Protein Total,CSF 189 mg/dL (8-32)
[2024-12-30] MEDS: MIRTAZAPINE 15 MG TABLET PO (21:13)
--- NOTE | 2024-12-30 23:46 | PD.NEUROPROG ---
Documentation for date of: 12/30/24 Subjective Subjective Interval history: Patient was seen in telemetry today, continues to have weakness in the LE. Exam - Neurology Vital Signs Temp Pulse Resp BP Pulse Ox O2 Del Method O2 Flow Rate 97.3 F 71 22 H 109/65 94 L Room Air 1 12/30/24 20:00 12/30/24 21:12 12/30/24 20:00 12/30/24 21:12 12/30/24 20:00 12/30/24 20:00 12/27/24 18:12 Narrative Exam General: AOx3, no acute distress, able to speak full sentences HEENT: NC/AT, mucous membranes moist, bilateral sclera anicteric Cardiovascular: regular rate and rhythm, S1/S2 present, no murmurs appreciated Pulmonary: clear to auscultation bilaterally, no rales/rhonchi/wheezes Abdominal: soft, non-tender, non-distended, no rebound/guarding, normal bowel sounds present Musculoskeletal: normal ROM in both UE, paraparesis: unchanged, no peripheral edema Skin: warm and dry, intact, no rashes Objective Labs 12/31/24 04:54 12/31/24 04:54 Labs: Laboratory Results - last 24 hr 12/30/24 12/30/24 12/30/24 00:36 04:35 18:30 WBC 12.4 H D RBC 3.65 L Hgb 11.3 L Hct 30.2 L MCV 83 MCH 31.0 MCHC 37.4 H RDW Std Deviation 39.4 Plt Count 214 D Neut % (Auto) 74 Lymph % (Auto) 14 [place] % (Auto) 9 Eos % (Auto) 1 Baso % (Auto) 0 Neut # (Auto) 9.1 H Lymph # (Auto) 1.7 [place] # (Auto) 1.1 H Eos # (Auto) 0.1 Baso # (Auto) 0.0 Immature Gran # (Auto) 0.33 H Absolute Nucleated RBC 0.00 Immature Gran % 3 H Nucleated RBC % 0 Sodium 128 L Potassium 3.8 Chloride 97 L Carbon Dioxide 24.8 Anion Gap 6 L BUN 7 L Creatinine 0.2 L Estim Creat Clear Calc 234.7 eGFR > 60 BUN/Creatinine Ratio 35 H Glucose 93 Calculated Osmolality 255 L Calcium 7.6 L Corrected Calcium 8.7 Phosphorus 2.2 L Magnesium 1.5 L Total Bilirubin 0.4 ALT 20 Alkaline Phosphatase 79 D Total Creatine Kinase 95 Total Protein 4.6 L Albumin 2.6 L Globulin 2.0 L Albumin/Globulin Ratio 1.3 CSF Appearance Clear CSF Color Colorless CSF WBC 1 CSF RBC 0 CSF Cell Count Tube # Tube # 4 CSF Mononuclear WBCs 0 CSF Polynuclear WBCs 100 CSF Glucose 50 CSF Total Protein 189 H ABG Interpretation ABG results: 12/27/24 02:14 ABG pH 7.35 ABG pCO2 31 L ABG pO2 65 L ABG HCO3 17 L ABG O2 Saturation 91 ABG Base Excess -7 L Assessment & Plan Assessment and plan (1) Weakness: Status: Chronic Assessment and plan: FU with labs, consider doing LP tomorrow. (2) UTI (urinary tract infection): Status: Acute Assessment and plan: on antibiotics IV (3) Septic shock: Status: Acute Assessment and plan: treated with IV fluids and antibiotics, fu with culture and sensitity (4) AMS (altered mental status): Status: Resolved (5) Diabetes 1.5, managed as type 2: Status: Acute Assessment and plan: under control as per the last A1c.
--- NOTE | 2024-12-30 23:47 | PD.EVENT ---
Documentation for date of: 12/30/24 Date of procedure: 12/30/24 Pre-op diagnosis: CIDP Post-op diagnosis: Same Consent signed by: patient Position: lateral decubitus Prep: betadine Anesthesia: 1 % Lidocaine Sedation: none Needle size: 22ga Needle length: 3.5 Interspace: L3-4 Number of attempts: 1 Opening pressure: not done Fluids mLs collected: 14 Fluid description: clear Complications: No Procedure performed by: Dominick Duncan Condition: Stable Disposition: no change
[2024-12-31] VITALS (20 sets, daily range): BP systolic 112–148; BP diastolic 70–95; PULSE 65–94; RESP 14–24; TEMP 36–36.6; O2SAT 92–96; BMI 23.3; BMI 12.0
[2024-12-31] MEDS: Ampicillin Inj 2,000 MG in SODIUM CHLORIDE 0.9% (POP) 100 ML 200 MG IV ×4 (05:28→23:22)
[2024-12-31] MEDS: HEPARIN SOD INJ 5000 UNIT/ML VIAL SC ×2 (05:29→21:27)
[2024-12-31] MEDS: MIDODRINE 5 MG TABLET 10 MG PO ×3 (05:30→20:40)
[2024-12-31] MEDS: LEVOTHYROXINE SODIUM 125 MCG, LEVOTHYROXINE SODIUM 25 MCG 150 MCG PO (05:31)
[2024-12-31 05:45] LABS: Basophils % (Auto) 0 % (0-2.5); Eosinophils # (Auto) 0.1 Thou/mm3 (0.0-0.5); Eosinophils % (Auto) 1 % (0-10); Hematocrit 29.6 % (36.0-46.0); Hemoglobin 10.8 g/dL (12.0-16.0); Immature Granulocytes % (Auto) 6 % (0-0); Lymphocytes # (Auto) 1.9 Thou/mm3 (1.0-4.8); Lymphocytes % (Auto) 19 % (10-50); Mean Corpuscular HGB Conc 36.5 g/dl (31.0-37.0); Mean Corpuscular Hemoglobin 30.4 pg (25.0-35.0); Mean Corpuscular Volume 83 fL (80-100); Monocytes # (Auto) 1.2 Thou/mm3 (0.0-0.8); Monocytes % (Auto) 12 % (0-12); Neutrophils # (Auto) 6.2 Thou/mm3 (1.8-7.7); Neutrophils % (Auto) 62 % (37-80); Nucleated Red Blood Cell % 0 /100 WBC (0); Platelet Count 190 Thou/mm3 (140-440); RDW Standard Deviation 39.4 fL (36.4-46.3); Red Blood Count 3.55 Miln/mm3 (4.00-5.20); White Blood Count 10.1 Thou/mm3 (3.6-11.0)
[2024-12-31 06:26] LABS: Alanine Aminotransferase 16 U/L (10-49); Albumin, Serum 2.7 gm/dL (3.4-4.8); Albumin/Globulin Ratio 1.4 (1.2-2.2); Alkaline Phosphatase 73 U/L (46-116); Anion Gap 10 (7-16); Aspartate Amino Transferase 25 U/L (0-34); BUN/Creatinine Ratio 30 Ratio (12-20); Bilirubin,Total 0.5 mg/dL (0.3-1.2); Blood Urea Nitrogen 6 mg/dL (9-23); Calcium 7.5 mg/dL (8.3-10.6); Calcium (Corrected) 8.5 mg/dL (8.5-10.1); Carbon Dioxide 25.1 mMol/L (20.0-31.0); Chloride 96 mMol/L (98-107); Creatinine (Component) 0.2 mg/dL (0.6-1.3); Estimated Creatinine Clearance 217.3 mL/min (>60); Globulin 1.9 gm/dL (2.3-3.5); Glucose 99 mg/dL (74-106); Magnesium 1.4 mg/dL (1.6-2.6); Osmolality,Calculated 260 (275-295); Phosphorous 2.7 mg/dL (2.4-5.1); Potassium 3.3 mMol/L (3.4-5.1); Sodium 131 mMol/L (136-145); Total Protein 4.6 gm/dL (5.7-8.2); eGFR > 60 See Note
[2024-12-31] MEDS: Magnesium Sulfate 2 GM Ivpb 2 GM/50 ML BAG IV (07:46)
[2024-12-31 08:13] LABS: Partial Thromboplastin Time 28.8 Seconds (22.0-36.0); Prothrombin Time 11.2 Seconds (9.0-12.2)
[2024-12-31] MEDS: PANTOPRAZOLE 40 MG TABLET PO (08:23)
[2024-12-31] MEDS: POTASSIUM CHLORIDE 20 mEq TABCR 40 MEQ PO (08:24)
--- NOTE | 2024-12-31 08:45 | ESPR_ITS ---
Documentation for date of: 12/31/24 Subjective Subjective Interval history: Ms. Cuevas is a 64 y/o female with PMHx of thyroid cancer, HTN, hypothyroidism, depression, non-insulin dependent type two DM, and sciatica who comes in from [place] [facility] for evaluation of altered mental status, dyspnea. Patient has started experiencing diaphoresis and vomiting while in the [place] [facility], and was hesitant on coming into the hospital. Patient began to desaturate at the facility and also began hypotensive and was brought to the emergency room for further evaluation. At this time she is doing much better, off Levophed. She says she has had thyroid disease for a long time. She was unaware of having low sodium levels chronically. She has been dealing with what it seems to be sciatica for many years now. She also feels weak at this time as well. She denies taking any water pills. She states she has been taking Zoloft for years now. Does not see a heart doctor. No other complaints this time. ED course: Patient came to the ED with a blood pressure 57/40, pulse of 121, oxygen saturation on 90% 2 L nasal cannula. Patient was worked up was found to have a white count of 25, sodium 129, chloride 94, GFR 46, glucose 166, osmolarity 265, lactate 5.4, magnesium 1.3, troponin 0.142, CRP 9.9, Pro-Jam 42, TSH 22.72, free T41.81. Urinalysis showed +1 bacteria, 476 white cells, +1 protein and blood. ABG showed pH of 7.35, [id number], PO2 of 65. EKG showed sinus tachycardia. Patient was given 2 L normal saline, Zofran x 1, Solu-Medrol 125. Levophed was started as patient was not fluid responsive for pressures. Sepsis alert was initiated and was started on broad-spectrum cefepime and vancomycin. ICU was consulted and patient was made to the floors. 12/30/2024 Patient examined at bedside today. No acute overnight events. Patient reports she is not eating too much and does not have much of an appetite. She also says that she has been having trouble walking for the past couple months. She says that she has pain in her legs. She says she has been taking her thyroid medicine as prescribed. She also says that her depression is well-controlled this time. Her sodium today was 128, magnesium 1.5, potassium 3.8. Fasting blood glucose was 255. Urine culture resulted Enterococcus. 12/31/2024: Patient examined at bedside today. No acute overnight events. Patient reports he is doing well. She says she is tolerated the lumbar puncture well yesterday. She says she is also going to get cardiac catheterization. Her potassium was 3.3 today, sodium 131, creatinine 0.2, calcium 8.5, phosphorus 2.7, magnesium 1.4, pending LP results. Exam Vital Signs Temp Pulse Resp BP Pulse Ox O2 Del Method O2 Flow Rate 97.9 F 85 24 H 129/78 96 Room Air 1 12/31/24 08:00 12/31/24 08:23 12/31/24 08:00 12/31/24 08:23 12/31/24 08:00 12/31/24 08:00 12/27/24 18:12 Narrative Exam General: AAOx3, NAD, weak looking female, Yemeni-speaking HEENT: Moist mucous membranes, conjunctiva clear, EOMI, PERRLA, Cardiovascular: S1, S2, radial pulses +2 bilat, RRR Pulmonary: CTAB bilat no cough, no wheezing GI: No tenderness to light or deep palpitation, no guarding, rigidity, rebound tenderness or distension Extremities: Trace edema in lower extremities bilaterally, dorsalis pedis pulses +2 bilaterally, weak musculature Skin: SK present on chest and back Neuro: AAOx3, patient has significant weakness in the lower extremities Psych: Cooperative Objective Labs 01/02/25 05:27 01/02/25 05:27 Labs: Laboratory Results - last 24 hr 12/30/24 12/31/24 12/31/24 18:30 04:54 04:56 WBC 10.1 RBC 3.55 L Hgb 10.8 L Hct 29.6 L MCV 83 MCH 30.4 MCHC 36.5 RDW Std Deviation 39.4 Plt Count 190 Neut % (Auto) 62 Lymph % (Auto) 19 [place] % (Auto) 12 Eos % (Auto) 1 Baso % (Auto) 0 Neut # (Auto) 6.2 Lymph # (Auto) 1.9 [place] # (Auto) 1.2 H Eos # (Auto) 0.1 Baso # (Auto) 0.0 Immature Gran # (Auto) 0.60 H Absolute Nucleated RBC 0.00 Immature Gran % 6 H Nucleated RBC % 0 PT 11.2 INR 1.0 APTT 28.8 Sodium 131 L Potassium 3.3 L D Chloride 96 L Carbon Dioxide 25.1 Anion Gap 10 BUN 6 L Creatinine 0.2 L Estim Creat Clear Calc 217.3 eGFR > 60 BUN/Creatinine Ratio 30 H Glucose 99 Calculated Osmolality 260 L Calcium 7.5 L Corrected Calcium 8.5 Phosphorus 2.7 Magnesium 1.4 L Total Bilirubin 0.5 AST 25 ALT 16 Alkaline Phosphatase 73 Total Protein 4.6 L Albumin 2.7 L Globulin 1.9 L Albumin/Globulin Ratio 1.4 CSF Appearance Clear CSF Color Colorless CSF WBC 1 CSF RBC 0 CSF Cell Count Tube # Tube # 4 CSF Mononuclear WBCs 0 CSF Polynuclear WBCs 100 CSF Glucose 50 CSF Total Protein 189 H ABG Interpretation ABG results: 12/27/24 02:14 ABG pH 7.35 ABG pCO2 31 L ABG pO2 65 L ABG HCO3 17 L ABG O2 Saturation 91 ABG Base Excess -7 L Quality Measures Quality Measures VTE prophylaxis (Heparin subcutaneously) Assessment & Plan Assessment Current Active Medications: Generic Name Dose Route Start Last Admin Trade Name Ayoq PRN Reason Stop Dose Admin Acetaminophen 650 mg 12/29/24 14:26 Acetaminophen 325 Mg Tablet PO 01/26/25 04:36 Q6H PRN fever >99.9 Dextrose 25 ml 12/27/24 04:44 Dextrose 50%-Water Inj 50 Ml Syringe IV 01/26/25 04:43 Q15MIN PRN BG 50-70 responsive npo pt Dextrose 50 ml 12/27/24 04:44 Dextrose 50%-Water Inj 50 Ml Syringe IV 01/26/25 04:43 Q15MIN PRN BG <50 OR BG <70 & pt unresponsive Gabapentin 100 mg 12/27/24 16:21 12/27/24 16:29 Gabapentin 100 Mg Capsule PO 01/26/25 16:29 100 mg TID PRN Administration leg pain Protocol Glucagon 1 mg 12/27/24 04:44 Glucagon Inj 1 Mg Vial IM Q15MIN PRN BG <70, and no IV access Heparin Sodium (Porcine) 5,000 unit 12/27/24 06:00 12/31/24 05:29 Heparin Sod Inj 5000 Unit/Ml Vial SC 01/10/25 05:59 5,000 unit Q8HR SAMMI Administration Ampicillin Sodium 2,000 mg/ 100 mls @ 200 mls/hr 12/29/24 12:00 12/31/24 05:28 Sodium Chloride IV 01/05/25 11:59 200 mls/hr Q6HR SAMMI Administration Magnesium Sulfate 2 gm in 50 mls @ 25 mls/hr 12/31/24 07:12 12/31/24 07:46 Magnesium Sulfate Ivpb IV 12/31/24 09:11 25 mls/hr X1 ONE Administration Magnesium Sulfate/Dextrose 1 gm in 100 mls @ 100 mls/hr 12/31/24 09:12 Magnesium Sulfate Ivpb IV 12/31/24 10:11 X1 ONE Insulin Human Lispro 0 unit 12/27/24 07:30 12/31/24 07:39 Insulin Lispro (Admelog) 1 Unit/0.01 Ml Unit SC 01/26/25 07:29 Not Given AC SAMMI Protocol Levothyroxine Sodium 125 mcg/ 150 mcg 12/27/24 07:15 12/31/24 05:31 Levothyroxine Sodium 25 mcg PO 01/26/25 07:14 150 mcg ACBR SAMMI Administration Midodrine 10 mg 12/31/24 09:00 12/31/24 08:23 Midodrine 5 Mg Tablet PO 01/30/25 08:59 10 mg BID SAMMI Administration Mirtazapine 15 mg 12/30/24 21:00 12/30/24 21:13 Mirtazapine 15 Mg Tablet PO 01/29/25 20:59 15 mg HS SAMMI Administration Ondansetron HCl 4 mg 12/27/24 04:37 12/29/24 21:08 Ondansetron Inj 2 Mg/Ml Inj 2 Ml IVP 01/26/25 04:36 4 mg Q6H PRN Administration NAUSEA OR VOMITING Protocol Pantoprazole Sodium 40 mg 12/30/24 09:00 12/31/24 08:23 Pantoprazole 40 Mg Tablet PO 01/29/25 08:59 40 mg QDAY SAMMI Administration Protocol Tramadol HCl 50 mg 12/27/24 17:25 12/29/24 20:15 Tramadol Hcl 50 Mg Tablet PO 01/01/25 17:24 50 mg Q8HR PRN Administration PAIN SCALE 4-10(Mod-Sev Plan Assessment Ms Zaidi is a Yemeni-speaking 64-year-old female with history of Thyroid cancer, hypertension, hypothyroidism, depression, diabetes mellitus, and sciatica who presented to the ED with concerns of vomiting and fever, found to be hypotensive likely secondary to hypovolemia and/or infection, started on levophed and admitted to ICU for further management. #Chronic hypoosmolar hyponatremia, #Hypokalemia, resolved #Hypomagnesiemia #Hypophosphatemia DDx: Dehydration, underlying SIADH, hypothyroidisim Dating back to 2019 Sodium today 128; Mg 1.5; Phosphororus 2.2 Was initially hypovolemic, which is now improving --did receive fluid boluses. Urine Sodium is below 15, which wouldn't in theory support SIADH as Urine sodium would be elevated Pt seems to have underlying thyroid disease that is not controlled which can affect renal perfusion and thus affect reabsorption of lytes Uncontrolled hypothyroidism can lead to increased ADH levels which could be responsible for her hyponatremia as she has chronic uncontrolled hypothyroidism Pt will need outpatient follow up and management Pt is okay for d/c from nephrology standpoint and can be d/justus on 1g salt tablets Plan: ? Encourage oral intake ? Treat thyroid disease, consider checking free T4 in a couple of days ? Trend with CMP ? Correct electrolyte abnormalities as needed ? Recommend 1g salt tablets upon d/c #Lower extremity weakness, bilat Could be demyelinating syndrome, CDIP, GBS Lumbar spine MRI unremarkable Phosphorus 2.7, could also worsen weakness Plan: ? Follow-up LP results ? Neurology consulted, appreciate recs ? Neutra-Phos 2 packets for 3 days (12/31- #Enterococcus UTI #Chronic back pain #Depression #Non-sustained SVT #Protein-calorie malnutrition #Loss of appetite #Protein-calorie malnutrition #Hypoosmolar hyponatremia, chronic #HECTOR, resolved #Hematuria, resolved #Leukocytosis #T2DM #Hypothyroidism #Hx of Thyroid CA s/p LT thyroid lobectomy 20 years ago #RT adrenal lesion, incidental #Shock, likely septic from UTI and hypovolemic component Above handled by primary team Patient seen and care discussed with my attending physician, Dr. Khadijah Pop, PGY-1 Attending Provider Attestation/Addendum Patient seen and examined with resident physician Dr. vargas. Note reviewed, agree with findings and recommendations. Patient admitted with weakness and the symptomatic hyponatremia. Responded well to fluids and subsequently fluid restriction. Sodium much better. Plan of care discussed with primary team Still with lower extremity weakness. Did get LP-high protein in the CSF fluid. Dr Duncan on the case.
[2024-12-31] MEDS: Magnesium Sulfate 1 gm Ivpb 1 GM/100 ML BAG IV (09:31)
--- NOTE | 2024-12-31 11:34 | PC.SS ---
SS follow up note; Patient had Lumbar puncture yesterday, Possible IVIG. Patient will discharge back to [facility] when medically cleared.
--- NOTE | 2024-12-31 11:49 | ESPR_ITS ---
<Statement entered by Teagan Corea MD - 12/31/24 14:55> he patient was seen and examined at the bedside with no acute overnight events. CSF was obtained yesterday by urology, showing a protein level of 169. Given high suspicion of demyelinating neuropathy, neurology started the patient on IVIG. Plan for Today: Cardiac catheterization is planned. Continue current management and attempt to wean off midodrine. Monitor vitals and electrolytes closely. Follow-up with neurology recommendations: the patient will need 5 days of IVIG. Documentation for date of: 12/31/24 Subjective Subjective Interval history: No acute overnight events. Obtained lumbar puncture yesterday evening that showed elevated protein at 169 for which neurology planning to start IVIG. Patient also planned for cardiac cath today for further evaluation of elevated troponins. Otherwise, patient denies any pain, shortness of breath, chest pain, fever, chills, nausea, vomiting. Vital signs stable and anticipate weaning off midodrine either later today or tomorrow. Leukocytosis resolved, hemoglobin decreasing slowly but likely from hemodilution. CHem panel showed improving Na, K low and repleted, Mg low and repleted. Exam Vital Signs Temp Pulse Resp BP Pulse Ox O2 Del Method O2 Flow Rate 97.9 F 80 24 H 129/78 96 Room Air 1 12/31/24 08:00 12/31/24 11:39 12/31/24 08:00 12/31/24 08:23 12/31/24 08:00 12/31/24 08:00 12/27/24 18:12 Narrative Exam General: AOx3, no acute distress, able to speak full sentences HEENT: NC/AT, mucous membranes moist, bilateral sclera anicteric Cardiovascular: regular rate and rhythm, S1/S2 present, no murmurs appreciated Pulmonary: clear to auscultation bilaterally, no rales/rhonchi/wheezes Abdominal: soft, non-tender, non-distended, no rebound/guarding, normal bowel sounds present Musculoskeletal: normal ROM, no peripheral edema Skin: warm and dry, intact, no rashes Neuro: significant bilateral lower extremity weakness Objective Labs 01/01/25 04:38 01/01/25 04:38 Labs: Laboratory Results - last 24 hr 12/30/24 12/31/24 12/31/24 18:30 04:54 04:56 WBC 10.1 RBC 3.55 L Hgb 10.8 L Hct 29.6 L MCV 83 MCH 30.4 MCHC 36.5 RDW Std Deviation 39.4 Plt Count 190 Neut % (Auto) 62 Lymph % (Auto) 19 [place] % (Auto) 12 Eos % (Auto) 1 Baso % (Auto) 0 Neut # (Auto) 6.2 Lymph # (Auto) 1.9 [place] # (Auto) 1.2 H Eos # (Auto) 0.1 Baso # (Auto) 0.0 Immature Gran # (Auto) 0.60 H Absolute Nucleated RBC 0.00 Immature Gran % 6 H Nucleated RBC % 0 PT 11.2 INR 1.0 APTT 28.8 Sodium 131 L Potassium 3.3 L D Chloride 96 L Carbon Dioxide 25.1 Anion Gap 10 BUN 6 L Creatinine 0.2 L Estim Creat Clear Calc 217.3 eGFR > 60 BUN/Creatinine Ratio 30 H Glucose 99 Calculated Osmolality 260 L Calcium 7.5 L Corrected Calcium 8.5 Phosphorus 2.7 Magnesium 1.4 L Total Bilirubin 0.5 AST 25 ALT 16 Alkaline Phosphatase 73 Total Protein 4.6 L Albumin 2.7 L Globulin 1.9 L Albumin/Globulin Ratio 1.4 CSF Appearance Clear CSF Color Colorless CSF WBC 1 CSF RBC 0 CSF Cell Count Tube # Tube # 4 CSF Mononuclear WBCs 0 CSF Polynuclear WBCs 100 CSF Glucose 50 CSF Total Protein 189 H ABG Interpretation ABG results: 12/27/24 02:14 ABG pH 7.35 ABG pCO2 31 L ABG pO2 65 L ABG HCO3 17 L ABG O2 Saturation 91 ABG Base Excess -7 L Quality Measures Quality Measures VTE prophylaxis (Heparin subcutaneously) Assessment & Plan Assessment Current Active Medications: Generic Name Dose Route Start Last Admin Trade Name José Miguel PRN Reason Stop Dose Admin Acetaminophen 650 mg 12/29/24 14:26 Acetaminophen 325 Mg Tablet PO 01/26/25 04:36 Q6H PRN fever >99.9 Acetaminophen 500 mg 12/31/24 11:00 Acetaminophen 500 Mg Tablet PO 01/04/25 11:01 QDAY@1100 SAMMI Dextrose 25 ml 12/27/24 04:44 Dextrose 50%-Water Inj 50 Ml Syringe IV 01/26/25 04:43 Q15MIN PRN BG 50-70 responsive npo pt Dextrose 50 ml 12/27/24 04:44 Dextrose 50%-Water Inj 50 Ml Syringe IV 01/26/25 04:43 Q15MIN PRN BG <50 OR BG <70 & pt unresponsive Diphenhydramine HCl 25 mg 12/31/24 11:00 Diphenhydramine Inj 50 Mg/Ml Vial IVP 01/04/25 11:01 QDAY@1100 SAMMI Gabapentin 100 mg 12/27/24 16:21 12/27/24 16:29 Gabapentin 100 Mg Capsule PO 01/26/25 16:29 100 mg TID PRN Administration leg pain Protocol Glucagon 1 mg 12/27/24 04:44 Glucagon Inj 1 Mg Vial IM Q15MIN PRN BG <70, and no IV access Heparin Sodium (Porcine) 5,000 unit 12/27/24 06:00 12/31/24 05:29 Heparin Sod Inj 5000 Unit/Ml Vial SC 01/10/25 05:59 5,000 unit Q8HR SAMMI Administration Ampicillin Sodium 2,000 mg/ 100 mls @ 200 mls/hr 12/29/24 12:00 12/31/24 11:20 Sodium Chloride IV 01/05/25 11:59 200 mls/hr Q6HR SAMMI Administration Immune Globulin G/Gly/IgA 200 mls @ 65 mls/hr 12/31/24 11:30 Gamunex C Inj IV 01/04/25 14:35 QDAY@1130 [facility] Insulin Human Lispro 0 unit 12/27/24 07:30 12/31/24 07:39 Insulin Lispro (Admelog) 1 Unit/0.01 Ml Unit SC 01/26/25 07:29 Not Given AC [facility] Protocol Levothyroxine Sodium 125 mcg/ 150 mcg 12/27/24 07:15 12/31/24 05:31 Levothyroxine Sodium 25 mcg PO 01/26/25 07:14 150 mcg ACBR SAMMI Administration Midodrine 10 mg 12/31/24 09:00 12/31/24 08:23 Midodrine 5 Mg Tablet PO 01/30/25 08:59 10 mg BID SAMMI Administration Mirtazapine 15 mg 12/30/24 21:00 12/30/24 21:13 Mirtazapine 15 Mg Tablet PO 01/29/25 20:59 15 mg HS SAMMI Administration Ondansetron HCl 4 mg 12/27/24 04:37 12/29/24 21:08 Ondansetron Inj 2 Mg/Ml Inj 2 Ml IVP 01/26/25 04:36 4 mg Q6H PRN Administration NAUSEA OR VOMITING Protocol Pantoprazole Sodium 40 mg 12/30/24 09:00 12/31/24 08:23 Pantoprazole 40 Mg Tablet PO 01/29/25 08:59 40 mg QDAY SAMMI Administration Protocol Potassium Phos/Sodium Phos 1 packet 12/31/24 09:00 12/31/24 09:32 Naph,Kp Mbdb 1 Packet (1.5 Gm) PO 01/02/25 09:00 Not Given BID SAMMI Tramadol HCl 50 mg 12/27/24 17:25 12/29/24 20:15 Tramadol Hcl 50 Mg Tablet PO 01/01/25 17:24 50 mg Q8HR PRN Administration PAIN SCALE 4-10(Mod-Sev Plan Faith Zaidi is a 64-year-old female with past medical history of thyroid cancer, hypothyroidism, hypertension, type 2 diabetes mellitus, depression, and sciatica who was admitted for septic shock to the ICU on 12/27 and downgraded to floors on 12/29. #Septic shock likely secondary to UTI, resolved #Enterococcus faecalis urinary tract infection Noted to have Bennett catheter from nursing facility but was recently changed per daughter. Urinalysis showed turbid urine, 476 WBC, 152 RBC, 1+ bacteria, positive LE. Urine cultures grew Enterococcus faecalis, pansensitive. Initially on vancomycin and cefepime but now on ampicillin. ? Ampicillin 2 g IV every 6 hours (12/29-01/05) ? Midodrine 10 mg BID, plan to wean off later today or tomorrow #NSTEMI type II/demand ischemia in setting of shock Troponin 0.14 and downtrended to 0.09 on admission but due to concerns for ST elevations on monitor, BP troponins obtained and up trended from 0.09 to 3.8. Suspect demand ischemia in setting of shock. EKG showed sinus rhythm, no ST changes or T wave abnormalities. Echo on 12/27 showed EF 65 to 70%, normal LV size and function, G1DD, mild TR. ? Cardiology following, appreciate recommendations ? Cardiac cath 12/31 ? Troponins downtrended #Bilateral lower extremity weakness Endorses lower extremity weakness for last few months. Has been mostly bedbound at [facility]. MRI lumbar spine showed mild disc narrowing at L5-S1, central lumbar disc bulging at L4-L5 with left L4 ganglionic compression. CT head showed no acute pathologies. Lumbar puncture showed elevated protein at 169. ? Neurology following, appreciate recommendations ? IVIG daily (12/31-01/04) ? Physical therapy ordered #Acute kidney injury, resolved #Hypotonic hyponatremia Initial creatinine of 1.3 with baseline of 0.6, resolved with IVF. ? Nephrology following, appreciate recommendations ? Avoid nephrotoxic agents when possible, renally dose medications ? Recommend salt tablets on discharge #History of hypothyroidism ? Levothyroxine 150 mcg #Type 2 diabetes mellitus A1c 5.1% ? SSI ? Hypoglycemic protocol in place #Depression ? Sertraline switched to mirtazapine due to possible contribution to hyponatremia #GERD ? Omeprazole 20 mg daily Hospital management: Disposition: ICU downgrade, cardiac cath today and IVIG from 12/31-01/04 Diet: Carb consistent low on Glucerna shakes, NPO after midnight Lines: PIV, Bennett DVT prophylaxis: Heparin SC TID GI prophylaxis: Omeprazole 20 mg daily Bennett: Placed CODE STATUS: DNR ----- Plan discussed with attending physician Dr. Wicho Weaver MD PGY-1 Internal Medicine Attending Provider Attestation/Addendum I have examined the patient, reviewed labs and imaging findings, discussed the case with the resident(s), and reviewed entered orders. I agree with the plan of care as outlined in this note, with these additional summaries/recommendations: Patient is a 64-year-old female with a medical history of primary hypertension, hypothyroidism, depression, chronic hyponatremia, diabetes mellitus type 2, GERD, hyperlipidemia, and chronic lower back pain presents to [facility] emergency department on 12/27/2024 with chief complaint of dizziness and nausea plus vomiting. Patient seen at bedside. No acute overnight events. Discussed with patient that she will go for cardiac catheterization today and patient in agreement. Continue IV ampicillin for UTI. Septic shock resolved. Continue midodrine as needed for hypotension and we will attempt to wean down. Patient is status post lumbar puncture yesterday 12/30/2024 and tolerated procedure well. She denies headache today. CSF analysis showed elevated total protein 189. Further CSF studies pending. We will follow-up with neurology for further recommendations for bilateral lower extremity weakness. Previous lumbar MRI did not reveal any evidence of abnormal osseous, conus medullaris or cauda equina enhancement. Continue home levothyroxine for history of severe hypothyroidism which is now more improved. TSH 22.72 and free T4 1.81. Patient's chronic hyponatremia is currently stable with sodium 127. Continue insulin sliding scale for diabetes mellitus type 2 with Accu-Checks. Target blood sugar of 140-180 while hospitalized. Hold home antihypertensives. As needed tramadol for lower back pain. Please see residents note for additional details and management. Dr. Wicho MD
[2024-12-31] MEDS: DIAZEPAM 5 MG TABLET PO (12:34)
--- NOTE | 2024-12-31 13:26 | PD.CARDCATH ---
Cardiac Cath Procedure Procedure Narrative Procedure date 12/31/2024 Title of the procedure 1.left heart catheterization 2.left coronary angiogram 3.right coronary angiogram 4.left ventriculogram 5.conscious sedation 6.radiographic interpretation supervision 7.ultrasound guidance for right radial access Indication for the procedure This is a 64-year-old female with past medical history of hypertension diabetes hyperlipidemia She was seen in the emergency room with fatigue tiredness dizziness Patient was treated for UTI Patient's troponin peaked at 3 Cardiology catheterization and coronary angiogram was recommended Procedure This is done in the cardiac lab under concern electrocardiographic monitoring Intermittent blood pressure monitoring right radial access obtained using modified Seldinger technique and ultrasound guidance 6 Sinhala sheath was placed TIG 4 catheter was used for selective injection of the left coronary artery TIG 4 catheter was used for selective injection of the right coronary artery TIG 4 catheter was used for left ventriculogram Findings Hemodynamics Overall left ventricular systolic function appears normal Approximate ejection fraction 55% End-diastolic pressure was 18 mmHg There is no gradient across the aortic valve Coronary anatomy 1.left main coronary artery appears normal 2.left anterior descending artery does not seem to have any significant lesion 3.circumflex distally has about 50% lesion 4.obtuse marginal does not seem to have any significant lesion 5.right coronary is a dominant vessel with no significant lesion noted Conclusion No significant coronary lesion continue medical management
--- NOTE | 2024-12-31 13:31 | PD.IMPROG ---
Documentation for date of: 12/31/24 Subjective Subjective Interval history: Coronary angiogram does not show any significant coronary artery disease Continue medical management Exam Vital Signs Temp Pulse Resp BP Pulse Ox O2 Del Method O2 Flow Rate 97.1 F 66 20 145/89 H 93 L Room Air 1 12/31/24 11:46 12/31/24 11:46 12/31/24 11:46 12/31/24 11:46 12/31/24 11:46 12/31/24 11:46 12/27/24 18:12 Routine HEENT Exam Head: Present normocephalic and atraumatic Eye: Present EOMI and PERRL ENT: Present mucous membranes moist Routine Neck Exam Neck: Present supple and trachea midline Routine Respiratory Exam Respiratory: Present chest non-tender, lungs clear, normal breath sounds and no resp distress Routine Cardiovascular Exam Cardiovascular: Present RRR Routine Abdominal Exam Abdominal: Present soft and normoactive bowel sounds Routine Extremities Exam Extremities: Present full ROM Routine Skin Exam Skin: Present intact, dry and warm Routine Neurological Exam Neurological: Present alert, oriented X3 and CN II-XII intact Routine Psychiatric Exam Psychiatric: Present normal affect and normal thought process Objective Labs 12/31/24 04:54 12/31/24 04:54 Labs: Laboratory Results - last 24 hr 12/30/24 12/31/24 12/31/24 18:30 04:54 04:56 WBC 10.1 RBC 3.55 L Hgb 10.8 L Hct 29.6 L MCV 83 MCH 30.4 MCHC 36.5 RDW Std Deviation 39.4 Plt Count 190 Neut % (Auto) 62 Lymph % (Auto) 19 [place] % (Auto) 12 Eos % (Auto) 1 Baso % (Auto) 0 Neut # (Auto) 6.2 Lymph # (Auto) 1.9 [place] # (Auto) 1.2 H Eos # (Auto) 0.1 Baso # (Auto) 0.0 Immature Gran # (Auto) 0.60 H Absolute Nucleated RBC 0.00 Immature Gran % 6 H Nucleated RBC % 0 PT 11.2 INR 1.0 APTT 28.8 Sodium 131 L Potassium 3.3 L D Chloride 96 L Carbon Dioxide 25.1 Anion Gap 10 BUN 6 L Creatinine 0.2 L Estim Creat Clear Calc 217.3 eGFR > 60 BUN/Creatinine Ratio 30 H Glucose 99 Calculated Osmolality 260 L Calcium 7.5 L Corrected Calcium 8.5 Phosphorus 2.7 Magnesium 1.4 L Total Bilirubin 0.5 AST 25 ALT 16 Alkaline Phosphatase 73 Total Protein 4.6 L Albumin 2.7 L Globulin 1.9 L Albumin/Globulin Ratio 1.4 CSF Appearance Clear CSF Color Colorless CSF WBC 1 CSF RBC 0 CSF Cell Count Tube # Tube # 4 CSF Mononuclear WBCs 0 CSF Polynuclear WBCs 100 CSF Glucose 50 CSF Total Protein 189 H ABG Interpretation ABG results: 12/27/24 02:14 ABG pH 7.35 ABG pCO2 31 L ABG pO2 65 L ABG HCO3 17 L ABG O2 Saturation 91 ABG Base Excess -7 L Assessment & Plan A&P Narrative Heart catheterization does not show any significant coronary artery disease Continue medical management Time Spent With Patient Time: Total time spent is greater than 50% in coordination of care (as documented) at patient's floor/unit and/or counseling patient:
--- NOTE | 2024-12-31 15:19 | PC.NURSE ---
Report given to LOLLY Hubbard. Pt A&O x4.VSS. Patient transferred to tele via gurney. Dressing to right wrist clean, dry, and intact. No signs of bleeding or hematoma.
[2024-12-31] MEDS: ACETAMINOPHEN 500 MG TABLET PO (15:48)
[2024-12-31] MEDS: DiphenhydrAMINE INJ 50 MG/ML VIAL 25 MG IVP (15:49)
[2024-12-31] MEDS: SODIUM CHLORIDE 0.45 % 500 ML 250 ML IV (16:20)
--- NOTE | 2024-12-31 18:33 | PD.IMCONS ---
HPI Data of Consult Requesting Physician: Ifrah Wick MD Primary Care Provider: Physician No Primary/Family Consult Narrative cc:: cc: Ifrah Wick MD Meds Home Medications and Allergies Home Medications ?Medication ?Instructions ?Recorded ?Confirmed ?Type metformin 500 mg tablet 500 mg PO DAILY 05/09/19 12/27/24 History naproxen 500 mg tablet 500 mg PO DAILY 05/09/19 12/27/24 History omeprazole 20 mg tablet,delayed 20 mg PO QDAY 05/09/19 12/27/24 History release cetirizine 10 mg tablet 10 mg PO QDAY 10/04/24 12/27/24 History pravastatin 20 mg tablet 20 mg PO HS 10/04/24 12/27/24 History tramadol 50 mg tablet 50 mg PO Q8H PRN pain 10/04/24 12/27/24 History cranberry fruit 450 mg tablet 450 mg PO QDAY 12/27/24 12/27/24 History (cranberry) magnesium oxide 400 mg PO BID 12/27/24 12/27/24 History Allergies Allergy/AdvReac Type Severity Reaction Status Date / Time codeine Allergy Severe DELUSIONS Verified 07/16/24 16:40 Exam Vital Signs Temp Pulse Resp BP Pulse Ox O2 Del Method O2 Flow Rate 97.6 F 72 16 131/72 H 96 Room Air 1 12/31/24 16:00 12/31/24 16:00 12/31/24 16:00 12/31/24 16:00 12/31/24 16:00 12/31/24 16:00 12/27/24 18:12 Results Labs 12/31/24 04:54 12/31/24 04:54 Labs: Short CBC 12/31/24 Range/Units 04:54 WBC 10.1 (3.6-11.0) Thou/mm3 Hgb 10.8 L (12.0-16.0) g/dL Hct 29.6 L (36.0-46.0) % Plt Count 190 (140-440) Thou/mm3 BMP 12/31/24 04:54 Sodium 131 L Potassium 3.3 L D Chloride 96 L Carbon Dioxide 25.1 BUN 6 L Creatinine 0.2 L Glucose 99 Calcium 7.5 L Liver Function 12/31/24 Range/Units 04:54 Total Bilirubin 0.5 (0.3-1.2) mg/dL AST 25 (0-34) U/L ALT 16 (10-49) U/L Alkaline Phosphatase 73 (46-116) U/L Albumin 2.7 L (3.4-4.8) gm/dL ABG Interpretation ABG results: 12/27/24 02:14 ABG pH 7.35 ABG pCO2 31 L ABG pO2 65 L ABG HCO3 17 L ABG O2 Saturation 91 ABG Base Excess -7 L
[2024-12-31] MEDS: NAPH,KPH MBDB 1 PACKET (1.5 GM) PO (20:40)
[2024-12-31] MEDS: MIRTAZAPINE 15 MG TABLET PO (20:40)
--- NOTE | 2024-12-31 22:46 | PD.NEUROPROG ---
Documentation for date of: 12/31/24 Subjective Subjective Interval history: Patient was seen in telemetry today, continues to have weakness in the LE. Exam - Neurology Vital Signs Temp Pulse Resp BP Pulse Ox O2 Del Method O2 Flow Rate 97.5 F 82 16 126/72 95 Room Air 1 12/31/24 20:00 12/31/24 20:40 12/31/24 20:00 12/31/24 20:40 12/31/24 20:00 12/31/24 20:00 12/27/24 18:12 Narrative Exam General: AOx3, no acute distress, able to speak full sentences HEENT: NC/AT, mucous membranes moist, bilateral sclera anicteric Cardiovascular: regular rate and rhythm, S1/S2 present, no murmurs appreciated Pulmonary: clear to auscultation bilaterally, no rales/rhonchi/wheezes Abdominal: soft, non-tender, non-distended, no rebound/guarding, normal bowel sounds present Musculoskeletal: normal ROM in both UE, paraparesis: unchanged, no peripheral edema Skin: warm and dry, intact, no rashes Objective Labs 12/31/24 04:54 12/31/24 04:54 Labs: Laboratory Results - last 24 hr 12/31/24 12/31/24 04:54 04:56 WBC 10.1 RBC 3.55 L Hgb 10.8 L Hct 29.6 L MCV 83 MCH 30.4 MCHC 36.5 RDW Std Deviation 39.4 Plt Count 190 Neut % (Auto) 62 Lymph % (Auto) 19 [place] % (Auto) 12 Eos % (Auto) 1 Baso % (Auto) 0 Neut # (Auto) 6.2 Lymph # (Auto) 1.9 [place] # (Auto) 1.2 H Eos # (Auto) 0.1 Baso # (Auto) 0.0 Immature Gran # (Auto) 0.60 H Absolute Nucleated RBC 0.00 Immature Gran % 6 H Nucleated RBC % 0 PT 11.2 INR 1.0 APTT 28.8 Sodium 131 L Potassium 3.3 L D Chloride 96 L Carbon Dioxide 25.1 Anion Gap 10 BUN 6 L Creatinine 0.2 L Estim Creat Clear Calc 217.3 eGFR > 60 BUN/Creatinine Ratio 30 H Glucose 99 Calculated Osmolality 260 L Calcium 7.5 L Corrected Calcium 8.5 Phosphorus 2.7 Magnesium 1.4 L Total Bilirubin 0.5 AST 25 ALT 16 Alkaline Phosphatase 73 Total Protein 4.6 L Albumin 2.7 L Globulin 1.9 L Albumin/Globulin Ratio 1.4 ABG Interpretation ABG results: 12/27/24 02:14 ABG pH 7.35 ABG pCO2 31 L ABG pO2 65 L ABG HCO3 17 L ABG O2 Saturation 91 ABG Base Excess -7 L Assessment & Plan Assessment and plan (1) Weakness: Status: Chronic Assessment and plan: as thr CSF showed elevated protein, will do IVIG for 5 days continue with PT (2) UTI (urinary tract infection): Status: Acute Assessment and plan: on antibiotics IV (3) Septic shock: Status: Acute Assessment and plan: treated with IV fluids and antibiotics, fu with culture and sensitity (4) AMS (altered mental status): Status: Resolved (5) Diabetes 1.5, managed as type 2: Status: Acute Assessment and plan: under control as per the last A1c.
[2025-01-01] VITALS (10 sets, daily range): BP systolic 115–127; BP diastolic 61–79; PULSE 71–87; RESP 16–22; TEMP 36.1–36.3; O2SAT 93–96; BMI 24.8
[2025-01-01] MEDS: traMADol HCL 50 MG TABLET PO (05:13)
[2025-01-01] MEDS: LEVOTHYROXINE SODIUM 125 MCG, LEVOTHYROXINE SODIUM 25 MCG 150 MCG PO (05:13)
[2025-01-01] MEDS: Ampicillin Inj 2,000 MG in SODIUM CHLORIDE 0.9% (POP) 100 ML 200 MG IV ×3 (05:14→17:21)
[2025-01-01] MEDS: HEPARIN SOD INJ 5000 UNIT/ML VIAL SC ×3 (05:18→21:06)
[2025-01-01 06:02] LABS: Basophils # (Auto) 0.1 Thou/mm3 (0.0-0.2); Basophils % (Auto) 1 % (0-2.5); Eosinophils # (Auto) 0.1 Thou/mm3 (0.0-0.5); Eosinophils % (Auto) 1 % (0-10); Hematocrit 30.1 % (36.0-46.0); Hemoglobin 10.9 g/dL (12.0-16.0); Immature Granulocytes % (Auto) 8 % (0-0); Immature Granulocytes Auto 0.85 Thou/mm3 (0.00-0.00); Lymphocytes # (Auto) 2.2 Thou/mm3 (1.0-4.8); Lymphocytes % (Auto) 20 % (10-50); Mean Corpuscular HGB Conc 36.2 g/dl (31.0-37.0); Mean Corpuscular Hemoglobin 30.4 pg (25.0-35.0); Mean Corpuscular Volume 84 fL (80-100); Monocytes # (Auto) 1.2 Thou/mm3 (0.0-0.8); Monocytes % (Auto) 11 % (0-12); Neutrophils # (Auto) 6.5 Thou/mm3 (1.8-7.7); Neutrophils % (Auto) 59 % (37-80); Nucleated Red Blood Cell % 0 /100 WBC (0); Platelet Count 308 Thou/mm3 (140-440); RDW Standard Deviation 39.2 fL (36.4-46.3); Red Blood Count 3.59 Miln/mm3 (4.00-5.20); White Blood Count 10.9 Thou/mm3 (3.6-11.0)
[2025-01-01 06:30] LABS: Alanine Aminotransferase 11 U/L (10-49); Albumin, Serum 2.8 gm/dL (3.4-4.8); Albumin/Globulin Ratio 1.1 (1.2-2.2); Alkaline Phosphatase 70 U/L (46-116); Anion Gap 12 (7-16); Aspartate Amino Transferase 23 U/L (0-34); BUN/Creatinine Ratio 25 Ratio (12-20); Bilirubin,Total 0.4 mg/dL (0.3-1.2); Blood Urea Nitrogen < 5 mg/dL (9-23); Calcium 7.7 mg/dL (8.3-10.6); Calcium (Corrected) 8.7 mg/dL (8.5-10.1); Carbon Dioxide 23.9 mMol/L (20.0-31.0); Chloride 96 mMol/L (98-107); Creatinine (Component) 0.2 mg/dL (0.6-1.3); Estimated Creatinine Clearance 238.7 mL/min (>60); Globulin 2.5 gm/dL (2.3-3.5); Glucose 79 mg/dL (74-106); Magnesium 1.4 mg/dL (1.6-2.6); Osmolality,Calculated 260 (275-295); Phosphorous 3.9 mg/dL (2.4-5.1); Potassium 3.1 mMol/L (3.4-5.1); Sodium 132 mMol/L (136-145); Total Protein 5.3 gm/dL (5.7-8.2); eGFR > 60 See Note
[2025-01-01] MEDS: POTASSIUM CHLORIDE 10% 20 MEQ/15 ML UDC 40 MEQ PO ×2 (09:13→11:33)
[2025-01-01] MEDS: NAPH,KPH MBDB 1 PACKET (1.5 GM) PO ×2 (09:14→21:06)
[2025-01-01] MEDS: PANTOPRAZOLE 40 MG TABLET PO (09:14)
[2025-01-01] MEDS: MIDODRINE 5 MG TABLET 10 MG PO (09:14)
[2025-01-01] MEDS: Magnesium Sulfate 4 GM Ivpb 4 GM/50 ML BAG IV (09:14)
--- NOTE | 2025-01-01 09:31 | ESPR_ITS ---
Documentation for date of: 01/01/25 Subjective Subjective Interval history: No acute overnight events but was noted to have loose bowel movements for which C. difficile was ordered. Patient states she had approximately 3 loose bowel movements but no fever, chills, sweats or leukocytosis and stools not more foul- smelling than usual. Underwent cardiac cath yesterday that did not reveal any significant stenoses. Started on IVIG per neurology and will require total of 5 days. Otherwise, vital signs stable, CBC unremarkable, and chem panel showed hypokalemia and hypomagnesemia that were repleted. Exam Vital Signs Temp Pulse Resp BP Pulse Ox O2 Del Method O2 Flow Rate 96.9 F 83 21 H 115/61 93 L Room Air 1 01/01/25 07:54 01/01/25 09:14 01/01/25 07:54 01/01/25 09:14 01/01/25 07:54 01/01/25 07:54 12/27/24 18:12 Narrative Exam General: AOx3, no acute distress, able to speak full sentences HEENT: NC/AT, mucous membranes moist, bilateral sclera anicteric Cardiovascular: regular rate and rhythm, S1/S2 present, no murmurs appreciated Pulmonary: clear to auscultation bilaterally, no rales/rhonchi/wheezes Abdominal: soft, non-tender, non-distended, no rebound/guarding, normal bowel sounds present Musculoskeletal: normal ROM, no peripheral edema Skin: warm and dry, intact, no rashes Neuro: significant bilateral lower extremity weakness Objective Labs 01/02/25 05:27 01/02/25 05:27 Labs: Laboratory Results - last 24 hr 01/01/25 04:38 WBC 10.9 RBC 3.59 L Hgb 10.9 L Hct 30.1 L MCV 84 MCH 30.4 MCHC 36.2 RDW Std Deviation 39.2 Plt Count 308 D Neut % (Auto) 59 Lymph % (Auto) 20 [place] % (Auto) 11 Eos % (Auto) 1 Baso % (Auto) 1 Neut # (Auto) 6.5 Lymph # (Auto) 2.2 [place] # (Auto) 1.2 H Eos # (Auto) 0.1 Baso # (Auto) 0.1 Immature Gran # (Auto) 0.85 H Absolute Nucleated RBC 0.00 Immature Gran % 8 H Nucleated RBC % 0 Sodium 132 L Potassium 3.1 L Chloride 96 L Carbon Dioxide 23.9 Anion Gap 12 BUN < 5 L Creatinine 0.2 L Estim Creat Clear Calc 238.7 eGFR > 60 BUN/Creatinine Ratio 25 H Glucose 79 Calculated Osmolality 260 L Calcium 7.7 L Corrected Calcium 8.7 Phosphorus 3.9 Magnesium 1.4 L Total Bilirubin 0.4 AST 23 ALT 11 Alkaline Phosphatase 70 Total Protein 5.3 L Albumin 2.8 L Globulin 2.5 Albumin/Globulin Ratio 1.1 L ABG Interpretation ABG results: 12/27/24 02:14 ABG pH 7.35 ABG pCO2 31 L ABG pO2 65 L ABG HCO3 17 L ABG O2 Saturation 91 ABG Base Excess -7 L Quality Measures Quality Measures VTE prophylaxis (Heparin subcutaneously) Assessment & Plan Assessment Current Active Medications: Generic Name Dose Route Start Last Admin Trade Name Freq PRN Reason Stop Dose Admin Acetaminophen 650 mg 12/29/24 14:26 Acetaminophen 325 Mg Tablet PO 01/26/25 04:36 Q6H PRN fever >99.9 Acetaminophen 500 mg 12/31/24 11:00 12/31/24 15:48 Acetaminophen 500 Mg Tablet PO 01/04/25 11:01 500 mg QDAY@1100 SAMMI Administration Dextrose 25 ml 12/27/24 04:44 Dextrose 50%-Water Inj 50 Ml Syringe IV 01/26/25 04:43 Q15MIN PRN BG 50-70 responsive npo pt Dextrose 50 ml 12/27/24 04:44 Dextrose 50%-Water Inj 50 Ml Syringe IV 01/26/25 04:43 Q15MIN PRN BG <50 OR BG <70 & pt unresponsive Diphenhydramine HCl 25 mg 12/31/24 11:00 12/31/24 15:49 Diphenhydramine Inj 50 Mg/Ml Vial IVP 01/04/25 11:01 25 mg QDAY@1100 SAMMI Administration Gabapentin 100 mg 12/27/24 16:21 12/27/24 16:29 Gabapentin 100 Mg Capsule PO 01/26/25 16:29 100 mg TID PRN Administration leg pain Protocol Glucagon 1 mg 12/27/24 04:44 Glucagon Inj 1 Mg Vial IM Q15MIN PRN BG <70, and no IV access Heparin Sodium (Porcine) 5,000 unit 12/27/24 06:00 01/01/25 05:18 Heparin Sod Inj 5000 Unit/Ml Vial SC 01/10/25 05:59 5,000 unit Q8HR SAMMI Administration Ampicillin Sodium 2,000 mg/ 100 mls @ 200 mls/hr 12/29/24 12:00 01/01/25 05:14 Sodium Chloride IV 01/05/25 11:59 200 mls/hr Q6HR SAMMI Administration Immune Globulin G/Gly/IgA 200 mls @ 65 mls/hr 12/31/24 11:30 12/31/24 16:31 Gamunex C Inj IV 01/04/25 14:35 65 mls/hr QDAY@1130 SAMMI Administration Magnesium Sulfate 4 gm in 50 mls @ 12.5 mls/hr 01/01/25 07:47 01/01/25 09:14 Magnesium Sulfate Ivpb IV 01/01/25 11:46 12.5 mls/hr X1 ONE Administration Insulin Human Lispro 0 unit 12/27/24 07:30 01/01/25 07:50 Insulin Lispro (Admelog) 1 Unit/0.01 Ml Unit SC 01/26/25 07:29 Not Given AC SAMMI Protocol Levothyroxine Sodium 125 mcg/ 150 mcg 12/27/24 07:15 01/01/25 05:13 Levothyroxine Sodium 25 mcg PO 01/26/25 07:14 150 mcg ACBR SAMMI Administration Midodrine 10 mg 12/31/24 09:00 01/01/25 09:14 Midodrine 5 Mg Tablet PO 01/30/25 08:59 10 mg BID SAMMI Administration Mirtazapine 15 mg 12/30/24 21:00 12/31/24 20:40 Mirtazapine 15 Mg Tablet PO 01/29/25 20:59 15 mg HS SAMMI Administration Ondansetron HCl 4 mg 12/27/24 04:37 12/29/24 21:08 Ondansetron Inj 2 Mg/Ml Inj 2 Ml IVP 01/26/25 04:36 4 mg Q6H PRN Administration NAUSEA OR VOMITING Protocol Pantoprazole Sodium 40 mg 12/30/24 09:00 01/01/25 09:14 Pantoprazole 40 Mg Tablet PO 01/29/25 08:59 40 mg QDAY SAMMI Administration Protocol Potassium Chloride 40 meq 01/01/25 12:00 Potassium Chloride 10% 20 Meq/15 Ml Udc PO 01/01/25 12:01 X1 ONE Potassium Phos/Sodium Phos 1 packet 12/31/24 09:00 01/01/25 09:14 [place] Mbdb 1 Packet (1.5 Gm) PO 01/02/25 09:00 1 packet BID SAMMI Administration Tramadol HCl 50 mg 12/27/24 17:25 01/01/25 05:13 Tramadol Hcl 50 Mg Tablet PO 01/01/25 17:24 50 mg Q8HR PRN Administration PAIN SCALE 4-10(Mod-Sev Plan Faith Zaidi is a 64-year-old female with past medical history of thyroid cancer, hypothyroidism, hypertension, type 2 diabetes mellitus, depression, and sciatica who was admitted for septic shock to the ICU on 12/27 and downgraded to floors on 12/29. #Septic shock likely secondary to UTI, resolved #Enterococcus faecalis urinary tract infection Noted to have Bennett catheter from nursing facility but was recently changed per daughter. Urinalysis showed turbid urine, 476 WBC, 152 RBC, 1+ bacteria, positive LE. Urine cultures grew Enterococcus faecalis, pansensitive. Initially on vancomycin and cefepime but now on ampicillin. ? Ampicillin 2 g IV every 6 hours (12/29-01/05) ? Midodrine 5 mg BID prn #Bilateral lower extremity weakness Endorses lower extremity weakness for last few months. Has been mostly bedbound at SNF. MRI lumbar spine showed mild disc narrowing at L5-S1, central lumbar disc bulging at L4-L5 with left L4 ganglionic compression. CT head showed no acute pathologies. Lumbar puncture showed elevated protein at 169. ? Neurology following, appreciate recommendations ? IVIG daily (12/31-01/04) ? Physical therapy ordered #NSTEMI type II/demand ischemia in setting of shock Troponin 0.14 and downtrended to 0.09 on admission but due to concerns for ST elevations on monitor, BP troponins obtained and up trended from 0.09 to 3.8. Suspect demand ischemia in setting of shock. EKG showed sinus rhythm, no ST changes or T wave abnormalities. Echo on 12/27 showed EF 65 to 70%, normal LV size and function, G1DD, mild TR. ? Cardiology following, appreciate recommendations ? Cardiac cath 12/31: no significant stenoses #Acute kidney injury, resolved #Hypotonic hyponatremia, improving #Hypokalemia #Hypomagenesemia Initial creatinine of 1.3 with baseline of 0.6, resolved with IVF. ? Nephrology following, appreciate recommendations ? Avoid nephrotoxic agents when possible, renally dose medications ? Recommend salt tablets on discharge ? Replete electrolytes as needed #History of hypothyroidism ? Levothyroxine 150 mcg #Type 2 diabetes mellitus A1c 5.1% ? SSI ? Hypoglycemic protocol in place #Depression ? Sertraline switched to mirtazapine due to possible contribution to hyponatremia #GERD ? Omeprazole 20 mg daily Hospital management: Disposition: ICU downgrade, IVIG from 12/31-01/04 Diet: Carb consistent low Lines: PIV, Bennett DVT prophylaxis: Heparin SC TID GI prophylaxis: pantoprazole daily Bennett: Placed CODE STATUS: DNR ----- Plan discussed with attending physician Dr. Wicho Weaver MD PGY-1 Internal Medicine Attending Provider Attestation/Addendum I have examined the patient, reviewed labs and imaging findings, discussed the case with the resident(s), and reviewed entered orders. I agree with the plan of care as outlined in this note, with these additional summaries/recommendations: Patient is a 64-year-old female with a medical history of primary hypertension, hypothyroidism, depression, chronic hyponatremia, diabetes mellitus type 2, GERD, hyperlipidemia, and chronic lower back pain presents to [facility] emergency department on 12/27/2024 with chief complaint of dizziness and nausea plus vomiting. Patient seen at bedside. No acute overnight events. Patient is s/p cardiac cath with no significant coronary artery lesion identified. Cardiology following. Continue IV ampicillin for UTI. Continue to wean down midodrine for hypotension as tolerated. Patient is status post lumbar puncture 12/30/2024 and tolerated procedure well. She denies headache today. CSF analysis showed elevated total protein 189. Further CSF studies pending. 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 Previous lumbar MRI did not reveal any evidence of abnormal osseous, conus medullaris or cauda equina enhancement. Continue home levothyroxine for history of severe hypothyroidism which is now more improved. TSH 22.72 and free T4 1.81. Patient's chronic hyponatremia is currently stable with sodium 127. Continue insulin sliding scale for diabetes mellitus type 2 with Accu-Checks. Target blood sugar of 140-180 while hospitalized. Hold home antihypertensives. As needed tramadol for lower back pain. Please see residents note for additional details and management. Dr. Wicho MD
[2025-01-01] MEDS: DiphenhydrAMINE INJ 50 MG/ML VIAL 25 MG IVP (11:32)
[2025-01-01] MEDS: ACETAMINOPHEN 500 MG TABLET PO (11:32)
--- NOTE | 2025-01-01 11:42 | ESPR_ITS ---
Documentation for date of: 01/01/25 Subjective Subjective Interval history: 12/30/2024 Patient examined at bedside today. No acute overnight events. Patient reports she is not eating too much and does not have much of an appetite. She also says that she has been having trouble walking for the past couple months. She says that she has pain in her legs. She says she has been taking her thyroid medicine as prescribed. She also says that her depression is well-controlled this time. Her sodium today was 128, magnesium 1.5, potassium 3.8. Fasting blood glucose was 255. Urine culture resulted Enterococcus. 12/31/2024: Patient examined at bedside today. No acute overnight events. Patient reports he is doing well. She says she is tolerated the lumbar puncture well yesterday. She says she is also going to get cardiac catheterization. Her potassium was 3.3 today, sodium 131, creatinine 0.2, calcium 8.5, phosphorus 2.7, magnesium 1.4, pending LP results. 01/01/2025: Patient examined at bedside today. No acute overnight events. Patient reports she is doing well. She says that she is getting some strength back. She is requesting to drink some coffee at this time. Potassium 3.3.1 today, sodium 132, urine output 4200 mL, calcium 8.7, phosphorus 3.9, magnesium 1.4, hemoglobin 10.9, white count 10.9, creatinine 0.2. Exam Vital Signs Temp Pulse Resp BP Pulse Ox O2 Del Method O2 Flow Rate 96.9 F 83 21 H 115/61 93 L Room Air 1 01/01/25 07:54 01/01/25 09:14 01/01/25 07:54 01/01/25 09:14 01/01/25 07:54 01/01/25 07:54 12/27/24 18:12 Narrative Exam General: AAOx3, NAD, weak looking female, O[place]i-speaking HEENT: Moist mucous membranes, conjunctiva clear, EOMI, PERRLA, Cardiovascular: S1, S2, radial pulses +2 bilat, RRR Pulmonary: CTAB bilat no cough, no wheezing GI: No tenderness to light or deep palpitation, no guarding, rigidity, rebound tenderness or distension Extremities: Trace edema in lower extremities bilaterally, dorsalis pedis pulses +2 bilaterally, weak musculature Skin: SK present on chest and back Neuro: AAOx3, patient has significant weakness in the lower extremities but it is slightly improving in strength in her ankles Psych: Cooperative Objective Labs 01/02/25 05:27 01/02/25 05:27 Labs: Laboratory Results - last 24 hr 01/01/25 01/01/25 04:10 04:38 WBC 10.9 RBC 3.59 L Hgb 10.9 L Hct 30.1 L MCV 84 MCH 30.4 MCHC 36.2 RDW Std Deviation 39.2 Plt Count 308 D Neut % (Auto) 59 Lymph % (Auto) 20 [place] % (Auto) 11 Eos % (Auto) 1 Baso % (Auto) 1 Neut # (Auto) 6.5 Lymph # (Auto) 2.2 [place] # (Auto) 1.2 H Eos # (Auto) 0.1 Baso # (Auto) 0.1 Immature Gran # (Auto) 0.85 H Absolute Nucleated RBC 0.00 Immature Gran % 8 H Nucleated RBC % 0 Sodium 132 L Potassium 3.1 L Chloride 96 L Carbon Dioxide 23.9 Anion Gap 12 BUN < 5 L Creatinine 0.2 L Estim Creat Clear Calc 238.7 eGFR > 60 BUN/Creatinine Ratio 25 H Glucose 79 Calculated Osmolality 260 L Calcium 7.7 L Corrected Calcium 8.7 Phosphorus 3.9 Magnesium 1.4 L Total Bilirubin 0.4 AST 23 ALT 11 Alkaline Phosphatase 70 Total Protein 5.3 L Albumin 2.8 L Globulin 2.5 Albumin/Globulin Ratio 1.1 L Stl C. diff Tox B Gene Cancelled ABG Interpretation ABG results: 12/27/24 02:14 ABG pH 7.35 ABG pCO2 31 L ABG pO2 65 L ABG HCO3 17 L ABG O2 Saturation 91 ABG Base Excess -7 L Quality Measures Quality Measures VTE prophylaxis (Heparin subcutaneously) Assessment & Plan Assessment Current Active Medications: Generic Name Dose Route Start Last Admin Trade Name Freq PRN Reason Stop Dose Admin Acetaminophen 650 mg 12/29/24 14:26 Acetaminophen 325 Mg Tablet PO 01/26/25 04:36 Q6H PRN fever >99.9 Acetaminophen 500 mg 12/31/24 11:00 01/01/25 11:32 Acetaminophen 500 Mg Tablet PO 01/04/25 11:01 500 mg QDAY@1100 SAMMI Administration Dextrose 25 ml 12/27/24 04:44 Dextrose 50%-Water Inj 50 Ml Syringe IV 01/26/25 04:43 Q15MIN PRN BG 50-70 responsive npo pt Dextrose 50 ml 12/27/24 04:44 Dextrose 50%-Water Inj 50 Ml Syringe IV 01/26/25 04:43 Q15MIN PRN BG <50 OR BG <70 & pt unresponsive Diphenhydramine HCl 25 mg 12/31/24 11:00 01/01/25 11:32 Diphenhydramine Inj 50 Mg/Ml Vial IVP 01/04/25 11:01 25 mg QDAY@1100 SAMMI Administration Gabapentin 100 mg 12/27/24 16:21 12/27/24 16:29 Gabapentin 100 Mg Capsule PO 01/26/25 16:29 100 mg TID PRN Administration leg pain Protocol Glucagon 1 mg 12/27/24 04:44 Glucagon Inj 1 Mg Vial IM Q15MIN PRN BG <70, and no IV access Heparin Sodium (Porcine) 5,000 unit 12/27/24 06:00 01/01/25 05:18 Heparin Sod Inj 5000 Unit/Ml Vial SC 01/10/25 05:59 5,000 unit Q8HR SAMMI Administration Ampicillin Sodium 2,000 mg/ 100 mls @ 200 mls/hr 12/29/24 12:00 01/01/25 11:33 Sodium Chloride IV 01/05/25 11:59 200 mls/hr Q6HR SAMMI Administration Immune Globulin G/Gly/IgA 200 mls @ 65 mls/hr 12/31/24 11:30 12/31/24 16:31 Gamunex C Inj IV 01/04/25 14:35 65 mls/hr QDAY@1130 SAMMI Administration Magnesium Sulfate 4 gm in 50 mls @ 12.5 mls/hr 01/01/25 07:47 01/01/25 09:14 Magnesium Sulfate Ivpb IV 01/01/25 11:46 12.5 mls/hr X1 ONE Administration Insulin Human Lispro 0 unit 12/27/24 07:30 01/01/25 07:50 Insulin Lispro (Admelog) 1 Unit/0.01 Ml Unit SC 01/26/25 07:29 Not Given AC [facility] Protocol Levothyroxine Sodium 125 mcg/ 150 mcg 12/27/24 07:15 01/01/25 05:13 Levothyroxine Sodium 25 mcg PO 01/26/25 07:14 150 mcg ACBR SAMMI Administration Midodrine 5 mg 01/01/25 10:13 Midodrine 5 Mg Tablet PO 01/31/25 20:59 BID PRN Hypotension Mirtazapine 15 mg 12/30/24 21:00 12/31/24 20:40 Mirtazapine 15 Mg Tablet PO 01/29/25 20:59 15 mg HS SAMMI Administration Ondansetron HCl 4 mg 12/27/24 04:37 12/29/24 21:08 Ondansetron Inj 2 Mg/Ml Inj 2 Ml IVP 01/26/25 04:36 4 mg Q6H PRN Administration NAUSEA OR VOMITING Protocol Pantoprazole Sodium 40 mg 12/30/24 09:00 01/01/25 09:14 Pantoprazole 40 Mg Tablet PO 01/29/25 08:59 40 mg QDAY SAMMI Administration Protocol Potassium Chloride 40 meq 01/01/25 12:00 01/01/25 11:33 Potassium Chloride 10% 20 Meq/15 Ml Udc PO 01/01/25 12:01 40 meq X1 ONE Administration Potassium Phos/Sodium Phos 1 packet 12/31/24 09:00 01/01/25 09:14 [place] 1 Packet (1.5 Gm) PO 01/02/25 09:00 1 packet BID SAMMI Administration Tramadol HCl 50 mg 12/27/24 17:25 01/01/25 05:13 Tramadol Hcl 50 Mg Tablet PO 01/01/25 17:24 50 mg Q8HR PRN Administration PAIN SCALE 4-10(Mod-Sev Plan Assessment Ms Zaidi is a Omani-speaking 64-year-old female with history of Thyroid cancer, hypertension, hypothyroidism, depression, diabetes mellitus, and sciatica who presented to the ED with concerns of vomiting and fever, found to be hypotensive likely secondary to hypovolemia and/or infection, started on levophed and admitted to ICU for further management. #Chronic hypoosmolar hyponatremia, improving #Hypokalemia, #Hypomagnesiemia #Hypophosphatemia DDx: Dehydration, underlying SIADH, hypothyroidisim Dating back to 2019 Sodium today 128; Mg 1.5; Phosphororus 2.2 Was initially hypovolemic, which is now improving --did receive fluid boluses. Urine Sodium is below 15, which wouldn't in theory support SIADH as Urine sodium would be elevated Pt seems to have underlying thyroid disease that is not controlled which can affect renal perfusion and thus affect reabsorption of lytes Uncontrolled hypothyroidism can lead to increased ADH levels which could be responsible for her hyponatremia as she has chronic uncontrolled hypothyroidism Pt will need outpatient follow up and management Pt is okay for d/c from nephrology standpoint and can be d/justus on 1g salt tablets Electrolyte abnormalities likely due to poor nutrition and high urine output Plan: ? Encourage oral intake ? Treat thyroid disease, consider checking free T4 in a couple of days ? Trend with CMP ? Correct electrolyte abnormalities as needed ? Recommend 1g salt tablets upon d/c #Lower extremity weakness, bilat Could be demyelinating syndrome, CDIP, GBS Lumbar spine MRI unremarkable Phosphorus 3.9 today Patient getting IVIG for possible CDIP Plan: ? Follow-up LP results ? Neurology consulted, appreciate recs ? Neutra-Phos 2 packets for 3 days (12/31- ? Continue with IVIG #Enterococcus UTI #Chronic back pain #Depression #Non-sustained SVT #Protein-calorie malnutrition #Loss of appetite #Protein-calorie malnutrition #Hypoosmolar hyponatremia, chronic #HECTOR, resolved #Hematuria, resolved #Leukocytosis #T2DM #Hypothyroidism #Hx of Thyroid CA s/p LT thyroid lobectomy 20 years ago #RT adrenal lesion, incidental #Shock, likely septic from UTI and hypovolemic component Above handled by primary team Patient seen and care discussed with my attending physician, Dr. Khadijah Pop, PGY-1 Attending Provider Attestation/Addendum Patient seen and examined with resident physician Dr. vargas. Note reviewed, agree with findings and recommendations. Patient admitted with weakness and the symptomatic hyponatremia. Responded well to fluids and subsequently fluid restriction. Sodium much better. Plan of care discussed with primary team Still with lower extremity weakness. Did get LP-high protein in the CSF fluid. Dr Duncan on the case. 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
[2025-01-01] MEDS: MIRTAZAPINE 15 MG TABLET PO (21:06)
[2025-01-01] MEDS: GABAPENTIN 100 MG CAPSULE PO (21:06)
--- NOTE | 2025-01-01 23:39 | VVPN_ITS ---
Telemedicine visit statement This visit was conducted with the use of interactive audio and video telecommunications system that permits real time communication between the patient and the provider. Patient's verbal consent for virtual visit was obtained on 01/01/25 at 2339. Documentation for date of: 01/01/25 Subjective Subjective Interval history: Patient is in Telemetry, no changes noted. Tolerating IVIG well. c/o cramps and GP helps. Virtual exam Vital Signs Temp Pulse Resp BP Pulse Ox O2 Del Method O2 Flow Rate 97.3 F 74 20 115/63 95 Room Air 1 01/01/25 20:00 01/01/25 20:00 01/01/25 20:00 01/01/25 20:00 01/01/25 20:00 01/01/25 20:00 01/01/25 11:53 Objective Labs 01/01/25 04:38 01/01/25 04:38 Labs: Laboratory Results - last 24 hr 01/01/25 01/01/25 04:10 04:38 WBC 10.9 RBC 3.59 L Hgb 10.9 L Hct 30.1 L MCV 84 MCH 30.4 MCHC 36.2 RDW Std Deviation 39.2 Plt Count 308 D Neut % (Auto) 59 Lymph % (Auto) 20 [place] % (Auto) 11 Eos % (Auto) 1 Baso % (Auto) 1 Neut # (Auto) 6.5 Lymph # (Auto) 2.2 [place] # (Auto) 1.2 H Eos # (Auto) 0.1 Baso # (Auto) 0.1 Immature Gran # (Auto) 0.85 H Absolute Nucleated RBC 0.00 Immature Gran % 8 H Nucleated RBC % 0 Sodium 132 L Potassium 3.1 L Chloride 96 L Carbon Dioxide 23.9 Anion Gap 12 BUN < 5 L Creatinine 0.2 L Estim Creat Clear Calc 238.7 eGFR > 60 BUN/Creatinine Ratio 25 H Glucose 79 Calculated Osmolality 260 L Calcium 7.7 L Corrected Calcium 8.7 Phosphorus 3.9 Magnesium 1.4 L Total Bilirubin 0.4 AST 23 ALT 11 Alkaline Phosphatase 70 Total Protein 5.3 L Albumin 2.8 L Globulin 2.5 Albumin/Globulin Ratio 1.1 L Stl C. 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
[2025-01-02] VITALS: BP 113/64; PULSE 80; PULSE 91; RESP 18; TEMP 36.5; O2SAT 94
[2025-01-02] MEDS: Ampicillin Inj 2,000 MG in SODIUM CHLORIDE 0.9% (POP) 100 ML 200 MG IV ×4 (00:02→17:22)
[2025-01-02 04:00] VITALS: BP 105/62; PULSE 82; PULSE 86; RESP 17; TEMP 36.8; O2SAT 94
[2025-01-02] MEDS: HEPARIN SOD INJ 5000 UNIT/ML VIAL SC ×3 (05:14→22:03)
[2025-01-02] MEDS: LEVOTHYROXINE SODIUM 125 MCG, LEVOTHYROXINE SODIUM 25 MCG 150 MCG PO (05:14)
[2025-01-02 05:57] VITALS: BMI 24.8
[2025-01-02 06:06] LABS: Basophils # (Auto) 0.1 Thou/mm3 (0.0-0.2); Basophils % (Auto) 0 % (0-2.5); Eosinophils # (Auto) 0.2 Thou/mm3 (0.0-0.5); Eosinophils % (Auto) 2 % (0-10); Hematocrit 29.1 % (36.0-46.0); Hemoglobin 10.6 g/dL (12.0-16.0); Immature Granulocytes % (Auto) 9 % (0-0); Immature Granulocytes Auto 1.08 Thou/mm3 (0.00-0.00); Lymphocytes # (Auto) 2.4 Thou/mm3 (1.0-4.8); Lymphocytes % (Auto) 20 % (10-50); Mean Corpuscular HGB Conc 36.4 g/dl (31.0-37.0); Mean Corpuscular Hemoglobin 30.6 pg (25.0-35.0); Mean Corpuscular Volume 84 fL (80-100); Monocytes # (Auto) 1.5 Thou/mm3 (0.0-0.8); Monocytes % (Auto) 12 % (0-12); Neutrophils # (Auto) 6.8 Thou/mm3 (1.8-7.7); Neutrophils % (Auto) 57 % (37-80); Nucleated Red Blood Cell % 0 /100 WBC (0); Platelet Count 242 Thou/mm3 (140-440); RDW Standard Deviation 39.1 fL (36.4-46.3); Red Blood Count 3.46 Miln/mm3 (4.00-5.20)
[2025-01-02 06:37] LABS: Alanine Aminotransferase 9 U/L (10-49); Albumin, Serum 2.6 gm/dL (3.4-4.8); Albumin/Globulin Ratio 0.9 (1.2-2.2); Alkaline Phosphatase 68 U/L (46-116); Anion Gap 9 (7-16); Aspartate Amino Transferase 17 U/L (0-34); BUN/Creatinine Ratio 25 Ratio (12-20); Bilirubin,Total 0.4 mg/dL (0.3-1.2); Blood Urea Nitrogen < 5 mg/dL (9-23); Calcium 7.6 mg/dL (8.3-10.6); Calcium (Corrected) 8.7 mg/dL (8.5-10.1); Carbon Dioxide 25.8 mMol/L (20.0-31.0); Chloride 95 mMol/L (98-107); Creatinine (Component) 0.2 mg/dL (0.6-1.3); Estimated Creatinine Clearance 238.7 mL/min (>60); Globulin 2.9 gm/dL (2.3-3.5); Glucose 98 mg/dL (74-106); Magnesium 1.4 mg/dL (1.6-2.6); Osmolality,Calculated 258 (275-295); Phosphorous 3.6 mg/dL (2.4-5.1); Potassium 3.7 mMol/L (3.4-5.1); Sodium 130 mMol/L (136-145); Total Protein 5.5 gm/dL (5.7-8.2); eGFR > 60 See Note
[2025-01-02 06:57] LABS: Path Review Blood Smear Sent to Pathologist
[2025-01-02 08:00] VITALS: BP 108/58; PULSE 80; PULSE 84; RESP 14; TEMP 36.3; O2SAT 95
[2025-01-02] MEDS: NAPH,KPH MBDB 1 PACKET (1.5 GM) PO (08:07)
[2025-01-02] MEDS: PANTOPRAZOLE 40 MG TABLET PO (08:07)
[2025-01-02] MEDS: Magnesium Sulfate 4 GM Ivpb 4 GM/50 ML BAG IV (08:08)
[2025-01-02 08:45] LABS: Clostridium Difficile PCR Negative (Negative)
--- NOTE | 2025-01-02 09:57 | ESPR_ITS ---
Documentation for date of: 01/02/25 Subjective Subjective Interval history: No acute overnight events. Seen and examined at bedside and states that she has had 2 loose bowel movements within last 24 hours and C. difficile came back negative. Otherwise, patient does not have a complaints. Since starting IVIG she has not noticed significant improvement in her lower extremity weakness but anticipate that it may still take time. Vital signs stable, CBC showed increase in WBC but no left shift noted, sodium stable, K stable, Mg 1.4 and repleted with 4 g given that it has not improved. Exam Vital Signs Temp Pulse Resp BP Pulse Ox O2 Del Method O2 Flow Rate 98.3 F 86 17 105/62 94 L Room Air 1 01/02/25 04:00 01/02/25 04:00 01/02/25 04:00 01/02/25 04:00 01/02/25 04:00 01/02/25 04:00 01/01/25 11:53 Narrative Exam General: AOx3, no acute distress, able to speak full sentences HEENT: NC/AT, mucous membranes moist, bilateral sclera anicteric Cardiovascular: regular rate and rhythm, S1/S2 present, no murmurs appreciated Pulmonary: clear to auscultation bilaterally, no rales/rhonchi/wheezes Abdominal: soft, non-tender, non-distended, no rebound/guarding, normal bowel sounds present Musculoskeletal: normal ROM, no peripheral edema Skin: warm and dry, intact, no rashes Neuro: significant bilateral lower extremity weakness Objective Labs 01/03/25 05:20 01/03/25 05:20 Labs: Laboratory Results - last 24 hr 01/01/25 01/02/25 01/02/25 04:10 00:19 05:27 WBC 12.0 H RBC 3.46 L Hgb 10.6 L Hct 29.1 L MCV 84 MCH 30.6 MCHC 36.4 RDW Std Deviation 39.1 Plt Count 242 D Neut % (Auto) 57 Lymph % (Auto) 20 [place] % (Auto) 12 Eos % (Auto) 2 Baso % (Auto) 0 Neut # (Auto) 6.8 Lymph # (Auto) 2.4 [place] # (Auto) 1.5 H Eos # (Auto) 0.2 Baso # (Auto) 0.1 Immature Gran # (Auto) 1.08 H Absolute Nucleated RBC 0.00 Immature Gran % 9 H Nucleated RBC % 0 Smear Path Review Sent to Pathologist Sodium 130 L Potassium 3.7 D Chloride 95 L Carbon Dioxide 25.8 Anion Gap 9 BUN < 5 L Creatinine 0.2 L Estim Creat Clear Calc 238.7 eGFR > 60 BUN/Creatinine Ratio 25 H Glucose 98 Calculated Osmolality 258 L Calcium 7.6 L Corrected Calcium 8.7 Phosphorus 3.6 Magnesium 1.4 L Total Bilirubin 0.4 AST 17 ALT 9 L Alkaline Phosphatase 68 Total Protein 5.5 L Albumin 2.6 L Globulin 2.9 Albumin/Globulin Ratio 0.9 L Stl C. diff Tox B Gene Cancelled Negative ABG Interpretation ABG results: 12/27/24 02:14 ABG pH 7.35 ABG pCO2 31 L ABG pO2 65 L ABG HCO3 17 L ABG O2 Saturation 91 ABG Base Excess -7 L Quality Measures Quality Measures VTE prophylaxis (Heparin subcutaneously) Assessment & Plan Assessment Current Active Medications: Generic Name Dose Route Start Last Admin Trade Name Freq PRN Reason Stop Dose Admin Acetaminophen 650 mg 12/29/24 14:26 Acetaminophen 325 Mg Tablet PO 01/26/25 04:36 Q6H PRN fever >99.9 Acetaminophen 500 mg 12/31/24 11:00 01/01/25 11:32 Acetaminophen 500 Mg Tablet PO 01/04/25 11:01 500 mg QDAY@1100 SAMMI Administration Dextrose 25 ml 12/27/24 04:44 Dextrose 50%-Water Inj 50 Ml Syringe IV 01/26/25 04:43 Q15MIN PRN BG 50-70 responsive npo pt Dextrose 50 ml 12/27/24 04:44 Dextrose 50%-Water Inj 50 Ml Syringe IV 01/26/25 04:43 Q15MIN PRN BG <50 OR BG <70 & pt unresponsive Diphenhydramine HCl 25 mg 12/31/24 11:00 01/01/25 11:32 Diphenhydramine Inj 50 Mg/Ml Vial IVP 01/04/25 11:01 25 mg QDAY@1100 SAMMI Administration Gabapentin 100 mg 01/02/25 07:27 Gabapentin 100 Mg Capsule PO 01/26/25 16:29 TID PRN NERVE PAIN Protocol Glucagon 1 mg 12/27/24 04:44 Glucagon Inj 1 Mg Vial IM Q15MIN PRN BG <70, and no IV access Heparin Sodium (Porcine) 5,000 unit 12/27/24 06:00 01/02/25 05:14 Heparin Sod Inj 5000 Unit/Ml Vial SC 01/10/25 05:59 5,000 unit Q8HR SAMMI Administration Ampicillin Sodium 2,000 mg/ 100 mls @ 200 mls/hr 12/29/24 12:00 01/02/25 05:13 Sodium Chloride IV 01/05/25 11:59 200 mls/hr Q6HR SAMMI Administration Immune Globulin G/Gly/IgA 200 mls @ 65 mls/hr 12/31/24 11:30 01/01/25 12:15 Gamunex C Inj IV 01/04/25 14:35 65 mls/hr QDAY@1130 SAMMI Administration Magnesium Sulfate 4 gm in 50 mls @ 12.5 mls/hr 01/02/25 07:04 01/02/25 08:08 Magnesium Sulfate Ivpb IV 01/02/25 11:03 12.5 mls/hr X1 ONE Administration Insulin Human Lispro 0 unit 12/27/24 07:30 01/02/25 07:56 Insulin Lispro (Admelog) 1 Unit/0.01 Ml Unit SC 01/26/25 07:29 Not Given AC SAMMI Protocol Levothyroxine Sodium 125 mcg/ 150 mcg 12/27/24 07:15 01/02/25 05:14 Levothyroxine Sodium 25 mcg PO 01/26/25 07:14 150 mcg ACBR SAMMI Administration Midodrine 5 mg 01/01/25 10:13 Midodrine 5 Mg Tablet PO 01/31/25 20:59 BID PRN Hypotension Mirtazapine 15 mg 12/30/24 21:00 01/01/25 21:06 Mirtazapine 15 Mg Tablet PO 01/29/25 20:59 15 mg HS SAMMI Administration Ondansetron HCl 4 mg 12/27/24 04:37 12/29/24 21:08 Ondansetron Inj 2 Mg/Ml Inj 2 Ml IVP 01/26/25 04:36 4 mg Q6H PRN Administration NAUSEA OR VOMITING Protocol Pantoprazole Sodium 40 mg 12/30/24 09:00 01/02/25 08:07 Pantoprazole 40 Mg Tablet PO 01/29/25 08:59 40 mg QDAY SAMMI Administration Protocol Jackie Faith Zaidi is a 64-year-old female with past medical history of thyroid cancer, hypothyroidism, hypertension, type 2 diabetes mellitus, depression, and sciatica who was admitted for septic shock to the ICU on 12/27 and downgraded to floors on 12/29. #Septic shock likely secondary to UTI, resolved #Enterococcus faecalis urinary tract infection Noted to have Bennett catheter from nursing facility but was recently changed per daughter. Urinalysis showed turbid urine, 476 WBC, 152 RBC, 1+ bacteria, positive LE. Urine cultures grew Enterococcus faecalis, pansensitive. Initially on vancomycin and cefepime but now on ampicillin. ? Ampicillin 2 g IV every 6 hours (12/29-01/05) ? Midodrine 5 mg BID prn #Bilateral lower extremity weakness Endorses lower extremity weakness for last few months. Has been mostly bedbound at SNF. MRI lumbar spine showed mild disc narrowing at L5-S1, central lumbar disc bulging at L4-L5 with left L4 ganglionic compression. CT head showed no acute pathologies. Lumbar puncture showed elevated protein at 169. ? Neurology following, appreciate recommendations ? IVIG daily (12/31-01/04) ? Physical therapy ordered #NSTEMI type II/demand ischemia in setting of shock Troponin 0.14 and downtrended to 0.09 on admission but due to concerns for ST elevations on monitor, BP troponins obtained and up trended from 0.09 to 3.8. Suspect demand ischemia in setting of shock. EKG showed sinus rhythm, no ST changes or T wave abnormalities. Echo on 12/27 showed EF 65 to 70%, normal LV size and function, G1DD, mild TR. ? Cardiology following, appreciate recommendations ? Cardiac cath 12/31: no significant stenoses #Acute kidney injury, resolved #Hypotonic hyponatremia, improving #Hypokalemia, resolved #Hypomagenesemia Initial creatinine of 1.3 with baseline of 0.6, resolved with IVF. ? Nephrology following, appreciate recommendations ? Avoid nephrotoxic agents when possible, renally dose medications ? Recommend salt tablets on discharge ? Replete electrolytes as needed #History of hypothyroidism ? Levothyroxine 150 mcg #Type 2 diabetes mellitus A1c 5.1% ? SSI ? Hypoglycemic protocol in place #Depression ? Sertraline switched to mirtazapine due to possible contribution to hyponatremia #GERD ? Omeprazole 20 mg daily Hospital management: Disposition: ICU downgrade, IVIG from 12/31-01/04 Diet: Carb consistent low Lines: PIV, Bennett DVT prophylaxis: Heparin SC TID GI prophylaxis: pantoprazole daily Bennett: Placed CODE STATUS: DNR ----- Plan discussed with attending physician Dr. Wicho Weaver MD PGY-1 Internal Medicine Attending Provider Attestation/Addendum I have examined the patient, reviewed labs and imaging findings, discussed the case with the resident(s), and reviewed entered orders. I agree with the plan of care as outlined in this note, with these additional summaries/recommendations: Patient is a 64-year-old female with a medical history of primary hypertension, hypothyroidism, depression, chronic hyponatremia, diabetes mellitus type 2, GERD, hyperlipidemia, and chronic lower back pain presents to [facility] emergency department on 12/27/2024 with chief complaint of dizziness and nausea plus vomiting. Patient seen at bedside. No acute overnight events. She has no new symptoms to report today and continues to endorse bilateral lower extremity weakness. Patient is s/p cardiac cath with no significant coronary artery lesion identified. Cardiology following. Continue IV ampicillin for UTI. Mild increase in leukocytosis today and will continue to monitor. Continue to wean down midodrine for hypotension as tolerated. Patient is status post lumbar puncture 12/30/2024 and tolerated procedure well. CSF analysis showed elevated total protein 189. Further CSF studies pending. Patient started on IVIG for likely CDIP. She will receive her third dose of IVIG today. Previous lumbar MRI did not reveal any evidence of abnormal osseous, conus medullaris or cauda equina enhancement. Continue home levothyroxine for history of severe hypothyroidism which is now more improved. TSH 22.72 and free T4 1.81. Patient's chronic hyponatremia is currently stable with sodium 127. Continue insulin sliding scale for diabetes mellitus type 2 with Accu-Checks. Target blood sugar of 140-180 while hospitalized. Hold home antihypertensives. As needed tramadol for lower back pain. Please see residents note for additional details and management. Dr. Wicho MD
[2025-01-02] MEDS: ACETAMINOPHEN 500 MG TABLET PO (11:20)
[2025-01-02] MEDS: DiphenhydrAMINE INJ 50 MG/ML VIAL 25 MG IVP (11:20)
--- NOTE | 2025-01-02 11:35 | PD.NEPHPROG ---
Documentation for date of: 01/02/25 Subjective Subjective Interval history: Ms. Cuevas is a 64 y/o female with PMHx of thyroid cancer, HTN, hypothyroidism, depression, non-insulin dependent type two DM, and sciatica who comes in from senior living for evaluation of altered mental status, dyspnea. Patient has started experiencing diaphoresis and vomiting while in the senior living, and was hesitant on coming into the hospital. Patient began to desaturate at the facility and also began hypotensive and was brought to the emergency room for further evaluation. At this time she is doing much better, off Levophed. She says she has had thyroid disease for a long time. She was unaware of having low sodium levels chronically. She has been dealing with what it seems to be sciatica for many years now. She also feels weak at this time as well. She denies taking any water pills. She states she has been taking Zoloft for years now. Does not see a heart doctor. No other complaints this time. ED course: Patient came to the ED with a blood pressure 57/40, pulse of 121, oxygen saturation on 90% 2 L nasal cannula. Patient was worked up was found to have a white count of 25, sodium 129, chloride 94, GFR 46, glucose 166, osmolarity 265, lactate 5.4, magnesium 1.3, troponin 0.142, CRP 9.9, Pro-Jam 42, TSH 22.72, free T41.81. Urinalysis showed +1 bacteria, 476 white cells, +1 protein and blood. ABG showed pH of 7.35, [id number], PO2 of 65. EKG showed sinus tachycardia. Patient was given 2 L normal saline, Zofran x 1, Solu-Medrol 125. Levophed was started as patient was not fluid responsive for pressures. Sepsis alert was initiated and was started on broad-spectrum cefepime and vancomycin. ICU was consulted and patient was made to the floors. 12/30/2024 Patient examined at bedside today. No acute overnight events. Patient reports she is not eating too much and does not have much of an appetite. She also says that she has been having trouble walking for the past couple months. She says that she has pain in her legs. She says she has been taking her thyroid medicine as prescribed. She also says that her depression is well-controlled this time. Her sodium today was 128, magnesium 1.5, potassium 3.8. Fasting blood glucose was 255. Urine culture resulted Enterococcus. 12/31/2024: Patient examined at bedside today. No acute overnight events. Patient reports he is doing well. She says she is tolerated the lumbar puncture well yesterday. She says she is also going to get cardiac catheterization. Her potassium was 3.3 today, sodium 131, creatinine 0.2, calcium 8.5, phosphorus 2.7, magnesium 1.4, pending LP results. 01/01/2025: Patient examined at bedside today. No acute overnight events. Patient reports she is doing well. She says that she is getting some strength back. She is requesting to drink some coffee at this time. Potassium 3.3.1 today, sodium 132, urine output 4200 mL, calcium 8.7, phosphorus 3.9, magnesium 1.4, hemoglobin 10.9, white count 10.9, creatinine 0.2. 01/02/2025 Patient currently seen in telemetry. Resting comfortably. Denies any chest pain, shortness of breath. Blood pressure 108/58, heart rate of 84. WBC 12, hemoglobin 10.6, platelet 242. Sodium 130, potassium 3.7, creatinine 0.2, calcium 8.7, phosphorus 3.6, magnesium 1.4, LFTs normal, albumin 2.6. Patient receiving IVIG. Able to move her lower extremities. Review of Systems Review of Systems Narrative Review of Systems: CONSTITUTIONAL: Patient denies any fever, chills. Feeling tired, sleep HEENT: Denies any visual disturbances or hearing problems. CARDIOVASCULAR: Patient denies any chest pain, shortness of breath, swelling in the lower extremities. PULMONARY: Patient denies any shortness of breath, cough. GASTROINTESTINAL: Patient denies any abdominal pain, constipation, nausea, vomiting, diarrhea. GENITOURINARY: Patient denies any urinary symptoms of burning or frequency or hematuria, denies any form in the urine. SKIN: Denies any rash. MUSCULOSKELETAL: Denies any muscular skeletal problems of joint pains. NEUROLOGICAL: Significant weakness in the lower extremities Exam Vital Signs Temp Pulse Resp BP Pulse Ox O2 Del Method O2 Flow Rate 36.3 C 84 14 108/58 L 95 Room Air 1 01/02/25 08:00 01/02/25 08:00 01/02/25 08:00 01/02/25 08:00 01/02/25 08:00 01/02/25 08:00 01/01/25 11:53 Narrative Exam GENERAL APPEARANCE: Patient seems to be comfortable, adequately hydrated and nourished. HEENT: EOMI, PERRLA NECK: Neck supple, no JVD or bruit CARDIOVASCULAR: Heart regular, no murmurs LUNGS/CHEST: Chest clear to auscultation. No rales, rhonchi, wheezing ABDOMEN: Soft, nontender, nondistended. No masses. Normal bowel sounds. EXTREMITIES: No edema, clubbing or cyanosis. SKIN: Skin exam normal without any rashes MUSCULOSKELETAL: In bed Neurological: Significant lower extremity weakness noted no neurological deficits Objective Labs 01/02/25 05:27 01/02/25 05:27 Labs: Laboratory Results - last 24 hr 01/01/25 01/02/25 01/02/25 04:10 00:19 05:27 WBC 12.0 H RBC 3.46 L Hgb 10.6 L Hct 29.1 L MCV 84 MCH 30.6 MCHC 36.4 RDW Std Deviation 39.1 Plt Count 242 D Neut % (Auto) 57 Lymph % (Auto) 20 [place] % (Auto) 12 Eos % (Auto) 2 Baso % (Auto) 0 Neut # (Auto) 6.8 Lymph # (Auto) 2.4 [place] # (Auto) 1.5 H Eos # (Auto) 0.2 Baso # (Auto) 0.1 Immature Gran # (Auto) 1.08 H Absolute Nucleated RBC 0.00 Immature Gran % 9 H Nucleated RBC % 0 Smear Path Review Sent to Pathologist Sodium 130 L Potassium 3.7 D Chloride 95 L Carbon Dioxide 25.8 Anion Gap 9 BUN < 5 L Creatinine 0.2 L Estim Creat Clear Calc 238.7 eGFR > 60 BUN/Creatinine Ratio 25 H Glucose 98 Calculated Osmolality 258 L Calcium 7.6 L Corrected Calcium 8.7 Phosphorus 3.6 Magnesium 1.4 L Total Bilirubin 0.4 AST 17 ALT 9 L Alkaline Phosphatase 68 Total Protein 5.5 L Albumin 2.6 L Globulin 2.9 Albumin/Globulin Ratio 0.9 L Stl C. diff Tox B Gene Cancelled Negative ABG Interpretation ABG results: 12/27/24 02:14 ABG pH 7.35 ABG pCO2 31 L ABG pO2 65 L ABG HCO3 17 L ABG O2 Saturation 91 ABG Base Excess -7 L Assessment & Plan Assessment and plan (1) Hyponatremia: Status: Acute (2) Weakness: Status: Chronic (3) UTI (urinary tract infection): Status: Acute (4) Diabetes 1.5, managed as type 2: Status: Acute (5) Hypomagnesemia: Status: Acute Additional Assessment & Plan Additional Plan: Patient admitted with weakness and the symptomatic hyponatremia. Responded well to fluids and subsequently fluid restriction. Sodium much better. Plan of care discussed with primary team Still with lower extremity weakness. Did get LP-high protein in the CSF fluid. Dr Duncan on the case. Currently on IVIG.-Diagnosis possible CIDP Continue with current management
[2025-01-02 12:00] VITALS: BP 100/59; PULSE 83; PULSE 87; RESP 23; TEMP 36.2; O2SAT 94
[2025-01-02] MEDS: GABAPENTIN 100 MG CAPSULE PO (14:11)
[2025-01-02 16:00] VITALS: BP 117/73; PULSE 77; PULSE 80; RESP 20; TEMP 36.3; O2SAT 95
[2025-01-02 20:00] VITALS: BP 95/60; PULSE 84; PULSE 89; RESP 17; TEMP 36.6; O2SAT 94
[2025-01-02] MEDS: ACETAMINOPHEN 325 MG TABLET 650 MG PO (22:02)
[2025-01-02] MEDS: MIRTAZAPINE 15 MG TABLET PO (22:02)
--- NOTE | 2025-01-02 23:31 | ESPR_ITS ---
Documentation for date of: 01/02/25 Subjective Subjective Interval history: Patient was seen in telemetry today, continues to have weakness in the LE. Exam - Neurology Vital Signs Temp Pulse Resp BP Pulse Ox O2 Del Method O2 Flow Rate 97.9 F 89 17 95/60 94 L Room Air 1 01/02/25 20:00 01/02/25 20:00 01/02/25 20:00 01/02/25 20:00 01/02/25 20:00 01/02/25 20:00 01/01/25 11:53 Narrative Exam General: AOx3, no acute distress, able to speak full sentences HEENT: NC/AT, mucous membranes moist, bilateral sclera anicteric Cardiovascular: regular rate and rhythm, S1/S2 present, no murmurs appreciated Pulmonary: clear to auscultation bilaterally, no rales/rhonchi/wheezes Abdominal: soft, non-tender, non-distended, no rebound/guarding, normal bowel sounds present Musculoskeletal: normal ROM in both UE, paraparesis: unchanged, no peripheral edema Skin: warm and dry, intact, no rashes Objective Labs 01/02/25 05:27 01/02/25 05:27 Labs: Laboratory Results - last 24 hr 01/02/25 01/02/25 00:19 05:27 WBC 12.0 H RBC 3.46 L Hgb 10.6 L Hct 29.1 L MCV 84 MCH 30.6 MCHC 36.4 RDW Std Deviation 39.1 Plt Count 242 D Neut % (Auto) 57 Lymph % (Auto) 20 [place] % (Auto) 12 Eos % (Auto) 2 Baso % (Auto) 0 Neut # (Auto) 6.8 Lymph # (Auto) 2.4 [place] # (Auto) 1.5 H Eos # (Auto) 0.2 Baso # (Auto) 0.1 Immature Gran # (Auto) 1.08 H Absolute Nucleated RBC 0.00 Immature Gran % 9 H Nucleated RBC % 0 Smear Path Review Sent to Pathologist Sodium 130 L Potassium 3.7 D Chloride 95 L Carbon Dioxide 25.8 Anion Gap 9 BUN < 5 L Creatinine 0.2 L Estim Creat Clear Calc 238.7 eGFR > 60 BUN/Creatinine Ratio 25 H Glucose 98 Calculated Osmolality 258 L Calcium 7.6 L Corrected Calcium 8.7 Phosphorus 3.6 Magnesium 1.4 L Total Bilirubin 0.4 AST 17 ALT 9 L Alkaline Phosphatase 68 Total Protein 5.5 L Albumin 2.6 L Globulin 2.9 Albumin/Globulin Ratio 0.9 L Stl C. diff Tox B Gene Negative ABG Interpretation ABG results: 12/27/24 02:14 ABG pH 7.35 ABG pCO2 31 L ABG pO2 65 L ABG HCO3 17 L ABG O2 Saturation 91 ABG Base Excess -7 L Assessment & Plan Assessment and plan (1) Weakness: Status: Chronic Assessment and plan: as the CSF showed elevated protein and CIDP is suspected, getting IVIG now, Continue with PT After d/c to rehab, will consider doing EMG AND NCS of both LE to confirm the diagnosis. (2) UTI (urinary tract infection): Status: Acute Assessment and plan: on antibiotics IV (3) Diabetes 1.5, managed as type 2: Status: Acute Assessment and plan: under control as per the last A1c. (4) Hypomagnesemia: Status: Acute (5) Septic shock: Status: Acute Assessment and plan: treated with IV fluids and antibiotics, fu with culture and sensitity
[2025-01-03] VITALS: BP 109/64; PULSE 88; PULSE 89; RESP 18; TEMP 36.7; O2SAT 95
[2025-01-03] MEDS: Ampicillin Inj 2,000 MG in SODIUM CHLORIDE 0.9% (POP) 100 ML 200 MG IV ×5 (00:06→23:59)
[2025-01-03 04:00] VITALS: BP 112/63; PULSE 88; PULSE 93; RESP 16; TEMP 36.7; O2SAT 94
[2025-01-03] MEDS: LEVOTHYROXINE SODIUM 125 MCG, LEVOTHYROXINE SODIUM 25 MCG 150 MCG PO (05:43)
[2025-01-03] MEDS: HEPARIN SOD INJ 5000 UNIT/ML VIAL SC ×3 (05:44→21:57)
[2025-01-03 05:55] LABS: Basophils % (Auto) 0 % (0-2.5); Eosinophils # (Auto) 0.1 Thou/mm3 (0.0-0.5); Eosinophils % (Auto) 1 % (0-10); Hematocrit 29.5 % (36.0-46.0); Hemoglobin 10.6 g/dL (12.0-16.0); Immature Granulocytes % (Auto) 11 % (0-0); Immature Granulocytes Auto 1.04 Thou/mm3 (0.00-0.00); Lymphocytes # (Auto) 2.3 Thou/mm3 (1.0-4.8); Lymphocytes % (Auto) 24 % (10-50); Mean Corpuscular HGB Conc 35.9 g/dl (31.0-37.0); Mean Corpuscular Hemoglobin 30.7 pg (25.0-35.0); Mean Corpuscular Volume 86 fL (80-100); Monocytes # (Auto) 1.1 Thou/mm3 (0.0-0.8); Monocytes % (Auto) 11 % (0-12); Neutrophils # (Auto) 5.2 Thou/mm3 (1.8-7.7); Neutrophils % (Auto) 53 % (37-80); Nucleated Red Blood Cell % 0 /100 WBC (0); Platelet Count 283 Thou/mm3 (140-440); Red Blood Count 3.45 Miln/mm3 (4.00-5.20); White Blood Count 9.8 Thou/mm3 (3.6-11.0)
[2025-01-03 06:00] VITALS: BMI 24.8
[2025-01-03 06:36] LABS: Alanine Aminotransferase 8 U/L (10-49); Albumin, Serum 2.7 gm/dL (3.4-4.8); Albumin/Globulin Ratio 0.8 (1.2-2.2); Alkaline Phosphatase 68 U/L (46-116); Anion Gap 10 (7-16); Aspartate Amino Transferase 16 U/L (0-34); BUN/Creatinine Ratio 25 Ratio (12-20); Bilirubin,Total 0.5 mg/dL (0.3-1.2); Blood Urea Nitrogen 5 mg/dL (9-23); Calcium 7.6 mg/dL (8.3-10.6); Calcium (Corrected) 8.6 mg/dL (8.5-10.1); Carbon Dioxide 24.9 mMol/L (20.0-31.0); Chloride 97 mMol/L (98-107); Creatinine (Component) 0.2 mg/dL (0.6-1.3); Estimated Creatinine Clearance 238.7 mL/min (>60); Globulin 3.2 gm/dL (2.3-3.5); Glucose 81 mg/dL (74-106); Magnesium 1.6 mg/dL (1.6-2.6); Osmolality,Calculated 260 (275-295); Potassium 3.1 mMol/L (3.4-5.1); Sodium 132 mMol/L (136-145); Total Protein 5.9 gm/dL (5.7-8.2); eGFR > 60 See Note
[2025-01-03 08:00] VITALS: BP 136/69; PULSE 88; RESP 22; TEMP 36.1; O2SAT 97
[2025-01-03] MEDS: PANTOPRAZOLE 40 MG TABLET PO (08:18)
[2025-01-03] MEDS: POTASSIUM CHLORIDE 10% 20 MEQ/15 ML UDC 40 MEQ PO ×2 (08:18→11:00)
[2025-01-03] MEDS: Magnesium Sulfate 2 GM Ivpb 2 GM/50 ML BAG IV (08:18)
--- NOTE | 2025-01-03 09:16 | PD.RESPRO ---
Documentation for date of: 01/03/25 Subjective Subjective Interval history: No acute overnight events. Seen and examined at bedside and patient states that since receiving IVIG, she has been able to feel pain in her lower extremities whereas she was not able to feel anything prior. However, she has not noticed much improvement regarding movement. Otherwise, will continue with IVIG today and tomorrow being her last day. Vital signs stable, CBC stable, chem panel showed hypokalemia and borderline hypomagnesemia that are being repleted. Anticipate discharge within next 24-48 hours. Exam Vital Signs Temp Pulse Resp BP Pulse Ox O2 Del Method O2 Flow Rate 97.0 F 88 22 H 136/69 H 97 Room Air 1 01/03/25 08:00 01/03/25 08:00 01/03/25 08:00 01/03/25 08:00 01/03/25 08:00 01/03/25 08:00 01/01/25 11:53 Narrative Exam General: AOx3, no acute distress, able to speak full sentences HEENT: NC/AT, mucous membranes moist, bilateral sclera anicteric Cardiovascular: regular rate and rhythm, S1/S2 present, no murmurs appreciated Pulmonary: clear to auscultation bilaterally, no rales/rhonchi/wheezes Abdominal: soft, non-tender, non-distended, no rebound/guarding, normal bowel sounds present Musculoskeletal: normal ROM, no peripheral edema Skin: warm and dry, intact, no rashes Neuro: significant bilateral lower extremity weakness but able to move at hips Objective Labs 01/03/25 05:20 01/03/25 05:20 Labs: Laboratory Results - last 24 hr 01/03/25 05:20 WBC 9.8 RBC 3.45 L Hgb 10.6 L Hct 29.5 L MCV 86 MCH 30.7 MCHC 35.9 RDW Std Deviation 40.0 Plt Count 283 D Neut % (Auto) 53 Lymph % (Auto) 24 [place] % (Auto) 11 Eos % (Auto) 1 Baso % (Auto) 0 Neut # (Auto) 5.2 Lymph # (Auto) 2.3 [place] # (Auto) 1.1 H Eos # (Auto) 0.1 Baso # (Auto) 0.0 Immature Gran # (Auto) 1.04 H Absolute Nucleated RBC 0.00 Immature Gran % 11 H Nucleated RBC % 0 Sodium 132 L Potassium 3.1 L D Chloride 97 L Carbon Dioxide 24.9 Anion Gap 10 BUN 5 L Creatinine 0.2 L Estim Creat Clear Calc 238.7 eGFR > 60 BUN/Creatinine Ratio 25 H Glucose 81 Calculated Osmolality 260 L Calcium 7.6 L Corrected Calcium 8.6 Phosphorus 4.0 Magnesium 1.6 Total Bilirubin 0.5 AST 16 ALT 8 L Alkaline Phosphatase 68 Total Protein 5.9 Albumin 2.7 L Globulin 3.2 Albumin/Globulin Ratio 0.8 L ABG Interpretation ABG results: 12/27/24 02:14 ABG pH 7.35 ABG pCO2 31 L ABG pO2 65 L ABG HCO3 17 L ABG O2 Saturation 91 ABG Base Excess -7 L Quality Measures Quality Measures VTE prophylaxis (Heparin subcutaneously) Assessment & Plan Assessment Current Active Medications: Generic Name Dose Route Start Last Admin Trade Name Freq PRN Reason Stop Dose Admin Acetaminophen 650 mg 12/29/24 14:26 01/02/25 22:02 Acetaminophen 325 Mg Tablet PO 01/26/25 04:36 650 mg Q6H PRN Administration fever >99.9 Acetaminophen 500 mg 12/31/24 11:00 01/02/25 11:20 Acetaminophen 500 Mg Tablet PO 01/04/25 11:01 500 mg QDAY@1100 SAMMI Administration Dextrose 25 ml 12/27/24 04:44 Dextrose 50%-Water Inj 50 Ml Syringe IV 01/26/25 04:43 Q15MIN PRN BG 50-70 responsive npo pt Dextrose 50 ml 12/27/24 04:44 Dextrose 50%-Water Inj 50 Ml Syringe IV 01/26/25 04:43 Q15MIN PRN BG <50 OR BG <70 & pt unresponsive Diphenhydramine HCl 25 mg 12/31/24 11:00 01/02/25 11:20 Diphenhydramine Inj 50 Mg/Ml Vial IVP 01/04/25 11:01 25 mg QDAY@1100 SAMMI Administration Gabapentin 75 mg 01/03/25 09:14 Gabapentin 100 Mg Capsule PO 01/26/25 16:29 TID PRN NERVE PAIN Protocol Glucagon 1 mg 12/27/24 04:44 Glucagon Inj 1 Mg Vial IM Q15MIN PRN BG <70, and no IV access Heparin Sodium (Porcine) 5,000 unit 12/27/24 06:00 01/03/25 05:44 Heparin Sod Inj 5000 Unit/Ml Vial SC 01/10/25 05:59 5,000 unit Q8HR SAMMI Administration Ampicillin Sodium 2,000 mg/ 100 mls @ 200 mls/hr 12/29/24 12:00 01/03/25 05:43 Sodium Chloride IV 01/05/25 11:59 200 mls/hr Q6HR SAMMI Administration Immune Globulin G/Gly/IgA 200 mls @ 65 mls/hr 12/31/24 11:30 01/02/25 11:55 Gamunex C Inj IV 01/04/25 14:35 65 mls/hr QDAY@1130 SAMMI Administration Magnesium Sulfate 2 gm in 50 mls @ 25 mls/hr 01/03/25 07:40 01/03/25 08:18 Magnesium Sulfate Ivpb IV 01/03/25 09:39 25 mls/hr X1 ONE Administration Insulin Human Lispro 0 unit 12/27/24 07:30 01/03/25 08:12 Insulin Lispro (Admelog) 1 Unit/0.01 Ml Unit SC 01/26/25 07:29 Not Given AC SAMMI Protocol Levothyroxine Sodium 125 mcg/ 150 mcg 12/27/24 07:15 01/03/25 05:43 Levothyroxine Sodium 25 mcg PO 01/26/25 07:14 150 mcg ACBR SAMMI Administration Mirtazapine 15 mg 12/30/24 21:00 01/02/25 22:02 Mirtazapine 15 Mg Tablet PO 01/29/25 20:59 15 mg HS SAMMI Administration Ondansetron HCl 4 mg 12/27/24 04:37 12/29/24 21:08 Ondansetron Inj 2 Mg/Ml Inj 2 Ml IVP 01/26/25 04:36 4 mg Q6H PRN Administration NAUSEA OR VOMITING Protocol Pantoprazole Sodium 40 mg 12/30/24 09:00 01/03/25 08:18 Pantoprazole 40 Mg Tablet PO 01/29/25 08:59 40 mg QDAY SAMMI Administration Protocol Potassium Chloride 40 meq 01/03/25 11:00 Potassium Chloride 10% 20 Meq/15 Ml Udc PO 01/03/25 11:01 X1 ONE Plan Faith Zaidi is a 64-year-old female with past medical history of thyroid cancer, hypothyroidism, hypertension, type 2 diabetes mellitus, depression, and sciatica who was admitted for septic shock to the ICU on 12/27 and downgraded to floors on 12/29. #Septic shock likely secondary to UTI, resolved #Enterococcus faecalis urinary tract infection Noted to have Bennett catheter from nursing facility but was recently changed per daughter. Urinalysis showed turbid urine, 476 WBC, 152 RBC, 1+ bacteria, positive LE. Urine cultures grew Enterococcus faecalis, pansensitive. Initially on vancomycin and cefepime but now on ampicillin. ? Ampicillin 2 g IV every 6 hours (12/29-01/05) #Bilateral lower extremity weakness Endorses lower extremity weakness for last few months. Has been mostly bedbound at SNF. MRI lumbar spine showed mild disc narrowing at L5-S1, central lumbar disc bulging at L4-L5 with left L4 ganglionic compression. CT head showed no acute pathologies. Lumbar puncture showed elevated protein at 169. ? Neurology following, appreciate recommendations ? IVIG daily (12/31-01/04) ? Physical therapy ordered #NSTEMI type II/demand ischemia in setting of shock Troponin 0.14 and downtrended to 0.09 on admission but due to concerns for ST elevations on monitor, BP troponins obtained and up trended from 0.09 to 3.8. Suspect demand ischemia in setting of shock. EKG showed sinus rhythm, no ST changes or T wave abnormalities. Echo on 12/27 showed EF 65 to 70%, normal LV size and function, G1DD, mild TR. ? Cardiology following, appreciate recommendations ? Cardiac cath 12/31: no significant stenoses #Acute kidney injury, resolved #Hypotonic hyponatremia, improving #Hypokalemia #Hypomagenesemia, resolved Initial creatinine of 1.3 with baseline of 0.6, resolved with IVF. ? Nephrology following, appreciate recommendations ? Avoid nephrotoxic agents when possible, renally dose medications ? Recommend salt tablets on discharge ? Replete electrolytes as needed #History of hypothyroidism ? Levothyroxine 150 mcg #Type 2 diabetes mellitus A1c 5.1% ? SSI ? Hypoglycemic protocol in place #Depression ? Sertraline switched to mirtazapine due to possible contribution to hyponatremia #GERD ? Omeprazole 20 mg daily Hospital management: Disposition: ICU downgrade, IVIG from 12/31-01/04 Diet: Carb consistent low Lines: PIV, Bennett DVT prophylaxis: Heparin SC TID GI prophylaxis: pantoprazole daily Bennett: Placed CODE STATUS: DNR ----- Plan discussed with attending physician Dr. Wicho Weaver MD PGY-1 Internal Medicine Attending Provider Attestation/Addendum I have examined the patient, reviewed labs and imaging findings, discussed the case with the resident(s), and reviewed entered orders. I agree with the plan of care as outlined in this note, with these additional summaries/recommendations: Patient is a 64-year-old female with a medical history of primary hypertension, hypothyroidism, depression, chronic hyponatremia, diabetes mellitus type 2, GERD, hyperlipidemia, and chronic lower back pain presents to [facility] emergency department on 12/27/2024 with chief complaint of dizziness and nausea plus vomiting. Patient seen at bedside. No acute overnight events. Today patient reports improvement in sensation and bilateral lower extremities and minimal improvement in movement. Patient is status post lumbar puncture 12/30/2024 and tolerated procedure well. CSF analysis showed elevated total protein 189. Further CSF studies pending. 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 She will receive her fourth dose of IVIG today. Previous lumbar MRI did not reveal any evidence of abnormal osseous, conus medullaris or cauda equina enhancement. Patient is s/p cardiac cath with no significant coronary artery lesion identified. Cardiology following. Continue IV ampicillin for UTI. Continue to wean down midodrine for hypotension as tolerated. Continue home levothyroxine for history of severe hypothyroidism which is now more improved. TSH 22.72 and free T4 1.81. Patient's chronic hyponatremia is currently stable with sodium 127. Continue insulin sliding scale for diabetes mellitus type 2 with Accu-Checks. Target blood sugar of 140-180 while hospitalized. Hold home antihypertensives. C. Diff negative. As needed tramadol for lower back pain. Please see residents note for additional details and management. Dr. Wicho MD
--- NOTE | 2025-01-03 09:30 | ESPR_ITS ---
Documentation for date of: 01/03/25 Subjective Subjective Interval history: 12/30/2024 Patient examined at bedside today. No acute overnight events. Patient reports she is not eating too much and does not have much of an appetite. She also says that she has been having trouble walking for the past couple months. She says that she has pain in her legs. She says she has been taking her thyroid medicine as prescribed. She also says that her depression is well-controlled this time. Her sodium today was 128, magnesium 1.5, potassium 3.8. Fasting blood glucose was 255. Urine culture resulted Enterococcus. 12/31/2024: Patient examined at bedside today. No acute overnight events. Patient reports he is doing well. She says she is tolerated the lumbar puncture well yesterday. She says she is also going to get cardiac catheterization. Her potassium was 3.3 today, sodium 131, creatinine 0.2, calcium 8.5, phosphorus 2.7, magnesium 1.4, pending LP results. 01/01/2025: Patient examined at bedside today. No acute overnight events. Patient reports she is doing well. She says that she is getting some strength back. She is requesting to drink some coffee at this time. Potassium 3.3.1 today, sodium 132, urine output 4200 mL, calcium 8.7, phosphorus 3.9, magnesium 1.4, hemoglobin 10.9, white count 10.9, creatinine 0.2. 01/03/2025: Patient examined at bedside today. No acute overnight events. Patient reports she is doing well. She says she is doing some strength back as well. Her sodium today is 132, potassium 3.1, BUN/creatinine 5 and 0.2 respectively, bicarb 25, magnesium 1.6, phosphorus 4, calcium 8.6, hemoglobin 10.6, white count 9.8, urine output 2900 mL, vitals are stable. Exam Vital Signs Temp Pulse Resp BP Pulse Ox O2 Del Method O2 Flow Rate 97.0 F 88 22 H 136/69 H 97 Room Air 1 01/03/25 08:00 01/03/25 08:00 01/03/25 08:00 01/03/25 08:00 01/03/25 08:00 01/03/25 08:00 01/01/25 11:53 Narrative Exam General: AAOx3, NAD, weak looking female, [place]ander-speaking, very alert HEENT: Moist mucous membranes, conjunctiva clear, EOMI, PERRLA, Cardiovascular: S1, S2, radial pulses +2 bilat, RRR Pulmonary: CTAB bilat no cough, no wheezing GI: No tenderness to light or deep palpitation, no guarding, rigidity, rebound tenderness or distension Extremities: Trace edema in lower extremities bilaterally, dorsalis pedis pulses +2 bilaterally, weak musculature Skin: SK present on chest and back Neuro: AAOx3, patient has significant weakness in the lower extremities but it is slightly improving in strength in her ankles Strength 1/5 bilat Psych: Cooperative Objective Labs 01/04/25 05:05 01/04/25 05:05 Labs: Laboratory Results - last 24 hr 01/03/25 05:20 WBC 9.8 RBC 3.45 L Hgb 10.6 L Hct 29.5 L MCV 86 MCH 30.7 MCHC 35.9 RDW Std Deviation 40.0 Plt Count 283 D Neut % (Auto) 53 Lymph % (Auto) 24 [place] % (Auto) 11 Eos % (Auto) 1 Baso % (Auto) 0 Neut # (Auto) 5.2 Lymph # (Auto) 2.3 [place] # (Auto) 1.1 H Eos # (Auto) 0.1 Baso # (Auto) 0.0 Immature Gran # (Auto) 1.04 H Absolute Nucleated RBC 0.00 Immature Gran % 11 H Nucleated RBC % 0 Sodium 132 L Potassium 3.1 L D Chloride 97 L Carbon Dioxide 24.9 Anion Gap 10 BUN 5 L Creatinine 0.2 L Estim Creat Clear Calc 238.7 eGFR > 60 BUN/Creatinine Ratio 25 H Glucose 81 Calculated Osmolality 260 L Calcium 7.6 L Corrected Calcium 8.6 Phosphorus 4.0 Magnesium 1.6 Total Bilirubin 0.5 AST 16 ALT 8 L Alkaline Phosphatase 68 Total Protein 5.9 Albumin 2.7 L Globulin 3.2 Albumin/Globulin Ratio 0.8 L ABG Interpretation ABG results: 12/27/24 02:14 ABG pH 7.35 ABG pCO2 31 L ABG pO2 65 L ABG HCO3 17 L ABG O2 Saturation 91 ABG Base Excess -7 L Quality Measures Quality Measures VTE prophylaxis (Heparin subcutaneously) Assessment & Plan Assessment Current Active Medications: Generic Name Dose Route Start Last Admin Trade Name Freq PRN Reason Stop Dose Admin Acetaminophen 650 mg 12/29/24 14:26 01/02/25 22:02 Acetaminophen 325 Mg Tablet PO 01/26/25 04:36 650 mg Q6H PRN Administration fever >99.9 Acetaminophen 500 mg 12/31/24 11:00 01/02/25 11:20 Acetaminophen 500 Mg Tablet PO 01/04/25 11:01 500 mg QDAY@1100 SAMMI Administration Dextrose 25 ml 12/27/24 04:44 Dextrose 50%-Water Inj 50 Ml Syringe IV 01/26/25 04:43 Q15MIN PRN BG 50-70 responsive npo pt Dextrose 50 ml 12/27/24 04:44 Dextrose 50%-Water Inj 50 Ml Syringe IV 01/26/25 04:43 Q15MIN PRN BG <50 OR BG <70 & pt unresponsive Diphenhydramine HCl 25 mg 12/31/24 11:00 01/02/25 11:20 Diphenhydramine Inj 50 Mg/Ml Vial IVP 01/04/25 11:01 25 mg QDAY@1100 SAMMI Administration Gabapentin 75 mg 01/03/25 09:14 Gabapentin 100 Mg Capsule PO 01/26/25 16:29 TID PRN NERVE PAIN Protocol Glucagon 1 mg 12/27/24 04:44 Glucagon Inj 1 Mg Vial IM Q15MIN PRN BG <70, and no IV access Heparin Sodium (Porcine) 5,000 unit 12/27/24 06:00 01/03/25 05:44 Heparin Sod Inj 5000 Unit/Ml Vial SC 01/10/25 05:59 5,000 unit Q8HR SAMMI Administration Ampicillin Sodium 2,000 mg/ 100 mls @ 200 mls/hr 12/29/24 12:00 01/03/25 05:43 Sodium Chloride IV 01/05/25 11:59 200 mls/hr Q6HR SAMMI Administration Immune Globulin G/Gly/IgA 200 mls @ 65 mls/hr 12/31/24 11:30 01/02/25 11:55 Gamunex C Inj IV 01/04/25 14:35 65 mls/hr QDAY@1130 SAMMI Administration Magnesium Sulfate 2 gm in 50 mls @ 25 mls/hr 01/03/25 07:40 01/03/25 08:18 Magnesium Sulfate Ivpb IV 01/03/25 09:39 25 mls/hr X1 ONE Administration Insulin Human Lispro 0 unit 12/27/24 07:30 01/03/25 08:12 Insulin Lispro (Admelog) 1 Unit/0.01 Ml Unit SC 01/26/25 07:29 Not Given AC SAMMI Protocol Levothyroxine Sodium 125 mcg/ 150 mcg 12/27/24 07:15 01/03/25 05:43 Levothyroxine Sodium 25 mcg PO 01/26/25 07:14 150 mcg ACBR SAMMI Administration Mirtazapine 15 mg 12/30/24 21:00 01/02/25 22:02 Mirtazapine 15 Mg Tablet PO 01/29/25 20:59 15 mg HS SAMMI Administration Ondansetron HCl 4 mg 12/27/24 04:37 12/29/24 21:08 Ondansetron Inj 2 Mg/Ml Inj 2 Ml IVP 01/26/25 04:36 4 mg Q6H PRN Administration NAUSEA OR VOMITING Protocol Pantoprazole Sodium 40 mg 12/30/24 09:00 01/03/25 08:18 Pantoprazole 40 Mg Tablet PO 01/29/25 08:59 40 mg QDAY SAMMI Administration Protocol Potassium Chloride 40 meq 01/03/25 11:00 Potassium Chloride 10% 20 Meq/15 Ml Udc PO 01/03/25 11:01 X1 ONE Plan Assessment Ms Zaidi is a [place] Zealander-speaking 64-year-old female with history of Thyroid cancer, hypertension, hypothyroidism, depression, diabetes mellitus, and sciatica who presented to the ED with concerns of vomiting and fever, found to be hypotensive likely secondary to hypovolemia and/or infection, started on levophed and admitted to ICU for further management. 97 #Chronic hypoosmolar hyponatremia, improving #Hypokalemia #Hypomagnesiemia #Hypophosphatemia #Hypocholermia DDx: Dehydration, underlying SIADH, hypothyroidisim Low sodium Dating back to 2019 Urine Sodium is below 15, which wouldn't in theory support SIADH as Urine sodium would be elevated Pt seems to have underlying thyroid disease that is not controlled which can affect renal perfusion and thus affect reabsorption of lytes Uncontrolled hypothyroidism can lead to increased ADH levels which could be responsible for her hyponatremia as she has chronic uncontrolled hypothyroidism Pt will need outpatient follow up and management Pt is okay for d/c from nephrology standpoint and can be d/justus on 1g salt tablets Electrolyte abnormalities likely due to poor nutrition and high urine output Plan: ? Encourage oral intake ? Treat thyroid disease, consider checking free T4 in a couple of days ? Trend with CMP ? Correct electrolyte abnormalities as needed ? Recommend 1g salt tablets upon d/c #Lower extremity weakness, bilat DDx: demyelinating syndrome, CDIP, GBS Lumbar spine MRI unremarkable Phosphorus 4.0 today Patient getting IVIG for possible CDIP Plan: ? Follow-up LP results ? Neurology consulted, appreciate recs ? Neutra-Phos 2 packets for 3 days (12/31- ? Continue with IVIG #Enterococcus UTI #Chronic back pain #Depression #Non-sustained SVT #Protein-calorie malnutrition #Loss of appetite #Protein-calorie malnutrition #Hypoosmolar hyponatremia, chronic #HECTOR, resolved #Hematuria, resolved #Leukocytosis #T2DM #Hypothyroidism #Hx of Thyroid CA s/p LT thyroid lobectomy 20 years ago #RT adrenal lesion, incidental #Shock, likely septic from UTI and hypovolemic component Above handled by primary team Patient seen and care discussed with my attending physician, Dr. Khadijah Pop, PGY-1 Attending Provider Attestation/Addendum patient seen and examined with resident physician Dr. vargas. Note reviewed, agree with findings and recommendations. Patient admitted with weakness and the symptomatic hyponatremia. Responded well to fluids and subsequently fluid restriction. Sodium much better. Plan of care discussed with primary team Still with lower extremity weakness. Did get LP-high protein in the CSF fluid. Dr Duncan on the case. 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
--- NOTE | 2025-01-03 10:45 | PC.SS ---
Addendum entered by Glenny Farias 01/03/25 11:37: SS follow up note; SS follow up note; IV IG ends tomorrow. Patient will discharge back to [facility] possibly tomorrow. SS contacted patient's daughter and informed her that SNF's facilities have declined patient for long-term. Patient's daughter Flor informed SS that patient could discharge back to [facility]. SS will stand by for further needs Original Note: SS follow up note; SS was informed by Team A that family was requesting for patient to discharge to a different facility. 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 SS contacted Patient's daughter Flor in regards to patient discharging retirement to another SNF. SS informed Flor the difficulty of finding long-term SNF placement and wanted her to be aware of the difficulties of finding Long-Term placement. Flor informed SS that if no facilities in [facility] accept patient, then she would like patient to discharge back to [facility]. SS will follow up with Flor at a later time.
[2025-01-03] MEDS: DiphenhydrAMINE INJ 50 MG/ML VIAL 25 MG IVP (11:00)
[2025-01-03] MEDS: ACETAMINOPHEN 500 MG TABLET PO (11:00)
[2025-01-03 12:00] VITALS: BP 114/63; PULSE 80; PULSE 81; RESP 18; TEMP 36.1; O2SAT 97
[2025-01-03 16:00] VITALS: BP 120/68; PULSE 79; PULSE 81; RESP 19; TEMP 36.2; O2SAT 95
[2025-01-03 16:40] VITALS: BMI 24.7
--- NOTE | 2025-01-03 17:47 | PC.NURSE ---
Pt has had 5 liquid foul odor bowel movements, Dr. Corea. Order received, read back and carried out.
[2025-01-03] MEDS: GABAPENTIN 100 MG CAPSULE PO (19:53)
[2025-01-03 20:00] VITALS: BP 112/67; PULSE 87; PULSE 91; RESP 20; TEMP 37.1; O2SAT 95
[2025-01-03] MEDS: LOPERAMIDE 2 MG CAPSULE PO (21:57)
[2025-01-03] MEDS: MIRTAZAPINE 15 MG TABLET PO (21:57)
--- NOTE | 2025-01-03 22:25 | PD.NEUROPROG ---
Documentation for date of: 01/03/25 Subjective Subjective Interval history: Patient was seen in telemetry today, continues to have weakness in the LE. Exam - Neurology Vital Signs Temp Pulse Resp BP Pulse Ox O2 Del Method O2 Flow Rate 98.7 F 91 20 112/67 95 Room Air 1 01/03/25 20:00 01/03/25 20:00 01/03/25 20:00 01/03/25 20:00 01/03/25 20:00 01/03/25 20:00 01/01/25 11:53 Narrative Exam General: AOx3, no acute distress, able to speak full sentences HEENT: NC/AT, mucous membranes moist, bilateral sclera anicteric Cardiovascular: regular rate and rhythm, S1/S2 present, no murmurs appreciated Pulmonary: clear to auscultation bilaterally, no rales/rhonchi/wheezes Abdominal: soft, non-tender, non-distended, no rebound/guarding, normal bowel sounds present Musculoskeletal: normal ROM in both UE, paraparesis: unchanged, no peripheral edema Skin: warm and dry, intact, no rashes Objective Labs 01/03/25 05:20 01/03/25 05:20 Labs: Laboratory Results - last 24 hr 01/03/25 05:20 WBC 9.8 RBC 3.45 L Hgb 10.6 L Hct 29.5 L MCV 86 MCH 30.7 MCHC 35.9 RDW Std Deviation 40.0 Plt Count 283 D Neut % (Auto) 53 Lymph % (Auto) 24 [place] % (Auto) 11 Eos % (Auto) 1 Baso % (Auto) 0 Neut # (Auto) 5.2 Lymph # (Auto) 2.3 [place] # (Auto) 1.1 H Eos # (Auto) 0.1 Baso # (Auto) 0.0 Immature Gran # (Auto) 1.04 H Absolute Nucleated RBC 0.00 Immature Gran % 11 H Nucleated RBC % 0 Sodium 132 L Potassium 3.1 L D Chloride 97 L Carbon Dioxide 24.9 Anion Gap 10 BUN 5 L Creatinine 0.2 L Estim Creat Clear Calc 238.7 eGFR > 60 BUN/Creatinine Ratio 25 H Glucose 81 Calculated Osmolality 260 L Calcium 7.6 L Corrected Calcium 8.6 Phosphorus 4.0 Magnesium 1.6 Total Bilirubin 0.5 AST 16 ALT 8 L Alkaline Phosphatase 68 Total Protein 5.9 Albumin 2.7 L Globulin 3.2 Albumin/Globulin Ratio 0.8 L ABG Interpretation ABG results: 12/27/24 02:14 ABG pH 7.35 ABG pCO2 31 L ABG pO2 65 L ABG HCO3 17 L ABG O2 Saturation 91 ABG Base Excess -7 L Assessment & Plan Assessment and plan (1) Weakness: Status: Chronic Assessment and plan: as the CSF showed elevated protein and 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 Continue with PT After d/c to rehab, will consider doing EMG AND NCS of both LE to confirm the diagnosis. (2) Diabetes 1.5, managed as type 2: Status: Acute Assessment and plan: under control as per the last A1c.
[2025-01-04] VITALS (10 sets, daily range): BP systolic 96–138; BP diastolic 60–79; PULSE 74–98; RESP 15–23; TEMP 36.2–37.2; O2SAT 94–98; BMI 24.7; BMI 12.0
[2025-01-04] MEDS: Ampicillin Inj 2,000 MG in SODIUM CHLORIDE 0.9% (POP) 100 ML 200 MG IV (05:13)
[2025-01-04] MEDS: HEPARIN SOD INJ 5000 UNIT/ML VIAL SC ×3 (05:13→21:00)
[2025-01-04] MEDS: LEVOTHYROXINE SODIUM 125 MCG, LEVOTHYROXINE SODIUM 25 MCG 150 MCG PO (05:13)
[2025-01-04 05:24] LABS: Basophils % (Auto) 0 % (0-2.5); Eosinophils # (Auto) 0.1 Thou/mm3 (0.0-0.5); Eosinophils % (Auto) 1 % (0-10); Hematocrit 29.3 % (36.0-46.0); Hemoglobin 10.5 g/dL (12.0-16.0); Immature Granulocytes % (Auto) 7 % (0-0); Immature Granulocytes Auto 0.77 Thou/mm3 (0.00-0.00); Lymphocytes # (Auto) 2.2 Thou/mm3 (1.0-4.8); Lymphocytes % (Auto) 20 % (10-50); Mean Corpuscular HGB Conc 35.8 g/dl (31.0-37.0); Mean Corpuscular Hemoglobin 30.5 pg (25.0-35.0); Mean Corpuscular Volume 85 fL (80-100); Monocytes # (Auto) 1.1 Thou/mm3 (0.0-0.8); Monocytes % (Auto) 10 % (0-12); Neutrophils # (Auto) 6.9 Thou/mm3 (1.8-7.7); Neutrophils % (Auto) 62 % (37-80); Nucleated Red Blood Cell % 0 /100 WBC (0); Platelet Count 318 Thou/mm3 (140-440); Red Blood Count 3.44 Miln/mm3 (4.00-5.20)
[2025-01-04 06:04] LABS: Alanine Aminotransferase 7 U/L (10-49); Albumin, Serum 2.7 gm/dL (3.4-4.8); Albumin/Globulin Ratio 0.8 (1.2-2.2); Alkaline Phosphatase 68 U/L (46-116); Anion Gap 8 (7-16); Aspartate Amino Transferase 19 U/L (0-34); BUN/Creatinine Ratio 25 Ratio (12-20); Bilirubin,Total 0.7 mg/dL (0.3-1.2); Blood Urea Nitrogen 5 mg/dL (9-23); Calcium 7.7 mg/dL (8.3-10.6); Calcium (Corrected) 8.7 mg/dL (8.5-10.1); Carbon Dioxide 24.6 mMol/L (20.0-31.0); Chloride 96 mMol/L (98-107); Creatinine (Component) 0.2 mg/dL (0.6-1.3); Estimated Creatinine Clearance 238.7 mL/min (>60); Globulin 3.6 gm/dL (2.3-3.5); Glucose 81 mg/dL (74-106); Magnesium 1.6 mg/dL (1.6-2.6); Osmolality,Calculated 255 (275-295); Phosphorous 3.2 mg/dL (2.4-5.1); Potassium 3.6 mMol/L (3.4-5.1); Sodium 129 mMol/L (136-145); Total Protein 6.3 gm/dL (5.7-8.2); eGFR > 60 See Note
[2025-01-04] MEDS: ONDANSETRON INJ 2 MG/ML INJ 2 ML 4 MG IVP ×2 (08:07→13:37)
[2025-01-04] MEDS: PANTOPRAZOLE 40 MG TABLET PO (08:08)
[2025-01-04] MEDS: POTASSIUM CHLORIDE 20 mEq TABCR 40 MEQ PO (08:08)
[2025-01-04] MEDS: SODIUM CHLORIDE 0.9% 1000 ML 1,000 ML 75 ML IV (08:08)
--- NOTE | 2025-01-04 08:19 | PD.RESPRO ---
Documentation for date of: 01/04/25 Subjective Subjective Interval history: The patient was seen and examined at the bedside. Overnight, the patient had multiple episodes of loose, foul-smelling stools. One dose of loperamide was given. This morning, the patient reported nausea and abdominal pain. A repeat C. difficile test and a CT abdomen with contrast were ordered to rule out colitis. The patient was started on normal saline at 75 cc/hr for hyponatremia (Na 129), likely due to diarrhea. Potassium (3.6) was borderline and replaced. Unasyn was discontinued after completing a 9-day course for UTI. The patient is afebrile, leukocytosis has resolved, and due to concern for C. difficile, no further antibiotics will be given at this time. Bladder training is in progress; plan to remove Bennett catheter if the patient is able to void independently. Nephrology is following; patient started on salt tablets 1g BID. Will monitor sodium levels and continue current management. Awaiting results of C. difficile and CT abdomen. Exam Vital Signs Temp Pulse Resp BP Pulse Ox O2 Del Method O2 Flow Rate 97.7 F 90 19 105/66 94 L Room Air 1 01/04/25 08:00 01/04/25 08:00 01/04/25 08:00 01/04/25 08:00 01/04/25 08:00 01/04/25 08:00 01/01/25 11:53 Narrative Exam General: AOx3, no acute distress, able to speak full sentences HEENT: NC/AT, mucous membranes moist, bilateral sclera anicteric Cardiovascular: regular rate and rhythm, S1/S2 present, no murmurs appreciated Pulmonary: clear to auscultation bilaterally, no rales/rhonchi/wheezes Abdominal: non-distended, normal bowel sounds present Musculoskeletal: normal ROM, no peripheral edema Skin: warm and dry, intact, no rashes Neuro: significant bilateral lower extremity weakness but able to move Objective Labs 01/04/25 05:05 01/04/25 05:05 Labs: Laboratory Results - last 24 hr 01/04/25 05:05 WBC 11.0 RBC 3.44 L Hgb 10.5 L Hct 29.3 L MCV 85 MCH 30.5 MCHC 35.8 RDW Std Deviation 40.0 Plt Count 318 D Neut % (Auto) 62 Lymph % (Auto) 20 [place] % (Auto) 10 Eos % (Auto) 1 Baso % (Auto) 0 Neut # (Auto) 6.9 Lymph # (Auto) 2.2 [place] # (Auto) 1.1 H Eos # (Auto) 0.1 Baso # (Auto) 0.0 Immature Gran # (Auto) 0.77 H Absolute Nucleated RBC 0.00 Immature Gran % 7 H Nucleated RBC % 0 Sodium 129 L Potassium 3.6 D Chloride 96 L Carbon Dioxide 24.6 Anion Gap 8 BUN 5 L Creatinine 0.2 L Estim Creat Clear Calc 238.7 eGFR > 60 BUN/Creatinine Ratio 25 H Glucose 81 Calculated Osmolality 255 L Calcium 7.7 L Corrected Calcium 8.7 Phosphorus 3.2 Magnesium 1.6 Total Bilirubin 0.7 AST 19 ALT 7 L Alkaline Phosphatase 68 Total Protein 6.3 Albumin 2.7 L Globulin 3.6 H Albumin/Globulin Ratio 0.8 L ABG Interpretation ABG results: 12/27/24 02:14 ABG pH 7.35 ABG pCO2 31 L ABG pO2 65 L ABG HCO3 17 L ABG O2 Saturation 91 ABG Base Excess -7 L Quality Measures Quality Measures VTE prophylaxis (Heparin subcutaneously) Assessment & Plan Assessment Current Active Medications: Generic Name Dose Route Start Last Admin Trade Name Freq PRN Reason Stop Dose Admin Acetaminophen 650 mg 12/29/24 14:26 01/02/25 22:02 Acetaminophen 325 Mg Tablet PO 01/26/25 04:36 650 mg Q6H PRN Administration fever >99.9 Acetaminophen 500 mg 12/31/24 11:00 01/03/25 11:00 Acetaminophen 500 Mg Tablet PO 01/04/25 11:01 500 mg QDAY@1100 SAMMI Administration Dextrose 25 ml 12/27/24 04:44 Dextrose 50%-Water Inj 50 Ml Syringe IV 01/26/25 04:43 Q15MIN PRN BG 50-70 responsive npo pt Dextrose 50 ml 12/27/24 04:44 Dextrose 50%-Water Inj 50 Ml Syringe IV 01/26/25 04:43 Q15MIN PRN BG <50 OR BG <70 & pt unresponsive Diphenhydramine HCl 25 mg 12/31/24 11:00 01/03/25 11:00 Diphenhydramine Inj 50 Mg/Ml Vial IVP 01/04/25 11:01 25 mg QDAY@1100 SAMMI Administration Gabapentin 100 mg 01/03/25 09:32 01/03/25 19:53 Gabapentin 100 Mg Capsule PO 01/26/25 09:31 100 mg TID PRN Administration NERVE PAIN Protocol Glucagon 1 mg 12/27/24 04:44 Glucagon Inj 1 Mg Vial IM Q15MIN PRN BG <70, and no IV access Heparin Sodium (Porcine) 5,000 unit 12/27/24 06:00 01/04/25 05:13 Heparin Sod Inj 5000 Unit/Ml Vial SC 01/10/25 05:59 5,000 unit Q8HR SAMMI Administration Ampicillin Sodium 2,000 mg/ 100 mls @ 200 mls/hr 12/29/24 12:00 01/04/25 05:13 Sodium Chloride IV 01/05/25 11:59 200 mls/hr Q6HR SAMMI Administration Immune Globulin G/Gly/IgA 200 mls @ 65 mls/hr 12/31/24 11:30 01/03/25 11:36 Gamunex C Inj IV 01/04/25 14:35 65 mls/hr QDAY@1130 SAMMI Administration Sodium Chloride 1,000 mls @ 75 mls/hr 01/04/25 07:24 01/04/25 08:08 Ns IV 01/04/25 20:43 75 mls/hr .[id number] ONE Administration Insulin Human Lispro 0 unit 12/27/24 07:30 01/04/25 07:44 Insulin Lispro (Admelog) 1 Unit/0.01 Ml Unit SC 01/26/25 07:29 Not Given AC SAMMI Protocol Levothyroxine Sodium 125 mcg/ 150 mcg 12/27/24 07:15 01/04/25 05:13 Levothyroxine Sodium 25 mcg PO 01/26/25 07:14 150 mcg ACBR SAMMI Administration Mirtazapine 15 mg 12/30/24 21:00 01/03/25 21:57 Mirtazapine 15 Mg Tablet PO 01/29/25 20:59 15 mg HS SAMMI Administration Ondansetron HCl 4 mg 12/27/24 04:37 01/04/25 08:07 Ondansetron Inj 2 Mg/Ml Inj 2 Ml IVP 01/26/25 04:36 4 mg Q6H PRN Administration NAUSEA OR VOMITING Protocol Pantoprazole Sodium 40 mg 12/30/24 09:00 01/04/25 08:08 Pantoprazole 40 Mg Tablet PO 01/29/25 08:59 40 mg QDAY SAMMI Administration Protocol Plan Faith Zaidi is a 64-year-old female with past medical history of thyroid cancer, hypothyroidism, hypertension, type 2 diabetes mellitus, depression, and sciatica who was admitted for septic shock to the ICU on 12/27 and downgraded to floors on 12/29. #Abdominal pain #Nausea #Diarrhea DDx C. difficile versus antibiotic side effect ?Overnight, the patient had multiple episodes of loose, foul-smelling stools. One dose of loperamide was given. This morning, the patient reported nausea and abdominal pain. A repeat C. difficile test and a CT abdomen with contrast were ordered to rule out colitis. ?Unasyn was discontinued after completing a 9-day course for UTI. The patient is afebrile, leukocytosis has resolved, and due to concern for C. difficile, no further antibiotics will be given at this time #Hypoosmolar hypochloremic hyponatremia DDx will include SIADH versus hypovolemic hyponatremia in the setting of multiple episodes diarrhea and poor oral intake ?The patient was started on normal saline at 75 cc/hr for hyponatremia (Na 129), ?Nephrology is following; patient started on salt tablets 1g BID. Will monitor sodium levels and continue current management. #Bilateral lower extremity weakness Endorses lower extremity weakness for last few months. Has been mostly bedbound at SNF. MRI lumbar spine showed mild disc narrowing at L5-S1, central lumbar disc bulging at L4-L5 with left L4 ganglionic compression. CT head showed no acute pathologies. Lumbar puncture showed elevated protein at 169. ? Neurology following, appreciate recommendations ? IVIG daily (12/31-01/04) ? Physical therapy ordered #NSTEMI type II/demand ischemia in setting of shock Troponin 0.14 and downtrended to 0.09 on admission but due to concerns for ST elevations on monitor, BP troponins obtained and up trended from 0.09 to 3.8. Suspect demand ischemia in setting of shock. EKG showed sinus rhythm, no ST changes or T wave abnormalities. Echo on 12/27 showed EF 65 to 70%, normal LV size and function, G1DD, mild TR. ? Cardiology following, appreciate recommendations ? Cardiac cath 12/31: no significant stenoses #Septic shock likely secondary to UTI, resolved #Enterococcus faecalis urinary tract infection Noted to have Bennett catheter from nursing facility but was recently changed per daughter. Urinalysis showed turbid urine, 476 WBC, 152 RBC, 1+ bacteria, positive LE. Urine cultures grew Enterococcus faecalis, pansensitive. Initially on vancomycin and cefepime but now on ampicillin. ? Ampicillin 2 g IV every 6 hours (12/29-01/04) ?Bladder training is in progress; plan to remove Bennett catheter if the patient is able to void independently. #Acute kidney injury, resolved #Hypokalemia resolved #Hypomagenesemia, resolved Initial creatinine of 1.3 with baseline of 0.6, resolved with IVF. ? Nephrology following, appreciate recommendations ? Avoid nephrotoxic agents when possible, renally dose medications ? Recommend salt tablets on discharge ? Replete electrolytes as needed #History of hypothyroidism ? Levothyroxine 150 mcg # History type 2 diabetes mellitus A1c 5.1% ? Patient has been hypoglycemic today in a.m., ? During hospital stay patient did not require any subcu insulin, hence insulin sliding scale was discontinued ? Hypoglycemia protocol is in place ? Encourage oral intake #Depression ? Sertraline switched to mirtazapine due to possible contribution to hyponatremia #GERD ? Omeprazole 20 mg daily Hospital management: Disposition: ICU downgrade, IVIG from 12/31-01/04, pending C. difficile, correction of hyponatremia, patient is coming from SNF and plan is to discharge to SNF Diet: switch to regular diet Lines: PIV, Bennett DVT prophylaxis: Heparin SC TID GI prophylaxis: pantoprazole daily Bennett: Placed CODE STATUS: DNR Patient care was discussed with attending physician Dr. Chelsea Corea MD PGY-2 Attending Provider Attestation/Addendum I attest that I was physically present for the evaluation, physical examination, lab and imaging review of the patient with the residents. I discussed the case with the residents and agree with the findings and plans of care as documented above. At bedside today, patient appears comfortable and denies new complaints.? Continues to have multiple episodes of watery diarrhea.? With concern for C. difficile, we will repeat the serology.? Vital signs are stable.? Lab results show sodium of 129 this morning, discussed with nephrology, we will start her on 1 g salt tablet twice daily as recommended, appreciate recommendations.? Potassium is 3.6, repleted accordingly.? Patient completed her antibiotic course for UTI, we will stop the antibiotics.? She will also complete her IVIG therapy today. ?Patient also had severe abdominal pain this afternoon, we will obtain abdomen/pelvis CT with contrast. Karyn Tran MD
--- NOTE | 2025-01-04 08:27 | ESPR_ITS ---
Documentation for date of: 01/04/25 Subjective Subjective Interval history: Patient continues to complain of leg weakness Being treated by neurology no significant coronary artery Exam Vital Signs Temp Pulse Resp BP Pulse Ox O2 Del Method O2 Flow Rate 97.7 F 90 19 105/66 94 L Room Air 1 01/04/25 08:00 01/04/25 08:00 01/04/25 08:00 01/04/25 08:00 01/04/25 08:00 01/04/25 08:00 01/01/25 11:53 Routine HEENT Exam Head: Present normocephalic and atraumatic Eye: Present EOMI and PERRL ENT: Present mucous membranes moist Routine Neck Exam Neck: Present supple and trachea midline Routine Respiratory Exam Respiratory: Present chest non-tender, lungs clear, normal breath sounds and no resp distress Routine Cardiovascular Exam Cardiovascular: Present RRR Routine Abdominal Exam Abdominal: Present soft and normoactive bowel sounds Routine Extremities Exam Extremities: Present full ROM Routine Skin Exam Skin: Present intact, dry and warm Routine Neurological Exam Neurological: Present alert, oriented X3 and CN II-XII intact Routine Psychiatric Exam Psychiatric: Present normal affect and normal thought process Objective Labs 01/04/25 05:05 01/04/25 05:05 Labs: Laboratory Results - last 24 hr 01/04/25 05:05 WBC 11.0 RBC 3.44 L Hgb 10.5 L Hct 29.3 L MCV 85 MCH 30.5 MCHC 35.8 RDW Std Deviation 40.0 Plt Count 318 D Neut % (Auto) 62 Lymph % (Auto) 20 [place] % (Auto) 10 Eos % (Auto) 1 Baso % (Auto) 0 Neut # (Auto) 6.9 Lymph # (Auto) 2.2 [place] # (Auto) 1.1 H Eos # (Auto) 0.1 Baso # (Auto) 0.0 Immature Gran # (Auto) 0.77 H Absolute Nucleated RBC 0.00 Immature Gran % 7 H Nucleated RBC % 0 Sodium 129 L Potassium 3.6 D Chloride 96 L Carbon Dioxide 24.6 Anion Gap 8 BUN 5 L Creatinine 0.2 L Estim Creat Clear Calc 238.7 eGFR > 60 BUN/Creatinine Ratio 25 H Glucose 81 Calculated Osmolality 255 L Calcium 7.7 L Corrected Calcium 8.7 Phosphorus 3.2 Magnesium 1.6 Total Bilirubin 0.7 AST 19 ALT 7 L Alkaline Phosphatase 68 Total Protein 6.3 Albumin 2.7 L Globulin 3.6 H Albumin/Globulin Ratio 0.8 L ABG Interpretation ABG results: 12/27/24 02:14 ABG pH 7.35 ABG pCO2 31 L ABG pO2 65 L ABG HCO3 17 L ABG O2 Saturation 91 ABG Base Excess -7 L Assessment & Plan A&P Narrative Heart catheterization does not show any significant coronary artery disease Continue medical management Time Spent With Patient Time: Total time spent is greater than 50% in coordination of care (as documented) at patient's floor/unit and/or counseling patient:
--- NOTE | 2025-01-04 09:33 | PD.RESPRO ---
Documentation for date of: 01/04/25 Subjective Subjective Interval history: 12/30/2024 Patient examined at bedside today. No acute overnight events. Patient reports she is not eating too much and does not have much of an appetite. She also says that she has been having trouble walking for the past couple months. She says that she has pain in her legs. She says she has been taking her thyroid medicine as prescribed. She also says that her depression is well-controlled this time. Her sodium today was 128, magnesium 1.5, potassium 3.8. Fasting blood glucose was 255. Urine culture resulted Enterococcus. 12/31/2024: Patient examined at bedside today. No acute overnight events. Patient reports he is doing well. She says she is tolerated the lumbar puncture well yesterday. She says she is also going to get cardiac catheterization. Her potassium was 3.3 today, sodium 131, creatinine 0.2, calcium 8.5, phosphorus 2.7, magnesium 1.4, pending LP results. 01/01/2025: Patient examined at bedside today. No acute overnight events. Patient reports she is doing well. She says that she is getting some strength back. She is requesting to drink some coffee at this time. Potassium 3.3.1 today, sodium 132, urine output 4200 mL, calcium 8.7, phosphorus 3.9, magnesium 1.4, hemoglobin 10.9, white count 10.9, creatinine 0.2. 01/03/2025: Patient examined at bedside today. No acute overnight events. Patient reports she is doing well. She says she is doing some strength back as well. Her sodium today is 132, potassium 3.1, BUN/creatinine 5 and 0.2 respectively, bicarb 25, magnesium 1.6, phosphorus 4, calcium 8.6, hemoglobin 10.6, white count 9.8, urine output 2900 mL, vitals are stable. 01/04/2025: Patient examined at bedside today. No acute overnight events. Patient sodium today is 129, Potassium 3.6, chloride 96, bicarb 21, BUN/creatinine 5 and 0.2 respectively, glucose 81, calcium 8.7, phosphorus 2.2, magnesium 1.6, white count 11, hemoglobin 10.5. Patient reports she is getting more strength in her lower extremities. Urine output 2 L. Vitals are stable. Exam Vital Signs Temp Pulse Resp BP Pulse Ox O2 Del Method O2 Flow Rate 97.7 F 90 19 105/66 94 L Room Air 1 01/04/25 08:00 01/04/25 08:00 01/04/25 08:00 01/04/25 08:00 01/04/25 08:00 01/04/25 08:00 01/01/25 11:53 Narrative Exam General: AAOx3, NAD, weak looking female, [place]alese-speaking, very alert HEENT: Moist mucous membranes, conjunctiva clear, EOMI, PERRLA, Cardiovascular: S1, S2, radial pulses +2 bilat, RRR Pulmonary: CTAB bilat no cough, no wheezing GI: No tenderness to light or deep palpitation, no guarding, rigidity, rebound tenderness or distension Extremities: Trace edema in lower extremities bilaterally, dorsalis pedis pulses +2 bilaterally, weak musculature Skin: SK present on chest and back Neuro: AAOx3, patient has significant weakness in the lower extremities but it is slightly improving in strength in her ankles Strength 1/5 bilat Psych: Cooperative Objective Labs 01/04/25 05:05 01/04/25 05:05 Labs: Laboratory Results - last 24 hr 01/04/25 05:05 WBC 11.0 RBC 3.44 L Hgb 10.5 L Hct 29.3 L MCV 85 MCH 30.5 MCHC 35.8 RDW Std Deviation 40.0 Plt Count 318 D Neut % (Auto) 62 Lymph % (Auto) 20 [place] % (Auto) 10 Eos % (Auto) 1 Baso % (Auto) 0 Neut # (Auto) 6.9 Lymph # (Auto) 2.2 [place] # (Auto) 1.1 H Eos # (Auto) 0.1 Baso # (Auto) 0.0 Immature Gran # (Auto) 0.77 H Absolute Nucleated RBC 0.00 Immature Gran % 7 H Nucleated RBC % 0 Sodium 129 L Potassium 3.6 D Chloride 96 L Carbon Dioxide 24.6 Anion Gap 8 BUN 5 L Creatinine 0.2 L Estim Creat Clear Calc 238.7 eGFR > 60 BUN/Creatinine Ratio 25 H Glucose 81 Calculated Osmolality 255 L Calcium 7.7 L Corrected Calcium 8.7 Phosphorus 3.2 Magnesium 1.6 Total Bilirubin 0.7 AST 19 ALT 7 L Alkaline Phosphatase 68 Total Protein 6.3 Albumin 2.7 L Globulin 3.6 H Albumin/Globulin Ratio 0.8 L ABG Interpretation ABG results: 12/27/24 02:14 ABG pH 7.35 ABG pCO2 31 L ABG pO2 65 L ABG HCO3 17 L ABG O2 Saturation 91 ABG Base Excess -7 L Quality Measures Quality Measures VTE prophylaxis (Heparin subcutaneously) Assessment & Plan Assessment Current Active Medications: Generic Name Dose Route Start Last Admin Trade Name Freq PRN Reason Stop Dose Admin Acetaminophen 650 mg 12/29/24 14:26 01/02/25 22:02 Acetaminophen 325 Mg Tablet PO 01/26/25 04:36 650 mg Q6H PRN Administration fever >99.9 Acetaminophen 500 mg 12/31/24 11:00 01/03/25 11:00 Acetaminophen 500 Mg Tablet PO 01/04/25 11:01 500 mg QDAY@1100 SAMMI Administration Dextrose 25 ml 12/27/24 04:44 Dextrose 50%-Water Inj 50 Ml Syringe IV 01/26/25 04:43 Q15MIN PRN BG 50-70 responsive npo pt Dextrose 50 ml 12/27/24 04:44 Dextrose 50%-Water Inj 50 Ml Syringe IV 01/26/25 04:43 Q15MIN PRN BG <50 OR BG <70 & pt unresponsive Diphenhydramine HCl 25 mg 12/31/24 11:00 01/03/25 11:00 Diphenhydramine Inj 50 Mg/Ml Vial IVP 01/04/25 11:01 25 mg QDAY@1100 SAMMI Administration Gabapentin 100 mg 01/03/25 09:32 01/03/25 19:53 Gabapentin 100 Mg Capsule PO 01/26/25 09:31 100 mg TID PRN Administration NERVE PAIN Protocol Glucagon 1 mg 12/27/24 04:44 Glucagon Inj 1 Mg Vial IM Q15MIN PRN BG <70, and no IV access Heparin Sodium (Porcine) 5,000 unit 12/27/24 06:00 01/04/25 05:13 Heparin Sod Inj 5000 Unit/Ml Vial SC 01/10/25 05:59 5,000 unit Q8HR SAMMI Administration Immune Globulin G/Gly/IgA 200 mls @ 65 mls/hr 12/31/24 11:30 01/03/25 11:36 Gamunex C Inj IV 01/04/25 14:35 65 mls/hr QDAY@1130 SAMMI Administration Sodium Chloride 1,000 mls @ 75 mls/hr 01/04/25 07:24 01/04/25 08:08 Ns IV 01/04/25 20:43 75 mls/hr .[id number] ONE Administration Levothyroxine Sodium 125 mcg/ 150 mcg 12/27/24 07:15 01/04/25 05:13 Levothyroxine Sodium 25 mcg PO 01/26/25 07:14 150 mcg ACBR SAMMI Administration Mirtazapine 15 mg 12/30/24 21:00 01/03/25 21:57 Mirtazapine 15 Mg Tablet PO 01/29/25 20:59 15 mg HS SAMMI Administration Ondansetron HCl 4 mg 12/27/24 04:37 01/04/25 08:07 Ondansetron Inj 2 Mg/Ml Inj 2 Ml IVP 01/26/25 04:36 4 mg Q6H PRN Administration NAUSEA OR VOMITING Protocol Pantoprazole Sodium 40 mg 12/30/24 09:00 01/04/25 08:08 Pantoprazole 40 Mg Tablet PO 01/29/25 08:59 40 mg QDAY SAMMI Administration Protocol Plan Assessment Ms Zaidi is a Senegalese-speaking 64-year-old female with history of Thyroid cancer, hypertension, hypothyroidism, depression, diabetes mellitus, and sciatica who presented to the ED with concerns of vomiting and fever, found to be hypotensive likely secondary to hypovolemia and/or infection, started on levophed and admitted to ICU for further management. #Chronic hypoosmolar hyponatremia #Hypokalemia #Hypomagnesiemia #Hypophosphatemia #Hypochloridemia #SIADH Patient most likely has underlying SIADH, etiology could be long-term SSRI use, however urine sodium was low which is not typically seen in SIADH UOP 2L today Electrolyte abnormalities likely due to poor nutrition and high urine output Plan: ? Salt tabs 1 g by mouth twice daily ? Encourage oral intake ? Trend with CMP ? Correct electrolyte abnormalities as needed #Lower extremity weakness, bilat DDx: demyelinating syndrome, CDIP, GBS Lumbar spine MRI unremarkable Phosphorus 4.0 today Patient getting IVIG for possible CDIP Plan: ? Follow-up LP results ? Neurology consulted, appreciate recs ? Continue with IVIG #Diarrhea Patient has been in hospital for quite some time, has had multiple episodes of watery loose stool Plan: ? Test for C. difficile #Enterococcus UTI #Chronic back pain #Depression #Non-sustained SVT #Protein-calorie malnutrition #Loss of appetite #Protein-calorie malnutrition #Hypoosmolar hyponatremia, chronic #HECTOR, resolved #Hematuria, resolved #Leukocytosis #T2DM #Hypothyroidism #Hx of Thyroid CA s/p LT thyroid lobectomy 20 years ago #RT adrenal lesion, incidental #Shock, likely septic from UTI and hypovolemic component Above handled by primary team Patient seen and care discussed with my attending physician, Dr. Khadijah Pop, PGY-1 Attending Provider Attestation/Addendum patient seen and examined with resident physician Dr. vargas. Note reviewed, agree with findings and recommendations. Patient admitted with weakness and the symptomatic hyponatremia. Responded well to fluids and subsequently fluid restriction. Sodium much better. Plan of care discussed with primary team Still with lower extremity weakness. Did get LP-high protein in the CSF fluid. Dr Duncan on the case. Currently on IVIG.-Diagnosis possible CIDP Added salt tablets-sodium 129
--- NOTE | 2025-01-04 10:18 | PC.SS ---
SS follow up note; CDIFF test pending, patient has been having loose stools. Patient will possibly discharge back to [facility] tomorrow.
[2025-01-04] MEDS: SODIUM CHLORIDE 1 GM TABLET PO ×2 (10:56→21:00)
[2025-01-04] MEDS: ACETAMINOPHEN 500 MG TABLET PO (10:56)
[2025-01-04] MEDS: DiphenhydrAMINE INJ 50 MG/ML VIAL 25 MG IVP (10:57)
--- NOTE | 2025-01-04 11:16 | PC.NURSE ---
TATA FRANCIS, REPORTS PATIENT DIDN'T HAVE A [employer] CATHETER WHILE RESIDING AT [facility].
--- NOTE | 2025-01-04 13:32 | PC.NURSE ---
PATIENT C/O PAIN ABDOMINAL PAIN 10, DR. MELLO MADE AWARE. HE WILL PUT IN ORDERS.
--- NOTE | 2025-01-04 13:38 | XR_ITS ---
Examination: CT abdomen with intravenous contrast CT pelvis with intravenous contrast 2-D coronal reconstructions 2-D sagittal reconstructions Date and time of exam:January 04, 2025 1728 hours INDICATIONS: Generalized abdominal pain 3 days. CTDI: vol (mGy) 6.1 DLP: (mGycm) 335 Technique: Multiple axial sections of the abdomen and pelvis have been obtained. 64 slice high-resolution scanner used. 3 mm axial sections have been obtained, post intravenous injection 60 cc [id number] 2-D sagittal, coronal reconstructions obtained. Low dose protocols were performed. One or more of the following dose reduction techniques were used; automated exposure control, adjustment of the mA and/or KV according to patient size, use of iterative reconstruction technique. Findings: Small bilateral pleural effusions No focal liver or splenic lesions Absent gallbladder Common bile duct is not enlarged No pancreatic mass Stable fat-containing right adrenal nodule No renal or ureteral calculi Mild left hydronephrosis wall thickening of the left pelvicalyceal system and left ureter with perinephric stranding No pericecal inflammatory change Anteverted uterus with multiple calcified uterine fundal masses Marked irregular diffuse thickening of the urinary bladder wall Abnormal rectosigmoid, marked wall thickening and inflammatory change, including marked thickening of the rectal wall Moderate osteopenia IMPRESSION: Findings most consistent with left pyelonephritis and cystitis Consider pelvic sonography to assess uterine calcified fundal masses Diffuse thickening of the sigmoid colon and rectum, differential would include nonspecific colitis and proctitis, rectosigmoid or early tumor not excluded, recommend colonoscopy follow-up
[2025-01-04] MEDS: MORPHINE SULF INJ 10 MG/ML VIAL IVP (13:48)
--- NOTE | 2025-01-04 16:51 | PC.NURSE ---
PATIENT TRANSFER TO CT VIA GURNEY ACCOMPANIED BY KRISHNA WANG. PT IS ALERT AND ORIENTED X3.
--- NOTE | 2025-01-04 17:50 | PC.NURSE ---
PATIENT BACK FROM CT SHE IS ALERT AND ORIENTED X3.
--- NOTE | 2025-01-04 18:30 | PC.NURSE ---
patient has poor appetite, refused to drink her glucerna
[2025-01-04 18:56] LABS: Sodium 128 mMol/L (136-145)
[2025-01-04] MEDS: MIRTAZAPINE 15 MG TABLET PO (21:00)
--- NOTE | 2025-01-04 22:01 | ESPR_ITS ---
Documentation for date of: 01/04/25 Subjective Subjective Interval history: Patient was seen in telemetry today, continues to have weakness in the LE. No improvement noted. Exam - Neurology Vital Signs Temp Pulse Resp BP Pulse Ox O2 Del Method O2 Flow Rate 97.2 F 95 17 96/61 96 Room Air 1 01/04/25 20:00 01/04/25 20:00 01/04/25 20:00 01/04/25 20:00 01/04/25 20:00 01/04/25 20:00 01/01/25 11:53 Narrative Exam General: AOx3, no acute distress, able to speak full sentences HEENT: NC/AT, mucous membranes moist, bilateral sclera anicteric Cardiovascular: regular rate and rhythm, S1/S2 present, no murmurs appreciated Pulmonary: clear to auscultation bilaterally, no rales/rhonchi/wheezes Abdominal: soft, non-tender, non-distended, no rebound/guarding, normal bowel sounds present Musculoskeletal: normal ROM in both UE, paraparesis: unchanged, no peripheral edema Skin: warm and dry, intact, no rashes Objective Labs 01/04/25 05:05 01/04/25 15:40 Labs: Laboratory Results - last 24 hr 01/04/25 01/04/25 05:05 15:40 WBC 11.0 RBC 3.44 L Hgb 10.5 L Hct 29.3 L MCV 85 MCH 30.5 MCHC 35.8 RDW Std Deviation 40.0 Plt Count 318 D Neut % (Auto) 62 Lymph % (Auto) 20 [place] % (Auto) 10 Eos % (Auto) 1 Baso % (Auto) 0 Neut # (Auto) 6.9 Lymph # (Auto) 2.2 [place] # (Auto) 1.1 H Eos # (Auto) 0.1 Baso # (Auto) 0.0 Immature Gran # (Auto) 0.77 H Absolute Nucleated RBC 0.00 Immature Gran % 7 H Nucleated RBC % 0 Sodium 129 L 128 L Potassium 3.6 D Chloride 96 L Carbon Dioxide 24.6 Anion Gap 8 BUN 5 L Creatinine 0.2 L Estim Creat Clear Calc 238.7 eGFR > 60 BUN/Creatinine Ratio 25 H Glucose 81 Calculated Osmolality 255 L Calcium 7.7 L Corrected Calcium 8.7 Phosphorus 3.2 Magnesium 1.6 Total Bilirubin 0.7 AST 19 ALT 7 L Alkaline Phosphatase 68 Total Protein 6.3 Albumin 2.7 L Globulin 3.6 H Albumin/Globulin Ratio 0.8 L ABG Interpretation ABG results: 12/27/24 02:14 ABG pH 7.35 ABG pCO2 31 L ABG pO2 65 L ABG HCO3 17 L ABG O2 Saturation 91 ABG Base Excess -7 L Assessment & Plan Assessment and plan (1) Weakness: Status: Chronic Assessment and plan: as the CSF showed elevated protein and 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 Continue with PT After d/c to rehab, will consider doing EMG AND NCS of both LE to confirm the diagnosis. (2) Diabetes 1.5, managed as type 2: Status: Acute Assessment and plan: under control as per the last A1c.
[2025-01-05] VITALS: BP 126/72; PULSE 83; RESP 21; TEMP 36.3; O2SAT 97
[2025-01-05 04:00] VITALS: BP 115/67; PULSE 88; PULSE 89; RESP 23; TEMP 36.7; O2SAT 93
[2025-01-05] MEDS: LEVOTHYROXINE SODIUM 125 MCG, LEVOTHYROXINE SODIUM 25 MCG 150 MCG PO (05:10)
[2025-01-05] MEDS: HEPARIN SOD INJ 5000 UNIT/ML VIAL SC ×3 (05:10→21:27)
[2025-01-05 05:49] VITALS: BMI 24.7
[2025-01-05 06:48] LABS: Basophils # (Auto) 0.1 Thou/mm3 (0.0-0.2); Basophils % (Auto) 0 % (0-2.5); Eosinophils # (Auto) 0.1 Thou/mm3 (0.0-0.5); Eosinophils % (Auto) 1 % (0-10); Hematocrit 26.4 % (36.0-46.0); Hemoglobin 9.2 g/dL (12.0-16.0); Immature Granulocytes % (Auto) 9 % (0-0); Immature Granulocytes Auto 1.02 Thou/mm3 (0.00-0.00); Lymphocytes # (Auto) 2.7 Thou/mm3 (1.0-4.8); Lymphocytes % (Auto) 22 % (10-50); Mean Corpuscular HGB Conc 34.8 g/dl (31.0-37.0); Mean Corpuscular Hemoglobin 30.8 pg (25.0-35.0); Mean Corpuscular Volume 88 fL (80-100); Monocytes # (Auto) 1.2 Thou/mm3 (0.0-0.8); Monocytes % (Auto) 10 % (0-12); Neutrophils % (Auto) 58 % (37-80); Nucleated Red Blood Cell % 0 /100 WBC (0); Platelet Count 384 Thou/mm3 (140-440); RDW Standard Deviation 42.5 fL (36.4-46.3); Red Blood Count 2.99 Miln/mm3 (4.00-5.20); White Blood Count 12.1 Thou/mm3 (3.6-11.0)
[2025-01-05 07:19] LABS: Alanine Aminotransferase 7 U/L (10-49); Albumin, Serum 2.7 gm/dL (3.4-4.8); Albumin/Globulin Ratio 0.7 (1.2-2.2); Alkaline Phosphatase 67 U/L (46-116); Anion Gap 6 (7-16); Aspartate Amino Transferase 19 U/L (0-34); BUN/Creatinine Ratio 17 Ratio (12-20); Bilirubin,Total 0.7 mg/dL (0.3-1.2); Blood Urea Nitrogen 5 mg/dL (9-23); Calcium 7.9 mg/dL (8.3-10.6); Calcium (Corrected) 8.9 mg/dL (8.5-10.1); Carbon Dioxide 24.8 mMol/L (20.0-31.0); Chloride 98 mMol/L (98-107); Creatinine (Component) 0.3 mg/dL (0.6-1.3); Estimated Creatinine Clearance 159.2 mL/min (>60); Globulin 3.9 gm/dL (2.3-3.5); Glucose 80 mg/dL (74-106); Magnesium 1.4 mg/dL (1.6-2.6); Osmolality,Calculated 255 (275-295); Phosphorous 3.3 mg/dL (2.4-5.1); Sodium 129 mMol/L (136-145); Total Protein 6.6 gm/dL (5.7-8.2); eGFR > 60 See Note
[2025-01-05 08:00] VITALS: BP 90/55; PULSE 91; PULSE 93; RESP 20; TEMP 36.4; O2SAT 94
[2025-01-05] MEDS: SODIUM CHLORIDE 0.9% 1000 ML 1,000 ML 75 ML IV ×2 (09:00→23:38)
[2025-01-05] MEDS: Magnesium Sulfate 4 GM Ivpb 4 GM/50 ML BAG IV (09:10)
[2025-01-05] MEDS: PANTOPRAZOLE 40 MG TABLET PO (09:10)
[2025-01-05] MEDS: SODIUM CHLORIDE 1 GM TABLET PO ×2 (09:10→21:24)
--- NOTE | 2025-01-05 09:25 | PD.RESPRO ---
Documentation for date of: 01/05/25 Subjective Subjective Interval history: No acute overnight events. Seen and examined at bedside and patient endorses 4 of 10 abdominal pain and 6 out of 10 pain in her lower extremities. Reported to have 5+ loose bowel movements thus far today but are formed now and thus C. difficile testing was cancelled per lab. Will monitor for worsening/improvement in symptoms. CT A/P also showed sigmoid and rectal wall thickening, WBC uptrending, but no fevers. Given findings noted, will consult GI and await for further recommendations. Blood pressure also noted to be low this morning so will start maintenance IVF at this time and will increase as needed. Na 129 and on salt tablets, magnesium 1.4 and repleted 4 grams today. Exam Vital Signs Temp Pulse Resp BP Pulse Ox O2 Del Method O2 Flow Rate 97.5 F 91 20 90/55 L 94 L Room Air 1 01/05/25 08:00 01/05/25 08:00 01/05/25 08:00 01/05/25 08:00 01/05/25 08:00 01/05/25 08:00 01/01/25 11:53 Narrative Exam General: AOx3, no acute distress, able to speak full sentences HEENT: NC/AT, mucous membranes moist, bilateral sclera anicteric Cardiovascular: regular rate and rhythm, S1/S2 present, no murmurs appreciated Pulmonary: clear to auscultation bilaterally, no rales/rhonchi/wheezes Abdominal: soft, non-tender, non-distended, no rebound/guarding, normal bowel sounds present Musculoskeletal: normal ROM, no peripheral edema Skin: warm and dry, intact, no rashes Neuro: significant bilateral lower extremity weakness but able to move at hips Objective Labs 01/06/25 04:45 01/06/25 04:45 Labs: Laboratory Results - last 24 hr 12/30/24 01/04/25 01/05/25 00:36 15:40 06: WBC 12.1 H RBC 2.99 L Hgb 9.2 L Hct 26.4 L MCV 88 MCH 30.8 MCHC 34.8 RDW Std Deviation 42.5 Plt Count 384 D Neut % (Auto) 58 Lymph % (Auto) 22 [place] % (Auto) 10 Eos % (Auto) 1 Baso % (Auto) 0 Neut # (Auto) 7.0 Lymph # (Auto) 2.7 [place] # (Auto) 1.2 H Eos # (Auto) 0.1 Baso # (Auto) 0.1 Immature Gran # (Auto) 1.02 H Absolute Nucleated RBC 0.00 Immature Gran % 9 H Nucleated RBC % 0 Sodium 128 L 129 L Potassium 4.0 Chloride 98 Carbon Dioxide 24.8 Anion Gap 6 L BUN 5 L Creatinine 0.3 L Estim Creat Clear Calc 159.2 eGFR > 60 BUN/Creatinine Ratio 17 Glucose 80 Calculated Osmolality 255 L Calcium 7.9 L Corrected Calcium 8.9 Phosphorus 3.3 Magnesium 1.4 L Total Bilirubin 0.7 AST 19 ALT 7 L Alkaline Phosphatase 67 Total Protein 6.6 Albumin 2.7 L Globulin 3.9 H Albumin/Globulin Ratio 0.7 L Aldolase 10.0 H ABG Interpretation ABG results: 12/27/24 02:14 ABG pH 7.35 ABG pCO2 31 L ABG pO2 65 L ABG HCO3 17 L ABG O2 Saturation 91 ABG Base Excess -7 L Quality Measures Quality Measures VTE prophylaxis (Heparin subcutaneously) Assessment & Plan Assessment Current Active Medications: Generic Name Dose Route Start Last Admin Trade Name Freq PRN Reason Stop Dose Admin Acetaminophen 650 mg 12/29/24 14:26 01/02/25 22:02 Acetaminophen 325 Mg Tablet PO 01/26/25 04:36 650 mg Q6H PRN Administration fever >99.9 Dextrose 25 ml 12/27/24 04:44 Dextrose 50%-Water Inj 50 Ml Syringe IV 01/26/25 04:43 Q15MIN PRN BG 50-70 responsive npo pt Dextrose 50 ml 12/27/24 04:44 Dextrose 50%-Water Inj 50 Ml Syringe IV 01/26/25 04:43 Q15MIN PRN BG <50 OR BG <70 & pt unresponsive Fidaxomicin 200 mg 01/05/25 09:30 Fidaxomicin 200 Mg Tablet (Non-Formulary) PO 01/15/25 09:29 BID SAMMI Gabapentin 100 mg 01/03/25 09:32 01/03/25 19:53 Gabapentin 100 Mg Capsule PO 01/26/25 09:31 100 mg TID PRN Administration NERVE PAIN Protocol Glucagon 1 mg 12/27/24 04:44 Glucagon Inj 1 Mg Vial IM Q15MIN PRN BG <70, and no IV access Heparin Sodium (Porcine) 5,000 unit 12/27/24 06:00 01/05/25 05:10 Heparin Sod Inj 5000 Unit/Ml Vial SC 01/10/25 05:59 5,000 unit Q8HR SAMMI Administration Magnesium Sulfate 4 gm in 50 mls @ 12.5 mls/hr 01/05/25 08:05 01/05/25 09:10 Magnesium Sulfate Ivpb IV 01/05/25 12:04 12.5 mls/hr X1 ONE Administration Sodium Chloride 1,000 mls @ 75 mls/hr 01/05/25 08:23 Ns IV 02/04/25 08:22 .[id number] SAMMI Levothyroxine Sodium 125 mcg/ 150 mcg 12/27/24 07:15 01/05/25 05:10 Levothyroxine Sodium 25 mcg PO 01/26/25 07:14 150 mcg ACBR SAMMI Administration Mirtazapine 15 mg 12/30/24 21:00 01/04/25 21:00 Mirtazapine 15 Mg Tablet PO 01/29/25 20:59 15 mg HS SAMMI Administration Ondansetron HCl 4 mg 12/27/24 04:37 01/04/25 13:37 Ondansetron Inj 2 Mg/Ml Inj 2 Ml IVP 01/26/25 04:36 4 mg Q6H PRN Administration NAUSEA OR VOMITING Protocol Pantoprazole Sodium 40 mg 12/30/24 09:00 01/05/25 09:10 Pantoprazole 40 Mg Tablet PO 01/29/25 08:59 40 mg QDAY SAMMI Administration Protocol Sodium Chloride 1 gm 01/04/25 10:45 01/05/25 09:10 Sodium Chloride 1 Gm Tablet PO 02/03/25 10:44 1 gm BID SAMMI Administration Plan Faith Zaidi is a 64-year-old female with past medical history of thyroid cancer, hypothyroidism, hypertension, type 2 diabetes mellitus, depression, and sciatica who was admitted for septic shock to the ICU on 12/27 and downgraded to floors on 12/29. #Sigmoid and rectal wall thickening as seen on CT #Abdominal pain #Nausea #Diarrhea Overnight patient had multiple episodes of loose, foul-smelling stools and one dose of loperamide was given and following morning reported nausea and abdominal pain so repeat C. difficile ordered. CT A/P showed sigmoid and rectal wall thickening. Unasyn discontinued after completing 9-day course for UTI. ? GI consulted, appreciate recommendations ? C. difficile testing cancelled per lab as stool was formed ? Contact precautions ? NS at 75 cc/hr #Hypoosmolar hypochloremic hyponatremia DDx includes SIADH vs hypovolemic hyponatremia in setting of multiple episodes diarrhea and poor oral intake ? Nephrology following, appreciate recommendations ? Salt tablets 1 g BID ? NS at 75 cc/hr ? Will monitor sodium levels and continue current management #Bilateral lower extremity weakness Endorses lower extremity weakness for last few months. Has been mostly bedbound at SNF. MRI lumbar spine showed mild disc narrowing at L5-S1, central lumbar disc bulging at L4-L5 with left L4 ganglionic compression. CT head showed no acute pathologies. Lumbar puncture showed elevated protein at 169. ? Neurology following, appreciate recommendations ? Finished course of IVIG (12/31-01/04) #NSTEMI type II/demand ischemia in setting of shock Troponin 0.14 and downtrended to 0.09 on admission but due to concerns for ST elevations on monitor, BP troponins obtained and up trended from 0.09 to 3.8. Suspect demand ischemia in setting of shock. EKG showed sinus rhythm, no ST changes or T wave abnormalities. Echo on 12/27 showed EF 65 to 70%, normal LV size and function, G1DD, mild TR. ? Cardiology following, appreciate recommendations ? Cardiac cath 12/31: no significant stenoses #Septic shock likely secondary to UTI, resolved #Enterococcus faecalis urinary tract infection Noted to have Bennett catheter from nursing facility but was recently changed per daughter. Urinalysis showed turbid urine, 476 WBC, 152 RBC, 1+ bacteria, positive LE. Urine cultures grew Enterococcus faecalis, pansensitive. Initially on vancomycin and cefepime and finished course of ampicillin. ? Bladder training is in progress; plan to remove Bennett catheter if the patient is able to void independently #Acute kidney injury, resolved #Hypokalemia resolved #Hypomagenesemia, resolved Initial creatinine of 1.3 with baseline of 0.6, resolved with IVF. ? Replete electrolytes as needed #Hypothyroidism ? Levothyroxine 150 mcg #Type 2 diabetes mellitus A1c 5.1% ? During hospital stay has not required SC insulin, hence SSI DC'd ? Encourage oral intake #Depression ? Sertraline switched to mirtazapine due to possible contribution to hyponatremia #GERD ? Omeprazole 20 mg daily Hospital management: Disposition: ICU downgrade, pending C. difficile, correction of hyponatremia, coming from SNF and plan is to discharge to SNF Diet: switch to regular diet Lines: PIV, Bennett DVT prophylaxis: Heparin SC TID GI prophylaxis: pantoprazole daily Bennett: Placed CODE STATUS: DNR ----- Plan discussed with attending physician Dr. Chelsea Weaver MD PGY-1 Internal Medicine Attending Provider Attestation/Addendum I attest that I was physically present for the evaluation, physical examination, lab and imaging review of the patient with the residents. I discussed the case with the residents and agree with the findings and plans of care as documented above. At bedside today, patient appears more comfortable compared to yesterday. Continues to have abdominal pain but improved compared to yesterday, denies any new complaints. Continues to have weakness in her lower extremities. Patient has been having multiple bowel movements. Discussed with infection control, stated that patient's repeat C. difficile testing was canceled as the stool was more formed. Her previous C. difficile test was negative. CTA abdomen/pelvis done yesterday showed sigmoid and rectal wall thickening, concern for colitis, proctitis. Patient has already completed her antibiotics for UTI. Her WBC up trended today to 12.1 from 11.0 yesterday. We will obtain GI consult. Sodium level is 129 this morning, we will continue with normal saline and salt tablets. Nephrology following closely, appreciate recommendations. Karyn Tran MD
--- NOTE | 2025-01-05 10:06 | PC.IP ---
Dr. Tran notified CDIFF specimen cancelled by lab due to stool was formed, not liquid.
--- NOTE | 2025-01-05 10:55 | PD.RESPRO ---
Documentation for date of: 01/05/25 Subjective Subjective Interval history: 12/30/2024 Patient examined at bedside today. No acute overnight events. Patient reports she is not eating too much and does not have much of an appetite. She also says that she has been having trouble walking for the past couple months. She says that she has pain in her legs. She says she has been taking her thyroid medicine as prescribed. She also says that her depression is well-controlled this time. Her sodium today was 128, magnesium 1.5, potassium 3.8. Fasting blood glucose was 255. Urine culture resulted Enterococcus. 12/31/2024: Patient examined at bedside today. No acute overnight events. Patient reports he is doing well. She says she is tolerated the lumbar puncture well yesterday. She says she is also going to get cardiac catheterization. Her potassium was 3.3 today, sodium 131, creatinine 0.2, calcium 8.5, phosphorus 2.7, magnesium 1.4, pending LP results. 01/01/2025: Patient examined at bedside today. No acute overnight events. Patient reports she is doing well. She says that she is getting some strength back. She is requesting to drink some coffee at this time. Potassium 3.3.1 today, sodium 132, urine output 4200 mL, calcium 8.7, phosphorus 3.9, magnesium 1.4, hemoglobin 10.9, white count 10.9, creatinine 0.2. 01/03/2025: Patient examined at bedside today. No acute overnight events. Patient reports she is doing well. She says she is doing some strength back as well. Her sodium today is 132, potassium 3.1, BUN/creatinine 5 and 0.2 respectively, bicarb 25, magnesium 1.6, phosphorus 4, calcium 8.6, hemoglobin 10.6, white count 9.8, urine output 2900 mL, vitals are stable. 01/04/2025: Patient examined at bedside today. No acute overnight events. Patient sodium today is 129, Potassium 3.6, chloride 96, bicarb 21, BUN/creatinine 5 and 0.2 respectively, glucose 81, calcium 8.7, phosphorus 2.2, magnesium 1.6, white count 11, hemoglobin 10.5. Patient reports she is getting more strength in her lower extremities. Urine output 2 L. Vitals are stable. 01/05/2025: Patient examined at bedside today. No acute overnight events. Patient sodium today is 129, potassium 4, bicarb 25, BUN/creatinine 5 and 0.3 respectively, glucose 80, magnesium 1.4, phosphorus 3.3, white count 12.1, hemoglobin 9.2. Patient reports that her strength is improving. Urine output 2.3 L. Vitals are stable. Exam Vital Signs Temp Pulse Resp BP Pulse Ox O2 Del Method O2 Flow Rate 97.5 F 91 20 90/55 L 94 L Room Air 1 01/05/25 08:00 01/05/25 08:00 01/05/25 08:00 01/05/25 08:00 01/05/25 08:00 01/05/25 08:00 01/01/25 11:53 Narrative Exam General: AAOx3, NAD, weak looking female, Monegasque-speaking, very alert HEENT: Moist mucous membranes, conjunctiva clear, EOMI, PERRLA, Cardiovascular: S1, S2, radial pulses +2 bilat, RRR Pulmonary: CTAB bilat no cough, no wheezing GI: No tenderness to light or deep palpitation, no guarding, rigidity, rebound tenderness or distension Extremities: Trace edema in lower extremities bilaterally, dorsalis pedis pulses +2 bilaterally, weak musculature Skin: SK present on chest and back Neuro: AAOx3, patient has significant weakness in the lower extremities but it is slightly improving in strength in her ankles Strength 1/5 bilat Psych: Cooperative Objective Labs 01/05/25 06:19 01/05/25 06:19 Labs: Laboratory Results - last 24 hr 12/30/24 01/04/25 01/04/25 00:36 15:40 16:30 WBC RBC Hgb Hct MCV MCH MCHC RDW Std Deviation Plt Count Neut % (Auto) Lymph % (Auto) [place] % (Auto) Eos % (Auto) Baso % (Auto) Neut # (Auto) Lymph # (Auto) [place] # (Auto) Eos # (Auto) Baso # (Auto) Immature Gran # (Auto) Absolute Nucleated RBC Immature Gran % Nucleated RBC % Sodium 128 L Potassium Chloride Carbon Dioxide Anion Gap BUN Creatinine Estim Creat Clear Calc eGFR BUN/Creatinine Ratio Glucose Calculated Osmolality Calcium Corrected Calcium Phosphorus Magnesium Total Bilirubin AST ALT Alkaline Phosphatase Total Protein Albumin Globulin Albumin/Globulin Ratio Aldolase 10.0 H Stl C. diff Tox B Gene Cancelled 01/05/25 06:19 WBC 12.1 H RBC 2.99 L Hgb 9.2 L Hct 26.4 L MCV 88 MCH 30.8 MCHC 34.8 RDW Std Deviation 42.5 Plt Count 384 D Neut % (Auto) 58 Lymph % (Auto) 22 [place] % (Auto) 10 Eos % (Auto) 1 Baso % (Auto) 0 Neut # (Auto) 7.0 Lymph # (Auto) 2.7 [place] # (Auto) 1.2 H Eos # (Auto) 0.1 Baso # (Auto) 0.1 Immature Gran # (Auto) 1.02 H Absolute Nucleated RBC 0.00 Immature Gran % 9 H Nucleated RBC % 0 Sodium 129 L Potassium 4.0 Chloride 98 Carbon Dioxide 24.8 Anion Gap 6 L BUN 5 L Creatinine 0.3 L Estim Creat Clear Calc 159.2 eGFR > 60 BUN/Creatinine Ratio 17 Glucose 80 Calculated Osmolality 255 L Calcium 7.9 L Corrected Calcium 8.9 Phosphorus 3.3 Magnesium 1.4 L Total Bilirubin 0.7 AST 19 ALT 7 L Alkaline Phosphatase 67 Total Protein 6.6 Albumin 2.7 L Globulin 3.9 H Albumin/Globulin Ratio 0.7 L Aldolase Stl C. diff Tox B Gene ABG Interpretation ABG results: 12/27/24 02:14 ABG pH 7.35 ABG pCO2 31 L ABG pO2 65 L ABG HCO3 17 L ABG O2 Saturation 91 ABG Base Excess -7 L Quality Measures Quality Measures VTE prophylaxis (Heparin subcutaneously) Assessment & Plan Assessment Current Active Medications: Generic Name Dose Route Start Last Admin Trade Name José Miguel PRN Reason Stop Dose Admin Acetaminophen 650 mg 12/29/24 14:26 01/02/25 22:02 Acetaminophen 325 Mg Tablet PO 01/26/25 04:36 650 mg Q6H PRN Administration fever >99.9 Dextrose 25 ml 12/27/24 04:44 Dextrose 50%-Water Inj 50 Ml Syringe IV 01/26/25 04:43 Q15MIN PRN BG 50-70 responsive npo pt Dextrose 50 ml 12/27/24 04:44 Dextrose 50%-Water Inj 50 Ml Syringe IV 01/26/25 04:43 Q15MIN PRN BG <50 OR BG <70 & pt unresponsive Gabapentin 100 mg 01/03/25 09:32 01/03/25 19:53 Gabapentin 100 Mg Capsule PO 01/26/25 09:31 100 mg TID PRN Administration NERVE PAIN Protocol Glucagon 1 mg 12/27/24 04:44 Glucagon Inj 1 Mg Vial IM Q15MIN PRN BG <70, and no IV access Heparin Sodium (Porcine) 5,000 unit 12/27/24 06:00 01/05/25 05:10 Heparin Sod Inj 5000 Unit/Ml Vial SC 01/10/25 05:59 5,000 unit Q8HR SAMMI Administration Magnesium Sulfate 4 gm in 50 mls @ 12.5 mls/hr 01/05/25 08:05 01/05/25 09:10 Magnesium Sulfate Ivpb IV 01/05/25 12:04 12.5 mls/hr X1 ONE Administration Sodium Chloride 1,000 mls @ 75 mls/hr 01/05/25 08:23 01/05/25 09:00 Ns IV 02/04/25 08:22 75 mls/hr .[id number] SAMMI Administration Levothyroxine Sodium 125 mcg/ 150 mcg 12/27/24 07:15 01/05/25 05:10 Levothyroxine Sodium 25 mcg PO 01/26/25 07:14 150 mcg ACBR SAMMI Administration Mirtazapine 15 mg 12/30/24 21:00 01/04/25 21:00 Mirtazapine 15 Mg Tablet PO 01/29/25 20:59 15 mg HS SAMMI Administration Ondansetron HCl 4 mg 12/27/24 04:37 01/04/25 13:37 Ondansetron Inj 2 Mg/Ml Inj 2 Ml IVP 01/26/25 04:36 4 mg Q6H PRN Administration NAUSEA OR VOMITING Protocol Pantoprazole Sodium 40 mg 12/30/24 09:00 01/05/25 09:10 Pantoprazole 40 Mg Tablet PO 01/29/25 08:59 40 mg QDAY SAMMI Administration Protocol Sodium Chloride 1 gm 01/04/25 10:45 01/05/25 09:10 Sodium Chloride 1 Gm Tablet PO 02/03/25 10:44 1 gm BID SAMMI Administration Plan Assessment Ms Zaidi is a Monegasque-speaking 64-year-old female with history of Thyroid cancer, hypertension, hypothyroidism, depression, diabetes mellitus, and sciatica who presented to the ED with concerns of vomiting and fever, found to be hypotensive likely secondary to hypovolemia and/or infection, started on levophed and admitted to ICU for further management. #Chronic hypoosmolar hyponatremia #Hypokalemia #Hypomagnesiemia #Hypophosphatemia #Hypochloridemia #SIADH Patient most likely has underlying SIADH, etiology could be long-term SSRI use, however urine sodium was low which is not typically seen in SIADH UOP 2.3L today Electrolyte abnormalities likely due to poor nutrition and high urine output We recommend with Salt tabs 1 g BID upon D/C We will be signing off on the case at this time Plan: ? Salt tabs 1 g by mouth twice daily ? Encourage oral intake ? Trend with CMP ? Correct electrolyte abnormalities as needed #Lower extremity weakness, bilat DDx: demyelinating syndrome, CDIP, GBS Lumbar spine MRI unremarkable Phosphorus 4.0 today Patient getting IVIG for possible CDIP Plan: ? Follow-up LP results ? Neurology consulted, appreciate recs ? Continue with IVIG #Diarrhea Patient has been in hospital for quite some time, has had multiple episodes of watery loose stool Plan: ? Test for C. difficile #Enterococcus UTI #Chronic back pain #Depression #Non-sustained SVT #Protein-calorie malnutrition #Loss of appetite #Protein-calorie malnutrition #Hypoosmolar hyponatremia, chronic #HECTOR, resolved #Hematuria, resolved #Leukocytosis #T2DM #Hypothyroidism #Hx of Thyroid CA s/p LT thyroid lobectomy 20 years ago #RT adrenal lesion, incidental #Shock, likely septic from UTI and hypovolemic component Above handled by primary team Patient seen and care discussed with my attending physician, Dr. Khadijah Pop, PGY-1 Attending Provider Attestation/Addendum patient seen and examined with resident physician Dr. vargas. Note reviewed, agree with findings and recommendations. Patient admitted with weakness and the symptomatic hyponatremia. Responded well to fluids and subsequently fluid restriction. Sodium much better. Plan of care discussed with primary team Still with lower extremity weakness. Did get LP-high protein in the CSF fluid. Dr Duncan on the case. Currently on IVIG.-Diagnosis possible CIDP Added salt tablets-sodium 129 bid Renal handy no new recommendations-will see as needed. Thank you for the consult.
--- NOTE | 2025-01-05 11:00 | PC.SS ---
SS follow up note: SS [facility] up [facility] [id number]. [facility] while on the phone with SS. SS contacted [facility], ETA provided was [id number].
[2025-01-05] MEDS: GABAPENTIN 100 MG CAPSULE PO ×2 (11:01→21:24)
[2025-01-05] MEDS: ACETAMINOPHEN 325 MG TABLET 650 MG PO (11:01)
[2025-01-05 12:00] VITALS: PULSE 88; RESP 17; TEMP 36.6; O2SAT 94
[2025-01-05 12:03] VITALS: BMI 12.0
[2025-01-05 13:43] LABS: Band Neutrophils (Manual) 7 % (0-6); Eosinophils (Manual) 1 % (0-4); Lymphocytes (Manual) 5 % (20-44); Metamyelocytes (Manual) 12 % (0-0); Monocytes (Manual) 5 % (2-9); Myelocytes (Manual) 5 % (0-0); Neutrophils (Manual) 65 % (50-70)
--- NOTE | 2025-01-05 14:33 | PC.SS ---
SS follow up note; CDIFF test pending, sodium being monitored. Patient will discharge back to [facility] when medically cleared.
--- NOTE | 2025-01-05 15:52 | PC.NURSE ---
In and out ordered x1 due to know urined output from removing stout catheter this mornig. Bladder scan done x2. 291 ml noted on scan, removed 500ml of urine out. Tolerated well. patient says she feels much better. Will continue to monitor. --LYNN
[2025-01-05 16:00] VITALS: BP 112/60; PULSE 90; PULSE 95; RESP 19; TEMP 36.1; O2SAT 94
[2025-01-05 20:00] VITALS: BP 106/59; PULSE 89; RESP 14; TEMP 36.5; O2SAT 95
--- NOTE | 2025-01-05 21:10 | ESPR_ITS ---
Documentation for date of: 01/05/25 Subjective Subjective Interval history: Patient was seen in telemetry today, continues to have weakness in the LE. slight improvement noted. She was able to sit up at the side of the bed with assistance during PT session. Exam - Neurology Vital Signs Temp Pulse Resp BP Pulse Ox O2 Del Method O2 Flow Rate 97.7 F 89 14 106/59 L 95 Room Air 1 01/05/25 20:00 01/05/25 20:00 01/05/25 20:01/05/25 20:01/05/25 20:01/05/25 20:00 01/01/25 11:53 Narrative Exam General: AOx3, no acute distress, able to speak full sentences HEENT: NC/AT, mucous membranes moist, bilateral sclera anicteric Cardiovascular: regular rate and rhythm, S1/S2 present, no murmurs appreciated Pulmonary: clear to auscultation bilaterally, no rales/rhonchi/wheezes Abdominal: soft, non-tender, non-distended, no rebound/guarding, normal bowel sounds present Musculoskeletal: normal ROM in both UE, paraparesis: unchanged, no peripheral edema Skin: warm and dry, intact, no rashes Objective Labs 01/06/25 04:45 01/06/25 04:45 Labs: Laboratory Results - last 24 hr 12/30/24 01/04/25 01/05/25 00:36 16:30 06:19 WBC 12.1 H RBC 2.99 L Hgb 9.2 L Hct 26.4 L MCV 88 MCH 30.8 MCHC 34.8 RDW Std Deviation 42.5 Plt Count 384 D Neut % (Auto) 58 Lymph % (Auto) 22 [place] % (Auto) 10 Eos % (Auto) 1 Baso % (Auto) 0 Neut # (Auto) 7.0 Lymph # (Auto) 2.7 [place] # (Auto) 1.2 H Eos # (Auto) 0.1 Baso # (Auto) 0.1 Immature Gran # (Auto) 1.02 H Absolute Nucleated RBC 0.00 Immature Gran % 9 H Neutrophils % (Manual) 65 Monocytes % (Manual) 5 Eosinophils % (Manual) 1 Metamyelocytes % 12 H Myelocytes % 5 H Nucleated RBC % 0 Band Neutrophils 7 H Lymphocytes (Manual) 5 L Sodium 129 L Potassium 4.0 Chloride 98 Carbon Dioxide 24.8 Anion Gap 6 L BUN 5 L Creatinine 0.3 L Estim Creat Clear Calc 159.2 eGFR > 60 BUN/Creatinine Ratio 17 Glucose 80 Calculated Osmolality 255 L Calcium 7.9 L Corrected Calcium 8.9 Phosphorus 3.3 Magnesium 1.4 L Total Bilirubin 0.7 AST 19 ALT 7 L Alkaline Phosphatase 67 Total Protein 6.6 Albumin 2.7 L Globulin 3.9 H Albumin/Globulin Ratio 0.7 L Aldolase 10.0 H Stl C. diff Tox B Gene Cancelled ABG Interpretation ABG results: 12/27/24 02:14 ABG pH 7.35 ABG pCO2 31 L ABG pO2 65 L ABG HCO3 17 L ABG O2 Saturation 91 ABG Base Excess -7 L Assessment & Plan Assessment and plan (1) Weakness: Status: Chronic Assessment and plan: as the CSF showed elevated protein and 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 Continue with PT After d/c to rehab, will consider doing EMG AND NCS of both LE to confirm the diagnosis. SHe is back on contact precautions for C. diff suspected with her loose stools. (2) Diabetes 1.5, managed as type 2: Status: Acute Assessment and plan: under control as per the last A1c.
[2025-01-05] MEDS: MIRTAZAPINE 15 MG TABLET PO (21:24)
--- NOTE | 2025-01-05 22:26 | PD.IMCONS ---
HPI Data of Consult Requesting Physician: Karyn Tran MD Primary Care Provider: Physician No Primary/Family Consult Narrative Reason for consult: Abnormal CT AP, chronic diarrhea History of present illness: 64-year-old female evaluated in room 262 at the request of the internal medicine team Patient has multiple loose stools a day According nursing staff at the time of my evaluation in the last 2 hours she had only [address] scan of the abdomen pelvis done showed inflammatory changes distal sigmoid and descending colon Patient was admitted on 12/27/2024 with altered level of consciousness from fpc shortness of breath and hypotension Patient does have a history of essential hypertension hypothyroidism depression diabetes mellitus type 2 and was admitted with acute hypoxic respiratory failure shock and elevated troponin from the fpc cc:: cc: Kayrn Tran MD Review of Systems Review of Systems Systems Reviewed: All systems reviewed, normal except as documented Past Medical History Surgical History OTHER SURGICAL HX: All systems reviewed Meds Home Medications and Allergies Home Medications ?Medication ?Instructions ?Recorded ?Confirmed ?Type metformin 500 mg tablet 500 mg PO DAILY 05/09/19 12/27/24 History naproxen 500 mg tablet 500 mg PO DAILY 05/09/19 12/27/24 History omeprazole 20 mg tablet,delayed 20 mg PO QDAY 05/09/19 12/27/24 History release cetirizine 10 mg tablet 10 mg PO QDAY 10/04/24 12/27/24 History pravastatin 20 mg tablet 20 mg PO HS 10/04/24 12/27/24 History tramadol 50 mg tablet 50 mg PO Q8H PRN pain 10/04/24 12/27/24 History cranberry fruit 450 mg tablet 450 mg PO QDAY 12/27/24 12/27/24 History (cranberry) magnesium oxide 400 mg PO BID 12/27/24 12/27/24 History Allergies Allergy/AdvReac Type Severity Reaction Status Date / Time codeine Allergy Severe DELUSIONS Verified 07/16/24 16:40 Exam Vital Signs Temp Pulse Resp BP Pulse Ox O2 Del Method O2 Flow Rate 97.7 F 89 14 106/59 L 95 Room Air 1 01/05/25 20:00 01/05/25 20:00 01/05/25 20:00 01/05/25 20:00 01/05/25 20:00 01/05/25 20:00 01/01/25 11:53 Constitutional Comments: Laying comfortably in bed history obtained in Kyr[place] Routine Respiratory Exam Comments: Normal to auscultation Routine Abdominal Exam Comments: Soft nontender Results Labs 01/05/25 06:19 01/05/25 06:19 Labs: Short CBC 01/05/25 Range/Units 06:19 WBC 12.1 H (3.6-11.0) Thou/mm3 Hgb 9.2 L (12.0-16.0) g/dL Hct 26.4 L (36.0-46.0) % Plt Count 384 D (140-440) Thou/mm3 BMP 01/05/25 06:19 Sodium 129 L Potassium 4.0 Chloride 98 Carbon Dioxide 24.8 BUN 5 L Creatinine 0.3 L Glucose 80 Calcium 7.9 L Liver Function 01/05/25 Range/Units 06:19 Total Bilirubin 0.7 (0.3-1.2) mg/dL AST 19 (0-34) U/L ALT 7 L (10-49) U/L Alkaline Phosphatase 67 (46-116) U/L Albumin 2.7 L (3.4-4.8) gm/dL ABG Interpretation ABG results: 12/27/24 02:14 ABG pH 7.35 ABG pCO2 31 L ABG pO2 65 L ABG HCO3 17 L ABG O2 Saturation 91 ABG Base Excess -7 L Assessment and Plan Additional Assessment & Plan Additional Plan: Chronic persistent diarrhea with abnormal CT scan of the abdomen pelvis showing inflammatory changes in the sigmoid and descending colon Differential diagnosis include Ischemic colitis Inflammatory bowel disease Infectious colitis Plan Complete stool panel NGT placement and GoLytely Consent obtained for fiberoptic colonoscopy with possible biopsy possible therapeutic intervention under intravenous moderate sedation Other medical problems include Thyroid carcinoma status post thyroid surgery Acute hypoxic respiratory failure resolving Hypothyroidism Diabetes mellitus type 2 Thyroid carcinoma status post surgical intervention Thank you very much for the opportunity to participate in the care of this patient
[2025-01-05 23:50] LABS: Sed Rate (ESR) 24 mm/hr (0-30)
[2025-01-06] VITALS (8 sets, daily range): BP systolic 87–118; BP diastolic 53–70; PULSE 80–99; RESP 14–22; TEMP 36.2–36.8; O2SAT 92–94; BMI 22.4
--- NOTE | 2025-01-06 00:22 | XR_ITS ---
Examination: AP chest single view TECHNIQUE: AP portable semiupright chest single view Date and time: January 06, 2025 0033 hours INDICATIONS: Post orogastric tube placement FINDINGS: Orogastric tube in the stomach satisfactory position Normal heart size No pneumonia or pulmonary edema IMPRESSION: Orogastric tube in the stomach, the tip is below the level of the film
[2025-01-06] MEDS: SODIUM CHLORIDE 0.9% 1000 ML 1,000 ML 100 ML IV (00:25)
[2025-01-06 02:20] LABS: Stool for WBCs 2+ (Negative)
[2025-01-06] MEDS: NA SU/NAHCO3/KC/PEG (Golytely) 4,000 ML BTL 4000 ML NG ×2 (05:24→23:08)
[2025-01-06] MEDS: LEVOTHYROXINE SODIUM 125 MCG, LEVOTHYROXINE SODIUM 25 MCG 150 MCG PO (05:24)
[2025-01-06] MEDS: GABAPENTIN 100 MG CAPSULE PO ×3 (05:24→22:31)
[2025-01-06] MEDS: HEPARIN SOD INJ 5000 UNIT/ML VIAL SC ×3 (05:25→22:31)
[2025-01-06 05:34] LABS: Basophils % (Auto) 0 % (0-2.5); Eosinophils % (Auto) 0 % (0-10); Hematocrit 25.9 % (36.0-46.0); Hemoglobin 9.4 g/dL (12.0-16.0); Immature Granulocytes % (Auto) 6 % (0-0); Immature Granulocytes Auto 0.69 Thou/mm3 (0.00-0.00); Lymphocytes # (Auto) 2.1 Thou/mm3 (1.0-4.8); Lymphocytes % (Auto) 18 % (10-50); Mean Corpuscular HGB Conc 36.3 g/dl (31.0-37.0); Mean Corpuscular Volume 86 fL (80-100); Monocytes # (Auto) 1.1 Thou/mm3 (0.0-0.8); Monocytes % (Auto) 9 % (0-12); Neutrophils # (Auto) 7.9 Thou/mm3 (1.8-7.7); Neutrophils % (Auto) 67 % (37-80); Nucleated Red Blood Cell % 0 /100 WBC (0); Platelet Count 350 Thou/mm3 (140-440); RDW Standard Deviation 40.4 fL (36.4-46.3); Red Blood Count 3.03 Miln/mm3 (4.00-5.20); White Blood Count 11.8 Thou/mm3 (3.6-11.0)
[2025-01-06 06:13] LABS: Alanine Aminotransferase < 7 U/L (10-49); Albumin, Serum 2.6 gm/dL (3.4-4.8); Albumin/Globulin Ratio 0.8 (1.2-2.2); Alkaline Phosphatase 61 U/L (46-116); Anion Gap 6 (7-16); Aspartate Amino Transferase 19 U/L (0-34); BUN/Creatinine Ratio 25 Ratio (12-20); Bilirubin,Total 0.6 mg/dL (0.3-1.2); Blood Urea Nitrogen < 5 mg/dL (9-23); Calcium 7.4 mg/dL (8.3-10.6); Calcium (Corrected) 8.5 mg/dL (8.5-10.1); Carbon Dioxide 21.6 mMol/L (20.0-31.0); Chloride 100 mMol/L (98-107); Creatinine (Component) 0.2 mg/dL (0.6-1.3); Estimated Creatinine Clearance 217.3 mL/min (>60); Globulin 3.4 gm/dL (2.3-3.5); Glucose 82 mg/dL (74-106); Magnesium 1.5 mg/dL (1.6-2.6); Osmolality,Calculated 253 (275-295); Sodium 128 mMol/L (136-145); eGFR > 60 See Note
--- NOTE | 2025-01-06 07:56 | PD.IMPROG ---
Documentation for date of: 01/06/25 Subjective Subjective Interval history: Patient is being evaluated for chronic diarrhea Coronary angiogram does not show any significant coronary artery disease Exam Vital Signs Temp Pulse Resp BP Pulse Ox O2 Del Method O2 Flow Rate 98.3 F 90 22 H 98/66 93 L Room Air 1 01/06/25 05:00 01/06/25 05:00 01/06/25 05:00 01/06/25 05:00 01/06/25 05:00 01/06/25 05:00 01/01/25 11:53 Routine HEENT Exam Head: Present normocephalic and atraumatic Eye: Present EOMI and PERRL ENT: Present mucous membranes moist Routine Neck Exam Neck: Present supple and trachea midline Routine Respiratory Exam Respiratory: Present chest non-tender, lungs clear, normal breath sounds and no resp distress Routine Cardiovascular Exam Cardiovascular: Present RRR Routine Abdominal Exam Abdominal: Present soft and normoactive bowel sounds Routine Extremities Exam Extremities: Present full ROM Routine Skin Exam Skin: Present intact, dry and warm Routine Psychiatric Exam Psychiatric: Present normal affect and normal thought process Objective Labs 01/06/25 04:45 01/06/25 04:45 Labs: Laboratory Results - last 24 hr 12/30/24 01/04/25 01/05/25 18:30 16:30 06:19 WBC RBC Hgb Hct MCV MCH MCHC RDW Std Deviation Plt Count Neut % (Auto) Lymph % (Auto) [place] % (Auto) Eos % (Auto) Baso % (Auto) Neut # (Auto) Lymph # (Auto) [place] # (Auto) Eos # (Auto) Baso # (Auto) Immature Gran # (Auto) Absolute Nucleated RBC Immature Gran % Neutrophils % (Manual) 65 Monocytes % (Manual) 5 Eosinophils % (Manual) 1 Metamyelocytes % 12 H Myelocytes % 5 H Nucleated RBC % Band Neutrophils 7 H Lymphocytes (Manual) 5 L ESR Sodium Potassium Chloride Carbon Dioxide Anion Gap BUN Creatinine Estim Creat Clear Calc eGFR BUN/Creatinine Ratio Glucose Calculated Osmolality Calcium Corrected Calcium Magnesium Total Bilirubin AST ALT Alkaline Phosphatase C-Reactive Prot, Quant Total Protein Albumin Globulin Albumin/Globulin Ratio Stool for White Cells Stl C. diff Tox B Gene Cancelled Misc Test Result See Sep Rpt 01/05/25 01/05/25 01/06/25 23:13 23:59 04:45 WBC 11.8 H RBC 3.03 L Hgb 9.4 L Hct 25.9 L MCV 86 MCH 31.0 MCHC 36.3 RDW Std Deviation 40.4 Plt Count 350 D Neut % (Auto) 67 Lymph % (Auto) 18 [place] % (Auto) 9 Eos % (Auto) 0 Baso % (Auto) 0 Neut # (Auto) 7.9 H Lymph # (Auto) 2.1 [place] # (Auto) 1.1 H Eos # (Auto) 0.0 Baso # (Auto) 0.0 Immature Gran # (Auto) 0.69 H Absolute Nucleated RBC 0.00 Immature Gran % 6 H Neutrophils % (Manual) Monocytes % (Manual) Eosinophils % (Manual) Metamyelocytes % Myelocytes % Nucleated RBC % 0 Band Neutrophils Lymphocytes (Manual) ESR 24 Sodium 128 L Potassium 3.0 L D Chloride 100 Carbon Dioxide 21.6 Anion Gap 6 L BUN < 5 L Creatinine 0.2 L Estim Creat Clear Calc 217.3 eGFR > 60 BUN/Creatinine Ratio 25 H Glucose 82 Calculated Osmolality 253 L Calcium 7.4 L Corrected Calcium 8.5 Magnesium 1.5 L Total Bilirubin 0.6 AST 19 ALT < 7 L Alkaline Phosphatase 61 C-Reactive Prot, Quant 1.0 H Total Protein 6.0 Albumin 2.6 L Globulin 3.4 Albumin/Globulin Ratio 0.8 L Stool for White Cells 2+ A Stl C. diff Tox B Gene Misc Test Result ABG Interpretation ABG results: 12/27/24 02:14 ABG pH 7.35 ABG pCO2 31 L ABG pO2 65 L ABG HCO3 17 L ABG O2 Saturation 91 ABG Base Excess -7 L Assessment & Plan A&P Narrative Continue current treatment Time Spent With Patient Time: Total time spent is greater than 50% in coordination of care (as documented) at patient's floor/unit and/or counseling patient:
[2025-01-06] MEDS: POTASSIUM CHLORIDE 10% 20 MEQ/15 ML UDC 40 MEQ PO ×2 (09:02→11:01)
[2025-01-06] MEDS: PANTOPRAZOLE 40 MG TABLET PO (09:03)
[2025-01-06] MEDS: Magnesium Sulfate 4 GM Ivpb 4 GM/50 ML BAG IV (09:03)
[2025-01-06] MEDS: SODIUM CHLORIDE 0.9% 1000 ML 1,000 ML 75 ML IV ×2 (09:03→23:07)
--- NOTE | 2025-01-06 09:36 | PD.RESPRO ---
Documentation for date of: 01/06/25 Subjective Subjective Interval history: No acute overnight events, but reported to have 5 loose BMs overnight. Seen and examined at bedside and patient does not currently have complaints other than feeling fatigued. Repeat C. difficile negative on 01/05 but noted to have 2+ WBCs in stool, Giardia testing pending. Lyme disease testing showed bands present for IgG but none for IgM and per neurology no treatment warranted. NG tube placed and patient prepping for colonoscopy given diffuse thickening seen in sigmoid colon and rectum. Will continue IVF given soft BP but salt tablets increased from twice daily to 3 times daily. Exam Vital Signs Temp Pulse Resp BP Pulse Ox O2 Del Method O2 Flow Rate 97.1 F 87 14 92/53 L 94 L Room Air 1 01/06/25 08:00 01/06/25 08:00 01/06/25 08:00 01/06/25 08:00 01/06/25 08:00 01/06/25 08:00 01/01/25 11:53 Narrative Exam General: AOx3, no acute distress, able to speak full sentences, NG tube in place HEENT: NC/AT, mucous membranes moist, bilateral sclera anicteric Cardiovascular: regular rate and rhythm, S1/S2 present, no murmurs appreciated Pulmonary: clear to auscultation bilaterally, no rales/rhonchi/wheezes Abdominal: soft, non-tender, non-distended, no rebound/guarding, normal bowel sounds present Musculoskeletal: normal ROM, no peripheral edema Skin: warm and dry, intact, no rashes Neuro: significant bilateral lower extremity weakness but able to move at hips Objective Labs 01/06/25 04:45 01/06/25 04:45 Labs: Laboratory Results - last 24 hr 12/30/24 01/04/25 01/05/25 18:30 16:30 06:19 WBC RBC Hgb Hct MCV MCH MCHC RDW Std Deviation Plt Count Neut % (Auto) Lymph % (Auto) [place] % (Auto) Eos % (Auto) Baso % (Auto) Neut # (Auto) Lymph # (Auto) [place] # (Auto) Eos # (Auto) Baso # (Auto) Immature Gran # (Auto) Absolute Nucleated RBC Immature Gran % Neutrophils % (Manual) 65 Monocytes % (Manual) 5 Eosinophils % (Manual) 1 Metamyelocytes % 12 H Myelocytes % 5 H Nucleated RBC % Band Neutrophils 7 H Lymphocytes (Manual) 5 L ESR Sodium Potassium Chloride Carbon Dioxide Anion Gap BUN Creatinine Estim Creat Clear Calc eGFR BUN/Creatinine Ratio Glucose Calculated Osmolality Calcium Corrected Calcium Magnesium Total Bilirubin AST ALT Alkaline Phosphatase C-Reactive Prot, Quant Total Protein Albumin Globulin Albumin/Globulin Ratio Stool for White Cells Stl C. diff Tox B Gene Cancelled Misc Test Result See Sep Rpt 01/05/25 01/05/25 01/06/25 23:13 23:59 04:45 WBC 11.8 H RBC 3.03 L Hgb 9.4 L Hct 25.9 L MCV 86 MCH 31.0 MCHC 36.3 RDW Std Deviation 40.4 Plt Count 350 D Neut % (Auto) 67 Lymph % (Auto) 18 [place] % (Auto) 9 Eos % (Auto) 0 Baso % (Auto) 0 Neut # (Auto) 7.9 H Lymph # (Auto) 2.1 [place] # (Auto) 1.1 H Eos # (Auto) 0.0 Baso # (Auto) 0.0 Immature Gran # (Auto) 0.69 H Absolute Nucleated RBC 0.00 Immature Gran % 6 H Neutrophils % (Manual) Monocytes % (Manual) Eosinophils % (Manual) Metamyelocytes % Myelocytes % Nucleated RBC % 0 Band Neutrophils Lymphocytes (Manual) ESR 24 Sodium 128 L Potassium 3.0 L D Chloride 100 Carbon Dioxide 21.6 Anion Gap 6 L BUN < 5 L Creatinine 0.2 L Estim Creat Clear Calc 217.3 eGFR > 60 BUN/Creatinine Ratio 25 H Glucose 82 Calculated Osmolality 253 L Calcium 7.4 L Corrected Calcium 8.5 Magnesium 1.5 L Total Bilirubin 0.6 AST 19 ALT < 7 L Alkaline Phosphatase 61 C-Reactive Prot, Quant 1.0 H Total Protein 6.0 Albumin 2.6 L Globulin 3.4 Albumin/Globulin Ratio 0.8 L Stool for White Cells 2+ A Stl C. diff Tox B Gene Misc Test Result ABG Interpretation ABG results: 12/27/24 02:14 ABG pH 7.35 ABG pCO2 31 L ABG pO2 65 L ABG HCO3 17 L ABG O2 Saturation 91 ABG Base Excess -7 L Quality Measures Quality Measures VTE prophylaxis (Heparin subcutaneously) Assessment & Plan Assessment Current Active Medications: Generic Name Dose Route Start Last Admin Trade Name Freq PRN Reason Stop Dose Admin Acetaminophen 650 mg 12/29/24 14:26 01/05/25 11:01 Acetaminophen 325 Mg Tablet PO 01/26/25 04:36 650 mg Q6H PRN Administration fever >99.9 Dextrose 25 ml 12/27/24 04:44 Dextrose 50%-Water Inj 50 Ml Syringe IV 01/26/25 04:43 Q15MIN PRN BG 50-70 responsive npo pt Dextrose 50 ml 12/27/24 04:44 Dextrose 50%-Water Inj 50 Ml Syringe IV 01/26/25 04:43 Q15MIN PRN BG <50 OR BG <70 & pt unresponsive Gabapentin 100 mg 01/05/25 22:00 01/06/25 05:24 Gabapentin 100 Mg Capsule PO 02/04/25 21:59 100 mg TID SAMMI Administration Glucagon 1 mg 12/27/24 04:44 Glucagon Inj 1 Mg Vial IM Q15MIN PRN BG <70, and no IV access Heparin Sodium (Porcine) 5,000 unit 12/27/24 06:00 01/06/25 05:25 Heparin Sod Inj 5000 Unit/Ml Vial SC 01/10/25 05:59 5,000 unit Q8HR SAMMI Administration Magnesium Sulfate 4 gm in 50 mls @ 12.5 mls/hr 01/06/25 07:19 01/06/25 09:03 Magnesium Sulfate Ivpb IV 01/06/25 11:18 12.5 mls/hr X1 ONE Administration Sodium Chloride 1,000 mls @ 75 mls/hr 01/06/25 08:46 01/06/25 09:03 Ns IV 02/05/25 08:45 75 mls/hr .[id number] SAMMI Administration Levothyroxine Sodium 125 mcg/ 150 mcg 12/27/24 07:15 01/06/25 05:24 Levothyroxine Sodium 25 mcg PO 01/26/25 07:14 150 mcg ACBR SAMMI Administration Mirtazapine 15 mg 12/30/24 21:00 01/05/25 21:24 Mirtazapine 15 Mg Tablet PO 01/29/25 20:59 15 mg HS SAMMI Administration Ondansetron HCl 4 mg 12/27/24 04:37 01/04/25 13:37 Ondansetron Inj 2 Mg/Ml Inj 2 Ml IVP 01/26/25 04:36 4 mg Q6H PRN Administration NAUSEA OR VOMITING Protocol Pantoprazole Sodium 40 mg 12/30/24 09:00 01/06/25 09:03 Pantoprazole 40 Mg Tablet PO 01/29/25 08:59 40 mg QDAY SAMMI Administration Protocol Potassium Chloride 40 meq 01/06/25 10:00 Potassium Chloride 10% 20 Meq/15 Ml Udc PO 01/06/25 10:01 X1 ONE Sodium Chloride 1 gm 01/06/25 14:00 Sodium Chloride 1 Gm Tablet PO 02/05/25 13:59 TID SAMMI Plan Faith Zaidi is a 64-year-old female with past medical history of thyroid cancer, hypothyroidism, hypertension, type 2 diabetes mellitus, depression, and sciatica who was admitted for septic shock to the ICU on 12/27 and downgraded to floors on 12/29. #Sigmoid and rectal wall thickening as seen on CT #Abdominal pain #Nausea #Diarrhea Patient has been having episodes of loose, foul-smelling stools after 9-day course of amoxicillin after patient initially presented in septic shock secondary to Bennett-related UTI. CT A/P showed sigmoid and rectal wall thickening. Repeat C. difficile negative, 2+ WBCs in stool. ? GI consulted, appreciate recommendations ? Giardia test pending ? Contact precautions ? NS at 75 cc/hr ? NG tube for GoLytely, pending colonoscopy #Hypoosmolar hypochloremic hyponatremia DDx includes SIADH vs hypovolemic hyponatremia in setting of multiple episodes diarrhea and poor oral intake ? Nephrology following, appreciate recommendations ? Salt tablets 1 g TID ? NS at 75 cc/hr ? Will monitor sodium levels and continue current management #Bilateral lower extremity weakness Endorses lower extremity weakness for last few months. Has been mostly bedbound at SNF. MRI lumbar spine showed mild disc narrowing at L5-S1, central lumbar disc bulging at L4-L5 with left L4 ganglionic compression. CT head showed no acute pathologies. Lumbar puncture showed elevated protein at 169. Lyme disease testing showed bands present for IgG but negative for IgM, no treatment warranted per neurology. ? Neurology following, appreciate recommendations ? Finished course of IVIG (12/31-01/04) #Urinary retention Bladder training already done but patient continues to have urinary retention. Given that patient presented with septic shock secondary to Bennett-catheter, will continue with intermittent cath. ? Bladder scan PRN ? Intermittent straight cath #NSTEMI type II/demand ischemia in setting of shock Troponin 0.14 and downtrended to 0.09 on admission but due to concerns for ST elevations on monitor, BP troponins obtained and up trended from 0.09 to 3.8. Suspect demand ischemia in setting of shock. EKG showed sinus rhythm, no ST changes or T wave abnormalities. Echo on 12/27 showed EF 65 to 70%, normal LV size and function, G1DD, mild TR. ? Cardiology following, appreciate recommendations ? Cardiac cath 12/31: no significant stenoses #Septic shock likely secondary to UTI, resolved #Enterococcus faecalis urinary tract infection, resolved Noted to have Bennett catheter from nursing facility but was recently changed per daughter. Urinalysis showed turbid urine, 476 WBC, 152 RBC, 1+ bacteria, positive LE. Urine cultures grew Enterococcus faecalis, pansensitive. Initially on vancomycin and cefepime and finished course of ampicillin. #Acute kidney injury, resolved #Hypokalemia resolved #Hypomagenesemia, resolved Initial creatinine of 1.3 with baseline of 0.6, resolved with IVF. ? Replete electrolytes as needed #Hypothyroidism ? Levothyroxine 150 mcg #Type 2 diabetes mellitus A1c 5.1% ? During hospital stay has not required SC insulin, hence SSI DC'd ? Encourage oral intake #Depression ? Sertraline switched to mirtazapine due to possible contribution to hyponatremia #GERD ? Omeprazole 20 mg daily Hospital management: Disposition: pending colonoscopy, coming from SNF and plan is to discharge to SNF Diet: clear liquid Lines: PIV DVT prophylaxis: Heparin SC TID GI prophylaxis: pantoprazole daily CODE STATUS: DNR ----- Plan discussed with attending physician Dr. Chelsea Weaver MD PGY-1 Internal Medicine Attending Provider Attestation/Addendum I attest that I was physically present for the evaluation, physical examination, lab and imaging review of the patient with the residents. I discussed the case with the residents and agree with the findings and plans of care as documented above. At bedside today, patient states her abdominal pain has slightly improved compared to yesterday. Continues to have multiple loose bowel movements. Continues to be on IV hydration. Blood pressure is on softer side, we will monitor closely. Noted to have sodium of 128 this morning. Continues to be on salt tablets 3 times daily. WBC is downtrending. Noted to have hypomagnesemia and hypokalemia, repleted accordingly. Lyme disease testing came back, positive for IgG but negative for IgM. Gastroenterology following closely, stool studies have been ordered, shows 2+ WBCs in the stool but rest of the studies are pending. Patient underwent NG tube placement and has been receiving GoLytely bowel prep for colonoscopy. Also noted to have urinary retention, started straight catheterization along with bladder scan. Karyn Tran MD
[2025-01-06 11:05] LABS: Clostridium Difficile PCR Negative (Negative)
[2025-01-06] MEDS: SODIUM CHLORIDE 1 GM TABLET PO ×2 (14:27→22:31)
[2025-01-06] MEDS: MIRTAZAPINE 15 MG TABLET PO (22:31)
--- NOTE | 2025-01-06 22:31 | PD.IMPROG ---
Documentation for date of: 01/06/25 Subjective Subjective Interval history: Patient was scheduled for a colonoscopy She is not clear Patient GoLytely Procedure postponed to tomorrow Exam Vital Signs Temp Pulse Resp BP Pulse Ox O2 Del Method O2 Flow Rate 97.4 F 92 21 H 105/63 94 L Room Air 1 01/06/25 20:00 01/06/25 20:00 01/06/25 20:00 01/06/25 20:00 01/06/25 20:00 01/06/25 20:00 01/01/25 11:53 Objective Labs 01/06/25 04:45 01/06/25 04:45 Labs: Laboratory Results - last 24 hr 12/30/24 01/05/25 01/05/25 18:30 19:55 23:13 WBC RBC Hgb Hct MCV MCH MCHC RDW Std Deviation Plt Count Neut % (Auto) Lymph % (Auto) [place] % (Auto) Eos % (Auto) Baso % (Auto) Neut # (Auto) Lymph # (Auto) [place] # (Auto) Eos # (Auto) Baso # (Auto) Immature Gran # (Auto) Absolute Nucleated RBC Immature Gran % Nucleated RBC % ESR 24 Sodium Potassium Chloride Carbon Dioxide Anion Gap BUN Creatinine Estim Creat Clear Calc eGFR BUN/Creatinine Ratio Glucose Calculated Osmolality Calcium Corrected Calcium Magnesium Total Bilirubin AST ALT Alkaline Phosphatase C-Reactive Prot, Quant 1.0 H Total Protein Albumin Globulin Albumin/Globulin Ratio Stool for White Cells Stl C. diff Tox B Gene Negative Misc Test Result See Sep Rpt 01/05/25 01/06/25 23:59 04:45 WBC 11.8 H RBC 3.03 L Hgb 9.4 L Hct 25.9 L MCV 86 MCH 31.0 MCHC 36.3 RDW Std Deviation 40.4 Plt Count 350 D Neut % (Auto) 67 Lymph % (Auto) 18 [place] % (Auto) 9 Eos % (Auto) 0 Baso % (Auto) 0 Neut # (Auto) 7.9 H Lymph # (Auto) 2.1 [place] # (Auto) 1.1 H Eos # (Auto) 0.0 Baso # (Auto) 0.0 Immature Gran # (Auto) 0.69 H Absolute Nucleated RBC 0.00 Immature Gran % 6 H Nucleated RBC % 0 ESR Sodium 128 L Potassium 3.0 L D Chloride 100 Carbon Dioxide 21.6 Anion Gap 6 L BUN < 5 L Creatinine 0.2 L Estim Creat Clear Calc 217.3 eGFR > 60 BUN/Creatinine Ratio 25 H Glucose 82 Calculated Osmolality 253 L Calcium 7.4 L Corrected Calcium 8.5 Magnesium 1.5 L Total Bilirubin 0.6 AST 19 ALT < 7 L Alkaline Phosphatase 61 C-Reactive Prot, Quant Total Protein 6.0 Albumin 2.6 L Globulin 3.4 Albumin/Globulin Ratio 0.8 L Stool for White Cells 2+ A Stl C. diff Tox B Gene Cancelled Misc Test Result Impressions Impression: Abnormal CT scan of the abdomen pelvis Additional GoLytely Colonoscopy a.m. ABG Interpretation ABG results: 12/27/24 02:14 ABG pH 7.35 ABG pCO2 31 L ABG pO2 65 L ABG HCO3 17 L ABG O2 Saturation 91 ABG Base Excess -7 L Assessment & Plan A&P Narrative Continue current treatment Time Spent With Patient Time: Total time spent is greater than 50% in coordination of care (as documented) at patient's floor/unit and/or counseling patient:
--- NOTE | 2025-01-06 23:39 | ESPR_ITS ---
Documentation for date of: 01/06/25 Subjective Subjective Interval history: Patient was seen in telemetry today, continues to have weakness in the LE. slight improvement noted. She was able to sit up at the side of the bed with assistance during PT session. Exam - Neurology Vital Signs Temp Pulse Resp BP Pulse Ox O2 Del Method O2 Flow Rate 97.4 F 92 21 H 105/63 94 L Room Air 1 01/06/25 20:00 01/06/25 20:00 01/06/25 20:00 01/06/25 20:01/06/25 20:00 01/06/25 20:00 01/01/25 11:53 Narrative Exam General: AOx3, no acute distress, able to speak full sentences HEENT: NC/AT, mucous membranes moist, bilateral sclera anicteric Cardiovascular: regular rate and rhythm, S1/S2 present, no murmurs appreciated Pulmonary: clear to auscultation bilaterally, no rales/rhonchi/wheezes Abdominal: soft, non-tender, non-distended, no rebound/guarding, normal bowel sounds present Musculoskeletal: normal ROM in both UE, paraparesis: unchanged, no peripheral edema Skin: warm and dry, intact, no rashes Objective Labs 01/06/25 04:45 01/06/25 04:45 Labs: Laboratory Results - last 24 hr 12/30/24 01/05/25 01/05/25 18:30 19:55 23:13 WBC RBC Hgb Hct MCV MCH MCHC RDW Std Deviation Plt Count Neut % (Auto) Lymph % (Auto) [place] % (Auto) Eos % (Auto) Baso % (Auto) Neut # (Auto) Lymph # (Auto) [place] # (Auto) Eos # (Auto) Baso # (Auto) Immature Gran # (Auto) Absolute Nucleated RBC Immature Gran % Nucleated RBC % ESR 24 Sodium Potassium Chloride Carbon Dioxide Anion Gap BUN Creatinine Estim Creat Clear Calc eGFR BUN/Creatinine Ratio Glucose Calculated Osmolality Calcium Corrected Calcium Magnesium Total Bilirubin AST ALT Alkaline Phosphatase C-Reactive Prot, Quant 1.0 H Total Protein Albumin Globulin Albumin/Globulin Ratio Stool for White Cells Stl C. diff Tox B Gene Negative Misc Test Result See Sep Rpt 01/05/25 01/06/25 23:59 04:45 WBC 11.8 H RBC 3.03 L Hgb 9.4 L Hct 25.9 L MCV 86 MCH 31.0 MCHC 36.3 RDW Std Deviation 40.4 Plt Count 350 D Neut % (Auto) 67 Lymph % (Auto) 18 [place] % (Auto) 9 Eos % (Auto) 0 Baso % (Auto) 0 Neut # (Auto) 7.9 H Lymph # (Auto) 2.1 [place] # (Auto) 1.1 H Eos # (Auto) 0.0 Baso # (Auto) 0.0 Immature Gran # (Auto) 0.69 H Absolute Nucleated RBC 0.00 Immature Gran % 6 H Nucleated RBC % 0 ESR Sodium 128 L Potassium 3.0 L D Chloride 100 Carbon Dioxide 21.6 Anion Gap 6 L BUN < 5 L Creatinine 0.2 L Estim Creat Clear Calc 217.3 eGFR > 60 BUN/Creatinine Ratio 25 H Glucose 82 Calculated Osmolality 253 L Calcium 7.4 L Corrected Calcium 8.5 Magnesium 1.5 L Total Bilirubin 0.6 AST 19 ALT < 7 L Alkaline Phosphatase 61 C-Reactive Prot, Quant Total Protein 6.0 Albumin 2.6 L Globulin 3.4 Albumin/Globulin Ratio 0.8 L Stool for White Cells 2+ A Stl C. 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 Continue with PT, she would need inpatient rehab. After d/c to rehab, will consider doing EMG AND NCS of both LE to confirm the diagnosis. C. diff resulted negative. (2) Diabetes 1.5, managed as type 2: Status: Acute Assessment and plan: under control as per the last A1c.
[2025-01-07] VITALS (14 sets, daily range): BP systolic 108–137; BP diastolic 59–89; PULSE 81–93; RESP 16–24; TEMP 36.3–37.3; O2SAT 93–98; BMI 22.4
[2025-01-07 05:34] LABS: Basophils % (Auto) 0 % (0-2.5); Eosinophils # (Auto) 0.1 Thou/mm3 (0.0-0.5); Eosinophils % (Auto) 1 % (0-10); Hematocrit 28.5 % (36.0-46.0); Hemoglobin 10.2 g/dL (12.0-16.0); Immature Granulocytes % (Auto) 4 % (0-0); Immature Granulocytes Auto 0.42 Thou/mm3 (0.00-0.00); Lymphocytes # (Auto) 1.9 Thou/mm3 (1.0-4.8); Lymphocytes % (Auto) 18 % (10-50); Mean Corpuscular HGB Conc 35.8 g/dl (31.0-37.0); Mean Corpuscular Hemoglobin 30.4 pg (25.0-35.0); Mean Corpuscular Volume 85 fL (80-100); Monocytes % (Auto) 9 % (0-12); Neutrophils % (Auto) 68 % (37-80); Nucleated Red Blood Cell % 0 /100 WBC (0); Platelet Count 370 Thou/mm3 (140-440); RDW Standard Deviation 41.3 fL (36.4-46.3); Red Blood Count 3.35 Miln/mm3 (4.00-5.20); White Blood Count 10.3 Thou/mm3 (3.6-11.0)
[2025-01-07 06:00] LABS: Alanine Aminotransferase 8 U/L (10-49); Albumin, Serum 2.7 gm/dL (3.4-4.8); Albumin/Globulin Ratio 0.8 (1.2-2.2); Alkaline Phosphatase 69 U/L (46-116); Anion Gap 9 (7-16); Aspartate Amino Transferase 26 U/L (0-34); BUN/Creatinine Ratio 25 Ratio (12-20); Bilirubin,Total 0.5 mg/dL (0.3-1.2); Blood Urea Nitrogen < 5 mg/dL (9-23); Calcium 7.6 mg/dL (8.3-10.6); Calcium (Corrected) 8.6 mg/dL (8.5-10.1); Carbon Dioxide 25.5 mMol/L (20.0-31.0); Chloride 101 mMol/L (98-107); Creatinine (Component) 0.2 mg/dL (0.6-1.3); Estimated Creatinine Clearance 217.3 mL/min (>60); Globulin 3.5 gm/dL (2.3-3.5); Glucose 89 mg/dL (74-106); Magnesium 1.6 mg/dL (1.6-2.6); Osmolality,Calculated 266 (275-295); Potassium 3.2 mMol/L (3.4-5.1); Sodium 135 mMol/L (136-145); Total Protein 6.2 gm/dL (5.7-8.2); eGFR > 60 See Note
[2025-01-07] MEDS: LEVOTHYROXINE SODIUM 125 MCG, LEVOTHYROXINE SODIUM 25 MCG 150 MCG PO (06:03)
[2025-01-07] MEDS: GABAPENTIN 100 MG CAPSULE PO ×3 (06:03→21:49)
[2025-01-07] MEDS: SODIUM CHLORIDE 1 GM TABLET PO ×3 (06:04→21:49)
[2025-01-07] MEDS: HEPARIN SOD INJ 5000 UNIT/ML VIAL SC ×3 (06:04→21:49)
[2025-01-07 06:07] LABS: Angiotensin Convert Enz, CSF* <5 U/L (< OR = 15); Myelin Basic Protein, CSF* <2.0 mcg/L (< OR = 4.0); Oligoclonal Bands, CSF* ABSENT (ABSENT)
--- NOTE | 2025-01-07 07:57 | PD.IMPROG ---
Documentation for date of: 01/07/25 Subjective Subjective Interval history: Symptoms Coronary angiogram does not show any significant coronary artery Exam Vital Signs Temp Pulse Resp BP Pulse Ox O2 Del Method O2 Flow Rate 98.3 F 88 17 115/60 93 L Room Air 1 01/07/25 04:00 01/07/25 04:00 01/07/25 04:00 01/07/25 04:00 01/07/25 04:00 01/07/25 04:00 01/01/25 11:53 Routine HEENT Exam Head: Present normocephalic and atraumatic Eye: Present EOMI and PERRL ENT: Present mucous membranes moist Routine Neck Exam Neck: Present supple and trachea midline Routine Respiratory Exam Respiratory: Present chest non-tender, lungs clear, normal breath sounds and no resp distress Routine Cardiovascular Exam Cardiovascular: Present RRR Routine Abdominal Exam Abdominal: Present soft and normoactive bowel sounds Routine Extremities Exam Extremities: Present full ROM Routine Skin Exam Skin: Present intact, dry and warm Routine Psychiatric Exam Psychiatric: Present normal affect and normal thought process Objective Labs 01/07/25 04:46 01/07/25 04:46 Labs: Laboratory Results - last 24 hr 12/30/24 01/05/25 01/05/25 18:30 19:55 23:59 WBC RBC Hgb Hct MCV MCH MCHC RDW Std Deviation Plt Count Neut % (Auto) Lymph % (Auto) [place] % (Auto) Eos % (Auto) Baso % (Auto) Neut # (Auto) Lymph # (Auto) [place] # (Auto) Eos # (Auto) Baso # (Auto) Immature Gran # (Auto) Absolute Nucleated RBC Immature Gran % Nucleated RBC % Sodium Potassium Chloride Carbon Dioxide Anion Gap BUN Creatinine Estim Creat Clear Calc eGFR BUN/Creatinine Ratio Glucose Calculated Osmolality Calcium Corrected Calcium Magnesium Total Bilirubin AST ALT Alkaline Phosphatase Total Protein Albumin Globulin Albumin/Globulin Ratio CSF Myelin Basic Protein <2.0 CSF Oligoclonal Bands ABSENT CSF Angiotensin Conv Enz <5 Stl C. diff Tox B Gene Negative Cancelled 01/07/25 04:46 WBC 10.3 RBC 3.35 L Hgb 10.2 L Hct 28.5 L MCV 85 MCH 30.4 MCHC 35.8 RDW Std Deviation 41.3 Plt Count 370 Neut % (Auto) 68 Lymph % (Auto) 18 [place] % (Auto) 9 Eos % (Auto) 1 Baso % (Auto) 0 Neut # (Auto) 7.0 Lymph # (Auto) 1.9 [place] # (Auto) 1.0 H Eos # (Auto) 0.1 Baso # (Auto) 0.0 Immature Gran # (Auto) 0.42 H Absolute Nucleated RBC 0.00 Immature Gran % 4 H Nucleated RBC % 0 Sodium 135 L Potassium 3.2 L Chloride 101 Carbon Dioxide 25.5 Anion Gap 9 BUN < 5 L Creatinine 0.2 L Estim Creat Clear Calc 217.3 eGFR > 60 BUN/Creatinine Ratio 25 H Glucose 89 Calculated Osmolality 266 L Calcium 7.6 L Corrected Calcium 8.6 Magnesium 1.6 Total Bilirubin 0.5 AST 26 ALT 8 L Alkaline Phosphatase 69 Total Protein 6.2 Albumin 2.7 L Globulin 3.5 Albumin/Globulin Ratio 0.8 L CSF Myelin Basic Protein CSF Oligoclonal Bands CSF Angiotensin Conv Enz Stl C. diff Tox B Gene ABG Interpretation ABG results: 12/27/24 02:14 ABG pH 7.35 ABG pCO2 31 L ABG pO2 65 L ABG HCO3 17 L ABG O2 Saturation 91 ABG Base Excess -7 L Assessment & Plan A&P Narrative Continue current treatment Time Spent With Patient Time: Total time spent is greater than 50% in coordination of care (as documented) at patient's floor/unit and/or counseling patient:
--- NOTE | 2025-01-07 09:02 | PD.RESPRO ---
Documentation for date of: 01/07/25 Subjective Subjective Interval history: No acute overnight events. Seen and examined at bedside and patient states that she feels tired but is able to move her legs more today compared to prior. Not clear for colonoscopy and will continue with prep today. Otherwise, vital signs stable, leukocytosis improving, hemoglobin stable, Na improving, K low and repleted, Mg stable but given today as persistently low prior. C. difficile negative, giardia testing still pending. Bennett placed as patient continues to retain and will likely be discharged with Bennett back to facility. Exam Vital Signs Temp Pulse Resp BP Pulse Ox O2 Del Method O2 Flow Rate 98.4 F 83 20 117/60 93 L Room Air 1 01/07/25 08:00 01/07/25 08:00 01/07/25 08:00 01/07/25 08:00 01/07/25 08:00 01/07/25 08:00 01/01/25 11:53 Narrative Exam General: AOx3, no acute distress, able to speak full sentences, NG tube in place HEENT: NC/AT, mucous membranes moist, bilateral sclera anicteric Cardiovascular: regular rate and rhythm, S1/S2 present, no murmurs appreciated Pulmonary: clear to auscultation bilaterally, no rales/rhonchi/wheezes Abdominal: soft, non-tender, non-distended, no rebound/guarding, normal bowel sounds present Musculoskeletal: normal ROM, no peripheral edema Skin: warm and dry, intact, no rashes Neuro: significant bilateral lower extremity weakness that appears to be improving Objective Labs 01/07/25 04:46 01/07/25 04:46 Labs: Laboratory Results - last 24 hr 12/30/24 01/05/25 01/05/25 18:30 19:55 23:59 WBC RBC Hgb Hct MCV MCH MCHC RDW Std Deviation Plt Count Neut % (Auto) Lymph % (Auto) [place] % (Auto) Eos % (Auto) Baso % (Auto) Neut # (Auto) Lymph # (Auto) [place] # (Auto) Eos # (Auto) Baso # (Auto) Immature Gran # (Auto) Absolute Nucleated RBC Immature Gran % Nucleated RBC % Sodium Potassium Chloride Carbon Dioxide Anion Gap BUN Creatinine Estim Creat Clear Calc eGFR BUN/Creatinine Ratio Glucose Calculated Osmolality Calcium Corrected Calcium Magnesium Total Bilirubin AST ALT Alkaline Phosphatase Total Protein Albumin Globulin Albumin/Globulin Ratio CSF Myelin Basic Protein <2.0 CSF Oligoclonal Bands ABSENT CSF Angiotensin Conv Enz <5 Stl C. diff Tox B Gene Negative Cancelled 01/07/25 04:46 WBC 10.3 RBC 3.35 L Hgb 10.2 L Hct 28.5 L MCV 85 MCH 30.4 MCHC 35.8 RDW Std Deviation 41.3 Plt Count 370 Neut % (Auto) 68 Lymph % (Auto) 18 [place] % (Auto) 9 Eos % (Auto) 1 Baso % (Auto) 0 Neut # (Auto) 7.0 Lymph # (Auto) 1.9 [place] # (Auto) 1.0 H Eos # (Auto) 0.1 Baso # (Auto) 0.0 Immature Gran # (Auto) 0.42 H Absolute Nucleated RBC 0.00 Immature Gran % 4 H Nucleated RBC % 0 Sodium 135 L Potassium 3.2 L Chloride 101 Carbon Dioxide 25.5 Anion Gap 9 BUN < 5 L Creatinine 0.2 L Estim Creat Clear Calc 217.3 eGFR > 60 BUN/Creatinine Ratio 25 H Glucose 89 Calculated Osmolality 266 L Calcium 7.6 L Corrected Calcium 8.6 Magnesium 1.6 Total Bilirubin 0.5 AST 26 ALT 8 L Alkaline Phosphatase 69 Total Protein 6.2 Albumin 2.7 L Globulin 3.5 Albumin/Globulin Ratio 0.8 L CSF Myelin Basic Protein CSF Oligoclonal Bands CSF Angiotensin Conv Enz Stl C. diff Tox B Gene ABG Interpretation ABG results: 12/27/24 02:14 ABG pH 7.35 ABG pCO2 31 L ABG pO2 65 L ABG HCO3 17 L ABG O2 Saturation 91 ABG Base Excess -7 L Quality Measures Quality Measures VTE prophylaxis (Heparin subcutaneously) Assessment & Plan Assessment Current Active Medications: Generic Name Dose Route Start Last Admin Trade Name Freq PRN Reason Stop Dose Admin Acetaminophen 650 mg 12/29/24 14:26 01/05/25 11:01 Acetaminophen 325 Mg Tablet PO 01/26/25 04:36 650 mg Q6H PRN Administration fever >99.9 Dextrose 25 ml 12/27/24 04:44 Dextrose 50%-Water Inj 50 Ml Syringe IV 01/26/25 04:43 Q15MIN PRN BG 50-70 responsive npo pt Dextrose 50 ml 12/27/24 04:44 Dextrose 50%-Water Inj 50 Ml Syringe IV 01/26/25 04:43 Q15MIN PRN BG <50 OR BG <70 & pt unresponsive Gabapentin 100 mg 01/05/25 22:00 01/07/25 06:03 Gabapentin 100 Mg Capsule PO 02/04/25 21:59 100 mg TID SAMMI Administration Glucagon 1 mg 12/27/24 04:44 Glucagon Inj 1 Mg Vial IM Q15MIN PRN BG <70, and no IV access Heparin Sodium (Porcine) 5,000 unit 12/27/24 06:00 01/07/25 06:04 Heparin Sod Inj 5000 Unit/Ml Vial SC 01/10/25 05:59 5,000 unit Q8HR SAMMI Administration Sodium Chloride 1,000 mls @ 75 mls/hr 01/06/25 08:46 01/06/25 23:07 Ns IV 02/05/25 08:45 75 mls/hr .[id number] SAMMI Administration Magnesium Sulfate 2 gm in 50 mls @ 25 mls/hr 01/07/25 07:06 Magnesium Sulfate Ivpb IV 01/07/25 09:05 X1 ONE Levothyroxine Sodium 125 mcg/ 150 mcg 12/27/24 07:15 01/07/25 06:03 Levothyroxine Sodium 25 mcg PO 01/26/25 07:14 150 mcg ACBR SAMMI Administration Mirtazapine 15 mg 12/30/24 21:00 01/06/25 22:31 Mirtazapine 15 Mg Tablet PO 01/29/25 20:59 15 mg HS SAMMI Administration Ondansetron HCl 4 mg 12/27/24 04:37 01/04/25 13:37 Ondansetron Inj 2 Mg/Ml Inj 2 Ml IVP 01/26/25 04:36 4 mg Q6H PRN Administration NAUSEA OR VOMITING Protocol Pantoprazole Sodium 40 mg 12/30/24 09:00 01/06/25 09:03 Pantoprazole 40 Mg Tablet PO 01/29/25 08:59 40 mg QDAY SAMMI Administration Protocol Sodium Chloride 1 gm 01/06/25 14:00 01/07/25 06:04 Sodium Chloride 1 Gm Tablet PO 02/05/25 13:59 1 gm TID SAMMI Administration Plan Faith Zaidi is a 64-year-old female with past medical history of thyroid cancer, hypothyroidism, hypertension, type 2 diabetes mellitus, depression, and sciatica who was admitted for septic shock to the ICU on 12/27 and downgraded to floors on 12/29. #Sigmoid and rectal wall thickening as seen on CT #Abdominal pain #Nausea #Diarrhea Patient has been having episodes of loose, foul-smelling stools after 9-day course of amoxicillin after patient initially presented in septic shock secondary to Bennett-related UTI. CT A/P showed sigmoid and rectal wall thickening. Repeat C. difficile negative, 2+ WBCs in stool. ? GI consulted, appreciate recommendations ? Giardia test pending ? NG tube for GoLytely, pending colonoscopy #Hypoosmolar hypochloremic hyponatremia DDx includes SIADH vs hypovolemic hyponatremia in setting of multiple episodes diarrhea and poor oral intake ? Nephrology following, appreciate recommendations ? Salt tablets 1 g TID, may start decreasing if sodium continues to improve ? Will monitor sodium levels and continue current management #Bilateral lower extremity weakness Endorses lower extremity weakness for last few months. Has been mostly bedbound at SNF. MRI lumbar spine showed mild disc narrowing at L5-S1, central lumbar disc bulging at L4-L5 with left L4 ganglionic compression. CT head showed no acute pathologies. Lumbar puncture showed elevated protein at 169. Lyme disease testing showed bands present for IgG but negative for IgM, no treatment warranted per neurology. ? Neurology following, appreciate recommendations ? Finished course of IVIG (12/31-01/04) #Urinary retention Bladder training already done but patient continues to have urinary retention. Given that patient presented with septic shock secondary to Bennett-catheter, will continue with intermittent cath. ? Bladder scan PRN ? Bennett placed #NSTEMI type II/demand ischemia in setting of shock Troponin 0.14 and downtrended to 0.09 on admission but due to concerns for ST elevations on monitor, BP troponins obtained and up trended from 0.09 to 3.8. Suspect demand ischemia in setting of shock. EKG showed sinus rhythm, no ST changes or T wave abnormalities. Echo on 12/27 showed EF 65 to 70%, normal LV size and function, G1DD, mild TR. ? Cardiology following, appreciate recommendations ? Cardiac cath 12/31: no significant stenoses #Septic shock likely secondary to UTI, resolved #Enterococcus faecalis urinary tract infection, resolved Noted to have Bennett catheter from nursing facility but was recently changed per daughter. Urinalysis showed turbid urine, 476 WBC, 152 RBC, 1+ bacteria, positive LE. Urine cultures grew Enterococcus faecalis, pansensitive. Initially on vancomycin and cefepime and finished course of ampicillin. #Acute kidney injury, resolved #Hypokalemia #Hypomagenesemia, resolved Initial creatinine of 1.3 with baseline of 0.6, resolved with IVF. ? Replete electrolytes as needed #Hypothyroidism ? Levothyroxine 150 mcg #Type 2 diabetes mellitus A1c 5.1% ? During hospital stay has not required SC insulin, hence SSI DC'd ? Encourage oral intake #Depression ? Sertraline switched to mirtazapine due to possible contribution to hyponatremia #GERD ? Omeprazole 20 mg daily Hospital management: Disposition: pending colonoscopy, coming from SNF and plan is to discharge to SNF Diet: clear liquid Lines: PIV DVT prophylaxis: Heparin SC TID GI prophylaxis: pantoprazole daily Bennett: placed CODE STATUS: DNR ----- Plan discussed with attending physician Dr. Chelsea Weaver MD PGY-1 Internal Medicine Attending Provider Attestation/Addendum I attest that I was physically present for the evaluation, physical examination, lab and imaging review of the patient with the residents. I discussed the case with the residents and agree with the findings and plans of care as documented above. At bedside today, patient states she is feeling well and denies any new complaints. Sodium level has improved to 135 today. Alert and awake, able to answer questions and follow commands appropriately. Continues to have bilateral lower extremity weakness but appears to be slightly improving compared to yesterday. Patient could not undergo colonoscopy yesterday as she was not clear, continues to be on GoLytely preparation, colonoscopy rescheduled for today. C. difficile serology came back negative. Gastroenterology following closely, appreciate recommendations. Noted to have potassium of 3.2, repleted accordingly. Patient continued to retain urine, Bennett catheter in place. Karyn Tran MD
[2025-01-07] MEDS: POTASSIUM CHLORIDE 10% 20 MEQ/15 ML UDC PO (09:27)
[2025-01-07] MEDS: Magnesium Sulfate 2 GM Ivpb 2 GM/50 ML BAG IV (09:27)
[2025-01-07] MEDS: POTASSIUM CHLORIDE 10% 20 MEQ/15 ML UDC 40 MEQ PO (09:27)
[2025-01-07] MEDS: PANTOPRAZOLE 40 MG TABLET PO (09:28)
--- NOTE | 2025-01-07 11:24 | PC.IP ---
[facility] CSF results returned positive for Lyme Disease. Case was reported to [place] [facility] Public [facility] via [employer]. Confirmation received from [facility] from the [facility] Communicable Disease Department. No further public health actions are required at this time.
[2025-01-07] MEDS: SODIUM CHLORIDE 0.9% 1000 ML 1,000 ML 75 ML IV (12:13)
--- NOTE | 2025-01-07 12:35 | PC.SS ---
SS follow up note; Patient is pending Colonoscopy today, patient will return back to [facility] once medically cleared.
[2025-01-07 15:35] LABS: IgG Index, CSF 0.67 (<0.70); IgG, CSF 25.9 mg/dL (0.8-7.7); IgG, Serum 719 mg/dL (600-1540)
--- NOTE | 2025-01-07 19:31 | PD.IMPROG ---
Documentation for date of: 01/07/25 Subjective Subjective Interval history: Patient was brought to the endoscopy unit in the operating room She was given sedation after timeout was taken out Although little rectal examination patient has solid stool in the rectum No attempt to do a colonoscopy was made Procedure canceled Tapwater enemas colonic x 2 2 hours apart Additional GoLytely at 40 cc an hour Colonoscopy is scheduled for tomorrow Exam Vital Signs Temp Pulse Resp BP Pulse Ox O2 Del Method O2 Flow Rate 97.9 F 90 20 121/59 L 93 L Room Air 3 01/07/25 16:00 01/07/25 19:25 01/07/25 19:25 01/07/25 19:25 01/07/25 19:25 01/07/25 16:00 01/07/25 19:25 Objective Labs 01/07/25 04:46 01/07/25 04:46 Labs: Laboratory Results - last 24 hr 12/30/24 01/07/25 18:30 04:46 WBC 10.3 RBC 3.35 L Hgb 10.2 L Hct 28.5 L MCV 85 MCH 30.4 MCHC 35.8 RDW Std Deviation 41.3 Plt Count 370 Neut % (Auto) 68 Lymph % (Auto) 18 [place] % (Auto) 9 Eos % (Auto) 1 Baso % (Auto) 0 Neut # (Auto) 7.0 Lymph # (Auto) 1.9 [place] # (Auto) 1.0 H Eos # (Auto) 0.1 Baso # (Auto) 0.0 Immature Gran # (Auto) 0.42 H Absolute Nucleated RBC 0.00 Immature Gran % 4 H Nucleated RBC % 0 Sodium 135 L Potassium 3.2 L Chloride 101 Carbon Dioxide 25.5 Anion Gap 9 BUN < 5 L Creatinine 0.2 L Estim Creat Clear Calc 217.3 eGFR > 60 BUN/Creatinine Ratio 25 H Glucose 89 Calculated Osmolality 266 L Calcium 7.6 L Corrected Calcium 8.6 Magnesium 1.6 Total Bilirubin 0.5 AST 26 ALT 8 L Alkaline Phosphatase 69 Total Protein 6.2 Albumin 2.7 L Globulin 3.5 Albumin/Globulin Ratio 0.8 L CSF Myelin Basic Protein <2.0 CSF Oligoclonal Bands ABSENT CSF Angiotensin Conv Enz <5 ABG Interpretation ABG results: 12/27/24 02:14 ABG pH 7.35 ABG pCO2 31 L ABG pO2 65 L ABG HCO3 17 L ABG O2 Saturation 91 ABG Base Excess -7 L Assessment & Plan A&P Narrative Continue current treatment Time Spent With Patient Time: Total time spent is greater than 50% in coordination of care (as documented) at patient's floor/unit and/or counseling patient:
--- NOTE | 2025-01-07 19:58 | SUR.PHASEI ---
1934 patient is sleepy and arousable, breathing unlabored s/p colonoscopy-aborted, report received from Alesia AMBROCIO. NG tube present to right Nare, folley catheter in place
--- NOTE | 2025-01-07 20:43 | SUR.PHASEI ---
2018 patient is awake, alert, breathing unlabored, report given to Lexie AMBROCIO, patient transferred to room 262 with tele box.
[2025-01-07] MEDS: MIRTAZAPINE 15 MG TABLET PO (21:49)
[2025-01-07] MEDS: NA SU/NAHCO3/KC/PEG (Golytely) 4,000 ML BTL 4000 ML NG (21:54)
--- NOTE | 2025-01-07 23:11 | ESPR_ITS ---
Documentation for date of: 01/07/25 Subjective Subjective Interval history: Patient was seen in telemetry today, continues to have weakness in the LE. slight improvement noted. She was able to sit up at the side of the bed with assistance during PT session. Exam - Neurology Vital Signs Temp Pulse Resp BP Pulse Ox O2 Del Method O2 Flow Rate 97.8 F 85 21 H 110/68 95 Room Air 3 01/07/25 20:15 01/07/25 20:15 01/07/25 20:15 01/07/25 20:15 01/07/25 20:15 01/07/25 20:00 01/07/25 20:15 Narrative Exam General: AOx3, no acute distress, able to speak full sentences HEENT: NC/AT, mucous membranes moist, bilateral sclera anicteric Cardiovascular: regular rate and rhythm, S1/S2 present, no murmurs appreciated Pulmonary: clear to auscultation bilaterally, no rales/rhonchi/wheezes Abdominal: soft, non-tender, non-distended, no rebound/guarding, normal bowel sounds present Musculoskeletal: normal ROM in both UE, paraparesis: unchanged, no peripheral edema Skin: warm and dry, intact, no rashes Objective Labs 01/07/25 04:46 01/07/25 04:46 Labs: Laboratory Results - last 24 hr 12/30/24 01/07/25 18:30 04:46 WBC 10.3 RBC 3.35 L Hgb 10.2 L Hct 28.5 L MCV 85 MCH 30.4 MCHC 35.8 RDW Std Deviation 41.3 Plt Count 370 Neut % (Auto) 68 Lymph % (Auto) 18 [place] % (Auto) 9 Eos % (Auto) 1 Baso % (Auto) 0 Neut # (Auto) 7.0 Lymph # (Auto) 1.9 [place] # (Auto) 1.0 H Eos # (Auto) 0.1 Baso # (Auto) 0.0 Immature Gran # (Auto) 0.42 H Absolute Nucleated RBC 0.00 Immature Gran % 4 H Nucleated RBC % 0 Sodium 135 L Potassium 3.2 L Chloride 101 Carbon Dioxide 25.5 Anion Gap 9 BUN < 5 L Creatinine 0.2 L Estim Creat Clear Calc 217.3 eGFR > 60 BUN/Creatinine Ratio 25 H Glucose 89 Calculated Osmolality 266 L Calcium 7.6 L Corrected Calcium 8.6 Magnesium 1.6 Total Bilirubin 0.5 AST 26 ALT 8 L Alkaline Phosphatase 69 Total Protein 6.2 Albumin 2.7 L Globulin 3.5 Albumin/Globulin Ratio 0.8 L CSF Myelin Basic Protein <2.0 CSF Oligoclonal Bands ABSENT CSF Angiotensin Conv Enz <5 ABG Interpretation ABG results: 12/27/24 02:14 ABG pH 7.35 ABG pCO2 31 L ABG pO2 65 L ABG HCO3 17 L ABG O2 Saturation 91 ABG Base Excess -7 L Assessment & Plan Assessment and plan (1) Weakness: Status: Chronic Assessment and plan: as the CSF showed elevated protein and 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 Continue with PT, she would need inpatient rehab. After d/c to rehab, will consider doing EMG AND NCS of both LE to confirm the diagnosis. C. diff resulted negative. (2) Diabetes 1.5, managed as type 2: Status: Acute Assessment and plan: under control as per the last A1c.
[2025-01-08] VITALS: BP 130/69; PULSE 86; PULSE 88; RESP 21; TEMP 36.6; O2SAT 91
[2025-01-08] MEDS: SODIUM CHLORIDE 0.9% 1000 ML 1,000 ML 75 ML IV ×2 (00:24→14:11)
[2025-01-08] MEDS: LIDOCAINE 5% 1 PATCH TOP (02:32)
[2025-01-08 04:00] VITALS: BP 125/63; PULSE 87; RESP 21; TEMP 36.3; O2SAT 91
[2025-01-08] MEDS: GABAPENTIN 100 MG CAPSULE PO ×3 (05:24→21:19)
[2025-01-08] MEDS: LEVOTHYROXINE SODIUM 125 MCG, LEVOTHYROXINE SODIUM 25 MCG 150 MCG PO (05:24)
[2025-01-08] MEDS: SODIUM CHLORIDE 1 GM TABLET PO ×3 (05:24→21:19)
[2025-01-08] MEDS: HEPARIN SOD INJ 5000 UNIT/ML VIAL SC ×3 (05:24→21:19)
[2025-01-08 06:00] VITALS: BMI 22.4
[2025-01-08 06:15] LABS: Basophils % (Auto) 0 % (0-2.5); Eosinophils % (Auto) 0 % (0-10); Hematocrit 26.1 % (36.0-46.0); Hemoglobin 9.3 g/dL (12.0-16.0); Immature Granulocytes % (Auto) 2 % (0-0); Immature Granulocytes Auto 0.24 Thou/mm3 (0.00-0.00); Lymphocytes # (Auto) 1.6 Thou/mm3 (1.0-4.8); Lymphocytes % (Auto) 13 % (10-50); Mean Corpuscular HGB Conc 35.6 g/dl (31.0-37.0); Mean Corpuscular Hemoglobin 31.2 pg (25.0-35.0); Mean Corpuscular Volume 88 fL (80-100); Monocytes # (Auto) 1.4 Thou/mm3 (0.0-0.8); Monocytes % (Auto) 11 % (0-12); Neutrophils # (Auto) 9.5 Thou/mm3 (1.8-7.7); Neutrophils % (Auto) 74 % (37-80); Nucleated Red Blood Cell % 0 /100 WBC (0); Platelet Count 326 Thou/mm3 (140-440); Red Blood Count 2.98 Miln/mm3 (4.00-5.20); White Blood Count 12.7 Thou/mm3 (3.6-11.0)
[2025-01-08 07:01] LABS: Alanine Aminotransferase < 7 U/L (10-49); Albumin, Serum 2.5 gm/dL (3.4-4.8); Albumin/Globulin Ratio 0.8 (1.2-2.2); Alkaline Phosphatase 64 U/L (46-116); Anion Gap 11 (7-16); Aspartate Amino Transferase 21 U/L (0-34); BUN/Creatinine Ratio 25 Ratio (12-20); Bilirubin,Total 0.5 mg/dL (0.3-1.2); Blood Urea Nitrogen < 5 mg/dL (9-23); Calcium 7.3 mg/dL (8.3-10.6); Calcium (Corrected) 8.5 mg/dL (8.5-10.1); Carbon Dioxide 22.6 mMol/L (20.0-31.0); Chloride 100 mMol/L (98-107); Creatinine (Component) 0.2 mg/dL (0.6-1.3); Estimated Creatinine Clearance 217.3 mL/min (>60); Globulin 3.1 gm/dL (2.3-3.5); Glucose 89 mg/dL (74-106); Magnesium 1.5 mg/dL (1.6-2.6); Osmolality,Calculated 264 (275-295); Potassium 2.9 mMol/L (3.4-5.1); Sodium 134 mMol/L (136-145); Total Protein 5.6 gm/dL (5.7-8.2); eGFR > 60 See Note
[2025-01-08 08:00] VITALS: BP 117/62; PULSE 85; PULSE 94; RESP 13; TEMP 36.2; O2SAT 94
[2025-01-08] MEDS: PANTOPRAZOLE 40 MG TABLET PO (08:30)
[2025-01-08] MEDS: Magnesium Sulfate 2 GM Ivpb 2 GM/50 ML BAG IV (08:30)
[2025-01-08] MEDS: POTASSIUM CHLORIDE 10% 20 MEQ/15 ML UDC 40 MEQ GT ×2 (08:31→12:07)
--- NOTE | 2025-01-08 08:33 | ESPR_ITS ---
Documentation for date of: 01/08/25 Subjective Subjective Interval history: No acute overnight event noted. GI yesterday attempted colonoscopy, however unsuccessful due to patient was not completely cleared. Recommended to continue GoLytely until patient is cleared. CBC CMP unremarkable mild leukocytosis 12.7 most likely reactive, electrolyte disbalance which was replaced, will continue close monitor, continue GoLytely bowel prep, most likely will have colonoscopy today. Exam Vital Signs Temp Pulse Resp BP Pulse Ox O2 Del Method O2 Flow Rate 97.4 F 87 21 H 125/63 91 L Room Air 3 01/08/25 04:00 01/08/25 04:00 01/08/25 04:00 01/08/25 04:00 01/08/25 04:00 01/08/25 04:00 01/07/25 20:15 Narrative Exam General: AOx3, no acute distress, able to speak full sentences HEENT: NC/AT, mucous membranes moist, bilateral sclera anicteric Cardiovascular: regular rate and rhythm, S1/S2 present, no murmurs appreciated Pulmonary: clear to auscultation bilaterally, no rales/rhonchi/wheezes Abdominal: non-distended, normal bowel sounds present Musculoskeletal: normal ROM, no peripheral edema Skin: warm and dry, intact, no rashes Neuro: significant bilateral lower extremity weakness but able to move Objective Labs 01/08/25 05:19 01/08/25 05:19 Labs: Laboratory Results - last 24 hr 01/08/25 05:19 WBC 12.7 H RBC 2.98 L Hgb 9.3 L Hct 26.1 L MCV 88 MCH 31.2 MCHC 35.6 RDW Std Deviation 43.0 Plt Count 326 D Neut % (Auto) 74 Lymph % (Auto) 13 [place] % (Auto) 11 Eos % (Auto) 0 Baso % (Auto) 0 Neut # (Auto) 9.5 H Lymph # (Auto) 1.6 [place] # (Auto) 1.4 H Eos # (Auto) 0.0 Baso # (Auto) 0.0 Immature Gran # (Auto) 0.24 H Absolute Nucleated RBC 0.00 Immature Gran % 2 H Nucleated RBC % 0 Sodium 134 L Potassium 2.9 L Chloride 100 Carbon Dioxide 22.6 Anion Gap 11 BUN < 5 L Creatinine 0.2 L Estim Creat Clear Calc 217.3 eGFR > 60 BUN/Creatinine Ratio 25 H Glucose 89 Calculated Osmolality 264 L Calcium 7.3 L Corrected Calcium 8.5 Magnesium 1.5 L Total Bilirubin 0.5 AST 21 ALT < 7 L Alkaline Phosphatase 64 Total Protein 5.6 L Albumin 2.5 L Globulin 3.1 Albumin/Globulin Ratio 0.8 L ABG Interpretation ABG results: 12/27/24 02:14 ABG pH 7.35 ABG pCO2 31 L ABG pO2 65 L ABG HCO3 17 L ABG O2 Saturation 91 ABG Base Excess -7 L Quality Measures Quality Measures VTE prophylaxis (Heparin subcutaneously) Assessment & Plan Assessment Current Active Medications: Generic Name Dose Route Start Last Admin Trade Name Freq PRN Reason Stop Dose Admin Acetaminophen 650 mg 12/29/24 14:26 01/05/25 11:01 Acetaminophen 325 Mg Tablet PO 01/26/25 04:36 650 mg Q6H PRN Administration fever >99.9 Dextrose 25 ml 12/27/24 04:44 Dextrose 50%-Water Inj 50 Ml Syringe IV 01/26/25 04:43 Q15MIN PRN BG 50-70 responsive npo pt Dextrose 50 ml 12/27/24 04:44 Dextrose 50%-Water Inj 50 Ml Syringe IV 01/26/25 04:43 Q15MIN PRN BG <50 OR BG <70 & pt unresponsive Gabapentin 100 mg 01/05/25 22:00 01/08/25 05:24 Gabapentin 100 Mg Capsule PO 02/04/25 21:59 100 mg TID SAMMI Administration Glucagon 1 mg 12/27/24 04:44 Glucagon Inj 1 Mg Vial IM Q15MIN PRN BG <70, and no IV access Heparin Sodium (Porcine) 5,000 unit 12/27/24 06:00 01/08/25 05:24 Heparin Sod Inj 5000 Unit/Ml Vial SC 01/10/25 05:59 5,000 unit Q8HR SAMMI Administration Sodium Chloride 1,000 mls @ 75 mls/hr 01/06/25 08:46 01/08/25 00:24 Ns IV 02/05/25 08:45 75 mls/hr .[id number] SAMMI Administration Magnesium Sulfate 2 gm in 50 mls @ 25 mls/hr 01/08/25 07:30 01/08/25 08:30 Magnesium Sulfate Ivpb IV 01/08/25 09:29 25 mls/hr X1 ONE Administration Levothyroxine Sodium 125 mcg/ 150 mcg 12/27/24 07:15 01/08/25 05:24 Levothyroxine Sodium 25 mcg PO 01/26/25 07:14 150 mcg ACBR SAMMI Administration Mirtazapine 15 mg 12/30/24 21:00 01/07/25 21:49 Mirtazapine 15 Mg Tablet PO 01/29/25 20:59 15 mg HS SAMMI Administration Ondansetron HCl 4 mg 12/27/24 04:37 01/04/25 13:37 Ondansetron Inj 2 Mg/Ml Inj 2 Ml IVP 01/26/25 04:36 4 mg Q6H PRN Administration NAUSEA OR VOMITING Protocol Pantoprazole Sodium 40 mg 12/30/24 09:00 01/08/25 08:30 Pantoprazole 40 Mg Tablet PO 01/29/25 08:59 40 mg QDAY SAMMI Administration Protocol Potassium Chloride 40 meq 01/08/25 12:00 Potassium Chloride 10% 20 Meq/15 Ml Udc GT 01/08/25 12:01 X1 ONE Sodium Chloride 1 gm 01/08/25 09:00 01/08/25 08:30 Sodium Chloride 1 Gm Tablet PO 02/07/25 08:59 1 gm BID SAMMI Administration Plan Faith Zaidi is a 64-year-old female with past medical history of thyroid cancer, hypothyroidism, hypertension, type 2 diabetes mellitus, depression, and sciatica who was admitted for septic shock to the ICU on 12/27 and downgraded to floors on 12/29. #Sigmoid and rectal wall thickening as seen on CT #Abdominal pain #Nausea #Diarrhea Patient has been having episodes of loose, foul-smelling stools after 9-day course of amoxicillin after patient initially presented in septic shock secondary to Bennett-related UTI. CT A/P showed sigmoid and rectal wall thickening. Repeat C. difficile negative, 2+ WBCs in stool. ? GI consulted, appreciate recommendations ? Giardia test pending ? NG tube for GoLytely, pending colonoscopy ?01/08/2025. Yesterday colonoscopy was attempted, however unsuccessful as patient was not completely cleared, plans to continue bowel preparation with GoLytely and most likely colonoscopy will happen today. #Hypoosmolar hypochloremic hyponatremia-improving DDx includes SIADH vs hypovolemic hyponatremia in setting of multiple episodes diarrhea and poor oral intake ? Nephrology following, appreciate recommendations ? Salt tablets 1 g BID, may start decreasing if sodium continues to improve ? Will monitor sodium levels and continue current management #Bilateral lower extremity weakness Endorses lower extremity weakness for last few months. Has been mostly bedbound at SNF. MRI lumbar spine showed mild disc narrowing at L5-S1, central lumbar disc bulging at L4-L5 with left L4 ganglionic compression. CT head showed no acute pathologies. Lumbar puncture showed elevated protein at 169. Lyme disease testing showed bands present for IgG but negative for IgM, no treatment warranted per neurology. ? Neurology following, appreciate recommendations ? Finished course of IVIG (12/31-01/04) #Urinary retention Bladder training already done but patient continues to have urinary retention. Given that patient presented with septic shock secondary to Bennett-catheter, will continue with intermittent cath. ? Bennett placed ? Will attempt bladder training and plan to DC Bennett once patient is able to urinate #NSTEMI type II/demand ischemia in setting of shock Troponin 0.14 and downtrended to 0.09 on admission but due to concerns for ST elevations on monitor, BP troponins obtained and up trended from 0.09 to 3.8. Suspect demand ischemia in setting of shock. EKG showed sinus rhythm, no ST changes or T wave abnormalities. Echo on 12/27 showed EF 65 to 70%, normal LV size and function, G1DD, mild TR. ? Cardiology following, appreciate recommendations ? Cardiac cath 12/31: no significant stenoses #Septic shock likely secondary to UTI, resolved #Enterococcus faecalis urinary tract infection, resolved Noted to have Bennett catheter from nursing facility but was recently changed per daughter. Urinalysis showed turbid urine, 476 WBC, 152 RBC, 1+ bacteria, positive LE. Urine cultures grew Enterococcus faecalis, pansensitive. Initially on vancomycin and cefepime and finished course of ampicillin. #Acute kidney injury, resolved #Hypokalemia #Hypomagenesemia, resolved Initial creatinine of 1.3 with baseline of 0.6, resolved with IVF. ? Replete electrolytes as needed #Hypothyroidism ? Levothyroxine 150 mcg #Type 2 diabetes mellitus A1c 5.1% ? During hospital stay has not required SC insulin, hence SSI DC'd ? Encourage oral intake #Depression ? Sertraline switched to mirtazapine due to possible contribution to hyponatremia #GERD ? Omeprazole 20 mg daily Hospital management: Disposition: pending colonoscopy, coming from [facility] and plan is to discharge to SNF Diet: clear liquid Lines: PIV DVT prophylaxis: Heparin SC TID GI prophylaxis: pantoprazole daily Bennett: placed CODE STATUS: DNR ----- Patient care was discussed with attending physician Dr. Chelsea Corea MD PGY-2 Attending Provider Attestation/Addendum I attest that I was physically present for the evaluation, physical examination, lab and imaging review of the patient with the residents. I discussed the case with the residents and agree with the findings and plans of care as documented above. At bedside today, patient states she is feeling well and denies new complaints. Colonoscopy was attempted to yesterday but patient was not cleared and the procedure was stopped. Continues to be on GoLytely preparation awaiting colonoscopy with GI. Vital signs are stable. Lab results show elevation in WBC of 12.7 from 10.3 yesterday, no signs of active infection, we will monitor closely. Sodium level is stable at 134. Potassium level noted to be 2.9, repleted accordingly. Magnesium is 1.5, repleted. Continues to have multiple bowel movements but patient is on GoLytely currently. Decrease sodium tablet frequency to twice daily. Karyn Tran MD
[2025-01-08 12:00] VITALS: BP 109/57; PULSE 82; PULSE 94; RESP 16; TEMP 36.6; O2SAT 94
[2025-01-08 16:00] VITALS: BP 117/57; PULSE 85; PULSE 90; RESP 24; TEMP 36.4; O2SAT 91
--- NOTE | 2025-01-08 17:10 | ESPR_ITS ---
Documentation for date of: 01/08/25 Subjective Subjective Interval history: Patient evaluated she was scheduled for a colonoscopy but she is not clear Additional GoLytely will be given Exam Vital Signs Temp Pulse Resp BP Pulse Ox O2 Del Method O2 Flow Rate 97.8 F 94 16 109/57 L 94 L Room Air 3 01/08/25 12:00 01/08/25 12:00 01/08/25 12:00 01/08/25 12:00 01/08/25 12:00 01/08/25 04:00 01/07/25 20:15 Objective Labs 01/08/25 05:19 01/08/25 05:19 Labs: Laboratory Results - last 24 hr 01/08/25 05:19 WBC 12.7 H RBC 2.98 L Hgb 9.3 L Hct 26.1 L MCV 88 MCH 31.2 MCHC 35.6 RDW Std Deviation 43.0 Plt Count 326 D Neut % (Auto) 74 Lymph % (Auto) 13 [place] % (Auto) 11 Eos % (Auto) 0 Baso % (Auto) 0 Neut # (Auto) 9.5 H Lymph # (Auto) 1.6 [place] # (Auto) 1.4 H Eos # (Auto) 0.0 Baso # (Auto) 0.0 Immature Gran # (Auto) 0.24 H Absolute Nucleated RBC 0.00 Immature Gran % 2 H Nucleated RBC % 0 Sodium 134 L Potassium 2.9 L Chloride 100 Carbon Dioxide 22.6 Anion Gap 11 BUN < 5 L Creatinine 0.2 L Estim Creat Clear Calc 217.3 eGFR > 60 BUN/Creatinine Ratio 25 H Glucose 89 Calculated Osmolality 264 L Calcium 7.3 L Corrected Calcium 8.5 Magnesium 1.5 L Total Bilirubin 0.5 AST 21 ALT < 7 L Alkaline Phosphatase 64 Total Protein 5.6 L Albumin 2.5 L Globulin 3.1 Albumin/Globulin Ratio 0.8 L Impressions Impression: Abnormal CT scan of the abdomen pelvis showing inflammatory change in the region of sigmoid and descending colon Diarrhea Continue GoLytely prep ABG Interpretation ABG results: 12/27/24 02:14 ABG pH 7.35 ABG pCO2 31 L ABG pO2 65 L ABG HCO3 17 L ABG O2 Saturation 91 ABG Base Excess -7 L Assessment & Plan A&P Narrative Continue current treatment Time Spent With Patient Time: Total time spent is greater than 50% in coordination of care (as documented) at patient's floor/unit and/or counseling patient:
[2025-01-08 20:00] VITALS: BP 117/55; PULSE 83; PULSE 93; RESP 12; TEMP 36.3; O2SAT 100
[2025-01-08] MEDS: MIRTAZAPINE 15 MG TABLET PO (21:19)
--- NOTE | 2025-01-08 22:44 | PD.VPROG1 ---
Telemedicine visit statement This visit was conducted with the use of interactive audio and video telecommunications system that permits real time communication between the patient and the provider. Patient's verbal consent for virtual visit was obtained on 01/08/25 at 2244. Documentation for date of: 01/08/25 Subjective Subjective Interval history: Patient is in Telemetry, no changes noted. Tolerating oral diet well. c/o cramps and GP helps. COlonoscopy prep was not adequate. Virtual exam Vital Signs Temp Pulse Resp BP Pulse Ox O2 Del Method O2 Flow Rate 97.4 F 93 12 117/55 L 100 Room Air 3 01/08/25 20:00 01/08/25 20:00 01/08/25 20:00 01/08/25 20:00 01/08/25 20:00 01/08/25 20:00 01/07/25 20:15 Objective Labs 01/08/25 05:19 01/08/25 05:19 Labs: Laboratory Results - last 24 hr 01/08/25 05:19 WBC 12.7 H RBC 2.98 L Hgb 9.3 L Hct 26.1 L MCV 88 MCH 31.2 MCHC 35.6 RDW Std Deviation 43.0 Plt Count 326 D Neut % (Auto) 74 Lymph % (Auto) 13 [place] % (Auto) 11 Eos % (Auto) 0 Baso % (Auto) 0 Neut # (Auto) 9.5 H Lymph # (Auto) 1.6 [place] # (Auto) 1.4 H Eos # (Auto) 0.0 Baso # (Auto) 0.0 Immature Gran # (Auto) 0.24 H Absolute Nucleated RBC 0.00 Immature Gran % 2 H Nucleated RBC % 0 Sodium 134 L Potassium 2.9 L Chloride 100 Carbon Dioxide 22.6 Anion Gap 11 BUN < 5 L Creatinine 0.2 L Estim Creat Clear Calc 217.3 eGFR > 60 BUN/Creatinine Ratio 25 H Glucose 89 Calculated Osmolality 264 L Calcium 7.3 L Corrected Calcium 8.5 Magnesium 1.5 L Total Bilirubin 0.5 AST 21 ALT < 7 L Alkaline Phosphatase 64 Total Protein 5.6 L Albumin 2.5 L Globulin 3.1 Albumin/Globulin Ratio 0.8 L ABG Interpretation ABG results: 12/27/24 02:14 ABG pH 7.35 ABG pCO2 31 L ABG pO2 65 L ABG HCO3 17 L ABG O2 Saturation 91 ABG Base Excess -7 L Assessment & Plan Assessment (1) 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
[2025-01-09] VITALS (15 sets, daily range): BP systolic 101–151; BP diastolic 64–93; PULSE 70–95; RESP 15–21; TEMP 36.3–37; O2SAT 92–100; BMI 22.4
[2025-01-09] MEDS: SODIUM CHLORIDE 0.9% 1000 ML 1,000 ML 75 ML IV ×2 (02:43→17:31)
[2025-01-09] MEDS: HEPARIN SOD INJ 5000 UNIT/ML VIAL SC ×3 (05:26→21:03)
[2025-01-09] MEDS: LEVOTHYROXINE SODIUM 125 MCG, LEVOTHYROXINE SODIUM 25 MCG 150 MCG PO (05:26)
[2025-01-09] MEDS: GABAPENTIN 100 MG CAPSULE PO ×3 (05:27→21:03)
[2025-01-09 06:04] LABS: Basophils % (Auto) 0 % (0-2.5); Eosinophils % (Auto) 1 % (0-10); Hematocrit 27.4 % (36.0-46.0); Hemoglobin 9.8 g/dL (12.0-16.0); Immature Granulocytes % (Auto) 2 % (0-0); Immature Granulocytes Auto 0.11 Thou/mm3 (0.00-0.00); Lymphocytes # (Auto) 1.8 Thou/mm3 (1.0-4.8); Lymphocytes % (Auto) 28 % (10-50); Mean Corpuscular HGB Conc 35.8 g/dl (31.0-37.0); Mean Corpuscular Hemoglobin 31.6 pg (25.0-35.0); Mean Corpuscular Volume 88 fL (80-100); Monocytes # (Auto) 0.8 Thou/mm3 (0.0-0.8); Monocytes % (Auto) 13 % (0-12); Neutrophils # (Auto) 3.5 Thou/mm3 (1.8-7.7); Neutrophils % (Auto) 56 % (37-80); Nucleated Red Blood Cell % 0 /100 WBC (0); Platelet Count 349 Thou/mm3 (140-440); RDW Standard Deviation 44.5 fL (36.4-46.3); White Blood Count 6.3 Thou/mm3 (3.6-11.0)
[2025-01-09 06:33] LABS: Alanine Aminotransferase < 7 U/L (10-49); Albumin, Serum 2.6 gm/dL (3.4-4.8); Albumin/Globulin Ratio 0.8 (1.2-2.2); Alkaline Phosphatase 61 U/L (46-116); Anion Gap 11 (7-16); Aspartate Amino Transferase 18 U/L (0-34); BUN/Creatinine Ratio 25 Ratio (12-20); Bilirubin,Total 0.5 mg/dL (0.3-1.2); Blood Urea Nitrogen < 5 mg/dL (9-23); Calcium 7.6 mg/dL (8.3-10.6); Calcium (Corrected) 8.7 mg/dL (8.5-10.1); Carbon Dioxide 24.2 mMol/L (20.0-31.0); Chloride 99 mMol/L (98-107); Creatinine (Component) 0.2 mg/dL (0.6-1.3); Estimated Creatinine Clearance 217.3 mL/min (>60); Globulin 3.2 gm/dL (2.3-3.5); Glucose 88 mg/dL (74-106); Osmolality,Calculated 264 (275-295); Sodium 134 mMol/L (136-145); Total Protein 5.8 gm/dL (5.7-8.2); eGFR > 60 See Note
[2025-01-09] MEDS: NA SU/NAHCO3/KC/PEG (Golytely) 4,000 ML BTL 4000 ML PO ×2 (07:44→08:39)
[2025-01-09 08:20] LABS: Magnesium 1.5 mg/dL (1.6-2.6)
[2025-01-09] MEDS: PANTOPRAZOLE 40 MG TABLET PO (08:39)
[2025-01-09] MEDS: SODIUM CHLORIDE 1 GM TABLET PO ×2 (08:40→21:03)
[2025-01-09] MEDS: POTASSIUM CHL 10 mEq IVPB 10 MEQ/100 ML BAG 100 MEQ IV ×6 (08:40→17:31)
--- NOTE | 2025-01-09 09:44 | ESPR_ITS ---
Documentation for date of: 01/09/25 Subjective Subjective Interval history: No acute overnight events. Seen and examined at bedside and patient states that she has pain in her lower extremities that is managed well with gabapentin and Tylenol. Spoke to nursing staff and continues to not be clear and will continue with GoLytely. Otherwise, patient has no complaints and labs show improvement in leukocytosis from 12.7 to 6.3, hemoglobin stable, K persistently low and repeated IV given patient is on GoLytely, magnesium well and repleted. Exam Vital Signs Temp Pulse Resp BP Pulse Ox O2 Del Method O2 Flow Rate 97.6 F 80 17 132/71 H 97 Room Air 3 01/09/25 08:00 01/09/25 08:00 01/09/25 08:00 01/09/25 08:00 01/09/25 08:00 01/09/25 08:00 01/07/25 20:15 Narrative Exam General: AOx3, no acute distress, able to speak full sentences HEENT: NC/AT, mucous membranes moist, bilateral sclera anicteric Cardiovascular: regular rate and rhythm, S1/S2 present, no murmurs appreciated Pulmonary: clear to auscultation bilaterally, no rales/rhonchi/wheezes Abdominal: non-distended, normal bowel sounds present Musculoskeletal: normal ROM, no peripheral edema Skin: warm and dry, intact, no rashes Neuro: significant bilateral lower extremity weakness but able to move Objective Labs 01/09/25 04:50 01/09/25 04:50 Labs: Laboratory Results - last 24 hr 01/09/25 04:50 WBC 6.3 D RBC 3.10 L Hgb 9.8 L Hct 27.4 L MCV 88 MCH 31.6 MCHC 35.8 RDW Std Deviation 44.5 Plt Count 349 Neut % (Auto) 56 Lymph % (Auto) 28 [place] % (Auto) 13 H Eos % (Auto) 1 Baso % (Auto) 0 Neut # (Auto) 3.5 Lymph # (Auto) 1.8 [place] # (Auto) 0.8 Eos # (Auto) 0.0 Baso # (Auto) 0.0 Immature Gran # (Auto) 0.11 H Absolute Nucleated RBC 0.00 Immature Gran % 2 H Nucleated RBC % 0 Sodium 134 L Potassium 3.0 L Chloride 99 Carbon Dioxide 24.2 Anion Gap 11 BUN < 5 L Creatinine 0.2 L Estim Creat Clear Calc 217.3 eGFR > 60 BUN/Creatinine Ratio 25 H Glucose 88 Calculated Osmolality 264 L Calcium 7.6 L Corrected Calcium 8.7 Magnesium 1.5 L Total Bilirubin 0.5 AST 18 ALT < 7 L Alkaline Phosphatase 61 Total Protein 5.8 Albumin 2.6 L Globulin 3.2 Albumin/Globulin Ratio 0.8 L ABG Interpretation ABG results: 12/27/24 02:14 ABG pH 7.35 ABG pCO2 31 L ABG pO2 65 L ABG HCO3 17 L ABG O2 Saturation 91 ABG Base Excess -7 L Quality Measures Quality Measures VTE prophylaxis (Heparin subcutaneously) Assessment & Plan Assessment Current Active Medications: Generic Name Dose Route Start Last Admin Trade Name Freq PRN Reason Stop Dose Admin Acetaminophen 650 mg 12/29/24 14:26 01/05/25 11:01 Acetaminophen 325 Mg Tablet PO 01/26/25 04:36 650 mg Q6H PRN Administration fever >99.9 Dextrose 25 ml 12/27/24 04:44 Dextrose 50%-Water Inj 50 Ml Syringe IV 01/26/25 04:43 Q15MIN PRN BG 50-70 responsive npo pt Dextrose 50 ml 12/27/24 04:44 Dextrose 50%-Water Inj 50 Ml Syringe IV 01/26/25 04:43 Q15MIN PRN BG <50 OR BG <70 & pt unresponsive Gabapentin 100 mg 01/05/25 22:00 01/09/25 05:27 Gabapentin 100 Mg Capsule PO 02/04/25 21:59 100 mg TID SAMMI Administration Glucagon 1 mg 12/27/24 04:44 Glucagon Inj 1 Mg Vial IM Q15MIN PRN BG <70, and no IV access Heparin Sodium (Porcine) 5,000 unit 12/27/24 06:00 01/09/25 05:26 Heparin Sod Inj 5000 Unit/Ml Vial SC 01/10/25 05:59 5,000 unit Q8HR SAMMI Administration Sodium Chloride 1,000 mls @ 75 mls/hr 01/06/25 08:46 01/09/25 02:43 Ns IV 02/05/25 08:45 75 mls/hr .[id number] SAMMI Administration Potassium Chloride 10 meq in 100 mls @ 100 mls/hr 01/09/25 07:51 01/09/25 08:40 Kcl Ivpb IV 01/09/25 11:50 100 mls/hr Q1H SAMMI Administration Potassium Chloride 10 meq in 100 mls @ 100 mls/hr 01/09/25 12:00 Kcl Ivpb IV 01/09/25 13:59 Q1H SAMMI Magnesium Sulfate 2 gm in 50 mls @ 25 mls/hr 01/09/25 09:23 Magnesium Sulfate Ivpb IV 01/09/25 11:22 X1 ONE Levothyroxine Sodium 125 mcg/ 150 mcg 12/27/24 07:15 01/09/25 05:26 Levothyroxine Sodium 25 mcg PO 01/26/25 07:14 150 mcg ACBR SAMMI Administration Mirtazapine 15 mg 12/30/24 21:00 01/08/25 21:19 Mirtazapine 15 Mg Tablet PO 01/29/25 20:59 15 mg HS SAMMI Administration Ondansetron HCl 4 mg 12/27/24 04:37 01/04/25 13:37 Ondansetron Inj 2 Mg/Ml Inj 2 Ml IVP 01/26/25 04:36 4 mg Q6H PRN Administration NAUSEA OR VOMITING Protocol Pantoprazole Sodium 40 mg 12/30/24 09:00 01/09/25 08:39 Pantoprazole 40 Mg Tablet PO 01/29/25 08:59 40 mg QDAY SAMMI Administration Protocol Sodium Chloride 1 gm 01/08/25 09:00 01/09/25 08:40 Sodium Chloride 1 Gm Tablet PO 02/07/25 08:59 1 gm BID SAMMI Administration Plan Faith Zaidi is a 64-year-old female with past medical history of thyroid cancer, hypothyroidism, hypertension, type 2 diabetes mellitus, depression, and sciatica who was admitted for septic shock to the ICU on 12/27 and downgraded to floors on 12/29. #Sigmoid and rectal wall thickening as seen on CT #Abdominal pain #Nausea #Diarrhea Patient has been having episodes of loose, foul-smelling stools after 9-day course of amoxicillin after patient initially presented in septic shock secondary to Bennett-related UTI. CT A/P showed sigmoid and rectal wall thickening. Repeat C. difficile negative, 2+ WBCs in stool. Colonoscopy attempted 01/08 but unsuccessful as patient not completely cleared and so will continue bowel preparation with GoLytely. ? GI consulted, appreciate recommendations ? Giardia test pending ? NG tube for GoLytely, pending colonoscopy #Hypoosmolar hypochloremic hyponatremia-improving DDx includes SIADH vs hypovolemic hyponatremia in setting of multiple episodes diarrhea and poor oral intake ? Nephrology following, appreciate recommendations ? Salt tablets 1 g BID ? Will monitor sodium levels and continue current management #Bilateral lower extremity weakness Endorses lower extremity weakness for last few months. Has been mostly bedbound at SNF. MRI lumbar spine showed mild disc narrowing at L5-S1, central lumbar disc bulging at L4-L5 with left L4 ganglionic compression. CT head showed no acute pathologies. Lumbar puncture showed elevated protein at 169. Lyme disease testing showed bands present for IgG but negative for IgM, no treatment warranted per neurology. ? Neurology following, appreciate recommendations ? Finished course of IVIG (12/31-01/04) #Urinary retention Bladder training already done but patient continues to have urinary retention. Given that patient presented with septic shock secondary to Bennett-catheter, will continue with intermittent cath. ? Bennett placed #NSTEMI type II/demand ischemia in setting of shock Troponin 0.14 and downtrended to 0.09 on admission but due to concerns for ST elevations on monitor, BP troponins obtained and up trended from 0.09 to 3.8. Suspect demand ischemia in setting of shock. EKG showed sinus rhythm, no ST changes or T wave abnormalities. Echo on 12/27 showed EF 65 to 70%, normal LV size and function, G1DD, mild TR. ? Cardiology following, appreciate recommendations ? Cardiac cath 12/31: no significant stenoses #Septic shock likely secondary to UTI, resolved #Enterococcus faecalis urinary tract infection, resolved Noted to have Bennett catheter from nursing facility but was recently changed per daughter. Urinalysis showed turbid urine, 476 WBC, 152 RBC, 1+ bacteria, positive LE. Urine cultures grew Enterococcus faecalis, pansensitive. Initially on vancomycin and cefepime and finished course of ampicillin. #Acute kidney injury, resolved #Hypokalemia #Hypomagenesemia Initial creatinine of 1.3 with baseline of 0.6, resolved with IVF. ? Replete electrolytes as needed #Hypothyroidism ? Levothyroxine 150 mcg #Type 2 diabetes mellitus A1c 5.1% ? During hospital stay has not required SC insulin, hence SSI DC'd ? Encourage oral intake #Depression ? Sertraline switched to mirtazapine due to possible contribution to hyponatremia #GERD ? Omeprazole 20 mg daily Hospital management: Disposition: pending colonoscopy, coming from SNF and plan is to discharge to SNF Diet: clear liquid Lines: PIV DVT prophylaxis: Heparin SC TID GI prophylaxis: pantoprazole daily Bennett: placed CODE STATUS: DNR ----- Plan discussed with attending physician Dr. Chelsea Weaver MD PGY-1 Internal Medicine Attending Provider Attestation/Addendum I attest that I was physically present for the evaluation, physical examination, lab and imaging review of the patient with the residents. I discussed the case with the residents and agree with the findings and plans of care as documented above. At bedside today, patient states she is having pain on her lower extremity but managed with analgesics. Her abdominal pain has been better. Continues to have multiple bowel movements but patient has been on GoLytely. Sodium level today is 134. Noted to have hypokalemia and hypomagnesemia, repleted accordingly. WBC has been downtrending. Continues to be on bowel prep, awaiting colonoscopy. Karyn Tran MD
[2025-01-09] MEDS: ACETAMINOPHEN 325 MG TABLET 650 MG PO (09:56)
[2025-01-09] MEDS: Magnesium Sulfate 2 GM Ivpb 2 GM/50 ML BAG IV (10:03)
--- NOTE | 2025-01-09 20:45 | ESPR_ITS ---
Documentation for date of: 01/09/25 Subjective Subjective Interval history: Patient was seen in telemetry today, continues to have weakness in the LE. No changes, resting at this time. Exam - Neurology Vital Signs Temp Pulse Resp BP Pulse Ox O2 Del Method O2 Flow Rate 98.1 F 89 19 122/64 96 Room Air 3 01/09/25 19:00 01/09/25 19:00 01/09/25 19:00 01/09/25 19:00 01/09/25 19:00 01/09/25 19:00 01/09/25 15:35 Narrative Exam General: AOx3, no acute distress, able to speak full sentences HEENT: NC/AT, mucous membranes moist, bilateral sclera anicteric Cardiovascular: regular rate and rhythm, S1/S2 present, no murmurs appreciated Pulmonary: clear to auscultation bilaterally, no rales/rhonchi/wheezes Abdominal: soft, non-tender, non-distended, no rebound/guarding, normal bowel sounds present Musculoskeletal: normal ROM in both UE, paraparesis: unchanged, no peripheral edema Skin: warm and dry, intact, no rashes Objective Labs 01/09/25 04:50 01/09/25 04:50 Labs: Laboratory Results - last 24 hr 01/09/25 04:50 WBC 6.3 D RBC 3.10 L Hgb 9.8 L Hct 27.4 L MCV 88 MCH 31.6 MCHC 35.8 RDW Std Deviation 44.5 Plt Count 349 Neut % (Auto) 56 Lymph % (Auto) 28 [place] % (Auto) 13 H Eos % (Auto) 1 Baso % (Auto) 0 Neut # (Auto) 3.5 Lymph # (Auto) 1.8 [place] # (Auto) 0.8 Eos # (Auto) 0.0 Baso # (Auto) 0.0 Immature Gran # (Auto) 0.11 H Absolute Nucleated RBC 0.00 Immature Gran % 2 H Nucleated RBC % 0 Sodium 134 L Potassium 3.0 L Chloride 99 Carbon Dioxide 24.2 Anion Gap 11 BUN < 5 L Creatinine 0.2 L Estim Creat Clear Calc 217.3 eGFR > 60 BUN/Creatinine Ratio 25 H Glucose 88 Calculated Osmolality 264 L Calcium 7.6 L Corrected Calcium 8.7 Magnesium 1.5 L Total Bilirubin 0.5 AST 18 ALT < 7 L Alkaline Phosphatase 61 Total Protein 5.8 Albumin 2.6 L Globulin 3.2 Albumin/Globulin Ratio 0.8 L ABG Interpretation ABG results: 12/27/24 02:14 ABG pH 7.35 ABG pCO2 31 L ABG pO2 65 L ABG HCO3 17 L ABG O2 Saturation 91 ABG Base Excess -7 L Assessment & Plan Assessment and plan (1) Weakness: Status: Chronic Assessment and plan: as the CSF showed elevated protein and 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 Continue with PT, she would need inpatient rehab. After d/c to rehab, will consider doing EMG AND NCS of both LE to confirm the diagnosis. C. diff resulted negative. (2) Diabetes 1.5, managed as type 2: Status: Acute Assessment and plan: under control as per the last A1c.
[2025-01-09] MEDS: HYDROCORTISONE ENEMA 100 MG/60 ML BTL PR (21:03)
[2025-01-09] MEDS: MIRTAZAPINE 15 MG TABLET PO (21:03)
[2025-01-10] VITALS (7 sets, daily range): BP systolic 107–128; BP diastolic 62–83; PULSE 90–105; RESP 19–20; TEMP 36.1–37.3; O2SAT 92–96; BMI 22.4
[2025-01-10] MEDS: ACETAMINOPHEN 325 MG TABLET 650 MG PO ×3 (02:06→15:34)
[2025-01-10] MEDS: GABAPENTIN 100 MG CAPSULE PO ×2 (05:06→13:38)
[2025-01-10] MEDS: SODIUM CHLORIDE 0.9% 1000 ML 1,000 ML 75 ML IV (05:07)
[2025-01-10] MEDS: LEVOTHYROXINE SODIUM 125 MCG, LEVOTHYROXINE SODIUM 25 MCG 150 MCG PO (05:07)
[2025-01-10 07:00] LABS: Giardia Result NOT DETECTED
[2025-01-10 07:07] LABS: Basophils % (Auto) 0 % (0-2.5); Eosinophils % (Auto) 0 % (0-10); Hematocrit 26.5 % (36.0-46.0); Hemoglobin 9.4 g/dL (12.0-16.0); Immature Granulocytes % (Auto) 1 % (0-0); Immature Granulocytes Auto 0.07 Thou/mm3 (0.00-0.00); Lymphocytes # (Auto) 1.9 Thou/mm3 (1.0-4.8); Lymphocytes % (Auto) 38 % (10-50); Mean Corpuscular HGB Conc 35.5 g/dl (31.0-37.0); Mean Corpuscular Hemoglobin 31.1 pg (25.0-35.0); Mean Corpuscular Volume 88 fL (80-100); Monocytes # (Auto) 0.6 Thou/mm3 (0.0-0.8); Monocytes % (Auto) 13 % (0-12); Neutrophils # (Auto) 2.3 Thou/mm3 (1.8-7.7); Neutrophils % (Auto) 48 % (37-80); Nucleated Red Blood Cell % 0 /100 WBC (0); Platelet Count 391 Thou/mm3 (140-440); RDW Standard Deviation 44.5 fL (36.4-46.3); Red Blood Count 3.02 Miln/mm3 (4.00-5.20); White Blood Count 4.9 Thou/mm3 (3.6-11.0)
[2025-01-10 08:05] LABS: Alanine Aminotransferase < 7 U/L (10-49); Albumin, Serum 2.5 gm/dL (3.4-4.8); Albumin/Globulin Ratio 0.8 (1.2-2.2); Alkaline Phosphatase 56 U/L (46-116); Anion Gap 9 (7-16); Aspartate Amino Transferase 15 U/L (0-34); BUN/Creatinine Ratio 25 Ratio (12-20); Bilirubin,Total 0.3 mg/dL (0.3-1.2); Blood Urea Nitrogen < 5 mg/dL (9-23); Calcium 7.5 mg/dL (8.3-10.6); Calcium (Corrected) 8.7 mg/dL (8.5-10.1); Carbon Dioxide 25.6 mMol/L (20.0-31.0); Chloride 99 mMol/L (98-107); Creatinine (Component) 0.2 mg/dL (0.6-1.3); Estimated Creatinine Clearance 217.3 mL/min (>60); Globulin 3.1 gm/dL (2.3-3.5); Glucose 104 mg/dL (74-106); Magnesium 1.4 mg/dL (1.6-2.6); Osmolality,Calculated 265 (275-295); Phosphorous 3.7 mg/dL (2.4-5.1); Sodium 134 mMol/L (136-145); Total Protein 5.6 gm/dL (5.7-8.2); eGFR > 60 See Note
[2025-01-10 08:08] LABS: Potassium 2.7 mMol/L (3.4-5.1)
[2025-01-10] MEDS: SODIUM CHLORIDE 1 GM TABLET PO (08:17)
[2025-01-10] MEDS: PANTOPRAZOLE 40 MG TABLET PO (08:17)
[2025-01-10] MEDS: HYDROCORTISONE ENEMA 100 MG/60 ML BTL PR (08:18)
[2025-01-10] MEDS: POTASSIUM CHLORIDE 20 mEq TABCR 40 MEQ PO (08:36)
[2025-01-10] MEDS: Magnesium Sulfate 4 GM Ivpb 4 GM/50 ML BAG IV (08:36)
[2025-01-10] MEDS: POTASSIUM CHL 10 mEq IVPB 10 MEQ/100 ML BAG 100 MEQ IV ×2 (08:37→10:38)
--- NOTE | 2025-01-10 09:06 | PD.RESDS ---
Planned Discharge Date 01/10/25 DS: Providers Provider Date of admission: 12/27/24 04:37 Primary care physician: Physician No Primary/Family Admitting Provider: Rey Sands MD Attending Provider on Admission: Karyn Tran MD Consults: 12/27/24 14:15 Referral Registered Dietitian Routine Comment: Loss of appetite 12/28/24 09:37 Consult to Nephrology Routine Comment: Chronic Hyponatremia Consulting Provider: Susanna Lucio 12/29/24 10:04 Consult to Neurology / Tele-Neurology Routine Comment: LE weakness, MRI clean Consulting Provider: Dominick Duncan 12/29/24 16:12 Consult to Cardiology Stat Comment: Consulting Provider: Lucian Bueno 12/29/24 17:02 Referral Physical Therapy Routine Comment: Physician Instructions: 01/05/25 09:23 Consult to Gastroenterology Routine Comment: Consulting Provider: Sharlene Hough Instructions: Possible C. difficile infection, sigmoid and rectal thickening on CT Attending Provider on DC: Robert Weaver MD Discharging Provider: Robert Weaver MD DS: Diagnosis Problem List Completed Was Problem List Reviewed/Reconciled?: Yes Hospital Course Hospital Course Hospital course: Faith Zaidi is a 64-year-old female with past medical history of thyroid cancer, hypothyroidism, hypertension, type 2 diabetes mellitus, depression, and sciatica who was initially admitted on 12/27 for shock, likely septic from UTI and required low dose of Levophed and downgraded to floors on 12/29. Urine cultures grew Enterococcus faecalis, patient was initially on vancomycin and cefepime that was then switched to ampicillin on 12/29 and received total of 9 days given severity of infection. Also noted to have demand ischemia for which cardio was consulted and ultimately family wished to have cardiac cath that patient underwent and did not show any significant disease. After antibiotic course, patient developed diarrhea that peaked at around 6 BMs per day but tested negative for C. difficile twice. Eventually underwent colonoscopy that showed localized of erythematous mucosa in ascending colon, rectum, and sigmoid colon for which biopsies were taken. Ulceration of rectum also noted and sent for histopathology. Patient then started on hydrocortisone enema BID. Additionally, patient has had lower extremity weakness for months now and lumbar puncture was done that showed elevated protein in CSF and started on IVIG for 5 days. Patient has had some improvement in lower extremity strength as well as sensation but will require outpatient follow-up for EMG and NCS of bilateral lower extremities. Patient to be discharged with hydrocortisone enema BID and follow-up with GI, and to follow-up with neurology for further studies. She will be discharged back to SNF per physical therapy recommendations. Diagnoses during admission: #Sigmoid and rectal wall thickening as seen on CT #Abdominal pain #Nausea #Diarrhea #Hypoosmolar hypochloremic hyponatremia #Bilateral lower extremity weakness #Urinary retention #NSTEMI type II/demand ischemia in setting of shock #Septic shock likely secondary to UTI, resolved #Enterococcus faecalis urinary tract infection, resolved #Acute kidney injury, resolved #Hypokalemia #Hypomagenesemia #Hypothyroidism #Type 2 diabetes mellitus #Depression #GERD Discharge instructions: ? Sertraline was stopped due to possible contribution to hyponatremia ? Start mirtazapine and follow-up with PCP for medicine reconciliation ? Start taking hydrocortisone 100 mg per rectum twice daily ? Continue taking all other home medications as prescribed ? Follow-up with neurology outpatient within 1-2 weeks of discharge for possible EMG and NCS of both lower extremities ? Follow-up with PCP within 1-2 weeks of discharge - keep stout in and follow up outpatient, may need a bladder training before removing, as patient retains urine and having an urge but difficulty to urinate on her own. will need close follow up. ? If you do not have a PCP, you can follow-up at the [facility] (you can call [phone] to make an appointment) ? If you wish to follow-up with Dr. Weaver, schedule appointment on Friday afternoons ? Return to ED if symptoms worsen or recur Time Spent with Patient Time attestation: Total time spent providing and/or coordinating discharge services: Time spent: Greater than 30 minutes Quality: Stroke Pt Provided Written Stroke Discharge Instructions: No (no stroke like s/s) Exam Vital Signs Temp Pulse Resp BP Pulse Ox O2 Del Method O2 Flow Rate 98.1 F 90 20 118/83 93 L Room Air 3 01/10/25 08:00 01/10/25 08:00 01/10/25 08:00 01/10/25 08:00 01/10/25 08:00 01/10/25 08:00 01/09/25 15:35 Narrative Exam General: AOx3, no acute distress, able to speak full sentences HEENT: NC/AT, mucous membranes moist, bilateral sclera anicteric Cardiovascular: regular rate and rhythm, S1/S2 present, no murmurs appreciated Pulmonary: clear to auscultation bilaterally, no rales/rhonchi/wheezes Abdominal: non-distended, normal bowel sounds present Musculoskeletal: normal ROM, no peripheral edema Skin: warm and dry, intact, no rashes Neuro: significant bilateral lower extremity weakness but able to move Discharge Plan Plan Patient Disposition: Xfer Skilled Nsg Fac (SNF) Care Plan Goals: ? Sertraline was stopped due to possible contribution to hyponatremia ? Start mirtazapine and follow-up with PCP for medicine reconciliation ? Start taking hydrocortisone 100 mg per rectum twice daily ? Continue taking all other home medications as prescribed ? Follow-up with neurology outpatient within 1-2 weeks of discharge for possible EMG and NCS of both lower extremities ? Follow-up with PCP within 1-2 weeks of discharge - keep stout in and follow up outpatient, may need a bladder training before removing, as patient retains urine and having an urge but difficulty to urinate on her own. will need close follow up. ? If you do not have a PCP, you can follow-up at the [facility] (you can call [phone] to make an appointment) ? If you wish to follow-up with Dr. Weaver, schedule appointment on Friday afternoons ? Return to ED if symptoms worsen or recur Prescriptions/Referrals Prescriptions/Med Rec: New mirtazapine 15 mg Tablet 15 mg PO HS 30 Days Qty: 30 0RF sodium chloride 1,000 mg tablet,soluble 1,000 mg PO QDAY Qty: 14 0RF hydrocortisone 100 mg/60 mL enema 100 mg IN BID 30 Days Qty: 3600 0RF potassium chloride 20 mEq packet 20 meq PO QDAY 14 Days Qty: 30 0RF magnesium 200 mg tablet 200 mg PO QDAY Qty: 14 0RF Continued metformin 500 mg Tablet 500 mg PO DAILY naproxen 500 mg Tablet 500 mg PO DAILY omeprazole 20 mg Tablet,Delayed Release (Dr/Ec) 20 mg PO QDAY levothyroxine 150 mcg capsule 150 mcg PO QDAY Qty: 30 0RF tramadol 50 mg tablet 50 mg PO Q8H PRN (Reason: pain) Patient Comments: TOME LISA TABLETA POR V A ORAL 2-3 VECES AL D A CUANDO SEA NECESARIO PARA EL DOLOR INTENSO pravastatin 20 mg tablet 20 mg PO HS Patient Comments: TOME 1 TABLETA POR V A ORAL TODOS LOS D FOR CHOLESTEROL cetirizine 10 mg tablet 10 mg PO QDAY Patient Comments: TOME LISA TABLETA POR VIA ORAL ONCE A DAY PARA LA [place] magnesium oxide 400 mg magnesium tablet 400 mg PO BID cranberry 450 mg tablet 450 mg PO QDAY Rx Instructions: administer with a meal Discontinued sertraline 50 mg Tablet 100 mg PO QDAY atenolol 50 mg Tablet 50 mg PO QDAY Referrals: No Primary/Family,Physician [Primary Care Provider] - Patient/Caregiver Discharge Instructions Print Language: Turkish Stand Alone Forms: Any Award Info., Patient Portal Info Letter Discharge Order Discharge Orders: Discharge (Routine); Ordered 01/10/25 Ordered By: Robert Weaver Quality Discharge Quality Measures VTE prophylaxis Attestestation MD Attestation I attest that I was physically present for the evaluation, physical examination, lab and imaging review of the patient with the residents. I discussed the case with the residents and agree with the findings and plans of care as documented above. Karyn Tran MD
--- NOTE | 2025-01-10 09:46 | PD.IMPROG ---
Documentation for date of: 01/10/25 Subjective Subjective Interval history: Case discussed with internal medicine team okay to discharge patient on hydrocortisone enemas twice a day Exam Vital Signs Temp Pulse Resp BP Pulse Ox O2 Del Method O2 Flow Rate 98.1 F 90 20 118/83 93 L Room Air 3 01/10/25 08:00 01/10/25 08:00 01/10/25 08:00 01/10/25 08:00 01/10/25 08:00 01/10/25 08:00 01/09/25 15:35 Objective Labs 01/10/25 06:15 01/10/25 14:15 Labs: Laboratory Results - last 24 hr 12/30/24 01/05/25 01/10/25 18:30 23:59 06:15 WBC 4.9 RBC 3.02 L Hgb 9.4 L Hct 26.5 L MCV 88 MCH 31.1 MCHC 35.5 RDW Std Deviation 44.5 Plt Count 391 D Neut % (Auto) 48 Lymph % (Auto) 38 [place] % (Auto) 13 H Eos % (Auto) 0 Baso % (Auto) 0 Neut # (Auto) 2.3 Lymph # (Auto) 1.9 [place] # (Auto) 0.6 Eos # (Auto) 0.0 Baso # (Auto) 0.0 Immature Gran # (Auto) 0.07 H Absolute Nucleated RBC 0.00 Immature Gran % 1 H Nucleated RBC % 0 Sodium 134 L Potassium 2.7 L* Chloride 99 Carbon Dioxide 25.6 Anion Gap 9 BUN < 5 L Creatinine 0.2 L Estim Creat Clear Calc 217.3 eGFR > 60 BUN/Creatinine Ratio 25 H Glucose 104 Calculated Osmolality 265 L Calcium 7.5 L Corrected Calcium 8.7 Phosphorus 3.7 Magnesium 1.4 L Total Bilirubin 0.3 AST 15 ALT < 7 L Alkaline Phosphatase 56 Total Protein 5.6 L Albumin 2.5 L Globulin 3.1 Albumin/Globulin Ratio 0.8 L CSF Albumin 107.0 H CSF IgG (MS) 25.9 H IgG, Serum (MS) 719 Serum Albumin 2.0 L CSF/Serum IgG Index 0.67 CSF/Serum IgG Synthesis +43.4 H Stl Giardia Antigen NOT DETECTED Impressions Impression: Ulcers rectum okay to discharge on hydrocortisone enemas ABG Interpretation ABG results: 12/27/24 02:14 ABG pH 7.35 ABG pCO2 31 L ABG pO2 65 L ABG HCO3 17 L ABG O2 Saturation 91 ABG Base Excess -7 L Assessment & Plan A&P Narrative Continue current treatment Time Spent With Patient Time: Total time spent is greater than 50% in coordination of care (as documented) at patient's floor/unit and/or counseling patient:
--- NOTE | 2025-01-10 10:18 | PC.SS ---
Rounding: Pt is ready for DC, updates sent via [facility] to [facility], transport to be arranged via [facility]
--- NOTE | 2025-01-10 10:46 | PC.SS ---
Addendum entered by Janie Espinal 01/10/25 15:10: ETA set for 1600 RN, Sindhu fernandez and Laurita from [facility] Original Note: SS set up transport via [employer] [facility] #[id number], SS requested [place], pending release to transport company.
[2025-01-10] MEDS: POTASSIUM CHL 10 mEq IVPB 10 MEQ/100 ML BAG 75 MEQ IV (12:55)
[2025-01-10 15:10] LABS: Anion Gap 7 (7-16); BUN/Creatinine Ratio 25 Ratio (12-20); Blood Urea Nitrogen < 5 mg/dL (9-23); Carbon Dioxide 20.7 mMol/L (20.0-31.0); Chloride 108 mMol/L (98-107); Creatinine (Component) < 0.2 mg/dL (0.6-1.3); Estimated Creatinine Clearance 217.3 mL/min (>60); Glucose 137 mg/dL (74-106); Osmolality,Calculated 271 (275-295); Phosphorous 2.4 mg/dL (2.4-5.1); Potassium 2.9 mMol/L (3.4-5.1); Sodium 136 mMol/L (136-145); eGFR > 60 See Note
[2025-01-10 15:12] LABS: Calcium (Corrected) 8.6 mg/dL (8.5-10.1)
--- NOTE | 2025-01-10 15:13 | PC.SS ---
SS updated pt daughter, Flor Diehl; of ETA of 1600 back to [facility]
[2025-01-11 17:51] LABS: West Nile Virus (IgG), CSF <1.30
[2025-01-12 06:43] LABS: VDRL, CSF Qual* NON-REACTIVE; West Nile Virus (IgM), CSF <0.90
== END 2025-01-10 16:03 | disposition skilled nursing facility (03) | DRG 871 ==
LOC: SERX 00:57 → SERHOLD 04:53 → S2SX 05:48 → S2NX 12-30 18:29 → S2SX 01-03 10:02
PROVIDERS: Internal Medicine; Psychiatry & Neurology Neurology; Specialist; Student in an Organized Health Care Education/Training Program; Admitting Provider Student in an Organized Health Care Education/Training Program; Emergency Provider Emergency Medicine; Visit Provider Student in an Organized Health Care Education/Training Program
PROC: 0DJD8ZZ Inspection of Lower Intestinal Tract, Via Natural or Artificial Opening Endoscopic (ICD-10-PCS; CPT 45378; principal; 2025-01-07 17:30)
DX: A41.81 Sepsis due to Enterococcus (principal); I21.A1 Myocardial infarction type 2; R65.21 Severe sepsis with septic shock; R57.1 Hypovolemic shock; T83.511A Infection and inflammatory reaction due to indwelling urethral catheter, initial encounter; N39.0 Urinary tract infection, site not specified; I31.39 Other pericardial effusion (noninflammatory); N17.9 Acute kidney failure, unspecified; I50.30 Unspecified diastolic (congestive) heart failure; I47.10 Supraventricular tachycardia, unspecified; E22.2 Syndrome of inappropriate secretion of antidiuretic hormone; E46 Unspecified protein-calorie malnutrition; E87.20 Acidosis, unspecified; G61.81 Chronic inflammatory demyelinating polyneuritis; K62.6 Ulcer of anus and rectum; M54.30 Sciatica, unspecified side; F32.A Depression, unspecified; Z85.850 Personal history of malignant neoplasm of thyroid; E03.9 Hypothyroidism, unspecified; E86.1 Hypovolemia; Z79.890 Hormone replacement therapy; Z66 Do not resuscitate; E87.6 Hypokalemia; E83.42 Hypomagnesemia; E27.9 Disorder of adrenal gland, unspecified; I11.0 Hypertensive heart disease with heart failure; E11.40 Type 2 diabetes mellitus with diabetic neuropathy, unspecified; E13.649 Other specified diabetes mellitus with hypoglycemia without coma; E78.00 Pure hypercholesterolemia, unspecified; E83.39 Other disorders of phosphorus metabolism; E87.8 Other disorders of electrolyte and fluid balance, not elsewhere classified; G89.29 Other chronic pain; K21.9 Gastro-esophageal reflux disease without esophagitis; R79.1 Abnormal coagulation profile; T43.224A Poisoning by selective serotonin reuptake inhibitors, undetermined, initial encounter; Z53.9 Procedure and treatment not carried out, unspecified reason; Z74.01 Bed confinement status; Z79.4 Long term (current) use of insulin; Z79.899 Other long term (current) drug therapy; Z88.5 Allergy status to narcotic agent; M48.061 Spinal stenosis, lumbar region without neurogenic claudication; Z90.49 Acquired absence of other specified parts of digestive tract; Y84.6 Urinary catheterization as the cause of abnormal reaction of the patient, or of later complication, without mention of misadventure at the time of the procedure; K52.9 Noninfective gastroenteritis and colitis, unspecified
CPT/HCPCS: 36415; 36600; 70450; 71045; 71275; 72149; 74177; 80048; 80053; 80069; 80202; 81001; 82010; 82040; 82042; 82085; 82150; 82164; 82248; 82436; 82550; 82570; 82784; 82803; 82945; 83036; 83605; 83690; 83735; 83873; 83880; 83916; 84100; 84133; 84145; 84157; 84295; 84300; 84439; 84443; 84484; 85025; 85379; 85610; 85652; 85730; 86140; 86171; 86592; 86617; 86788; 86789; 87015; 87040; 87045; 87046; 87077; 87081; 87086; 87186; 87205; 87329; 87400; 87493; 87811; 87899; 89051; 93005; 93306; 94640; 96365; 96367; 96375; 99152; 99285; A4216; A4649; A9270; A9579; C1887; C1894; J0131; J0171; J0290; J0461; J0583; J0692; J1200; J1561; J1643; J1644; J1815; J1885; J2250; J2270; J2310; J2371; J2405; J2919; J3010; J3370; J3475; J3480; J3490; J7030; J7050; J7120; J7999; Q9967; J2305

== ENCOUNTER → 2025-03-14 | Outpatient (CLI) | payer MEDICARE, MEDICAID, SELFPAY ==
--- NOTE | 2025-03-14 | XR_ITS ---
Examination: CT abdomen with intravenous contrast CT pelvis with intravenous contrast 2-D coronal reconstructions 2-D sagittal reconstructions Date and time of exam:March 14, 2025: 07 hours, comparison January 04, 2025 INDICATIONS: 30 pound weight loss in 5 months, history pyelonephritis, sigmoid colitis. CTDI: vol (mGy) 5.09 DLP: (mGycm) 257. Technique: Multiple axial sections of the abdomen and pelvis have been obtained. 64 slice high-resolution scanner used. 3 mm axial sections have been obtained, post intravenous injection 60 cc Isovue 370. 2-D sagittal, coronal reconstructions obtained. Low dose protocols were performed. One or more of the following dose reduction techniques were used; automated exposure control, adjustment of the mA and/or KV according to patient size, use of iterative reconstruction technique. Findings: Minimal pericardial effusion. No focal liver or splenic lesions. Absent gallbladder. Common bile duct 4 mm. No pancreatic edema. 20 mm right adrenal nodule No renal or ureteral calculi, no hydronephrosis Aorta normal size No bowel obstruction Diffuse wall thickening involving the sigmoid colon and rectum Urinary bladder contracted around a Bennett catheter Enlarged fundus of uterus with uterine fundal mike defined masses and calcification, the largest mass at least 35 mm Moderate osteopenia IMPRESSION: Fat-containing small right adrenal nodule. No renal or ureteral calculi, no hydronephrosis No pericecal inflammatory change Wall thickening involving the sigmoid colon and rectum, nonspecific colitis proctitis Number clinical correlation advised Recommend pelvic sonography to assess uterine fundal masses
== END | disposition home or self-care (01) ==
PROVIDERS: PCP Hospitalist; Referring Provider Hospitalist; Visit Provider Hospitalist
DX: E27.8 Other specified disorders of adrenal gland (principal); K63.89 Other specified diseases of intestine
CPT/HCPCS: 74177; A4649; Q9967